=== PATIENT | female | born 1985 | race Caucasian/White ===

== ENCOUNTER 2024-07-06 13:45 | Emergency (ER) | payer OTHER ==
--- OUTSIDE RECORDS SUMMARY | 2024-07-06 13:48 | XMS REPORT | Continuity of Care Document ---
Author Name Unknown Address [address] [facility] [address] [place] [address] [facility] Address [address] [facility] [address] [place] [address] Care Team Providers Care Lead Web Application Developer Name Role Phone Emily Gordillo Primary Care Physician [phone] Medications Ordered Medication Name Filled Medication Name Start Date Stop Date Current Medication? Ordering Clinician Indication Dosage Frequency Signature (SIG) Comments Components Source ciprofloxac in 0.3 % eye drops 04-06 00:00: 00 Yes % Jamar Rivas ciprofloxac in 0.3 % eye drops 04-05 00:00: 00 Yes % Jamar Rivas Immunizations Ordered Immunization Name Filled Immunization Name Date Status Comments Source Tdap Tdap 2024-06-28 00:00:00 Completed Jamar Victorino Rob Vital Signs Vital Name Observation Time Observation Value Comments S ource Heart Rate 2024-06-28 09:41:00 92.00 /min Lily Rivas Respiratory Rate 2024-06-28 09:41:00 18.00 /min Jamar Rivas BP Systolic 2024-06-28 09:41:00 114 mm[Hg] Alonzo Rivas BP Diastolic 2024-06-28 09:41:00 79 mm[Hg] Yash Rivas Weight Measured 2024-06-28 09:41:00 123.00 pounds Jamar Rivas Height Measured 2024-06-28 09:41:00 69.00 inches Jamar Rivas Body Temperature 2024-06-28 09:41:00 98.00 degrees Jamar Rivas BP Systolic 2024-04-05 16:03:00 111 mm[Hg] Alonzo hen Victorino Rivas BP Diastolic 2024-04-05 16:03:00 73 mm[Hg] Yash Rivas Weight Measured 2024-04-05 16:03:00 135.00 pounds Jamar Rivas Height Measured 2024-04-05 16:03:00 69.00 inches Jamar Rivas Body Temperature 2024-04-05 16:03:00 98.30 degrees Jamar Rivas Heart Rate 2024-04-05 16:03:00 78.00 /min Lily Rivas Respiratory Rate 2024-04-05 16:03:00 Jamar Rivas Encounters Start Date/Time End Date/Time Encounter Type Admission Type Attending [facility] Care Department Encounter ID Source 2024-07-04 17:33:25 2024-07-04 17:33:25 Outpatient [facility] [id number] Jamar Rivas 2024-06-28 09:31:15 2024-06-28 09:31:15 Outpatient [facility] [id number] Jamar Rivas 2024-06-28 00:00:00 2024-06-28 00:00:00 Outpatient Visit [facility] [id number] Jamar Rivas 2024-04-05 15:49:22 2024-04-05 15:49:22 Outpatient [facility] [id number] Jamar Rivas Notes Date/Time Note Provider Source Jamar Gleason. [facility]
--- NOTE | 2024-07-06 14:52 | RAD REPORT ---
EXAMINATION: ONE VIEW CHEST XR CLINICAL INDICATION: SOB TECHNIQUE: Frontal chest projection is submitted. Examination is limited by patient positioning and t echnique. COMPARISON: No prior exam. FINDINGS: The lungs are well inflated and clear. The heart is normal in size. No displaced fractures identified . Spinal hardware noted spanning the thoracic spine with mild dextro scoliosis. IMPRESSION: No acute intrathoracic abnormalities.
[2024-07-06 15:15] LABS: Absolute Lymphocytes (CBC) 0.4 K/uL (0.7-4.9); Absolute Monocytes 0.5 K/uL (0.1-1.3); Absolute Neutrophil 2.9 K/uL (1.8-8.0); Basophils % 0.8 % (0-1.3); Eosinophils % 0.1 % (0-4.4); Hematocrit 27.8 % (36.0-45.0); Hemoglobin 9.8 g/dL (12.0-15.0); MCH 36.2 pg (27.0-35.0); MCHC 35.3 g/dL (32.0-36.0); MCV 102.5 fL (80-100); MPV 9.6 fL (7.6-11.3); Monocytes % 12.8 % (3.3-12.3); Neutrophils % 76.3 % (41.7-73.7); Nucleated Red Blood Cells % 0.1 % (0-0); Platelets 68 thou/uL (152-406); RBC Red Blood Cell Count 2.71 M/uL (3.86-4.86); Red Cell Distribution Width 16.8 % (12.1-15.2)
[2024-07-06 15:21] LABS: PTT, Activated Partial Thromb 34.2 SECONDS (24.3-36.9); Protime INR 1.72
[2024-07-06 15:31] LABS: Albumin 2.9 g/dL (3.4-5.0); Albumin/Globulin Ratio 0.6 (1.1-1.8); Bilirubin Direct 11.4 mg/dL (0-0.2); Globulin 4.6 g/dL (2.3-3.5); Protein, Total 7.5 g/dL (6.4-8.2); Troponin High Sensitivity 3.6 pg/mL (<58.9)
[2024-07-06 15:37] LABS: Anion Gap 19.1 mEq/L (5.0-15.0); Bilirubin Total 16.4 mg/dL (0.2-1.0); Magnesium 1.3 mg/dL (1.6-2.4); Potassium 3.1 mEq/L (3.5-5.1)
--- NOTE | 2024-07-06 16:57 | RAD REPORT ---
EXAMINATION: CTA CHEST PE CLINICAL INDICATION: shortness of breath TECHNIQUE: This examination was performed according to an angiographic protocol with 3D post-processi ng. This involves 3D reconstructions, MIPs, volume rendered images and/or shaded surface rendering. One or more of the following dose reduction techniques were used: Automated exposure control, adjustm ent of the mA and/or kV according to patient size, and/or iterative reconstruction. Unless otherwise specified, incidental findings do not require dedicated imaging follow-up. COMPARISON: No prior exam. FINDINGS: PULMONARY ARTERIES: Normal caliber. No evidence of pulmonary emboli to the subsegmental level. THORACIC AORTA: Normal caliber and configuration. LUNGS: No evidence of airspace or interstitial process. No nodules. Minimal scarring posterior right upper lobe. PLEURA: No pleural effusion. No pneumothorax. MEDIASTINUM AND LYMPH NODES: No mediastinal mass or fluid collection. Normal size mediastinal, hilar, and axillary lymph nodes. OSSEOUS STRUCTURES AND CHEST WALL: Intact. UPPER ABDOMEN: Hepatomegaly with severe fatty infiltration of the liver noted. Probable splenomegaly. Thoracic spine hardware. IMPRESSION: No evidence of pulmonary emboli to the subsegmental level. Hepatomegaly with severe fatty infiltration of the liver and probable splenomegaly.
--- NOTE | 2024-07-06 16:59 | RAD REPORT ---
EXAMINATION: CT ABDOMEN AND PELVIS WITH CONTRAST CLINICAL INDICATION: ABDOMINAL DISTENTION TECHNIQUE: CT abdomen and pelvis was performed, after the administration of IV contrast, as per [facility] protocol. Axial, sagittal and coronal reconstructions were obtained. One or more of the following dose reduction techniques were used: Automated exposure control, adjustment of the mA and k V according to patient size, and iterative reconstruction. Unless otherwise specified, incidental findings do not require dedicated imaging follow-up. COMPARISON: No prior exam. FINDINGS: LOWER CHEST: The visualized lung bases are clear. LIVER: The liver is enlarged with advanced steatosis present technically involving the right lobe of the liver. Nonvisualized gallbladder. SPLEEN: Mild to moderate splenomegaly. PANCREAS: No mass, ductal dilation, or esther-pancreatic fluid. ADRENALS: Normal; no mass. KIDNEYS: Normal size and contour. No hydronephrosis. GASTROINTESTINAL TRACT: No evidence of free air, significant intra-abdominal free fluid, bowel obstru ction or abscess. APPENDIX: Normal appendix. LYMPH NODES: No lymphadenopathy. MUSCULOSKELETAL: Hardware is in place thoracic spine. ADDITIONAL FINDINGS: None. IMPRESSION: Marked hepatomegaly with severe steatosis predominantly involving the right lobe of the liver. Noneme rgent follow-up utilizing MRI liver protocol may be helpful. [id number] splenomegaly.
--- NOTE | 2024-07-06 17:04 | ER ---
Nurse's Notes [facility] Name: Rylee Thomas Age: 38 yrs Sex: Female : 1985 Arrival Date: 07/06/2024 Time: 13:45 Bed 8 Private MD: Diagnosis: Hepatic failure, unspecified without coma;Hypokalemia;Hypomagnesemia Presentation: 07/06 14:32 Chief complaint: Patient states: Shortness of breath, abdominal swelling, yellowing of ph skin and eyes, bruising easily, N/V admits to drinking alcohol regularly, wine and liquor. Last drink a few days ago. Coronavirus screen: Vaccine status: Patient reports being unvaccinated. Ebola Screen: No symptoms or risks identified at this time. Initial Sepsis Screen: Does the patient meet any 2 criteria? No. Patient's initial sepsis screen is negative. Does the patient have a suspected source of infection? No. Patient's initial sepsis screen is negative. Risk Assessment: Do you want to hurt yourself or someone else? Patient reports no desire to harm self or others. Onset of symptoms was July 06, 2024. 14:32 Method Of Arrival: Ambulatory ph 14:32 Acuity: NIDHI 2 ph Triage Assessment: 14:36 General: Appears in no apparent distress. ill, slender, well groomed, Behavior is calm, ph cooperative. Pain: Complains of pain in abdomen. Respiratory: Reports shortness of breath at rest. GI: Abdomen is noted to have ascites. Derm: Skin is jaundiced. 19:30 Respiratory: Onset: The symptoms/episode began/occurred this morning, the patient has br2 moderate shortness of breath. Historical: - Allergies: 14:35 No Known Allergies; ph - PMHx: 14:35 None; ph - PSHx: 14:35 partial hysterectomy; ph - Immunization history:: Adult Immunizations unknown. - Infectious Disease History:: Denies. - Social history:: Smoking status: Patient denies any tobacco usage or history of. Screenin:39 [facility] ED Fall Risk Assessment (Adult) History of falling in the last 3 months, mb9 including since admission No falls in past 3 months (0 pts) Confusion or Disorientation No (0 pts) Intoxicated or Sedated No (0 pts) Impaired Gait No (0 pts) Mobility Assist Device Used No (0 pt) Altered Elimination No (0 pt) Score/Fall Risk Level 0 - 2 = Low Risk Oriented to surroundings, Maintained a safe environment, Educated pt \T\ family on fall prevention, incl call for assistance when getting out of bed. Abuse screen: Denies threats or abuse. Nutritional screening: No deficits noted. Tuberculosis screening: No symptoms or risk factors identified. Assessment: 14:38 General: Appears uncomfortable, Behavior is calm, cooperative. Pain: Complains of pain mb9 in abdomen. Neuro: Hagen Agitation-Sedation Scale (RASS): 0 - Alert and Calm Level of Consciousness is awake, alert, obeys commands, Oriented to person, place, time, situation, Appropriate for age. Cardiovascular: Patient's skin is warm and dry. Rhythm is regular. Respiratory: Airway is patent Respiratory effort is even, unlabored, Respiratory pattern is regular, symmetrical, Breath sounds are clear bilaterally. GI: Abdomen is round distended, Bowel sounds present X 4 quads. Abd is rigid X 4 quads. : No signs and/or symptoms were reported regarding the genitourinary system. EENT: No signs and/or symptoms were reported regarding the EENT system. Derm: Skin is jaundiced. Musculoskeletal: Range of motion: intact in all extremities. 15:57 Reassessment: No changes from previously documented assessment. Patient and/or family mb9 updated on plan of care and expected duration. Pain level reassessed. Patient is alert, oriented x 3, equal unlabored respirations, skin warm/dry/pink. 16:51 Reassessment: No changes from previously documented assessment. Patient and/or family mb9 updated on plan of care and expected duration. Pain level reassessed. Patient is alert, oriented x 3, equal unlabored respirations, skin warm/dry/pink. 18:30 Reassessment: No changes from previously documented assessment. Patient and/or family mb9 updated on plan of care and expected duration. Pain level reassessed. Patient is alert, oriented x 3, equal unlabored respirations, skin warm/dry/pink. 19:10 Reassessment: Patient and/or family updated on plan of care and expected duration. Pain br2 level reassessed. Patient is alert, oriented x 3, equal unlabored respirations, skin warm/dry/pink. Patient states feeling better. Patient states symptoms have improved. GI: Abdomen is round distended, Bowel sounds present X 4 quads. Abd is rigid X 4 quads. Vital Signs: 14:32 BP 116 / 95; Pulse 88; Resp 18; Temp 97.8; Pulse Ox 99% on R/A; Weight 55.34 kg; Height ph 5 ft. 9 in. ; 15:57 BP 105 / 68; Pulse 101; Resp 16; Pulse Ox 100% on R/A; mb9 16:51 BP 120 / 71; Pulse 99; Resp 15; Pulse Ox 100% on R/A; mb9 18:30 BP 104 / 63; Pulse 114; Resp 15; Pulse Ox 98% on R/A; mb9 19:10 BP 110 / 73; Pulse 115; Resp 20; Temp 97.3; Pulse Ox 100% on R/A; Pain 4/10; br2 14:32 Body Mass Index 18.02 (55.34 kg, 175.26 cm) ph 19:10 Pain Scale: Adult br2 ED Course: 13:47 Patient arrived in ED. mg5 13:55 Renato Mars PA is PHCP. cp 13:55 Bobby Bermudez MD is Attending Physician. cp 14:28 Elo Alaniz, SCARLETT is Primary Nurse. mb9 14:28 Arm band placed on. mb9 14:35 Triage completed. ph 14:40 Placed in gown. Bed in low position. Call light in reach. Side rails up X 1. Provided mb9 Education on: press call light if needing anything. Client placed on continuous cardiac and pulse oximetry monitoring. NIBP monitoring applied. school lunch monitor on. 14:47 XRAY Chest (1 view) In Process Unspecified. EDMS 14:48 EKG done, by ED staff, reviewed by Renato HERCULES. mb9 14:48 No provider procedures requiring assistance completed. mb9 15:02 Accessed peripheral vein via ultrasound, utilizing dynamic ultrasound technique using ss 20G Nexia IV catheter ,sterile technique, per hospital protocol. Clean \T\ dry. Dressing intact. Good blood return. Flushes easily. 15:03 Ptt, Activated Sent. ss 15:03 AMMONIA Sent. ss 15:03 Lipase Sent. ss 15:03 Urine W/Microscopic (UAM) Sent. ss 15:03 ETOH Level Sent. ss 16:52 CT Chest For PE Angio In Process Unspecified. EDMS 16:52 CT Abd/Pelvis - IV Contrast Only In Process Unspecified. EDMS 17:30 spoke with Yoana for initiation at the [facility]. bc6 18:13 doc to doc. bc6 19:12 Report given to Terri and Luz Marina. cm10 19:12 Report received from COLTEN. br2 21:15 Patient transferred, IV remains in place. br2 Administered Medications: 17:37 Drug: NS 0.9% IV 1000 ml IV at 1 bolus Per protocol; to be given as a bolus over 60 mb9 minutes Route: IV; Rate: 1 bolus; Site: right antecubital; 18:29 Follow up: Response: No adverse reaction; IV Status: Completed infusion mb9 19:45 Follow up: Response: No adverse reaction; IV Status: Completed infusion; IV Intake: br2 1000ml 17:37 Drug: NS 0.9% IV 1000 ml IV at 125 ml/hr continuous Route: IV; Rate: 125 ml/hr; Site: mb9 right antecubital; 18:30 Follow up: Response: No adverse reaction; IV Status: Infusion continued upon transfer mb9 18:29 Drug: Magnesium Sulfate IVPB 2 grams IVPB once over 2 hrs Route: IVPB; Infused Over: 2 mb9 hrs; Site: right antecubital; 18:30 Follow up: Response: No adverse reaction; IV Status: Infusion continued upon transfer mb9 20:30 Follow up: Response: No adverse reaction; IV Status: Completed infusion; IV Intake: br2 100ml 18:29 Drug: Potassium PO Effervescent Tablet 50 mEq PO once; dissolve in 4 ounces of water or mb9 juice Route: PO; 19:15 Follow up: Response: No adverse reaction br2 19:41 Drug: Ativan IVP 1 mg IVP once Route: IVP; Site: right antecubital; br2 20:30 Follow up: Response: No adverse reaction br2 Medication: 14:48 VIS not applicable for this client. mb9 Intake: 19:45 IV: 1000ml; Total: 1000ml. br2 20:30 IV: 100ml; Total: 1100ml. br2 Outcome: 17:04 ER care complete, transfer ordered by cp 21:15 Transferred by ground EMS to [facility], Transfer form completed. br2 X-rays sent w/ patient. 21:15 Condition: improved 21:15 Instructed on the need for transfer, Demonstrated understanding of instructions, 21:15 Patient left the ED. br2 Signatures: Dispatcher [employer] EDMS Shawanda Burgess, RN RN ss Pamela Hsu RN RN Renato Price PA PA cp Wilkerson, Elo Venegas, RN RN mb9 Erica Prado 6 Elidia Carrasco RN RN cm10 Leslee Gallagher 5 Luz Marina London RN RN br2 Corrections: (The following items were deleted from the chart) 21:42 21:41 Patient left the ED. br2 br2
--- NOTE | 2024-07-06 17:04 | EDPHYS ---
Physician Documentation [facility] Name: Rylee Thomas Age: 38 yrs Sex: Female : 1985 Arrival Date: 07/06/2024 Time: 13:45 Bed 8 Private MD: ED Physician Bobby Bermudez HPI: 07/06 14:25 This 38 yrs old Female presents to ER via Ambulatory with complaints of Shortness Of cp Breath, Abdominal Pain. 14:25 The patient has shortness of breath at rest. Onset: The symptoms/episode began/occurred cp yesterday. 14:25 Associated signs and symptoms: Pertinent positives: abdominal distension. cp 14:25 Duration: The symptoms are continuous, and are steadily getting worse. cp Historical: - Allergies: 14:35 No Known Allergies; ph - PMHx: 14:35 None; ph - PSHx: 14:35 partial hysterectomy; ph - Immunization history:: Adult Immunizations unknown. - Infectious Disease History:: Denies. - Social history:: Smoking status: Patient denies any tobacco usage or history of. ROS: 14:30 Constitutional: Negative for body aches, chills, fever, poor PO intake, cp 14:30 Respiratory: Positive for shortness of breath, at rest. cp 14:30 ENT: Negative for drainage from ear(s), ear pain, sore throat, difficulty swallowing, cp difficulty handling secretions, 14:30 Cardiovascular: Negative for chest pain, 14:30 Abdomen/GI: Positive for abdominal distension, 14:30 Neuro: Negative for altered mental status, 14:30 All other systems are negative, Exam: 14:33 Constitutional: The patient appears in no acute distress, alert, awake, cp non-diaphoretic, non-toxic, well developed, well nourished, 14:33 Head/Face: Normocephalic, atraumatic. cp 14:33 Eyes: Periorbital structures: appear normal, Pupils: equal, round, and reactive to light and accomodation, Conjunctiva: normal, no exudate, no injection, Sclera: icterus, is present, Lids and lashes: appear normal, bilaterally, 14:33 ENT: External ear(s): are unremarkable, Nose: is normal, Mouth: Lips: moist, Oral mucosa: moist, Posterior pharynx: Airway: no evidence of obstruction, patent, 14:33 Chest/axilla: Inspection: normal, 14:33 Cardiovascular: Rate: tachycardic, Rhythm: regular, 14:33 Respiratory: the patient does not display signs of respiratory distress, Respirations: normal, no use of accessory muscles, no retractions, labored breathing, is not present, Breath sounds: are clear throughout, no decreased breath sounds, no stridor, no wheezing, 14:33 Abdomen/GI: Inspection: distension, that is mild, Palpation: abdomen is soft and non-tender, in all quadrants, Liver: is firm, is enlarged, 14:33 Skin: cellulitis, is not appreciated, 14:33 Neuro: Orientation: to person, place \T\ time. 14:50 ECG was reviewed by the Attending Physician. Vital Signs: 14:32 BP 116 / 95; Pulse 88; Resp 18; Temp 97.8; Pulse Ox 99% on R/A; Weight 55.34 kg; Height ph 5 ft. 9 in. ; 15:57 BP 105 / 68; Pulse 101; Resp 16; Pulse Ox 100% on R/A; mb9 16:51 BP 120 / 71; Pulse 99; Resp 15; Pulse Ox 100% on R/A; mb9 18:30 BP 104 / 63; Pulse 114; Resp 15; Pulse Ox 98% on R/A; mb9 19:10 BP 110 / 73; Pulse 115; Resp 20; Temp 97.3; Pulse Ox 100% on R/A; Pain 4/10; br2 14:32 Body Mass Index 18.02 (55.34 kg, 175.26 cm) ph 19:10 Pain Scale: Adult br2 MDM: 14:23 Medical Screening Exam initiated cp 17:10 Data reviewed: vital signs, nurses notes, lab test result(s), EKG, radiologic studies. 07/06 14:22 Order name: Basic Metabolic Panel; Complete Time: 16:24 07/06 16:24 Interpretation: Normal except: NA 134; CL 95; CRE 0.47; K 3.1; ANION GAP 19.1. 07/06 14:22 Order name: CBC with Diff; Complete Time: 18:15 07/06 16:25 Interpretation: Normal except: WBC 3.80; RBC 2.71; HGB 9.8; HCT 27.8; MCV 102.5; MCH cp 36.2; PLT 68; RDW 16.8; SULAIMAN% 76.3; LYM% 10.0; MN% 12.8; LYMA 0.4. 07/06 14:22 Order name: LFT's; Complete Time: 16:24 cp 07/06 16:26 Interpretation: Normal except: ALK 200; BILID 11.4; ALB 2.9; GLOB 4.6; A/G 0.6; AST cp 252; BILIT 16.4; IBILI, CALC 5.0. 07/06 14:22 Order name: Magnesium; Complete Time: 16:24 cp 07/06 18:15 Interpretation: Reviewed. 07/06 14:22 Order name: NT PRO-BNP; Complete Time: 16:24 cp 07/06 14:22 Order name: PT-INR; Complete Time: 16:24 cp 07/06 14:22 Order name: Troponin HS; Complete Time: 16:24 07/06 14:22 Order name: ETOH Level; Complete Time: 16:24 cp 07/06 14:22 Order name: Lipase; Complete Time: 16:24 cp 07/06 14:22 Order name: AMMONIA; Complete Time: 16:24 cp 07/06 14:22 Order name: Ptt, Activated; Complete Time: 16:24 07/06 17:26 Order name: CBC Smear Scan; Complete Time: 18:15 EDMS 07/06 14:22 Order name: XRAY Chest (1 view); Complete Time: 14:56 cp 07/06 14:56 Interpretation: Report review. 07/06 16:28 Order name: CT Chest For PE Angio; Complete Time: 17:01 cp 07/06 16:28 Order name: CT Abd/Pelvis - IV Contrast Only; Complete Time: 17:01 cp 07/06 17:03 Interpretation: Report reviewed. 07/06 14:22 Order name: Cardiac monitoring; Complete Time: 14:28 cp 07/06 14:22 Order name: EKG - Nurse/Tech; Complete Time: 15:51 cp 07/06 14:22 Order name: IV Saline Lock; Complete Time: 15:03 cp 07/06 14:22 Order name: Labs collected and sent; Complete Time: 15:03 07/06 14:22 Order name: O2 Per Protocol; Complete Time: 14:28 cp 07/06 14:22 Order name: O2 Sat Monitoring; Complete Time: 14:28 cp EC:50 Rate is 90 beats/min. Rhythm is regular. MS interval is normal. QRS interval is normal. cp QT interval is normal. Interpreted by me. Reviewed by me. Administered Medications: 17:37 Drug: NS 0.9% IV 1000 ml IV at 1 bolus Per protocol; to be given as a bolus over 60 mb9 minutes Route: IV; Rate: 1 bolus; Site: right antecubital; 18:29 Follow up: Response: No adverse reaction; IV Status: Completed infusion mb9 19:45 Follow up: Response: No adverse reaction; IV Status: Completed infusion; IV Intake: br2 1000ml 17:37 Drug: NS 0.9% IV 1000 ml IV at 125 ml/hr continuous Route: IV; Rate: 125 ml/hr; [facility] right antecubital; 18:30 Follow up: Response: No adverse reaction; IV Status: Infusion continued upon transfer mb9 18:29 Drug: Magnesium Sulfate IVPB 2 grams IVPB once over 2 hrs Route: IVPB; Infused Over: 2 mb9 hrs; Site: right antecubital; 18:30 Follow up: Response: No adverse reaction; IV Status: Infusion continued upon transfer mb9 20:30 Follow up: Response: No adverse reaction; IV Status: Completed infusion; IV Intake: br2 100ml 18:29 Drug: Potassium PO Effervescent Tablet 50 mEq PO once; dissolve in 4 ounces of water or mb9 juice Route: PO; 19:15 Follow up: Response: No adverse reaction br2 19:41 Drug: Ativan IVP 1 mg IVP once Route: IVP; Site: right antecubital; br2 20:30 Follow up: Response: No adverse reaction br2 Disposition: 07/07 09:02 Co-signature as Attending Physician, Bobby Bermudez MD I reviewed the patient's care rt provided by the Advanced Practice Provider and agree with the diagnosis and treatment plan. Disposition Summary: 07/06/24 17:04 Transfer Ordered Notes: Transfer Location: [facility] cp Reason: Higher level of care cp Condition: Stable cp Problem: new cp Symptoms: have improved cp Accepting Physician: DR Solorzano(07/06/24 21:41) br2 Diagnosis - Hepatic failure, unspecified without coma cp - Hypokalemia cp - Hypomagnesemia cp Forms: - Medication Reconciliation Form cp - SBAR form cp Signatures: Dispatcher [employer] Pamela Guidry, RN RN ph Renato Mars PA PA cp Katty, Elo Venegas RN RN mb9 Bobby Bermudez MD MD rt Luz Marina London, RN RN br2 Corrections: (The following items were deleted from the chart) 07/06 14:24 14:23 BASIC METABOLIC PANEL+C.LAB.BRZ ordered. EDMS EDMS 14:24 14:23 CBC+H.LAB.BRZ ordered. EDMS EDMS 14:24 14:23 HEPATIC FUNCTION+C.LAB.BRZ ordered. EDMS EDMS 14:24 14:23 MAGNESIUM+C.LAB.BRZ ordered. EDMS EDMS 14:24 14:23 PROBNP+C.LAB.BRZ ordered. EDMS EDMS 14:24 14:23 PROTIME (+INR)+COAG.LAB.BRZ ordered. EDMS EDMS 14:24 14:23 Troponin High Sensitivity+C.LAB.BRZ ordered. EDMS EDMS 14:24 14:23 ETHANOL+C.LAB.BRZ ordered. EDMS EDMS 14:24 14:23 URINE DRUG SCREEN+UC.LAB.BRZ ordered. EDMS EDMS 14:24 14:23 Urinalysis W/Microscopic+U.LAB.BRZ ordered. EDMS EDMS 14:24 14:23 LIPASE+C.LAB.BRZ ordered. EDMS EDMS 14:24 14:24 AMMONIA+C.LAB.BRZ ordered. EDMS EDMS 14:24 14:24 PTT, ACTIVATED+COAG.LAB.BRZ ordered. EDMS EDMS 14:54 14:25 The patient has shortness of breath with light activity, cp cp 18:46 17:04 doctor cp cp 21:41 18:46 DR Solorzano cp br2
[2024-07-06 17:24] LABS: White Blood Cell Scan OK (OK)
[2024-07-06 17:25] LABS: Anisocytosis 1+; Blood Morphology Comment NOTED (NOT SEEN); Platelet Estimate DECR; Poikilocytosis 1+
[2024-07-06] MEDS ORDERED: NA CHLORIDE 0.9% 2,000 ML ONE (17:34)
[2024-07-06] MEDS ORDERED: Magnesium Sulfate 2gm IVPB 2 G/50 ML BAG IV ONE (18:23)
[2024-07-06] MEDS ORDERED: POTASSIUM 25 MEQ EFFERV TAB ONE (18:23)
[2024-07-06] MEDS ORDERED: LORazepam 2 MG/ML VIAL ONE (19:23)
[2024-07-07 00:38] VITALS: BP 110/73; TEMP 97.3; O2SAT 100
== END 2024-07-06 21:41 | disposition short-term general hospital (02) ==
LOC: ER 13:45
DX: K72.90 Hepatic failure, unspecified without coma (principal); E87.6 Hypokalemia; E83.42 Hypomagnesemia; R14.0 Abdominal distension (gaseous)
CPT/HCPCS: 96361; 93005; 85025; 80048; 36415; 82140; 83735; 85610; 80076; 85730; 84484; 83690; 83880; 71275; 74177; 71045; 96375; 96374; 99285; 82077; Q9967; J3475; J7030

== ENCOUNTER 2024-08-19 05:22 | Emergency (ER) | payer OTHER ==
[2024-08-19] MEDS ORDERED: KETOROLAC 30 MG/ML INJ ONE (06:30)
[2024-08-19] MEDS ORDERED: MORPHINE 4 MG/ML SYR ONE (06:30)
[2024-08-19] MEDS ORDERED: methocarbamoL 750 MG TAB ONE (06:30)
[2024-08-19] MEDS ORDERED: NA CHLORIDE 0.9% 500 ML ONE (06:31)
[2024-08-19 06:41] LABS: Absolute Basophils 0.1 K/uL (0-0.5); Absolute Eosinophils 0.1 K/uL (0-0.5); Absolute Lymphocytes (CBC) 2.6 K/uL (0.7-4.9); Absolute Neutrophil 6.1 K/uL (1.8-8.0); Basophils % 0.6 % (0-1.3); Hematocrit 35.2 % (36.0-45.0); Hemoglobin 12.1 g/dL (12.0-15.0); Lymphocytes % 26.7 % (15.3-44.8); MCH 35.2 pg (27.0-35.0); MCHC 34.3 g/dL (32.0-36.0); MCV 102.6 fL (80-100); MPV 9.1 fL (7.6-11.3); Monocytes % 10.4 % (3.3-12.3); Neutrophils % 61.3 % (41.7-73.7); Platelets 204 thou/uL (152-406); RBC Red Blood Cell Count 3.43 M/uL (3.86-4.86); Red Cell Distribution Width 14.3 % (12.1-15.2)
[2024-08-19 07:01] LABS: ALT/SGPT 151 U/L (13-56); AST/SGOT 203 U/L (15-37); Albumin 2.6 g/dL (3.4-5.0); Albumin/Globulin Ratio 0.7 (1.1-1.8); Alkaline Phosphatase 104 U/L (45-117); Anion Gap 9.4 mEq/L (5.0-15.0); BUN Blood Urea Nitrogen 15 mg/dL (7-18); Bicarbonate 26 mEq/L (21-32); Bilirubin Total 1.9 mg/dL (0.2-1.0); Glomerular Filtration Rate 140 ml/min (=/>90); Glucose Level 88 mg/dL (74-106); Lipase 74 U/L (13-75); Potassium 3.4 mEq/L (3.5-5.1); Protein, Total 6.6 g/dL (6.4-8.2); Sodium Level 140 mEq/L (136-145)
[2024-08-19 07:02] LABS: Creatine Phosphokinase < 15 U/L (26-192)
--- NOTE | 2024-08-19 07:11 | RAD REPORT ---
EXAM: AP view(s) of the abdomen Abdomen Single View HISTORY: spinal pain COMPARISON: 07/06/2024 FINDINGS: Nonobstructive bowel gas pattern.. Large colonic stool burden. No suspicious calcifications are seen. No acute osseous abnormality. Ibarra rods in the thoracic spine. Levoconvex curvature. Other: Hepatosplenomegaly. IMPRESSION: Nonobstructive bowel gas pattern. Likely constipation. Hepatosplenomegaly, also noted on the CT from 07/06/2024.
--- NOTE | 2024-08-19 07:12 | RAD REPORT ---
EXAM: Chest Single View HISTORY: spinal pain COMPARISON: 07/06/2024 FINDINGS: LUNGS/PLEURA: The lungs are clear. No pleural effusions or pneumothorax. No pulmonary edema. MEDIASTINUM: The mediastinal silhouette is within normal limits. CARDIAC: The cardiac silhouette is within normal limits. UPPER ABDOMEN: No significant abnormality. BONES: No acute fracture. Dextroscoliotic curvature with Ibarra rods in place. LINES/TUBES/OTHER: N/A IMPRESSION: No evidence of acute cardiopulmonary disease.
--- NOTE | 2024-08-19 07:21 | ER ---
Nurse's Notes [facility] Name: Rylee Thomas Age: 38 yrs Sex: Female : 1985 Arrival Date: 08/19/2024 Time: 05:22 Bed 5 Private MD: Diagnosis: Acute exertional pain left lower extremity, Acute musculoskeletal pain left thigh and buttock Presentation: 08/19 05:36 Chief complaint: Patient states: leg and hip pain since this morning. Coronavirus kj2 screen: Client denies travel out of the [place] in the last 14 days. Ebola Screen: No symptoms or risks identified at this time. Initial Sepsis Screen: Does the patient meet any 2 criteria? No. Patient's initial sepsis screen is negative. Does the patient have a suspected source of infection? No. Patient's initial sepsis screen is negative. Risk Assessment: Do you want to hurt yourself or someone else? Patient reports no desire to harm self or others. Onset of symptoms was August 19, 2024. 05:36 Method Of Arrival: Ambulatory kj2 05:36 Acuity: NIDHI 3 kj2 Triage Assessment: 05:40 General: Appears uncomfortable, Behavior is cooperative. Pain: Complains of pain in kj2 legs and hip pain Pain currently is 8 out of 10 on a pain scale. Neuro: Level of Consciousness is awake, alert, Oriented to person, place, time, situation. Cardiovascular: Patient's skin is warm and dry. Respiratory: Airway is patent Respiratory effort is even, unlabored. GI: Abdomen is distended. : No deficits noted. 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 - Infectious Disease History:: Denies. - Social history:: Smoking status: Patient denies any tobacco usage or history of. - Family history:: not pertinent. Screenin:47 [facility] ED Fall Risk Assessment (Adult) History of falling in the last 3 months, kj2 including since admission No falls in past 3 months (0 pts) Confusion or Disorientation No (0 pts) Intoxicated or Sedated No (0 pts) Impaired Gait No (0 pts) Mobility Assist Device Used No (0 pt) Altered Elimination No (0 pt) Score/Fall Risk Level 0 - 2 = Low Risk Maintained a safe environment, Hourly rounding (assess needs \T\ fall precautionary measures) done. Abuse screen: Denies threats or abuse. Denies injuries from another. Nutritional screening: No deficits noted. Tuberculosis screening: No symptoms or risk factors identified. Assessment: 05:43 General: See Triage Assessment. Pain: Complains of pain in bilat legs, hips Pain kj2 currently is 8 out of 10 on a pain scale. Neuro: Level of Consciousness is awake, alert, obeys commands, Oriented to person, place, time, situation. Cardiovascular: Patient's skin is warm and dry. Respiratory: Airway is patent Respiratory effort is even, unlabored. GI: Abdomen is distended. : No signs and/or symptoms were reported regarding the genitourinary system. 06:45 Reassessment: Patient appears in no apparent distress at this time. Patient and/or kj2 family updated on plan of care and expected duration. Pain level reassessed. Patient is alert, oriented x 3, equal unlabored respirations, skin warm/dry/pink. General:. 07:30 Reassessment: Patient appears in no apparent distress at this time. Patient and/or jl7 family updated on plan of care and expected duration. Pain level reassessed. Patient is alert, oriented x 3, equal unlabored respirations, skin warm/dry/pink. pain rated 3/10 at this time. Vital Signs: 05:36 BP 105 / 66; Pulse 97; Resp 18; Temp 99.3; Pulse Ox 100% ; Weight 57.15 kg; Height 5 kj2 ft. 9 in. ; Pain 9/10; 06:46 BP 119 / 88; Pulse 112; Resp 18; Temp 98; Pulse Ox 100% ; kj2 07:30 BP 110 / 85; Pulse 105; Resp 15; Pulse Ox 100% ; Pain 3/10; jl7 05:36 Body Mass Index 18.61 (57.15 kg, 175.26 cm) kj2 05:36 Pain Scale: Adult kj2 07:30 Pain Scale: Adult jl7 Cody Coma Score: 06:53 Eye Response: spontaneous(4). Motor Response: obeys commands(6). Verbal Response: sp4 oriented(5). Total: 15. ED Course: 05:23 Patient arrived in ED. jj6 05:25 Rebekah Kern, RN is Primary Nurse. kj2 05:29 Jean Carlos Warren MD is Attending Physician. sp4 05:39 Triage completed. kj2 05:48 Patient has correct armband on for positive identification. Bed in low position. Call kj2 light in reach. Provided Education on: call light. 05:49 Arm band placed on Patient placed in an exam room, on a stretcher. kj2 06:42 Lactate w/ 2H reflex if indic. Sent. kj2 06:48 Door closed. Noise minimized. Warm blanket given. vk 07:00 Inserted saline lock: 22 gauge in left antecubital area, using aseptic technique. jl7 ,using aseptic technique. IV placed by shift engineer staff Blood collected. Flushed with 10 mL NS. 07:03 Chest Single View XRAY In Process Unspecified. EDMS 07:03 Abdomen 1 View XRAY In Process Unspecified. EDMS 07:50 No provider procedures requiring assistance completed. IV discontinued, intact, jl7 bleeding controlled, No redness/swelling at site. Pressure dressing applied. Administered Medications: 07:53 Discontinued: ns 0.9% 500 ml IV at bolus once; to be given as a bolus over 30 minutes jl7 06:42 Drug: Ketorolac IVP 30 mg IVP once Route: IVP; Site: left antecubital; kj2 07:08 Follow up: Response: No adverse reaction kj2 06:42 Drug: Methocarbamol PO 1500 mg PO once Route: PO; kj2 07:07 Follow up: Response: No adverse reaction kj2 06:42 Drug: NS 0.9% IV 500 ml IV at bolus once; to be given as a bolus over 30 minutes Route: kj2 IV; Rate: bolus; Site: left antecubital; 07:00 Follow up: Response: Pt reports pain at the IV site while infusing, infusion stopped.; jl7 IV Status: IV converted to saline lock 07:00 Follow up: IV Status: Order to discontinue infusion jl7 07:00 Follow up: IV Status: Completed infusion jl7 06:43 Drug: morphine IVP or IV 4 mg IVP once over 4 mins Route: IVP; Infused Over: 4 mins; kj2 Site: left antecubital; 07:08 Follow up: Response: No adverse reaction kj2 Medication: 05:48 VIS not applicable for this client. kj2 Outcome: 07:20 Discharge ordered by . janie 07:57 Discharged to home ambulatory, jl7 07:57 Condition: stable 07:57 Discharge instructions given to patient, Instructed on discharge instructions, follow up and referral plans. medication usage, Demonstrated understanding of instructions, follow-up care, medications, Prescriptions given X 3, 07:57 Patient left the ED. jl7 Signatures: Dispatcher [employer] EDPablo Calderon RN RN jl7 Jelena Hastings Sergey, MD MD sp4 Elisa Campos Krystal, RN RN kj2
--- NOTE | 2024-08-19 07:21 | EDPHYS ---
Physician Documentation [facility] Name: Rylee Thomas Age: 38 yrs Sex: Female : 1985 Arrival Date: 08/19/2024 Time: 05:22 Bed 5 Private MD: ED Physician Jean Carlos Warren HPI: 08/19 05:29 This 38 yrs old Female presents to ER via Unassigned with complaints of sp4 SEVERE LEG PAIN, PT HAS H/O LIVER DISEASE. 06:53 38-year-old female with history of alcoholic steatohepatitis also history of scoliosis sp4 with Ibarra jalil repair, presents with moderate to severe pelvic and left thigh pain, after some physical exertion at home.. 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 - Infectious Disease History:: Denies. - Social history:: Smoking status: Patient denies any tobacco usage or history of. - Family history:: not pertinent. ROS: 06:53 Constitutional: Negative for fever, chills, and weight loss, positive for pelvic sp4 pain and left upper thigh pain 06:53 All other systems are negative, Exam: 06:53 Constitutional: This is a well developed, well nourished patient who is awake, alert, sp4 and in no acute distress. Head/Face: Normocephalic, atraumatic. Eyes: Pupils equal round and reactive to light, extra-ocular motions intact. Lids and lashes normal. Conjunctiva and sclera are not injected. Cornea within normal limits. Periorbital areas with no swelling, redness, or edema. ENT: Nares patent. No nasal discharge, no septal abnormalities noted. Tympanic membranes are normal and external auditory canals are clear. Oropharynx with no redness, swelling, or masses, exudates, or evidence of obstruction, uvula midline. Mucous membranes moist. Neck: Trachea midline, no thyromegaly or masses palpated, and no cervical lymphadenopathy. Supple, full range of motion without nuchal rigidity, or vertebral point tenderness. Chest/axilla: Normal chest wall appearance and motion. Nontender with no deformity. No lesions are appreciated. Cardiovascular: Regular rate and rhythm with a normal S1 and S2. No gallops, murmurs, or rubs. Normal PMI, no JVD. No pulse deficits. Respiratory: Lungs have equal breath sounds bilaterally, clear to auscultation and percussion. No rales, rhonchi or wheezes noted. No increased work of breathing, no retractions or nasal flaring. Abdomen/GI: Soft, with normal bowel sounds. No distension or tympany. No guarding or rebound. No evidence of tenderness throughout. Back: No spinal tenderness. No costovertebral tenderness. Skin: Warm, dry with normal turgor. Normal color with no rashes, no lesions, and no evidence of cellulitis. MS/ Extremity: Pulses equal, no cyanosis. Neurovascular intact. Full, normal range of motion. Neuro: Awake and alert, GCS 15, oriented to person, place, time, and situation. Cranial nerves II-XII grossly intact. Motor strength 5/5 in all extremities. Sensory grossly intact. Psych: Awake, alert, with orientation to person, place and time. Behavior, mood, and affect are within normal limits Vital Signs: 05:36 BP 105 / 66; Pulse 97; Resp 18; Temp 99.3; Pulse Ox 100% ; Weight 57.15 kg; Height 5 kj2 ft. 9 in. ; Pain 9/10; 06:46 BP 119 / 88; Pulse 112; Resp 18; Temp 98; Pulse Ox 100% ; kj2 07:30 BP 110 / 85; Pulse 105; Resp 15; Pulse Ox 100% ; Pain 3/10; jl7 05:36 Body Mass Index 18.61 (57.15 kg, 175.26 cm) kj2 05:36 Pain Scale: Adult kj2 07:30 Pain Scale: Adult jl7 Cody Coma Score: 06:53 Eye Response: spontaneous(4). Motor Response: obeys commands(6). Verbal Response: sp4 oriented(5). Total: 15. MDM: 05:34 Medical Screening Exam initiated sp4 08/19 05:47 Order name: Lactate w/ 2H reflex if indic.; Complete Time: 07:03 sp4 08/19 05:47 Order name: CK; Complete Time: 07:03 sp4 08/19 05:47 Order name: CBC with Diff; Complete Time: 06:53 sp4 08/19 05:47 Order name: CMP; Complete Time: 07:03 sp4 08/19 05:47 Order name: Lipase; Complete Time: 07:03 sp4 08/19 05:47 Order name: Test, Serum sp4 08/19 06:45 Order name: Chest Single View XRAY; Complete Time: 07:15 sp4 08/19 06:45 Order name: Abdomen 1 View XRAY; Complete Time: 07:15 sp4 08/19 05:47 Order name: IV Saline Lock; Complete Time: 06:41 sp4 08/19 05:47 Order name: Labs collected and sent; Complete Time: 06:41 sp4 Administered Medications: 07:53 Discontinued: ns 0.9% 500 ml IV at bolus once; to be given as a bolus over 30 minutes jl7 06:42 Drug: Ketorolac IVP 30 mg IVP once Route: IVP; Site: left antecubital; kj2 07:08 Follow up: Response: No adverse reaction kj2 06:42 Drug: Methocarbamol PO 1500 mg PO once Route: PO; kj2 07:07 Follow up: Response: No adverse reaction kj2 06:42 Drug: NS 0.9% IV 500 ml IV at bolus once; to be given as a bolus over 30 minutes Route: kj2 IV; Rate: bolus; Site: left antecubital; 07:00 Follow up: Response: Pt reports pain at the IV site while infusing, infusion stopped.; jl7 IV Status: IV converted to saline lock 07:00 Follow up: IV Status: Order to discontinue infusion jl7 07:00 Follow up: IV Status: Completed infusion jl7 06:43 Drug: morphine IVP or IV 4 mg IVP once over 4 mins Route: IVP; Infused Over: 4 mins; kj2 Site: left antecubital; 07:08 Follow up: Response: No adverse reaction kj2 Disposition Summary: 08/19/24 07:20 Discharge Ordered Notes: Low impact exercise is recommended Location: Home sp4 Problem: new sp4 Symptoms: have improved sp4 Condition: Stable sp4 Diagnosis - Acute exertional pain left lower extremity, Acute musculoskeletal pain left thigh sp4 and buttock Followup: sp4 - With: Private Physician - When: 7 - 10 days - Reason: Recheck today's complaints Discharge Instructions: - Discharge Summary Sheet sp4 - Musculoskeletal Pain sp4 Forms: - Work release form jl7 - Patient Portal Instructions sp4 Prescriptions: - Ibuprofen 600 mg Oral Tablet - take 1 tablet ORAL route every 6 hours As needed take with food; 30 tablet; sp4 Refills: 0, Product Selection Permitted - Tramadol 50 mg Oral tablet - take 1 tablet ORAL route every 8 hours as needed; 20 tablet; Refills: 0, sp4 Product Selection Permitted - methocarbamol 750 mg Oral tablet - take 2 tablets ORAL route every 8 hours for 3 days PRN muscle soreness; 60 sp4 tablet; Refills: 0, Product Selection Permitted Signatures: Dispatcher [employer] Pablo Canales, RN RN jl7 Jean Carlos Warren MD MD sp4 Rebekah Kern RN RN kj2 Corrections: (The following items were deleted from the chart) 05:47 05:47 LACTATE+C.LAB.BRZ ordered. EDMS EDMS 05:47 05:47 CREATINE PHOSPHOKINASE+C.LAB.BRZ ordered. EDMS EDMS 05:47 05:47 CBC+H.LAB.BRZ ordered. EDMS EDMS 05:47 05:47 COMPREHENSIVE METABOLIC PANEL+C.LAB.BRZ ordered. EDMS EDMS 05:47 05:47 LIPASE+C.LAB.BRZ ordered. EDMS EDMS 05:47 05:47 TEST, SERUM+SC.LAB.BRZ ordered. EDMS EDMS
[2024-08-19 10:25] VITALS: O2SAT 100
[2024-08-19 10:26] VITALS: TEMP 98
[2024-08-19 10:27] VITALS: BP 110/85
== END 2024-08-19 07:57 | disposition home or self-care (01) ==
LOC: ER 05:22
DX: M79.662 Pain in left lower leg (principal); M79.652 Pain in left thigh; K74.60 Unspecified cirrhosis of liver; M41.9 Scoliosis, unspecified
CPT/HCPCS: 85025; 36415; 82550; 84703; 83605; 83690; 80053; 74018; 71045; 96375; 96374; 99284; J7040

== ENCOUNTER 2024-09-02 02:33 | Emergency (ER) | payer OTHER ==
[2024-09-02] MEDS ORDERED: FLUORESCEIN SODIUM 1 MG/WRAP ONE (02:46)
[2024-09-02] MEDS ORDERED: TETRACAINE HCL 0.5% 4ML OPTH ONE (02:47)
[2024-09-02] MEDS ORDERED: TOBRAMYCIN SULF 0.3% OPTH OINT ONE (02:53)
--- NOTE | 2024-09-02 02:56 | EDPHYS ---
Physician Documentation [facility] Name: Rylee Thomas Age: 38 yrs Sex: Female : 1985 Arrival Date: 09/02/2024 Time: 02:33 Bed 5 Private MD: ED Physician Arias Adam HPI: 09/02 02:56 This 38 yrs old Female presents to ER via Ambulatory with complaints of Foreign Body In ms3 Eye - Left. 02:56 Danica Brandt, a 38-year-old female, presented to the Emergency Department with a ms3 complaint of a contact being stuck in her left eye, which began this morning around 1:00 to 1:30 AM. Patient denies pain. Patient denies any alleviating or inciting factors.. 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 - Infectious Disease History:: Denies. - Social history:: Smoking status: Patient denies any tobacco usage or history of. ROS: 02:56 Constitutional: Negative for fever, and chills. ms3 02:56 Cardiovascular: Negative for chest pain, and palpitations. Respiratory: Negative for shortness of breath, cough, wheezing, and pleuritic chest pain, Abdomen/GI: Negative for abdominal pain, nausea, vomiting, diarrhea, and constipation, MS/Extremity: Negative for injury and deformity, Skin: Negative for injury, rash, and discoloration, 02:56 Eyes: Positive for Foreign body sensation, Exam: 02:56 Constitutional: This is a well developed, well nourished patient who is awake, alert, ms3 and in no acute distress. Head/Face: Normocephalic, atraumatic. Cardiovascular: Regular rate and rhythm with a normal S1 and S2. No gallops, murmurs, or rubs. Normal PMI, no JVD. No pulse deficits. Respiratory: Lungs have equal breath sounds bilaterally, clear to auscultation and percussion. No rales, rhonchi or wheezes noted. No increased work of breathing, no retractions or nasal flaring. Abdomen/GI: Soft, non-tender, with normal bowel sounds. No distension or tympany. No guarding or rebound. No evidence of tenderness throughout. 02:56 Eyes: Periorbital structures: appear normal, Pupils: equal, round, and reactive to light and accomodation, Extraocular movements: no acute changes, Conjunctiva: normal, Corneas: are normal, no evidence of abrasion, no foreign body, Lids and lashes: appear normal, Vital Signs: 02:47 BP 118 / 83; Pulse 98; Resp 18; Temp 98.2; Pulse Ox 98% ; Weight 57.15 kg; Height 5 ft. cp4 9 in. ; Pain 0/10; 02:47 Body Mass Index 18.61 (57.15 kg, 175.26 cm) cp4 02:47 Pain Scale: Adult cp4 [place] Coma Score: 02:42 Eye Response: spontaneous(4). Motor Response: obeys commands(6). Verbal Response: dd2 oriented(5). Total: 15. Visual Acuity: 02:53 Left Eye Visual acuity 20/0, ; Right Eye Visual acuity 20/40, Normal; Both Eyes Visual cp4 acuity 20/40; With Lenses; MDM: 02:55 Medical Screening Exam initiated ms3 02:56 Differential diagnosis: Corneal abrasion of Foreign body in. Data reviewed: vital ms3 signs, nurses notes, and as a result, I will discharge patient. I considered the following discharge prescriptions or medication management in the emergency department Medications were administered in the Emergency Department. See MAR. Counseling: I had a detailed discussion with the patient and/or guardian regarding the historical points, exam findings, and any diagnostic results supporting the discharge/admit diagnosis, the need for outpatient follow up, to return to the emergency department if symptoms worsen or persist or if there are any questions or concerns that arise at home. Special discussion: I discussed with the patient/guardian in detail that at this point there is no indication for admission to the hospital. It is understood, however, that if the symptoms persist or worsen the patient needs to return immediately for re-evaluation. ED course: Left eyelid everted without visualization of foreign body, fluorescein stain and Faustin lamp used without visualization of corneal abrasion or foreign body. Patient to follow-up Dr. Aguilar in 2 to 3 days. Patient understands agrees with plan. All questions were answered. Return precautions discussed include worsening symptoms, or any other concerns.. 09/02 02:36 Order name: Eye Tray; Complete Time: 02:52 ms3 09/02 02:36 Order name: Fluoresene Opth strip; Complete Time: 02:52 ms3 09/02 02:36 Order name: Visual Acuity; Complete Time: 02:51 ms3 Administered Medications: 02:53 Drug: Tetracaine Ophthalmic Drops 0.5 % 1 drops Ophthalmic once Route: Ophthalmic; dd2 Site: left eye; 02:56 Not Given (Physician Discretion): tobramycindrops (0.3 %) 2 drops Ophthalmic once cp4 Disposition Summary: 09/02/24 02:55 Discharge Ordered Notes: Location: Home ms3 Condition: Stable ms3 Diagnosis - Person with feared health complaint in whom no diagnosis is made ms3 Followup: ms3 - With: David Aguilar MD - When: 2 - 3 days - Reason: Recheck today's complaints Discharge Instructions: - Discharge Summary Sheet ms3 - Eye Foreign Body, [id number] ms3 Forms: - Medication Reconciliation Form ms3 - Antibiotic Education ms3 - Prescription Opioid Use ms3 - Patient Portal Instructions ms3 - Leadership Thank You Letter ms3 Signatures: Arias Adam DO DO ms3 Terri Lora cp4 MALIK RAMIREZ RN RN dd2
--- NOTE | 2024-09-02 02:56 | ER ---
Nurse's Notes [facility] Name: Rylee Thomas Age: 38 yrs Sex: Female : 1985 Arrival Date: 09/02/2024 Time: 02:33 Bed 5 Private MD: Diagnosis: Person with feared health complaint in whom no diagnosis is made Presentation: 09/02 02:47 Chief complaint: Patient states: contact is stuck up in her left eye. Coronavirus cp4 screen: Client denies travel out of the [place] in the last 14 days. At this time, the client does not indicate any symptoms associated with coronavirus-19. Ebola Screen: Patient negative for fever greater than or equal to 101.5 degrees Fahrenheit, and additional compatible Ebola Virus Disease symptoms Patient denies exposure to infectious person. Patient denies travel to an Ebola-affected area in the 21 days before illness onset. No symptoms or risks identified at this time. Initial Sepsis Screen: Does the patient meet any 2 criteria? No. Patient's initial sepsis screen is negative. Does the patient have a suspected source of infection? No. Patient's initial sepsis screen is negative. Risk Assessment: Do you want to hurt yourself or someone else? Patient reports no desire to harm self or others. Onset of symptoms was September 02, 2024 at 01:00. 02:47 Method Of Arrival: Ambulatory cp4 02:47 Acuity: NIDHI 4 cp4 Triage Assessment: 02:49 General: Appears in no apparent distress. uncomfortable, Behavior is calm, cooperative, cp4 appropriate for age. Pain: Denies pain. 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 - Infectious Disease History:: Denies. - Social history:: Smoking status: Patient denies any tobacco usage or history of. Screenin:42 [facility] ED Fall Risk Assessment (Adult) History of falling in the last 3 months, dd2 including since admission No falls in past 3 months (0 pts) Confusion or Disorientation No (0 pts) Intoxicated or Sedated No (0 pts) Impaired Gait No (0 pts) Mobility Assist Device Used No (0 pt) Altered Elimination No (0 pt) Score/Fall Risk Level 0 - 2 = Low Risk Oriented to surroundings, Maintained a safe environment, Educated pt \T\ family on fall prevention, incl call for assistance when getting out of bed, Assessed \T\ reinforced patient's understanding of fall precautions, Hourly rounding (assess needs \T\ fall precautionary measures) done. Abuse screen: Denies threats or abuse. Nutritional screening: No deficits noted. Tuberculosis screening: No symptoms or risk factors identified. Assessment: 02:42 General: Appears in no apparent distress. Behavior is calm, cooperative, appropriate dd2 for age. Pain: Complains of pain in left eye Pain does not radiate. Pain currently is 3 out of 10 on a pain scale. Pain began suddenly. Neuro: No deficits noted. Level of Consciousness is awake, alert, obeys commands, Oriented to person, place, time, situation, Appropriate for age. Cardiovascular: No deficits noted. Respiratory: No deficits noted. Airway is patent Respiratory effort is even, unlabored, Respiratory pattern is regular, symmetrical. GI: No deficits noted. No signs and/or symptoms were reported involving the gastrointestinal system. : No deficits noted. No signs and/or symptoms were reported regarding the genitourinary system. EENT: Eyes are tearing on left eye Reports pain in left eye Pain is 3 out of 10 on a pain scale. EENT: Eyes. Derm: No deficits noted. No signs and/or symptoms reported regarding the dermatologic system. Musculoskeletal: No deficits noted. No signs and/or symptoms reported regarding the musculoskeletal system. Vital Signs: 02:47 BP 118 / 83; Pulse 98; Resp 18; Temp 98.2; Pulse Ox 98% ; Weight 57.15 kg; Height 5 ft. cp4 9 in. ; Pain 0/10; 02:47 Body Mass Index 18.61 (57.15 kg, 175.26 cm) cp4 02:47 Pain Scale: Adult cp4 Visual Acuity: 02:53 Left Eye Visual acuity 20/0, ; Right Eye Visual acuity 20/40, Normal; Both Eyes Visual cp4 acuity 20/40; With Lenses; [place] Coma Score: 02:42 Eye Response: spontaneous(4). Motor Response: obeys commands(6). Verbal Response: dd2 oriented(5). Total: 15. ED Course: 02:36 Patient arrived in ED. ra3 02:36 Arias Adam DO is Attending Physician. ms3 02:42 Patient has correct armband on for positive identification. Bed in low position. Call dd2 light in reach. Side rails up X 1. Provided Education on: EYE EXAM PROCEDURE. Client placed on continuous cardiac and pulse oximetry monitoring. NIBP monitoring applied. Door closed. Noise minimized. Warm blanket given. Pillow given. Verbal reassurance given. 02:42 Assist provider with eye exam of left eye. using fluorescein stain, Performed by Arias dd2 Kia COWART Patient tolerated well. Patient did not have IV access during this emergency room visit. Patient maintains SpO2 saturation greater than 95% on room air. 02:49 Triage completed. cp4 02:49 Arm band placed on right wrist. Patient placed in waiting room. cp4 02:55 David Aguilar MD is Referral Physician. ms3 02:58 MALIK RAMIREZ, RN is Primary Nurse. dd2 Administered Medications: 02:53 Drug: Tetracaine Ophthalmic Drops 0.5 % 1 drops Ophthalmic once Route: Ophthalmic; dd2 Site: left eye; 02:56 Not Given (Physician Discretion): tobramycindrops (0.3 %) 2 drops Ophthalmic once cp4 Medication: 02:42 VIS not applicable for this client. dd2 Outcome: 02:55 Discharge ordered by . ms3 03:07 Discharged to home ambulatory, dd2 03:07 Condition: good 03:07 Discharge instructions given to patient, Instructed on discharge instructions, follow up and referral plans. Demonstrated understanding of instructions, follow-up care, 03:07 Patient left the ED. dd2 Signatures: Arias Adam DO DO ms3 Terri Lora cp4 Jessica Hu ra3 MALIK RAMIREZ, RN RN dd2
[2024-09-02 03:12] VITALS: BP 118/83; TEMP 98.2; O2SAT 98
== END 2024-09-02 03:07 | disposition home or self-care (01) ==
LOC: ER 02:33
DX: Z71.1 Person with feared health complaint in whom no diagnosis is made (principal)
CPT/HCPCS: 99284

== ENCOUNTER 2024-10-05 13:34 | Emergency (ER) | payer OTHER ==
--- OUTSIDE RECORDS SUMMARY | 2024-10-05 13:45 | XMS REPORT | Continuity of Care Document ---
Author Name Unknown Address [address] [facility] [address] [place] [address] [facility] Address [address] [facility] [address] [place] [address] Care Team Providers Care Strategic Partnership Manager Name Role Phone Abelino Castaneda [facility] Primary Care Physician SHEILA TAN Attending Clinician Unavail able SHABNAM VELARDE Attending Clinician FERNANDO Luque Attending Clinician Unavailable CHANEL BUNCH Attending Clinician Unavailable Chanel Bunch MD Attending Clinician [phone] Radha Phipps MD Attending Clinician [phone] Petra Camp MD Attending Clinician Sheila Tan MD Attending Clinician [phone] Rhiannon Zeng MD Attending Clinician [phone] RHIANNON ZENG Attending Clinician Unavailable Ponce Jovel MD Attending Clinician [phone] Jessica Mondragon NP Attending Clinician JESSICA KAUFFMAN Attending Clinician Unavailable SHEILA MCINTYRE Attending Clinician Unavailable DONNELL, PRAVEEN Attending Clinician UnavailHIRA Mcallister Attending Clinician UnavailHira Chou MD Attending Clinician [phone] April Bean DO Attending Clinician [phone] Stepan FLORES, Sara Rivera Attending Clinician Joseph FLORES, Devon Attending Clinician APRIL BEAN Attending Clinician Unavailable PETRA CAMP Admitting Clin ician Unavailable DEVON NEWMAN Admitting Clinician Unavailable Payers Payer Name Policy Type Policy Number Effective Date Expirati on Date Source [facility] LIZ TREVIZO [id number] 2024 00:00:00 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 Recurre nce 2023-09 00:00: 00 [facility] Alcoholic liver damage Alcoholic liver damage Disease Recurre [facility] 2023-09 0-23 00:00: 00 [facility] Hyperbilir ubinemia Hyperbilir ubinemia Disease Active 2023-09 0-18 00:00: 00 [facility] Allergies, Adverse Reactions, Alerts Allergy Name Allergy Type Status Severity Reaction(s) Onset Date Inactive Date Treating Clinician Comments Source NO KNOWN ALLERGIE S Allergy Active [facility] Social History Social Habit Start Date Stop Date Quantity Comments Source ASSERTION Not [facility] Sexual orientation [facility] Tobacco use and exposure 2024-07-21 00:00:00 2024-07-21 00:00:00 Smokeless tobacco non-user [facility] Alcoholic beverage intake 2024-07-21 00:00:00 2024-07-21 00:00:00 Ex-drinker (finding) [facility] History of Social function 2024-07-06 00:00:00 2024-07-06 00:00:00 [facility] Sex assigned at 1985 00:00:00 1985 00:00:00 [facility] Smoking Status Start Date Stop Date Source Never smoked tobacco [facility] Medications Ordered Medication Name Filled Medication Name Start Date Stop Date Current Medication? Ordering Clinician Indication Dosage Frequency Signature (SIG) Comments Components Source predniSONE (DELTASONE) 10 MG tablet 2023-09 00:00: 00 08-30 23:59 :00 Yes Take 3 tablets (30 mg total) by mouth daily with breakfast for 7 days, THEN 2 tablets (20 mg total) daily with breakfast for 7 days, THEN 1 tablet (10 mg total) daily with breakfast for 7 days. START THIS ON 08/09/24 (after you finish the 40 mg prednisone course). [facility] spironolact one (ALDACTONE) 100 MG tablet 2023-09 00:00: 00 Yes 100mg QD Take 1 tablet (100 mg total) by mouth daily. [facility] furosemide (LASIX) 40 MG tablet 2023-09 00:00: 00 Yes 40mg QD Take 1 tablet (40 mg total) by mouth daily. [facility] sulfamethox azole-trime thoprim (BACTRIM,SE PTRA) 400-80 mg per tablet 2023-09 00:00: 00 Yes 80mg{tr imethop rim} QD Take 1 tablet (80 mg of trimethopr im total) by mouth daily. [facility] folic acid (FOLVITE) 1 MG tablet 2023-09 0 00:00: 00 07-14 23:59 :00 Yes 1mg QD Take 1 tablet (1 mg total) by mouth daily. [facility] thiamine 100 MG tablet 2023-09 0 00:00: 00 07-14 23:59 :00 Yes 100mg QD Take 1 tablet (100 mg total) by mouth daily. [facility] predniSONE (DELTASONE) 20 MG tablet 2023-09 025 00:00: 00 08-11 23:59 :00 Yes 40mg Take 2 tablets (40 mg total) by mouth daily with breakfast for 28 days Look-ali ke/Sound-a like medication . [facility] tobramycin 0.3 % eye drops 2023-09 0-15 00:00: 00 Yes 2% Jamar Rivas ciprofloxac in 0.3 % eye drops -18 00:00: 00 Yes % Jamar Rivas ciprofloxac in 0.3 % eye drops 04-05 00:00: 00 Yes % Jamar Rivas Immunizations Ordered Immunization Name Filled Immunization Name Date Status Comments Source Tdap Tdap 2024-06-28 00:00:00 Completed Jamar Rivas Vital Signs Vital Name Observation Time Observation Value Comments S ource HEIGHT 2024-07-21 11:08:00 175.3 cm WEIGHT 2024-07-21 11:08:00 65.772 kg HEIGHT 2024-07-21 11:08:00 175.3 cm WEIGHT 2024-07-21 11:08:00 65.772 kg WEIGHT 2024-07-06 22:45:00 56.7 kg WEIGHT 2024-07-06 22:45:00 56.7 kg BP Systolic 2024-08-01 09:06:00 109 mm[Hg] Alonzo Rivas BP Diastolic 2024-08-01 09:06:00 76 mm[Hg] Yash Rivas Weight Measured 2024-08-01 09:06:00 127.80 pounds Jamar Rivas Height Measured 2024-08-01 09:06:00 69.00 inches Jamar Rivsa Body Temperature 2024-08-01 09:06:00 98.00 degrees Jamar Rivas Heart Rate 2024-08-01 09:06:00 108.00 /min Alonzo Rivas Respiratory Rate 2024-08-01 09:06:00 18.00 /min Jamar Rivas Systolic blood pressure 2024-07-25 10:58:00 106 mm[Hg] [facility] Diastolic blood pressure 2024-07-25 10:58:00 63 mm[Hg] [facility] Heart rate 2024-07-25 10:58:00 105 /min [facility] Body temperature 2024-07-25 10:58:00 37.22 Cony [facility] Respiratory rate 2024-07-25 10:58:00 19 /min [facility] Oxygen saturation in Arterial blood by Pulse oximetry 2024-07-25 10:58:00 96 /min [facility] Body weight 2024-07-25 06:00:00 57.4 kg [facility] BMI 2024-07-25 06:00:00 18.69 kg/m2 [facility] Body height 2024-07-21 11:08:00 175.3 cm [facility] BP Systolic 2024-07-04 17:36:00 112 mm[Hg] Step hen F Rob BP Diastolic 2024-07-04 17:36:00 81 mm[Hg] Yash phen F Rob Weight Measured 2024-07-04 17:36:00 122.00 pounds Jamar F Rob Height Measured 2024-07-04 17:36:00 69.00 inches Jamar F Rob Body Temperature 2024-07-04 17:36:00 97.80 degrees Jamar F Rob Heart Rate 2024-07-04 17:36:00 117.00 /min Step hen F Rob Respiratory Rate 2024-07-04 17:36:00 16.00 /min Jamar F Rob Heart Rate 2024-06-28 09:41:00 92.00 /min Lily en F Rob Respiratory Rate 2024-06-28 09:41:00 18.00 /min Jamar F Rob BP Systolic 2024-06-28 09:41:00 114 mm[Hg] Step hen F Rob BP Diastolic 2024-06-28 09:41:00 79 mm[Hg] Yash phen F Rob Weight Measured 2024-06-28 09:41:00 123.00 pounds Jamar F Rob Height Measured 2024-06-28 09:41:00 69.00 inches Jamar F Rob Body Temperature 2024-06-28 09:41:00 98.00 degrees Jamar F Rob BP Systolic 2024-04-05 16:03:00 111 mm[Hg] Step hen F Rob BP Diastolic 2024-04-05 16:03:00 73 mm[Hg] Yash phen F Rob Weight Measured 2024-04-05 16:03:00 135.00 pounds Jamar F Rob Height Measured 2024-04-05 16:03:00 69.00 inches Jamar F Rob Body Temperature 2024-04-05 16:03:00 98.30 degrees Jamar F Rob Heart Rate 2024-04-05 16:03:00 78.00 /min Lily en F Rob Respiratory Rate 2024-04-05 16:03:00 Jamar Gleason Rob Procedures Procedure Date / Time Performed Performing Clinician Source PHOSPHORUS 2024-07-25 04:34:00 Fahadjames Mcintyre Sheila [facility] MAGNESIUM 2024-07-25 04:34:00 Fahad Camdenkarthikeyan Sheila [facility] COMPREHENSIVE METABOLIC PANEL 2024-07-25 04:34:00 Fahad Mcintyre [facility] CBC W/PLT COUNT & AUTO DIFFERENTIAL 2024-07-25 04:34:00 Fahad Hannahkarthikeyan, [facility] CBC W/PLT COUNT & AUTO DIFFERENTIAL 2024-07-25 04:34:00 Fahad Mcintyre [facility] POTASSIUM 2024-07-24 18:32:00 Rhiannon Zeng [facility] PHOSPHORUS 2024-07-24 05:16:00 Fahad Mcintyre She[facility] MAGNESIUM 2024-07-24 05:16:00 Fahad Mcintyre Sheila [facility] COMPREHENSIVE METABOLIC PANEL 2024-07-24 05:16:00 Fahad Mcintyre [facility] CBC W/PLT COUNT & AUTO DIFFERENTIAL 2024-07-24 05:16:00 Fahad Mcintyre [facility] CBC W/PLT COUNT & AUTO DIFFERENTIAL 2024-07-24 05:16:00 Fahad Mcintyre [facility] BASIC METABOLIC PANEL 2024-07-23 15:23:00 Fahad rivera [facility] IRON, TIBC, % SAT. (WITHOUT FERRITIN) 2024-07-23 05:06:00 [facility] FERRITIN 2024-07-23 05:06:00 [facility] PHOSPHORUS 2024-07-23 05:06:00 Fahad Mcintyre She[facility] MAGNESIUM 2024-07-23 05:06:00 Fahad Mcintyre She[facility] COMPREHENSIVE METABOLIC PANEL 2024-07-23 05:06:00 Fahad Mcintyre [facility] CBC W/PLT COUNT & AUTO DIFFERENTIAL 2024-07-23 05:06:00 Fahad Mcintyre [facility] CBC W/PLT COUNT & AUTO DIFFERENTIAL 2024-07-23 05:06:00 Sheila Tan [facility] US PARACENTESIS 2024-07-22 15:23:05 Fahad Mcintyre [facility] BODY FLUID CELL COUNT WITH DIFFERENTIAL 2024-07-22 15:11:00 Frances [facility] BODY FLUID CULTURE + GRAM STAIN 2024-07-22 15:11:00 Frances [facility] ALBUMIN, BODY FLUID 2024-07-22 15:11:00 Frances [facility] PROTEIN, BODY FLUID 2024-07-22 15:11:00 Frances [facility] BLOOD CULTURE 2024-07-22 13:17:00 Sheila Tan [facility] PHOSPHATIDYLETHANOL, BLOOD 2024-07-22 12:41:00 Faby Daniels [facility] URINALYSIS W/ REFLEX URINE CULTURE 2024-07-22 12:40:00 Fahad Mcintyre [facility] URINE CULTURE 2024-07-22 12:40:00 Sheila Tan [facility] PROTHROMBIN TIME/INR 2024-07-22 04:19:00 Fahad Mcintyre [facility] PHOSPHORUS 2024-07-22 04:19:00 Sheila Tan [facility] MAGNESIUM 2024-07-22 04:19:00 Sheila Tan [facility] COMPREHENSIVE METABOLIC PANEL 2024-07-22 04:19:00 Fahad Mcintyre [facility] CBC W/PLT COUNT & AUTO DIFFERENTIAL 2024-07-22 04:19:00 Fahad Micntyre [facility] CBC W/PLT COUNT & AUTO DIFFERENTIAL 2024-07-22 04:19:00 Fahad Mcintyre [facility] B-TYPE NATRIURETIC FACTOR (BNP) 2024-07-21 12:50:00 Chanel Bunch [facility] CBC W/PLT COUNT & AUTO DIFFERENTIAL 2024-07-21 12:50:00 Zita [facility] COMPREHENSIVE METABOLIC PANEL 2024-07-21 12:50:00 Zita [facility] HCG, QUANTITATIVE, 2024-07-21 12:50:00 Zita [facility] MAGNESIUM 2024-07-21 12:50:00 [facility] PT/APTT 2024-07-21 12:50:00 [facility] HIGH SENSITIVITY TROPONIN I 2024-07-21 12:50:00 [facility] CBC W/PLT COUNT & AUTO DIFFERENTIAL 2024-07-21 12:50:00 [facility] XR CHEST 2 VIEWS 2024-07-21 12:31:00 [facility] COMPREHENSIVE METABOLIC PANEL 2024-07-13 04:18:00 [facility] PROTHROMBIN TIME/INR 2024-07-13 04:18:00 [facility] FERRITIN 2024-07-13 04:18:00 Kiel [facility] IRON, TIBC, % SAT. (WITHOUT FERRITIN) 2024-07-13 04:18:00 Joseph [facility] HEREDITARY HEMOCHROMATOSIS 2024-07-13 04:18:00 Timo Ruizharrison [facility] COMPREHENSIVE METABOLIC PANEL 2024-07-12 05:41:00 [facility] PROTHROMBIN TIME/INR 2024-07-12 05:41:00 [facility] COMPREHENSIVE METABOLIC PANEL 2024-07-11 04:14:00 [facility] PROTHROMBIN TIME/INR 2024-07-11 04:14:00 [facility] CBC W/PLT COUNT & AUTO DIFFERENTIAL 2024-07-11 04:14:00 [facility] CBC W/PLT COUNT & AUTO DIFFERENTIAL 2024-07-11 04:14:00 [facility] THYROID PEROXIDASE (TPO) ANTIBODY 2024-07-10 15:49:[facility]OL[facility] 2024-07-10 05:21:00 [facility] PROTHROMBIN TIME/INR 2024-07-10 05:21:00 [facility] CBC W/PLT COUNT & AUTO DIFFERENTIAL 2024-07-10 05:21:00 [facility] CBC W/PLT COUNT & AUTO DIFFERENTIAL 2024-07-10 05:21:00 [facility] T3, TOTAL 2024-07-09 16:05:00 [facility] T3, REVERSE 2024-07-09 16:05:00 [facility] T4, FREE 2024-07-09 16:05:00 [facility] TSH 2024-07-09 16:05:00 [facility] T3, FREE 2024-07-09 16:05:00 [facility] CBC W/PLT COUNT & AUTO DIFFERENTIAL 2024-07-09 05:14:00 [facility] COMPREHENSIVE METABOLIC PANEL 2024-07-09 05:14:00 [facility] PROTHROMBIN TIME/INR 2024-07-09 05:14:00 [facility] CBC W/PLT COUNT & AUTO DIFFERENTIAL 2024-07-09 05:14:00 [facility] URINALYSIS W/ REFLEX URINE CULTURE 2024-07-09 05:03:00 [facility] BLOOD CULTURE 2024-07-08 16:56:00 [facility] BLOOD CULTURE 2024-07-08 16:46:00 [facility] TSH/FREE T4 IF INDICATED 2024-07-08 16:45:00 Beulah Bean [facility] T4, FREE 2024-07-08 16:45:[address] [facility] XR CHEST 1 VIEW PORTABLE / BEDSIDE 2024-07-08 15:56:11 Omkar Daniels [facility] ACTIN (SMOOTH MUSCLE) ANTIBODY, IGG 2024-07-08 05:51:00 Vishal Hugo [facility] [id number]\, SERUM 2024-07-08 05:51:00 Vishal Hugo [facility] HC LAB FLUORESC AB SCRN EA AB 2024-07-08 05:51:00 Vishal Hugo [facility] CERULOPLASMIN 2024-07-08 05:51:00 [facility]OS[facility] BLO[facility] 2024-07-08 05:51:00 P salo Hugo [facility] MITOCHONDRIAL AB SCREEN 2024-07-08 05:51:00 Tony Hugo [facility] MITOCHONDRIAL AB TITER 2024-07-08 05:51:00 Roger Huog [facility] CBC W/PLT COUNT & AUTO DIFFERENTIAL 2024-07-07 15:08:00 [facility] COMPREHENSIVE METABOLIC PANEL 2024-07-07 15:08:00 [facility] CBC W/PLT COUNT & AUTO DIFFERENTIAL 2024-07-07 15:08:00 [facility] 2024-07-07 14:32:00 Vishal kraus [facility] US ABDOMEN LIMITED 2024-07-07 14:32:00 Vishal Hugo [facility] CBC W/PLT COUNT & AUTO DIFFERENTIAL 2024-07-07 05:31:00 [facility] (CELLAVISION MANUAL DIFF) 2024-07-07 05:31:00 [facility] BASIC METABOLIC PANEL 2024-07-07 05:31:00 [facility] CBC W/PLT COUNT & AUTO DIFFERENTIAL 2024-07-07 05:31:00 Joseph [facility] MAGNESIUM 2024-07-07 05:31:00 Joseph [facility] HEPATIC FUNCTION PANEL 2024-07-07 05:31:00 Joseph Timo gutiérrez [facility] PHOSPHORUS 2024-07-07 05:31:00 Joseph [facility] PROTHROMBIN TIME/INR 2024-07-07 05:31:00 Joseph [facility] HEPATITIS B PANEL 2024-07-07 05:31:00 Devon Newman [facility] HEPATITIS C ANTIBODY 2024-07-07 05:31:00 [facility] HC LAB HIV-1 AG W/HIV-1&2 AB 2024-07-07 05:31:00 [facility] ALPHA FETOPROTEIN (AFP), TUMOR MARKER 2024-07-07 05:31:00 Vishal Hugo [facility] ANTI-NUCLEAR ANTIBODY (IRWIN) 2024-07-07 05:31:00 Vishal Hugo [facility] IMMUNOGLOBULIN G (IGG) 2024-07-07 05:31:00 Roger Hugo [facility] TSH 2024-07-07 05:31:00 Vishal kraus [facility] HEPATITIS A ANTIBODY, IGG 2024-07-07 05:31:00 Humberto Hugo [facility] HEPATITIS A ANTIBODY, IGM 2024-07-07 05:31:00 Humberto Hugo [facility] VITAMIN B12 2024-07-07 05:31:00 Vishal kraus [facility] ECG 12-LEAD 2024-07-07 03:25:33 Unknown, Hl7 Doctor C [facility] ECG 12-LEAD 2024-07-07 03:25:[address] [facility] Encounters Start Date/Time End Date/Time Encounter Type Admission Type Attending [facility] Care Department Encounter ID Source 2024-07-22 12:25:08 Inpatient SHEILA MYERS [facility] [id number] [facility] 2024-07-07 13:42:32 Inpatient [facility] [id number] [facility] 2024-08-23 11:21:32 2024-08-23 11:21:32 Outpatient [facility] [id number] [facility] 2024-08-23 10:19:01 2024-08-23 10:19:01 Outpatient SHABNAM MESA [facility] [id number] [facility] 2024-08-02 11:30:00 2024-08-02 11:30:00 Outpatient [facility]ERNANDO [facility]DA[facility] [id number] [facility] 08:59:14 2024-08-01 08:59:14 Outpatient [facility] [id number] Jamar Rivas 2024-07-26 00:00:00 2024-07-26 00:00:00 Outpatient [facility] [id number] [facility] 2024-07-21 11:14:00 2024-07-25 13:14:00 Hospital Encounter Zita Radha Quiñones Giancarlo Sheila Tan Rhiannon Zeng [facility] [id number] [facility] 2024-07-25 00:00:00 2024-07-25 00:00:00 Outpatient RHIANNON ZENG [id number] Liz [facility] 2024-07-24 00:00:00 2024-07-24 00:00:00 Abstract Ponce Jovel [facility] [id number] [facility] 2024-07-21 12:07:02 2024-07-21 12:07:02 Outpatient CHANEL ESTRELLA [facility] [id number] [facility] 2024-07-21 09:30:00 2024-07-21 10:30:00 Office Visit Jessica Mondragon [facility] [id number] [facility] 2024-07-21 09:42:38 2024-07-21 09:42:38 Outpatient JESSICA HANSON [facility] [id number] [facility] 2024-07-21 00:00:00 2024-07-21 00:00:00 Outpatient GABBY SHEILA LIZ FRYE [id number] Liz [facility] 2024-07-21 00:00:00 2024-07-21 00:00:00 Travel [facility] [id number] [facility] 2024-07-14 00:00:00 2024-07-14 00:00:00 Outpatient PROVIDERPRAVEEN [id number] Liz [facility] 2024-07-06 22:25:00 2024-07-13 10:57:00 Hospital Encounter Hira Solorzano, April Ying, Devon Smith [facility] [id number] [facility] 2024-07-12 00:00:00 2024-07-12 14:20:37 Abstract Ponce Jovel [facility] [id number] [facility] 2024-07-12 00:00:00 2024-07-12 00:00:00 Abstract Ponce Jovel [facility] [id number] [facility] 2024-07-08 15:06:28 2024-07-08 15:06:28 Outpatient APRIL LOPEZ [facility] [id number] [facility] 2024-07-07 00:00:00 2024-07-07 09:04:07 Orders Only [facility] [id number] [facility] 2024-07-04 17:33:25 2024-07-04 17:33:25 Outpatient [facility] [id number] Jamar Rivas 2024-07-04 00:00:00 2024-07-04 00:00:00 Outpatient Visit [facility] [id number] Jamar Rivas 2024-06-28 09:31:15 2024-06-28 09:31:15 Outpatient [facility] [id number] Jamar Rivas 2024-06-28 00:00:00 2024-06-28 00:00:00 Outpatient Visit [facility] [id number] Jamar Rivas 2024-04-05 15:49:22 2024-04-05 15:49:22 Outpatient [facility] [id number] Jamar Rivas 2024-04-05 00:00:00 2024-04-05 00:00:00 Outpatient Visit [facility] [id number] Jamar Rivas Results Test Description Test Time Test Comments Results Result Co mments Source (CELLAVISION MANUAL DIFF)2024-08-23 13:13:44* Test Item Value Reference Range Interpretation Comme nts NEUTROPHILS - REL (CELLAVISION)(BEAKER) (test code = 2816) 61 % LYMPHOCYTES - REL (CELLAVISION)(BEAKER) (test code = 2817) 33 % MONOCYTES - REL (CELLAVISION)(BEAKER) (test code = 2818) 4 % BASOPHILS - REL (CELLAVISION)(BEAKER) (test code = 2820) 2 % NEUTROPHILS - ABS (CELLAVISION)(BEAKER) (test code = 2830) 8.42 K/ul 1.56-6.13 H LYMPHOCYTES - ABS (CELLAVISION)(BEAKER) (test code = 2831) 4.55 K/ul 1.18-3.74 H MONOCYTES - ABS (CELLAVISION)(BEAKER) (test code = 2832) 0.55 K/uL 0.24-0.36 H BASOPHILS - ABS (CELLAVISION)(BEAKER) (test code = 2835) 0.28 K/uL 0.01-0.08 H TOTAL COUNTED (BEAKER) (test code = 1351) 100 WBC MORPHOLOGY (BEAKER) (emaon t code = 487) Normal PLT MORPHOLOGY (BEAKER) (eamon t code = 486) Normal ANISOCYTOSIS (BEAKER) (test code = 961) 1+ few MICROCYTES (BEAKER) (test co de = 965) 1+ few MACROCYTES (BEAKER) (test co de = 964) 1+ few POIKILOCYTES (BEAKER) (test code = 966) 1+ few SCHISTOCYTES (BEAKER) (test code = 765) 1+ few SPHEROCYTES (BEAKER) (test c ode = 768) 1+ few OVALOCYTES (BEAKER) (test co de = 477) 1+ few ARTIFACT (CELLAVISION)(BEAKE R) (test code = 3432) Present PLATELET CONCENTRATION (CELLAVISION)(BEAKER) (test code = 3438) Adequate Water Safety Teacher ID - Mango Jacobs comments: Slide comments:BASIC METABOLIC PANEL 2024-08-23 12:58:04* Test Item Value Reference Range Interpretation Comme nts SODIUM (BEAKER) (test code = 381) 141 meq/L 136-145 POTASSIUM (BEAKER) (test code = 379) 3.2 meq/L 3.4-5.1 L CHLORIDE (BEAKER) (test code = 382) 100 meq/L 98-107 CO2 (BEAKER) (test code = 355) 27 meq/L 22-29 BLOOD UREA NITROGEN (BEAKER) (test code = 354) 10 mg/dL 7-19 CREATININE (BEAKER) (test code = 358) 0.48 mg/dL 0.57-1.11 L GLUCOSE RANDOM (BEAKER) (test code = 652) 80 mg/dL 70-105 CALCIUM (BEAKER) (test code = 697) 8.7 mg/dL 8.4-10.2 EGFR (BEAKER) (test code = 1092) 125 mL/min/1.73 sq m Interpretation of eG FR values Stage Description Result G1 Normal or high >=90 G2 Mildly decreased 60-89 G3a Mildly to moderately 45-59 G3b Moderately to severely 30-44 G4 Severly decreased 15-29 G5 Kidney failure <15Reported eGFR is based on the CKD-EPI 2020 equation that does not use a race coefficientEstimated GFR is not as accurate as Creatinine Clearance in predicting glomerular filtration rate. Estimated GFR is not applicable for dialysis patients Specimen slightly ictericHEPATIC FUNCTION [id number] 12:58:04* Test Item Value Reference Range Interpretation Comme nts TOTAL PROTEIN (BEAKER) (test code = 770) 7.5 gm/dL 6.4-8.3 ALBUMIN (BEAKER) (test code = 1145) 3.4 g/dL 3.5-5.0 L BILIRUBIN TOTAL (BEAKER) (te st code = 377) 2.4 mg/dL 0.2-1.2 H BILIRUBIN DIRECT (BEAKER) (t est code = 706) 1.7 mg/dL 0.1-0.5 H ALKALINE PHOSPHATASE (BEAKER ) (test code = 346) 164 U/L 40-150 H AST (SGOT) (BEAKER) (test co de = 353) 246 U/L 5-34 H ALT (SGPT) (BEAKER) (test co de = 347) 169 U/L <55 H Specimen slightly ictericPROTHROMBIN TIME/[id number] 12:39:39* Test Item Value Reference Range Interpretation Comme nts PROTIME (BEAKER) (test code = 759) 15.0 seconds 11.9-14.2 H INR (BEAKER) (test code = 370) 1.15 <=5.90 RECOMMENDED COUMADIN/WARFARIN INR THERAPY RANGESSTANDARD DOSE: 2.0 - 3.0 Includes: PROPHYLAXIS for venous thrombosis, systemic embolization; TREATMENT for venous thrombosis and/or pulmonary embolus.HIGH RISK: Target INR is 2.5-3.5 for patients with mechanical heart valves.IRON BINDING CAPACITY AND IRON AND % [id number] 04:08:52* Test Item Value Reference Range Interpretation Comme nts IRON, SERUM (test code = 2222) 102 UG/DL 37-145 UNSATURATED IBC (test code = 86249) 99 UG/DL 112-347 L CALC TOTAL IBC (test code = 2077) 201 UG/DL 250-450 L CALC % IRON SAT (test code = 2079) 51 % 20-50 H UNLESS OTHERWISE INDICATED, ALL TESTING PERFORMED AT [facility] [address] [place] [id number] AVIATION TECHNICIAN: ANDREIA MENDEZ M.D. CLIA NUMBER [id number] CAP [place]. [id number] COMPREHENSIVE METABOLIC [id number] 04:08:52* Test Item Value Reference Range Interpretation Comme nts GLUCOSE (test code = 2217) 148 MG/DL 70-99 H BUN (test code = 2207) 14 MG/DL 6-20 CREATININE (test code = 2213) 0.35 MG/DL 0.60-1.30 L eGFR (2020 CKD-EPI) (test code = 03795) 135 ML/MIN/1.73 >60 CALC BUN/CREAT (test code = 2234) 40 RATIO 6-28 H SODIUM (test code = 2230) 138 MEQ/L 133-146 POTASSIUM (test code = 2227) 3.4 MEQ/L 3.5-5.4 L CHLORIDE (test code = 2214) 100 MEQ/L 95-107 CARBON DIOXIDE (test code = 2205) 23 MEQ/L 19-31 CALCIUM (test code = 2208) 8.5 MG/DL 8.5-10.5 PROTEIN, TOTAL (test code = 2228) 6.6 G/DL 6.1-8.3 ALBUMIN (test code = 2200) 3.5 G/DL 3.5-5.2 CALC GLOBULIN (test code = 2239) 3.1 G/DL 1.9-3.7 CALC A/G RATIO (test code = 2233) 1.1 RATIO 1.0-2.6 BILIRUBIN, TOTAL (test code = 2206) 7.4 MG/DL <=1.2 H ALKALINE PHOSPHATASE (test code = 2203) 127 U/L 40-112 H AST (test code = 2217) 190 U/L 9-40 H ALT (test code = 2218) 116 U/L 5-40 H [id number] 04:07:58* Test Item Value Reference Range Interpretation Comme nts PHOSPHORUS (test code = 2226) 2.7 MG/DL 2.5-4.5 [id number] 04:07:58* Test Item Value Reference Range Interpretation Comme nts MAGNESIUM (test code = 222) 2.0 MG/DL 1.6-2.6 PROTHROMBIN TIME (PT)2024-08-02 02:25:27* Test Item Value Reference Range Interpretation Comme nts PROTHROMBIN TIME (PT) (test code = 1402) 15.9 SECONDS 12.5-14.7 H INR (test code = 38145) 1.2 SEE BELOW CURRENT RECOMMENDATIONS ARE FOR AN INR OF 2.0-3.0 FOR ALL PATIENTS ON VITAMIN K ANTAGONISTS, EXCEPT THOSE WITH PROSTHETIC HEART VALVES, FOR WHOM INR OF 2.5-3.5 IS RECOMMENDED. [id number] 02:25:27* Test Item Value Reference Range Interpretation Comme nts PTT (test code = 1403) 28.5 SECONDS 25.2-40.0 CBC W/AUTO DIFF WITH [id number] 02:15:29* Test Item Value Reference Range Interpretation Comme nts WBC (test code = 1001) 18.0 K/UL 3.5-11.0 H RBC (test code = 1002) 3.17 M/UL 3.80-5.40 L HEMOGLOBIN (test code = 1003) 11.0 G/DL 11.5-15.5 L HEMATOCRIT (test code = 1004) 32.2 % 34.0-45.0 L MCV (test code = 1005) 101.6 fL 80.0-99.0 H MCH (test code = 1006) 34.7 PG 25.0-33.0 H MCHC (test code = 1007) 34.2 G/DL 31.0-36.0 RDW (test code = 1038) 14.4 % 11.5-15.0 NEUTROPHILS (test code = 1008) 88.5 % LYMPHOCYTES (test code = 1010) 5.1 % MONOCYTES (test code = 1011) 5.5 % EOSINOPHILS (test code = 1012) 0.4 % BASOPHILS (test code = 1013) 0.1 % IMMATURE GRANULOCYTES (test code = 1036) 0.4 % NUCLEATED RBCS (test code = 1065) 0.0 /100 WBC'S See_Comment [Automated messa ge] The system which generated this result transmitted reference range: 0.0. The reference range was not used to interpret this result as normal/abnormal. PLATELET COUNT (test code = 1015) 236 K/UL 130-400 ABSOLUTE NEUTROPHILS (test code = 1066) 15.91 K/UL 1.50-7.50 H ABSOLUTE LYMPHOCYTES (test code = 1067) 0.92 K/UL 1.00-4.00 L ABSOLUTE MONOCYTES (test code = 1068) 0.99 K/UL 0.20-1.00 ABSOLUTE EOSINOPHILS (test code = 1040) 0.07 K/UL 0.00-0.50 ABSOLUTE BASOPHILS (test code = 1069) 0.02 K/UL 0.00-0.20 ABS IMMATURE GRANULOCYTES (test code = 1020) 0.08 K/UL 0.00-0.10 ABS NUCLEATED RBCS (test code = 94013) 0.00 K/UL 0.00-0.11 COMPREHENSIVE METABOLIC [id number] 00:00:00* Test Item Value Reference Range Interpretation Comme nts GLUCOSE (test code = 2217) 148 MG/DL BUN (test code = 2208) 14 MG/DL CREATININE (test code = 2214) 0.35 MG/DL eGFR (2020 CKD-EPI) (test code = 12764) 135 ML/MIN/1.73 CALC BUN/CREAT (test code = 2235) 40 RATIO SODIUM (test code = 2231) 138 MEQ/L POTASSIUM (test code = 2228) 3.4 MEQ/L CHLORIDE (test code = 2215) 100 MEQ/L CARBON DIOXIDE (test code = 2206) 23 MEQ/L CALCIUM (test code = 2209) 8.5 MG/DL PROTEIN, TOTAL (test code = 2229) 6.6 G/DL ALBUMIN (test code = 2201) 3.5 G/DL CALC GLOBULIN (test code = 2240) 3.1 G/DL CALC A/G RATIO (test code = 2234) 1.1 RATIO BILIRUBIN, TOTAL (test code = 2207) 7.4 MG/DL ALKALINE PHOSPHATASE (test code = 2204) 127 U/L AST (test code = 2218) 190 U/L ALT (test code = 2219) 116 U/L Jamar [id number] 00:00:00* Test Item Value Reference Range Interpretation Comme nts PHOSPHORUS (test code = 2227) 2.7 MG/DL Jamar Gleason [id number] 00:00:00* Test Item Value Reference Range Interpretation Comme nts MAGNESIUM (test code = 2226) 2.0 MG/DL Jamar RivasCBC W/AUTO [id number] 00:00:00* Test Item Value Reference Range Interpretation Comme nts WBC (test code = 1001) 18.0 K/UL RBC (test code = 1002) 3.17 M/UL HEMOGLOBIN (test code = 1003) 11.0 G/DL HEMATOCRIT (test code = 1004) 32.2 % MCV (test code = 1005) 101.6 fL MCH (test code = 1006) 34.7 PG MCHC (test code = 1007) 34.2 G/DL RDW (test code = 1038) 14.4 % NEUTROPHILS (test code = 1008) 88.5 % LYMPHOCYTES (test code = 1010) 5.1 % MONOCYTES (test code = 1011) 5.5 % EOSINOPHILS (test code = 1012) 0.4 % BASOPHILS (test code = 1013) 0.1 % IMMATURE GRANULOCYTES (test code = 1036) 0.4 % NUCLEATED RBCS (test code = 1065) 0.0 /100WBC'S PLATELET COUNT (test code = 1015) 236 K/UL ABSOLUTE NEUTROPHILS (test c ode = 1066) 15.91 K/UL ABSOLUTE LYMPHOCYTES (test c ode = 1067) 0.92 K/UL ABSOLUTE MONOCYTES (test cod e = 1068) 0.99 K/UL ABSOLUTE EOSINOPHILS (test c ode = 1040) 0.07 K/UL ABSOLUTE BASOPHILS (test cod e = 1069) 0.02 K/UL ABS IMMATURE GRANULOCYTES (t est code = 1020) 0.08 K/UL ABS NUCLEATED RBCS (test cod e = 27740) 0.00 K/UL Jamar Victorino RobPROTHROMBIN TIME (PT)2024-08-02 00:00:00* Test Item Value Reference Range Interpretation Comme nts PROTHROMBIN TIME (PT) (test code = 1402) 15.9 SECONDS INR (test code = 71654) 1.2 Jamar Gleason [id number] 00:00:00* Test Item Value Reference Range Interpretation Comme nts PTT (test code = 1403) 28.5 SECONDS Jamar Victorino RobIRON BINDING CAPACITY AND IRON AND % [id number] 00:00:00* Test Item Value Reference Range Interpretation Comme nts IRON, SERUM (test code = 2222) 102 UG/DL UNSATURATED IBC (test code = 24911) 99 UG/DL CALC TOTAL IBC (test code = 2076) 201 UG/DL CALC % IRON SAT (test code = 2078) 51 % Jamar Victorino RobBLOOD [id number] 13:00:33* Test Item Value Reference Range Interpretation Comme nts CULTURE (BEAKER) (test code = 1095) No growth in 5 days BLOOD [id number] 13:00:33* Test Item Value Reference Range Interpretation Comme nts CULTURE (BEAKER) (test code = 1095) No growth in 5 days COMPREHENSIVE METABOLIC [id number] 05:03:13* Test Item Value Reference Range Interpretation Comme nts TOTAL PROTEIN (BEAKER) (test code = 770) 5.7 gm/dL 6.4-8.3 L Specimen slightl y hemolyzed ALBUMIN (BEAKER) (test code = 1145) 1.8 g/dL 3.5-5.0 L Specimen slig htly hemolyzed ALKALINE PHOSPHATASE (BEAKER) (test code = 346) 97 U/L 40-150 BILIRUBIN TOTAL (BEAKER) (test code = 377) 11.6 mg/dL 0.2-1.2 H Specimen slightl y hemolyzed SODIUM (BEAKER) (test code = 381) 133 meq/L 136-145 L POTASSIUM (BEAKER) (test code = 379) 3.9 meq/L 3.4-5.1 Specimen sligh tly hemolyzed CHLORIDE (BEAKER) (test code = 382) 101 meq/L 98-107 CO2 (BEAKER) (test code = 355) 24 meq/L 22-29 BLOOD UREA NITROGEN (BEAKER) (test code = 354) 11 mg/dL 7-19 CREATININE (BEAKER) (test code = 358) 0.41 mg/dL 0.57-1.11 L Specimen slightl y hemolyzed GLUCOSE RANDOM (BEAKER) (test code = 652) 105 mg/dL 70-105 CALCIUM (BEAKER) (test code = 697) 7.9 mg/dL 8.4-10.2 L AST (SGOT) (BEAKER) (test code = 353) 89 U/L 5-34 H Specimen slightl y hemolyzed ALT (SGPT) (BEAKER) (test code = 347) 48 U/L <55 Specimen slightl y hemolyzed EGFR (BEAKER) (test code = 1092) 130 mL/min/1.73 sq m Interpretation of eG FR values Stage Description Result G1 Normal or high >=90 G2 Mildly decreased 60-89 G3a Mildly to moderately 45-59 G3b Moderately to severely 30-44 G4 Severly decreased 15-29 G5 Kidney failure <15Reported eGFR is based on the CKD-EPI 2020 equation that does not use a race coefficientEstimated GFR is not as accurate as Creatinine Clearance in predicting glomerular filtration rate. Estimated GFR is not applicable for dialysis patients Specimen markedly [id number] 05:02:41* Test Item Value Reference Range Interpretation Comme nts MAGNESIUM (BEAKER) (test code = 627) 2.2 mg/dL 1.6-2.6 Specimen sligh tly hemolyzed [id number] 05:02:41* Test Item Value Reference Range Interpretation Comme nts PHOSPHORUS (BEAKER) (test code = 604) 3.0 mg/dL 2.3-4.7 Specimen sligh tly hemolyzed CBC W/PLT COUNT & AUTO [id number] 04:57:09* Test Item Value Reference Range Interpretation Comme nts WHITE BLOOD CELL COUNT (BEAK ER) (test code = 775) 21.8 K/ L 3.5-10.5 H RED BLOOD CELL COUNT (BEAKER ) (test code = 761) 2.92 M/ L 3.93-5.22 L HEMOGLOBIN (BEAKER) (test co de = 410) 10.0 GM/DL 11.2-15.7 L HEMATOCRIT (BEAKER) (test co de = 411) 31.0 % 34.1-44.9 L MEAN CORPUSCULAR VOLUME (TAMARA KER) (test code = 753) 106 fL 79-95 H MEAN CORPUSCULAR HEMOGLOBIN (BEAKER) (test code = 751) 34.2 pg 25.6-32.2 H MEAN CORPUSCULAR HEMOGLOBIN CONC (BEAKER) (test code = 752) 32.3 GM/DL 32.2-35.5 RED CELL DISTRIBUTION WIDTH (BEAKER) (test code = 412) 18.6 % 11.7-14.4 H PLATELET COUNT (BEAKER) (eamon t code = 756) 238 K/CU MM 150-450 MEAN PLATELET VOLUME (BEAKER ) (test code = 754) 11.8 fL 9.4-12.3 NUCLEATED RED BLOOD CELLS (BEAKER) (test code = 413) 0 /100 WBC 0-0 NEUTROPHILS RELATIVE PERCENT (BEAKER) (test code = 429) 83 % LYMPHOCYTES RELATIVE PERCENT (BEAKER) (test code = 430) 9 % MONOCYTES RELATIVE PERCENT (BEAKER) (test code = 431) 6 % EOSINOPHILS RELATIVE PERCENT (BEAKER) (test code = 432) 0 % BASOPHILS RELATIVE PERCENT (BEAKER) (test code = 437) 0 % NEUTROPHILS ABSOLUTE COUNT (BEAKER) (test code = 670) 18.12 K/ L 1.56-6.13 H LYMPHOCYTES ABSOLUTE COUNT (BEAKER) (test code = 414) 2.05 K/ L 1.18-3.74 MONOCYTES ABSOLUTE COUNT (BE ALDO) (test code = 415) 1.29 K/ L 0.24-0.36 H EOSINOPHILS ABSOLUTE COUNT (BEAKER) (test code = 416) 0.06 K/ L 0.04-0.36 BASOPHILS ABSOLUTE COUNT (BE ALDO) (test code = 417) 0.02 K/ L 0.01-0.08 IMMATURE GRANULOCYTES-RELATI VE PERCENT (BEAKER) (test code = 2801) 1.10 % 0.00-1.00 H [id number] 18:56:09* Test Item Value Reference Range Interpretation Comme nts POTASSIUM (BEAKER) (test cod e = 379) 3.9 meq/L 3.4-5.1 Body fluid culture + gram [id number] 16:17:03* Test Item Value Reference Range Interpretation Comme nts Result (test code = 6463-4) No growth Lab Interpretation (test cod e = 68554-3) [facility]AM [id number] 16:17:03* Test Item Value Reference Range Interpretation Comme nts CULTURE (BEAKER) (test code = 1095) No growth COMPREHENSIVE METABOLIC [id number] 06:24:29* Test Item Value Reference Range Interpretation Comme nts TOTAL PROTEIN (BEAKER) (test code = 770) 5.4 gm/dL 6.4-8.3 L ALBUMIN (BEAKER) (test code = 1145) 1.7 g/dL 3.5-5.0 L ALKALINE PHOSPHATASE (BEAKER) (test code = 346) 91 U/L 40-150 BILIRUBIN TOTAL (BEAKER) (test code = 377) 13.2 mg/dL 0.2-1.2 H SODIUM (BEAKER) (test code = 381) 131 meq/L 136-145 L POTASSIUM (BEAKER) (test code = 379) 3.2 meq/L 3.4-5.1 L CHLORIDE (BEAKER) (test code = 382) 99 meq/L 98-107 CO2 (BEAKER) (test code = 355) 25 meq/L 22-29 BLOOD UREA NITROGEN (BEAKER) (test code = 354) 10 mg/dL 7-19 CREATININE (BEAKER) (test code = 358) 0.42 mg/dL 0.57-1.11 L GLUCOSE RANDOM (BEAKER) (test code = 652) 112 mg/dL 70-105 H CALCIUM (BEAKER) (test code = 697) 7.7 mg/dL 8.4-10.2 L AST (SGOT) (BEAKER) (test code = 353) 85 U/L 5-34 H ALT (SGPT) (BEAKER) (test code = 347) 43 U/L <55 EGFR (BEAKER) (test code = 1092) 129 mL/min/1.73 sq m Interpretation of eG FR values Stage Description Result G1 Normal or high >=90 G2 Mildly decreased 60-89 G3a Mildly to moderately 45-59 G3b Moderately to severely 30-44 G4 Severly decreased 15-29 G5 Kidney failure <15Reported eGFR is based on the CKD-EPI 2020 equation that does not use a race coefficientEstimated GFR is not as accurate as Creatinine Clearance in predicting glomerular filtration rate. Estimated GFR is not applicable for dialysis patients Specimen markedly [id number] 06:23:52* Test Item Value Reference Range Interpretation Comme nts MAGNESIUM (BEAKER) (test cod e = 627) 2.2 mg/dL 1.6-2.6 [id number] 06:23:52* Test Item Value Reference Range Interpretation Comme nts PHOSPHORUS (BEAKER) (test co de = 604) 2.9 mg/dL 2.3-4.7 CBC W/PLT COUNT & AUTO [id number] 06:13:07* Test Item Value Reference Range Interpretation Comme nts WHITE BLOOD CELL COUNT (BEAK ER) (test code = 775) 21.1 K/ L 3.5-10.5 H RED BLOOD CELL COUNT (BEAKER ) (test code = 761) 2.72 M/ L 3.93-5.22 L HEMOGLOBIN (BEAKER) (test co de = 410) 9.6 GM/DL 11.2-15.7 L HEMATOCRIT (BEAKER) (test co de = 411) 28.9 % 34.1-44.9 L MEAN CORPUSCULAR VOLUME (TAMARA KER) (test code = 753) 106 fL 79-95 H MEAN CORPUSCULAR HEMOGLOBIN (BEAKER) (test code = 751) 35.3 pg 25.6-32.2 H MEAN CORPUSCULAR HEMOGLOBIN CONC (BEAKER) (test code = 752) 33.2 GM/DL 32.2-35.5 RED CELL DISTRIBUTION WIDTH (BEAKER) (test code = 412) 18.8 % 11.7-14.4 H PLATELET COUNT (BEAKER) (eamon t code = 756) 224 K/CU MM 150-450 MEAN PLATELET VOLUME (BEAKER ) (test code = 754) 11.6 fL 9.4-12.3 NUCLEATED RED BLOOD CELLS (BEAKER) (test code = 413) 0 /100 WBC 0-0 NEUTROPHILS RELATIVE PERCENT (BEAKER) (test code = 429) 85 % LYMPHOCYTES RELATIVE PERCENT (BEAKER) (test code = 430) 8 % MONOCYTES RELATIVE PERCENT (BEAKER) (test code = 431) 6 % EOSINOPHILS RELATIVE PERCENT (BEAKER) (test code = 432) 0 % BASOPHILS RELATIVE PERCENT (BEAKER) (test code = 437) 0 % NEUTROPHILS ABSOLUTE COUNT (BEAKER) (test code = 670) 17.80 K/ L 1.56-6.13 H LYMPHOCYTES ABSOLUTE COUNT (BEAKER) (test code = 414) 1.74 K/ L 1.18-3.74 MONOCYTES ABSOLUTE COUNT (BE ALDO) (test code = 415) 1.17 K/ L 0.24-0.36 H EOSINOPHILS ABSOLUTE COUNT (BEAKER) (test code = 416) 0.05 K/ L 0.04-0.36 BASOPHILS ABSOLUTE COUNT (BE ALDO) (test code = 417) 0.03 K/ L 0.01-0.08 IMMATURE GRANULOCYTES-RELATI VE PERCENT (BEAKER) (test code = 2801) 1.20 % 0.00-1.00 H US [id number] 16:26:00PROCEDURE: Ultrasound-guided paracentesis Procedural PersonnelProceduralist: Cole Nelson PA-C Pre-procedure diagnosis: AscitesPost-procedure diagnosis: UnchangedIndication: Ascites with pain or pressure symptomsAdditional clinical history: None Complications: No immediate complications.[facility] [id number] 16:26:00 [facility]Name: TONYA SALMERON : 1985 Sex: FPROCEDURE: Ultrasound-guided paracentesisProcedural PersonnelProceduralist: Silvio JuanEC-NMpq-djtsoxpvv diagnosis: AscitesPost-procedure diagnosis: UnchangedIndication: Ascites withpain or pressure symptomsAdditional clinical history: NoneComplications: No immediate complications.IMPRESSION:Ultrasound- guided paracentesis with drainage of 1100 mL of clear yellowfluid.Plan: Resume care by clinical team. PROCEDURE SUMMARY:- Limited abdominal ultrasound- Ultrasound-guided paracentesis- Additional procedure(s): NonePROCEDURE DETAILS:Pre-procedureConsent: Informed consent for the procedure including risks, benefitsand alternatives was obtained and time-out was performed prior to theprocedure.Preparation: The site was prepared and draped using maximal sterilebarrier technique including cutaneous antisepsis.Anesthesia/sedationLevel of anesthesia/sedation: NoneInitial abdominal ultrasoundInitial abdominal ultrasound was performed.Findings: Mild volume ascites. A safe window for paracentesis wasidentified in the R UQParacentesisLocal anesthesia was administered. The peritoneal cavity was accessedand fluid returnconfirmed position. Ascites was drained. The catheterwas then removed, and a sterile bandage was applied.Paracentesis access technique: Real-time ultrasound guidance.Catheter placed: 5Fr YuehPost-drainage ultrasound: Not performedAdditional DetailsAdditional description of procedure: NoneEquipment details: NoneSpecimens removed: Abdominal fluidEstimated blood loss (mL): Minimal (<10cc)Electronically Signed By: Spike Warner07/23/2024 16:28 CDTWorkstation Name: [id number] METABOLIC [id number] 16:00:15* Test Item Value Reference Range Interpretation Comme nts SODIUM (BEAKER) (test code = 381) 133 meq/L 136-145 L POTASSIUM (BEAKER) (test code = 379) 4.1 meq/L 3.4-5.1 CHLORIDE (BEAKER) (test code = 382) 101 meq/L 98-107 CO2 (BEAKER) (test code = 355) 23 meq/L 22-29 BLOOD UREA NITROGEN (BEAKER) (test code = 354) 7 mg/dL 7-19 CREATININE (BEAKER) (test code = 358) 0.47 mg/dL 0.57-1.11 L GLUCOSE RANDOM (BEAKER) (test code = 652) 149 mg/dL 70-105 H CALCIUM (BEAKER) (test code = 697) 7.7 mg/dL 8.4-10.2 L EGFR (BEAKER) (test code = 1092) 126 mL/min/1.73 sq m Interpretation of eG FR values Stage Description Result G1 Normal or high >=90 G2 Mildly decreased 60-89 G3a Mildly to moderately 45-59 G3b Moderately to severely 30-44 G4 Severly decreased 15-29 G5 Kidney failure <15Reported eGFR is based on the CKD-EPI 202 equation that does not use a race coefficientEstimated GFR is not as accurate as Creatinine Clearance in predicting glomerular filtration rate. Estimated GFR is not applicable for dialysis patients Specimen markedly ictericCOMPREHENSIVE METABOLIC [id number] 06:37:38* Test Item Value Reference Range Interpretation Comme nts TOTAL PROTEIN (BEAKER) (test code = 770) 5.0 gm/dL 6.4-8.3 L ALBUMIN (BEAKER) (test code = 1145) 1.6 g/dL 3.5-5.0 L ALKALINE PHOSPHATASE (BEAKER) (test code = 346) 87 U/L 40-150 BILIRUBIN TOTAL (BEAKER) (test code = 377) 13.8 mg/dL 0.2-1.2 H SODIUM (BEAKER) (test code = 381) 135 meq/L 136-145 L POTASSIUM (BEAKER) (test code = 379) 3.0 meq/L 3.4-5.1 L CHLORIDE (BEAKER) (test code = 382) 103 meq/L 98-107 CO2 (BEAKER) (test code = 355) 25 meq/L 22-29 BLOOD UREA NITROGEN (BEAKER) (test code = 354) 8 mg/dL 7-19 CREATININE (BEAKER) (test code = 358) 0.43 mg/dL 0.57-1.11 L GLUCOSE RANDOM (BEAKER) (test code = 652) 101 mg/dL 70-105 CALCIUM (BEAKER) (test code = 697) 7.6 mg/dL 8.4-10.2 L AST (SGOT) (BEAKER) (test code = 353) 82 U/L 5-34 H ALT (SGPT) (BEAKER) (test code = 347) 41 U/L <55 EGFR (BEAKER) (test code = 1092) 128 mL/min/1.73 sq m Interpretation of eG FR values Stage Description Result G1 Normal or high >=90 G2 Mildly decreased 60-89 G3a Mildly to moderately 45-59 G3b Moderately to severely 30-44 G4 Severly decreased 15-29 G5 Kidney failure <15Reported eGFR is based on the CKD-EPI 2020 equation that does not use a race coefficientEstimated GFR is not as accurate as Creatinine Clearance in predicting glomerular filtration rate. Estimated GFR is not applicable for dialysis patients Specimen markedly [id number] 06:32:42* Test Item Value Reference Range Interpretation Comme nts MAGNESIUM (BEAKER) (test cod e = 627) 2.1 mg/dL 1.6-2.6 [id number] 06:32:42* Test Item Value Reference Range Interpretation Comme nts PHOSPHORUS (BEAKER) (test co de = 604) 2.7 mg/dL 2.3-4.7 [id number] 06:30:18* Test Item Value Reference Range Interpretation Comme nts FERRITIN (BEAKER) (test code = 361) 201.36 ng/mL 4.63-204.00 IRON, TIBC, % SAT. (WITHOUT FERRITIN)2024-07-23 06:30:18* Test Item Value Reference Range Interpretation Comme nts IRON (BEAKER) (test code = 547) 61.0 ug/dL 50.0-170.0 TOTAL IRON BINDING CAPACITY (BEAKER) (test code = 769) 124 ug/dL 250-450 L IRON % SATURATION (2) (BEAKE R) (test code = 2590) 49 % 20-55 CBC W/PLT COUNT & AUTO [id number] 06:17:25* Test Item Value Reference Range Interpretation Comme nts WHITE BLOOD CELL COUNT (BEAK ER) (test code = 775) 16.1 K/ L 3.5-10.5 H RED BLOOD CELL COUNT (BEAKER ) (test code = 761) 2.61 M/ L 3.93-5.22 L HEMOGLOBIN (BEAKER) (test co de = 410) 9.2 GM/DL 11.2-15.7 L HEMATOCRIT (BEAKER) (test co de = 411) 27.9 % 34.1-44.9 L MEAN CORPUSCULAR VOLUME (TAMARA KER) (test code = 753) 107 fL 79-95 H MEAN CORPUSCULAR HEMOGLOBIN (BEAKER) (test code = 751) 35.2 pg 25.6-32.2 H MEAN CORPUSCULAR HEMOGLOBIN CONC (BEAKER) (test code = 752) 33.0 GM/DL 32.2-35.5 RED CELL DISTRIBUTION WIDTH (BEAKER) (test code = 412) 19.2 % 11.7-14.4 H PLATELET COUNT (BEAKER) (eamon t code = 756) 218 K/CU MM 150-450 MEAN PLATELET VOLUME (BEAKER ) (test code = 754) 11.6 fL 9.4-12.3 NUCLEATED RED BLOOD CELLS (BEAKER) (test code = 413) 0 /100 WBC 0-0 NEUTROPHILS RELATIVE PERCENT (BEAKER) (test code = 429) 80 % LYMPHOCYTES RELATIVE PERCENT (BEAKER) (test code = 430) 11 % MONOCYTES RELATIVE PERCENT (BEAKER) (test code = 431) 7 % EOSINOPHILS RELATIVE PERCENT (BEAKER) (test code = 432) 0 % BASOPHILS RELATIVE PERCENT (BEAKER) (test code = 437) 0 % NEUTROPHILS ABSOLUTE COUNT (BEAKER) (test code = 670) 12.87 K/ L 1.56-6.13 H LYMPHOCYTES ABSOLUTE COUNT (BEAKER) (test code = 414) 1.70 K/ L 1.18-3.74 MONOCYTES ABSOLUTE COUNT (BE ALDO) (test code = 415) 1.18 K/ L 0.24-0.36 H EOSINOPHILS ABSOLUTE COUNT (BEAKER) (test code = 416) 0.07 K/ L 0.04-0.36 BASOPHILS ABSOLUTE COUNT (BE ALDO) (test code = 417) 0.01 K/ L 0.01-0.08 IMMATURE GRANULOCYTES-RELATI VE PERCENT (BEAKER) (test code = 2801) 1.40 % 0.00-1.00 H Body fluid cell count with [id number] 18:38:03* Test Item Value Reference Range Interpretation Comme nts Appearance (test code = 9335-1) Hazy Clear A Color (test code = 6824-7) Yellow Colorless, Straw A RBCs (test code = 77364-9) 7 See_Comment H [Automated messa ge] The system which generated this result transmitted reference range: <=1 /cu mm. The reference range was not used to interpret this result as normal/abnormal. TNC Count (test code = 1442) 270 See_Comment H [Automated messa ge] The system which generated this result transmitted reference range: <=5 /cu mm. The reference range was not used to interpret this result as normal/abnormal. Adjusted WBC Count (test code = 05304-3) 270 See_Comment H [Automated message] The system which generated this result transmitted reference range: <=5 /cu mm. The reference range was not used to interpret this result as normal/abnormal. Adjusted lining cells/Others (test code = 80689-7) 0 See_Comment [Automated messa ge] The system which generated this result transmitted reference range: <=1 /cu mm. The reference range was not used to interpret this result as normal/abnormal. % Segs (test code = 51665-7) 8 % % Lymphs (test code = 56283-8) 13 % % Monos (test code = 03053-1) 79 % % Eos (test code = 68002-4) 0 % % Baso (test code = 16714-7) 0 % Container Body Fluid (test code = 2873) EDTA Tube Lab Interpretation (test code = 26017-4) [facility] [id number] 18:38:03* Test Item Value Reference Range Interpretation Comme nts APPEARANCE FLUID (BEAKER) (t est code = 510) Hazy Clear A COLOR FLUID (BEAKER) (test c ode = 511) Yellow Colorless, Straw A RBC FLUID (BEAKER) (test cod e = 513) 7 /cu mm <=1 H TOTAL NUCLEATED CELL COUNT (BEAKER) (test code = 1442) 270 /cu mm <=5 H ADJUSTED WBC FLUID (BEAKER) (test code = 1691) 270 /cu mm <=5 H LINING CELLS/OTHERS, CALCULA HAIDER (BEAKER) (test code = 1590) 0 /cu mm <=1 NEUTROPHILS FLUID (BEAKER) ( test code = 1656) 8 % LYMPHS FLUID (BEAKER) (test code = 488) 13 % MONO/MACROPHAGE FLUID (BEAKE R) (test code = 489) 79 % EOSINOPHILS FLUID (BEAKER) ( test code = 491) 0 % BASO FLUID (BEAKER) (test co de = 492) 0 % CONTAINER BODY FLUID (BEAKER ) (test code = 2873) EDTA Tube Albumin, body [id number] 15:54:49* Test Item Value Reference Range Interpretation Comme nts Albumin, Fluid (test code = 1747-5) 0.4 gm/dL EBEN (test code = EBEN) This test has been modified from the destination imagination coordinator's instructions and its performance characteristics were determined by [facility]. The laboratory is regulated under CLIA as qualified to perform high-complexity testing. This test has not been cleared or approved by the U.S. Food and Drug Administration. The reference intervals and other method performance specifications are unavailable for this test. It is recommended to interpret body fluid concentrations in comparison with the corresponding serum or plasma concentrations. [facility] [id number] 15:54:49* Test Item Value Reference Range Interpretation Comme nts ALBUMIN FLUID (BEAKER) (test code = 501) 0.4 gm/dL This test has been modified from the destination imagination coordinator's instructions and its performance characteristics were determined by [facility]. The laboratory is regulated under CLIA as qualified to perform high-complexity testing. This test has not been cleared or approved by the U.S. Food and Drug Administration. The reference intervals and other method performance specifications are unavailable for this test. It is recommended to interpret body fluid concentrations in comparison with the corresponding serum or plasma concentrations.Protein, body [id number] 15:54:48* Test Item Value Reference Range Interpretation Comme nts Protein, Fluid (test code = 2881-1) 0.8 g/dL EBEN (test code = EBEN) This test has been modified from the destination imagination coordinator's instructions and its performance characteristics were determined by [facility]. The laboratory is regulated under CLIA as qualified to perform high-complexity testing. This test has not been cleared or approved by the U.S. Food and Drug Administration. The reference intervals and other method performance specifications are unavailable for this test. It is recommended to interpret body fluid concentrations in comparison with the corresponding serum or plasma concentrations. [facility] [id number] 15:54:48* Test Item Value Reference Range Interpretation Comme nts PROTEIN FLUID (BEAKER) (test code = 579) 0.8 g/dL This test has been modified from the destination imagination coordinator's instructions and its performance characteristics were determined by [facility]. The laboratory is regulated under CLIA as qualified to perform high-complexity testing. This test has not been cleared or approved by the U.S. Food and Drug Administration. The reference intervals and other method performance specifications are unavailable for this test. It is recommended to interpret body fluid concentrations in comparison with the corresponding serum or plasma concentrations.Urinalysis w/Microscopic + Reflex to [id number] 13:37:53* Test Item Value Reference Range Interpretation Comme nts Color, UA (test code = 5778-6) Dark Yellow Clarity, UA (test code = 5767-9) Hazy Specific [place], UA (test code = 5811-5) 1.016 1.001-1.035 pH, UA (test code = 5803-2) 7.5 5.0-8.0 Protein, UA (test code = 81679-9) Negative Negative Glucose, UA (test code = 365) Negative Negative Ketones, UA (test code = 2514-8) Negative Negative Bilirubin, UA (test code = 48126-7) Positive Negative A Blood, UA (test code = 21409-8) Negative Negative Nitrite, UA (test code = 5802-4) Positive Negative A Leukocytes, UA (test code = 5799-2) Negative Negative Urobilinogen, UA (test code = 04193-6) 0.2 0.2-1.0 RBC, UA (test code = 75506-0) 12 See_Comment [Automated message] The system which generated this result transmitted reference range: /HPF. The reference range was not used to interpret this result as normal/abnormal. WBC, UA (test code = 5821-4) 10 See_Comment [Automated message] The system which generated this result transmitted reference range: /HPF. The reference range was not used to interpret this result as normal/abnormal. Bacteria, UA (test code = 59450-6) Many Mucus (test code = 8247-9) Rare Squam Epithel, UA (test code = 71141-2) 4 See_Comment [Automated message] The system which generated this result transmitted reference range: /HPF. The reference range was not used to interpret this result as normal/abnormal. Casts (test code = 9842-6) 1 See_Comment [Automated message] The system which generated this result transmitted reference range: /LPF. The reference range was not used to interpret this result as normal/abnormal. Crystals, Urine (test code = 93708-8) Occasional None Seen A Yeast (test code = 10862-2) Occasional Specimen Source (test code = 2795) EBEN (test code = EBEN) Water Safety Teacher ID - [auto]Water Safety Teacher ID - tech Lab Interpretation (test code = 17517-0) [facility]normal [facility] URINE [id number] 13:37:53 * Test Item Value Reference Range Interpretation Comme nts COLOR (BEAKER) (test code = 470) Dark Yellow CLARITY (BEAKER) (test code = 469) Hazy SPECIFIC GRAVITY UA (BEAKER) (test code = 468) 1.016 1.001-1.035 PH UA (BEAKER) (test code = 467) 7.5 5.0-8.0 PROTEIN UA (BEAKER) (test co de = 464) Negative Negative GLUCOSE UA (BEAKER) (test co de = 365) Negative Negative KETONES UA (BEAKER) (test co de = 371) Negative Negative BILIRUBIN UA (BEAKER) (test code = 462) Positive Negative A BLOOD UA (BEAKER) (test code = 461) Negative Negative NITRITE UA (BEAKER) (test co de = 465) Positive Negative A LEUKOCYTE ESTERASE UA (BEAKE R) (test code = 466) Negative Negative UROBILINOGEN UA (BEAKER) (te st code = 463) 0.2 0.2-1.0 RBC UA (BEAKER) (test code = 519) 12 /HPF WBC UA (BEAKER) (test code = 520) 10 /HPF BACTERIA (BEAKER) (test code = 517) Many MUCUS (BEAKER) (test code = 1574) Rare SQUAMOUS EPITHELIAL (BEAKER) (test code = 516) 4 /HPF CASTS (BEAKER) (test code = 1579) 1 /LPF CRYSTALS, URINE (BEAKER) (te st code = 1521) Occasional None Seen A YEAST (BEAKER) (test code = 1585) Occasional SOURCE(BEAKER) (test code = 2795) Water Safety Teacher ID - [auto]Water Safety Teacher ID - techCOMPREHENSIVE METABOLIC [id number] 05:12:09* Test Item Value Reference Range Interpretation Comme nts TOTAL PROTEIN (BEAKER) (test code = 770) 5.2 gm/dL 6.4-8.3 L ALBUMIN (BEAKER) (test code = 1145) 1.7 g/dL 3.5-5.0 L ALKALINE PHOSPHATASE (BEAKER) (test code = 346) 94 U/L 40-150 BILIRUBIN TOTAL (BEAKER) (test code = 377) 14.2 mg/dL 0.2-1.2 H SODIUM (BEAKER) (test code = 381) 135 meq/L 136-145 L POTASSIUM (BEAKER) (test code = 379) 3.5 meq/L 3.4-5.1 CHLORIDE (BEAKER) (test code = 382) 105 meq/L 98-107 CO2 (BEAKER) (test code = 355) 22 meq/L 22-29 BLOOD UREA NITROGEN (BEAKER) (test code = 354) 10 mg/dL 7-19 CREATININE (BEAKER) (test code = 358) 0.39 mg/dL 0.57-1.11 L GLUCOSE RANDOM (BEAKER) (test code = 652) 78 mg/dL 70-105 CALCIUM (BEAKER) (test code = 697) 7.5 mg/dL 8.4-10.2 L AST (SGOT) (BEAKER) (test code = 353) 84 U/L 5-34 H ALT (SGPT) (BEAKER) (test code = 347) 41 U/L <55 EGFR (BEAKER) (test code = 1092) 131 mL/min/1.73 sq m Interpretation of eG FR values Stage Description Result G1 Normal or high >=90 G2 Mildly decreased 60-89 G3a Mildly to moderately 45-59 G3b Moderately to severely 30-44 G4 Severly decreased 15-29 G5 Kidney failure <15Reported eGFR is based on the CKD-EPI 2020 equation that does not use a race coefficientEstimated GFR is not as accurate as Creatinine Clearance in predicting glomerular filtration rate. Estimated GFR is not applicable for dialysis patients Specimen markedly [id number] 05:09:46* Test Item Value Reference Range Interpretation Comme nts MAGNESIUM (BEAKER) (test cod e = 627) 2.0 mg/dL 1.6-2.6 [id number] 05:09:46* Test Item Value Reference Range Interpretation Comme nts PHOSPHORUS (BEAKER) (test co de = 604) 2.3 mg/dL 2.3-4.7 PROTHROMBIN TIME/[id number] 05:01:40* Test Item Value Reference Range Interpretation Comme nts PROTIME (BEAKER) (test code = 759) 18.5 seconds 11.9-14.2 H INR (BEAKER) (test code = 370) 1.48 <=5.90 RECOMMENDED COUMADIN/WARFARIN INR THERAPY RANGESSTANDARD DOSE: 2.0 - 3.0 Includes: PROPHYLAXIS for venous thrombosis, systemic embolization; TREATMENT for venous thrombosis and/or pulmonary embolus.HIGH RISK: Target INR is 2.5-3.5 for patients with mechanical heart valves.CBC W/PLT COUNT & AUTO DIFFERENTIAL 2024-07-22 04:47:40* Test Item Value Reference Range Interpretation Comme nts WHITE BLOOD CELL COUNT (BEAK ER) (test code = 775) 16.6 K/ L 3.5-10.5 H RED BLOOD CELL COUNT (BEAKER ) (test code = 761) 2.65 M/ L 3.93-5.22 L HEMOGLOBIN (BEAKER) (test co de = 410) 9.4 GM/DL 11.2-15.7 L HEMATOCRIT (BEAKER) (test co de = 411) 28.5 % 34.1-44.9 L MEAN CORPUSCULAR VOLUME (TAMARA KER) (test code = 753) 108 fL 79-95 H MEAN CORPUSCULAR HEMOGLOBIN (BEAKER) (test code = 751) 35.5 pg 25.6-32.2 H MEAN CORPUSCULAR HEMOGLOBIN CONC (BEAKER) (test code = 752) 33.0 GM/DL 32.2-35.5 RED CELL DISTRIBUTION WIDTH (BEAKER) (test code = 412) 19.6 % 11.7-14.4 H PLATELET COUNT (BEAKER) (eamon t code = 756) 251 K/CU MM 150-450 MEAN PLATELET VOLUME (BEAKER ) (test code = 754) 11.1 fL 9.4-12.3 NUCLEATED RED BLOOD CELLS (BEAKER) (test code = 413) 0 /100 WBC 0-0 NEUTROPHILS RELATIVE PERCENT (BEAKER) (test code = 429) 81 % LYMPHOCYTES RELATIVE PERCENT (BEAKER) (test code = 430) 9 % MONOCYTES RELATIVE PERCENT (BEAKER) (test code = 431) 8 % EOSINOPHILS RELATIVE PERCENT (BEAKER) (test code = 432) 0 % BASOPHILS RELATIVE PERCENT (BEAKER) (test code = 437) 0 % NEUTROPHILS ABSOLUTE COUNT (BEAKER) (test code = 670) 13.50 K/ L 1.56-6.13 H LYMPHOCYTES ABSOLUTE COUNT (BEAKER) (test code = 414) 1.55 K/ L 1.18-3.74 MONOCYTES ABSOLUTE COUNT (BE ALDO) (test code = 415) 1.30 K/ L 0.24-0.36 H EOSINOPHILS ABSOLUTE COUNT (BEAKER) (test code = 416) 0.05 K/ L 0.04-0.36 BASOPHILS ABSOLUTE COUNT (BE ALDO) (test code = 417) 0.02 K/ L 0.01-0.08 IMMATURE GRANULOCYTES-RELATI VE PERCENT (BEAKER) (test code = 2801) 1.30 % 0.00-1.00 H HCG, QUANTITATIVE, [id number] 13:44:47* Test Item Value Reference Range Interpretation Comme nts GONADOTROPIN, CHORIONIC (HCG ) QUANT (BEAKER) (test code = 649) < mIU/mL <5 Elevated beta hCG results up to 8 mIU/mL can be seen in post-menopausal women. HIGH SENSITIVITY TROPONIN [id number] 13:44:42* Test Item Value Reference Range Interpretation Comme nts HIGH SENSITIVITY TROPONIN I (test code = 7543772) < pg/ml <14 The Alinity ci High Sensitivity Troponin-I results should be used in conjunction with other diagnostic information such as ECG, clinical observations and information, and patient symptoms to aid in the diagnosis of [place].PT/APTT 2024-07-21 13:35:29* Test Item Value Reference Range Interpretation Comme nts PROTIME (BEAKER) (test code = 759) 17.8 seconds 11.9-14.2 H INR (BEAKER) (test code = 370) 1.42 <=5.90 PARTIAL THROMBOPLASTIN TIME (BEAKER) (test code = 760) 33.2 seconds 22.5-36.0 RECOMMENDED COUMADIN/WARFARIN INR THERAPY RANGESSTANDARD DOSE: 2.0 - 3.0 Includes: PROPHYLAXIS for venous thrombosis, systemic embolization; TREATMENT for venous thrombosis and/or pulmonary embolus.HIGH RISK: Target INR is 2.5-3.5 for patients with mechanical heart valves.B-TYPE NATRIURETIC FACTOR (BNP) 2024-07-21 13:34:08* Test Item Value Reference Range Interpretation Comme nts B-TYPE NATRIURETIC PEPTIDE ( BEAKER) (test code = 700) 117 pg/mL 0-100 H Water Safety Teacher ID - [id number] 13:31:30* Test Item Value Reference Range Interpretation Comme nts MAGNESIUM (BEAKER) (test cod e = 627) 2.2 mg/dL 1.6-2.6 COMPREHENSIVE METABOLIC [id number] 13:31:30* Test Item Value Reference Range Interpretation Comme nts TOTAL PROTEIN (BEAKER) (test code = 770) 6.3 gm/dL 6.4-8.3 L ALBUMIN (BEAKER) (test code = 1145) 2.1 g/dL 3.5-5.0 L ALKALINE PHOSPHATASE (BEAKER) (test code = 346) 110 U/L 40-150 BILIRUBIN TOTAL (BEAKER) (test code = 377) 18.6 mg/dL 0.2-1.2 H SODIUM (BEAKER) (test code = 381) 136 meq/L 136-145 POTASSIUM (BEAKER) (test code = 379) 3.2 meq/L 3.4-5.1 L CHLORIDE (BEAKER) (test code = 382) 102 meq/L 98-107 CO2 (BEAKER) (test code = 355) 25 meq/L 22-29 BLOOD UREA NITROGEN (BEAKER) (test code = 354) 8 mg/dL 7-19 CREATININE (BEAKER) (test code = 358) 0.46 mg/dL 0.57-1.11 L GLUCOSE RANDOM (BEAKER) (test code = 652) 116 mg/dL 70-105 H CALCIUM (BEAKER) (test code = 697) 8.1 mg/dL 8.4-10.2 L AST (SGOT) (BEAKER) (test code = 353) 101 U/L 5-34 H ALT (SGPT) (BEAKER) (test code = 347) 48 U/L <55 EGFR (BEAKER) (test code = 1092) 126 mL/min/1.73 sq m Interpretation of eG FR values Stage Description Result G1 Normal or high >=90 G2 Mildly decreased 60-89 G3a Mildly to moderately 45-59 G3b Moderately to severely 30-44 G4 Severly decreased 15-29 G5 Kidney failure <15Reported eGFR is based on the CKD-EPI 202 equation that does not use a race coefficientEstimated GFR is not as accurate as Creatinine Clearance in predicting glomerular filtration rate. Estimated GFR is not applicable for dialysis patients Specimen markedly ictericCBC W/PLT COUNT & AUTO [id number] 13:26:09 * Test Item Value Reference Range Interpretation Comme nts WHITE BLOOD CELL COUNT (BEAK ER) (test code = 775) 20.9 K/ L 3.5-10.5 H RED BLOOD CELL COUNT (BEAKER ) (test code = 761) 3.07 M/ L 3.93-5.22 L HEMOGLOBIN (BEAKER) (test co de = 410) 10.8 GM/DL 11.2-15.7 L HEMATOCRIT (BEAKER) (test co de = 411) 32.7 % 34.1-44.9 L MEAN CORPUSCULAR VOLUME (TAMARA KER) (test code = 753) 107 fL 79-95 H MEAN CORPUSCULAR HEMOGLOBIN (BEAKER) (test code = 751) 35.2 pg 25.6-32.2 H MEAN CORPUSCULAR HEMOGLOBIN CONC (BEAKER) (test code = 752) 33.0 GM/DL 32.2-35.5 RED CELL DISTRIBUTION WIDTH (BEAKER) (test code = 412) 19.6 % 11.7-14.4 H PLATELET COUNT (BEAKER) (eamon t code = 756) 338 K/CU MM 150-450 MEAN PLATELET VOLUME (BEAKER ) (test code = 754) 11.0 fL 9.4-12.3 NUCLEATED RED BLOOD CELLS (BEAKER) (test code = 413) 0 /100 WBC 0-0 NEUTROPHILS RELATIVE PERCENT (BEAKER) (test code = 429) 90 % LYMPHOCYTES RELATIVE PERCENT (BEAKER) (test code = 430) 4 % MONOCYTES RELATIVE PERCENT (BEAKER) (test code = 431) 5 % EOSINOPHILS RELATIVE PERCENT (BEAKER) (test code = 432) 0 % BASOPHILS RELATIVE PERCENT (BEAKER) (test code = 437) 0 % NEUTROPHILS ABSOLUTE COUNT (BEAKER) (test code = 670) 18.63 K/ L 1.56-6.13 H LYMPHOCYTES ABSOLUTE COUNT (BEAKER) (test code = 414) 0.84 K/ L 1.18-3.74 L MONOCYTES ABSOLUTE COUNT (BE ALDO) (test code = 415) 1.09 K/ L 0.24-0.36 H EOSINOPHILS ABSOLUTE COUNT (BEAKER) (test code = 416) 0.01 K/ L 0.04-0.36 L BASOPHILS ABSOLUTE COUNT (BE ALDO) (test code = 417) 0.03 K/ L 0.01-0.08 IMMATURE GRANULOCYTES-RELATI VE PERCENT (BEAKER) (test code = 2801) 1.20 % 0.00-1.00 H XR chest 2 [id number] 12:38:27Chest PA and lateral COMPARISON STUDY: 07/08/2024 History provided: Lower extremity swelling Heart size normal. Trace pleural effusions bilaterally. Lungs otherwiseclear and vascularity normal. Ibarra rods from the upper thoracic tothe lower thoracic levels. Electronically Signed By: Goran Duque09/20/2023 12:40 CDTWorkstation Name: [id number] [facility] FranciscoXR CHEST 2 [id number] 12:38:27 [facility]ECENTERName: TONYA SALMERON : 1985 Sex: FChest PA and lateralCOMPARISON STUDY: 07/08/2024History provided: Lower extremity s wellingHeart size normal. Trace pleural effusions bilaterally. Lungs otherwiseclear and vascularitynormal. Ibarra rods from the upper thoracic tothe lower thoracic levels.Electronically Signed By: Goran Duque09/20/2023 12:40 CDTWorkstation Name: [id number] 20:01:12* Test Item Value Reference Range Interpretation Comme nts CULTURE (BEAKER) (test code = 1095) No growth in 5 days BLOOD [id number] 20:01:10* Test Item Value Reference Range Interpretation Comme nts CULTURE (BEAKER) (test code = 1095) No growth in 5 days COMPREHENSIVE METABOLIC [id number] 05:45:43* Test Item Value Reference Range Interpretation Comme nts TOTAL PROTEIN (BEAKER) (test code = 770) 5.4 gm/dL 6.4-8.3 L ALBUMIN (BEAKER) (test code = 1145) 2.0 g/dL 3.5-5.0 L ALKALINE PHOSPHATASE (BEAKER) (test code = 346) 100 U/L 40-150 BILIRUBIN TOTAL (BEAKER) (test code = 377) 17.6 mg/dL 0.2-1.2 H SODIUM (BEAKER) (test code = 381) 132 meq/L 136-145 L POTASSIUM (BEAKER) (test code = 379) 3.4 meq/L 3.4-5.1 CHLORIDE (BEAKER) (test code = 382) 103 meq/L 98-107 CO2 (BEAKER) (test code = 355) 22 meq/L 22-29 BLOOD UREA NITROGEN (BEAKER) (test code = 354) 7 mg/dL 7-19 CREATININE (BEAKER) (test code = 358) 0.33 mg/dL 0.57-1.11 L GLUCOSE RANDOM (BEAKER) (test code = 652) 103 mg/dL 70-105 CALCIUM (BEAKER) (test code = 697) 8.1 mg/dL 8.4-10.2 L AST (SGOT) (BEAKER) (test code = 353) 72 U/L 5-34 H ALT (SGPT) (BEAKER) (test code = 347) 15 U/L <55 EGFR (BEAKER) (test code = 1092) 137 mL/min/1.73 sq m Interpretation of eG FR values Stage Description Result G1 Normal or high >=90 G2 Mildly decreased 60-89 G3a Mildly to moderately 45-59 G3b Moderately to severely 30-44 G4 Severly decreased 15-29 G5 Kidney failure <15Reported eGFR is based on the CKD-EPI 2020 equation that does not use a race coefficientEstimated GFR is not as accurate as Creatinine Clearance in predicting glomerular filtration rate. Estimated GFR is not applicable for dialysis patients Specimen markedly [id number] 05:45:28* Test Item Value Reference Range Interpretation Comme nts FERRITIN (BEAKER) (test code = 361) 380.44 ng/mL 4.63-204.00 H IRON, TIBC, % SAT. (WITHOUT FERRITIN)2024-07-13 05:45:28* Test Item Value Reference Range Interpretation Comme nts IRON (BEAKER) (test code = 547) 54.0 ug/dL 50.0-170.0 TOTAL IRON BINDING CAPACITY (BEAKER) (test code = 769) 101 ug/dL 250-450 L IRON % SATURATION (2) (BEAKE R) (test code = 2590) 53 % 20-55 PROTHROMBIN TIME/[id number] 05:32:16* Test Item Value Reference Range Interpretation Comme nts PROTIME (BEAKER) (test code = 759) 21.4 seconds 11.9-14.2 H INR (BEAKER) (test code = 370) 1.79 <=5.90 RECOMMENDED COUMADIN/WARFARIN INR THERAPY RANGESSTANDARD DOSE: 2.0 - 3.0 Includes: PROPHYLAXIS for venous thrombosis, systemic embolization; TREATMENT for venous thrombosis and/or pulmonary embolus.HIGH RISK: Target INR is 2.5-3.5 for patients with mechanical heart valves.COMPREHENSIVE METABOLIC PANEL 2024-07-12 06:36:43* Test Item Value Reference Range Interpretation Comme nts TOTAL PROTEIN (BEAKER) (test code = 770) 5.1 gm/dL 6.4-8.3 L ALBUMIN (BEAKER) (test code = 1145) 1.8 g/dL 3.5-5.0 L ALKALINE PHOSPHATASE (BEAKER) (test code = 346) 97 U/L 40-150 BILIRUBIN TOTAL (BEAKER) (test code = 377) 17.4 mg/dL 0.2-1.2 H SODIUM (BEAKER) (test code = 381) 129 meq/L 136-145 L POTASSIUM (BEAKER) (test code = 379) 3.1 meq/L 3.4-5.1 L CHLORIDE (BEAKER) (test code = 382) 101 meq/L 98-107 CO2 (BEAKER) (test code = 355) 22 meq/L 22-29 BLOOD UREA NITROGEN (BEAKER) (test code = 354) 5 mg/dL 7-19 L CREATININE (BEAKER) (test code = 358) 0.39 mg/dL 0.57-1.11 L GLUCOSE RANDOM (BEAKER) (test code = 652) 93 mg/dL 70-105 CALCIUM (BEAKER) (test code = 697) 7.9 mg/dL 8.4-10.2 L AST (SGOT) (BEAKER) (test code = 353) 75 U/L 5-34 H ALT (SGPT) (BEAKER) (test code = 347) 13 U/L <55 EGFR (BEAKER) (test code = 1092) 131 mL/min/1.73 sq m Interpretation of eG FR values Stage Description Result G1 Normal or high >=90 G2 Mildly decreased 60-89 G3a Mildly to moderately 45-59 G3b Moderately to severely 30-44 G4 Severly decreased 15-29 G5 Kidney failure <15Reported eGFR is based on the CKD-EPI 2020 equation that does not use a race coefficientEstimated GFR is not as accurate as Creatinine Clearance in predicting glomerular filtration rate. Estimated GFR is not applicable for dialysis patients Specimen markedly ictericPROTHROMBIN TIME/[id number] 06:26:31* Test Item Value Reference Range Interpretation Comme nts PROTIME (BEAKER) (test code = 759) 21.2 seconds 11.9-14.2 H INR (BEAKER) (test code = 370) 1.77 <=5.90 RECOMMENDED COUMADIN/WARFARIN INR THERAPY RANGESSTANDARD DOSE: 2.0 - 3.0 Includes: PROPHYLAXIS for venous thrombosis, systemic embolization; TREATMENT for venous thrombosis and/or pulmonary embolus.HIGH RISK: Target INR is 2.5-3.5 for patients with mechanical heart valves.COMPREHENSIVE METABOLIC PANEL 2024-07-11 05:19:03* Test Item Value Reference Range Interpretation Comme nts TOTAL PROTEIN (BEAKER) (test code = 770) 5.4 gm/dL 6.4-8.3 L ALBUMIN (BEAKER) (test code = 1145) 2.0 g/dL 3.5-5.0 L ALKALINE PHOSPHATASE (BEAKER) (test code = 346) 105 U/L 40-150 BILIRUBIN TOTAL (BEAKER) (test code = 377) 17.6 mg/dL 0.2-1.2 H SODIUM (BEAKER) (test code = 381) 132 meq/L 136-145 L POTASSIUM (BEAKER) (test code = 379) 3.0 meq/L 3.4-5.1 L CHLORIDE (BEAKER) (test code = 382) 100 meq/L 98-107 CO2 (BEAKER) (test code = 355) 25 meq/L 22-29 BLOOD UREA NITROGEN (BEAKER) (test code = 354) 6 mg/dL 7-19 L CREATININE (BEAKER) (test code = 358) 0.47 mg/dL 0.57-1.11 L GLUCOSE RANDOM (BEAKER) (test code = 652) 101 mg/dL 70-105 CALCIUM (BEAKER) (test code = 697) 8.0 mg/dL 8.4-10.2 L AST (SGOT) (BEAKER) (test code = 353) 66 U/L 5-34 H ALT (SGPT) (BEAKER) (test code = 347) 13 U/L <55 EGFR (BEAKER) (test code = 1092) 126 mL/min/1.73 sq m Interpretation of eG FR values Stage Description Result G1 Normal or high >=90 G2 Mildly decreased 60-89 G3a Mildly to moderately 45-59 G3b Moderately to severely 30-44 G4 Severly decreased 15-29 G5 Kidney failure <15Reported eGFR is based on the CKD-EPI 2020 equation that does not use a race coefficientEstimated GFR is not as accurate as Creatinine Clearance in predicting glomerular filtration rate. Estimated GFR is not applicable for dialysis patients Specimen markedly ictericPROTHROMBIN TIME/[id number] 04:58:58* Test Item Value Reference Range Interpretation Comme nts PROTIME (BEAKER) (test code = 759) 21.6 seconds 11.9-14.2 H INR (BEAKER) (test code = 370) 1.81 <=5.90 RECOMMENDED COUMADIN/WARFARIN INR THERAPY RANGESSTANDARD DOSE: 2.0 - 3.0 Includes: PROPHYLAXIS for venous thrombosis, systemic embolization; TREATMENT for venous thrombosis and/or pulmonary embolus.HIGH RISK: Target INR is 2.5-3.5 for patients with mechanical heart valves.CBC W/PLT COUNT & AUTO DIFFERENTIAL 2024-07-11 04:53:41* Test Item Value Reference Range Interpretation Comme nts WHITE BLOOD CELL COUNT (BEAK ER) (test code = 775) 4.4 K/ L 3.5-10.5 RED BLOOD CELL COUNT (BEAKER ) (test code = 761) 2.10 M/ L 3.93-5.22 L HEMOGLOBIN (BEAKER) (test co de = 410) 7.2 GM/DL 11.2-15.7 L HEMATOCRIT (BEAKER) (test co de = 411) 21.7 % 34.1-44.9 L MEAN CORPUSCULAR VOLUME (TAMARA KER) (test code = 753) 103 fL 79-95 H MEAN CORPUSCULAR HEMOGLOBIN (BEAKER) (test code = 751) 34.3 pg 25.6-32.2 H MEAN CORPUSCULAR HEMOGLOBIN CONC (BEAKER) (test code = 752) 33.2 GM/DL 32.2-35.5 RED CELL DISTRIBUTION WIDTH (BEAKER) (test code = 412) 20.1 % 11.7-14.4 H PLATELET COUNT (BEAKER) (eamon t code = 756) 131 K/CU MM 150-450 L MEAN PLATELET VOLUME (BEAKER ) (test code = 754) 11.4 fL 9.4-12.3 NUCLEATED RED BLOOD CELLS (BEAKER) (test code = 413) 0 /100 WBC 0-0 NEUTROPHILS RELATIVE PERCENT (BEAKER) (test code = 429) 57 % LYMPHOCYTES RELATIVE PERCENT (BEAKER) (test code = 430) 16 % MONOCYTES RELATIVE PERCENT (BEAKER) (test code = 431) 25 % EOSINOPHILS RELATIVE PERCENT (BEAKER) (test code = 432) 1 % BASOPHILS RELATIVE PERCENT (BEAKER) (test code = 437) 1 % NEUTROPHILS ABSOLUTE COUNT (BEAKER) (test code = 670) 2.48 K/ L 1.56-6.13 LYMPHOCYTES ABSOLUTE COUNT (BEAKER) (test code = 414) 0.70 K/ L 1.18-3.74 L MONOCYTES ABSOLUTE COUNT (BE ALDO) (test code = 415) 1.08 K/ L 0.24-0.36 H EOSINOPHILS ABSOLUTE COUNT (BEAKER) (test code = 416) 0.03 K/ L 0.04-0.36 L BASOPHILS ABSOLUTE COUNT (BE ALDO) (test code = 417) 0.03 K/ L 0.01-0.08 IMMATURE GRANULOCYTES-RELATI VE PERCENT (BEAKER) (test code = 2801) 1.10 % 0.00-1.00 H [id number] 12:57:27* Test Item Value Reference Range Interpretation Comme nts THYROID STIMULATING HORMONE (BEAKER) (test code = 772) 4.461 uIU/mL 0.350-4.940 ANTI-NUCLEAR ANTIBODY (IRWIN)2024-07-10 11:07:37* Test Item Value Reference Range Interpretation Comme nts ANTI-NUCLEAR ANTIBODY (IRWIN) (BEAKER) (test code = 418) Negative Negative Test performed by IFA method.Test performed by IFA method.COMPREHENSIVE METABOLIC [id number] 06:10:10* Test Item Value Reference Range Interpretation Comme nts TOTAL PROTEIN (BEAKER) (test code = 770) 5.3 gm/dL 6.4-8.3 L ALBUMIN (BEAKER) (test code = 1145) 2.1 g/dL 3.5-5.0 L ALKALINE PHOSPHATASE (BEAKER) (test code = 346) 105 U/L 40-150 BILIRUBIN TOTAL (BEAKER) (test code = 377) 17.3 mg/dL 0.2-1.2 H SODIUM (BEAKER) (test code = 381) 131 meq/L 136-145 L POTASSIUM (BEAKER) (test code = 379) 3.6 meq/L 3.4-5.1 CHLORIDE (BEAKER) (test code = 382) 101 meq/L 98-107 CO2 (BEAKER) (test code = 355) 24 meq/L 22-29 BLOOD UREA NITROGEN (BEAKER) (test code = 354) 5 mg/dL 7-19 L CREATININE (BEAKER) (test code = 358) 0.42 mg/dL 0.57-1.11 L GLUCOSE RANDOM (BEAKER) (test code = 652) 82 mg/dL 70-105 CALCIUM (BEAKER) (test code = 697) 7.7 mg/dL 8.4-10.2 L AST (SGOT) (BEAKER) (test code = 353) 68 U/L 5-34 H ALT (SGPT) (BEAKER) (test code = 347) 15 U/L <55 EGFR (BEAKER) (test code = 1092) 129 mL/min/1.73 sq m Interpretation of eG FR values Stage Description Result G1 Normal or high >=90 G2 Mildly decreased 60-89 G3a Mildly to moderately 45-59 G3b Moderately to severely 30-44 G4 Severly decreased 15-29 G5 Kidney failure <15Reported eGFR is based on the CKD-EPI 2020 equation that does not use a race coefficientEstimated GFR is not as accurate as Creatinine Clearance in predicting glomerular filtration rate. Estimated GFR is not applicable for dialysis patients Specimen markedly ictericPROTHROMBIN TIME/[id number] 05:54:08* Test Item Value Reference Range Interpretation Comme nts PROTIME (BEAKER) (test code = 759) 22.7 seconds 11.9-14.2 H INR (BEAKER) (test code = 370) 1.93 <=5.90 RECOMMENDED COUMADIN/WARFARIN INR THERAPY RANGESSTANDARD DOSE: 2.0 - 3.0 Includes: PROPHYLAXIS for venous thrombosis, systemic embolization; TREATMENT for venous thrombosis and/or pulmonary embolus.HIGH RISK: Target INR is 2.5-3.5 for patients with mechanical heart valves.CBC W/PLT COUNT & AUTO DIFFERENTIAL 2024-07-10 05:49:35* Test Item Value Reference Range Interpretation Comme nts WHITE BLOOD CELL COUNT (BEAK ER) (test code = 775) 3.9 K/ L 3.5-10.5 RED BLOOD CELL COUNT (BEAKER ) (test code = 761) 2.06 M/ L 3.93-5.22 L HEMOGLOBIN (BEAKER) (test co de = 410) 7.2 GM/DL 11.2-15.7 L HEMATOCRIT (BEAKER) (test co de = 411) 21.4 % 34.1-44.9 L MEAN CORPUSCULAR VOLUME (TAMARA KER) (test code = 753) 104 fL 79-95 H MEAN CORPUSCULAR HEMOGLOBIN (BEAKER) (test code = 751) 35.0 pg 25.6-32.2 H MEAN CORPUSCULAR HEMOGLOBIN CONC (BEAKER) (test code = 752) 33.6 GM/DL 32.2-35.5 RED CELL DISTRIBUTION WIDTH (BEAKER) (test code = 412) 18.8 % 11.7-14.4 H PLATELET COUNT (BEAKER) (eamon t code = 756) 102 K/CU MM 150-450 L MEAN PLATELET VOLUME (BEAKER ) (test code = 754) 11.2 fL 9.4-12.3 NUCLEATED RED BLOOD CELLS (BEAKER) (test code = 413) 0 /100 WBC 0-0 NEUTROPHILS RELATIVE PERCENT (BEAKER) (test code = 429) 58 % LYMPHOCYTES RELATIVE PERCENT (BEAKER) (test code = 430) 16 % MONOCYTES RELATIVE PERCENT (BEAKER) (test code = 431) 24 % EOSINOPHILS RELATIVE PERCENT (BEAKER) (test code = 432) 1 % BASOPHILS RELATIVE PERCENT (BEAKER) (test code = 437) 1 % NEUTROPHILS ABSOLUTE COUNT (BEAKER) (test code = 670) 2.26 K/ L 1.56-6.13 LYMPHOCYTES ABSOLUTE COUNT (BEAKER) (test code = 414) 0.62 K/ L 1.18-3.74 L MONOCYTES ABSOLUTE COUNT (BE ALDO) (test code = 415) 0.94 K/ L 0.24-0.36 H EOSINOPHILS ABSOLUTE COUNT (BEAKER) (test code = 416) 0.04 K/ L 0.04-0.36 BASOPHILS ABSOLUTE COUNT (BE ALDO) (test code = 417) 0.03 K/ L 0.01-0.08 IMMATURE GRANULOCYTES-RELATI VE PERCENT (BEAKER) (test code = 2801) 0.50 % 0.00-1.00 T4, [id number] 16:57:34* Test Item Value Reference Range Interpretation Comme nts FREE T4 (BEAKER) (test code = 655) 1.10 ng/dL 0.70-1.48 XR chest 1 view portable / [id number] 11:36:42INDICATION: infectious workup COMPARISON: None TECHNIQUE: Single frontal view of the chest. FINDINGS: Lungs and pleura: Clear lungs. No effusion.Heart and mediastinum: Normal heart size. Unremarkablemediastinalcontours.Osseous structures: No acute abnormality.Other: [facility] / [id number] 11:36:42 [facility] : 1985 Sex: FINDICATION: infectious workupCOMPARISON: NoneTECHNIQUE: Single frontal view of the [address].FINDINGS: Lungs and pleura: Clear lungs. No effusion.Heart and mediastinum: Normal heart size. Unremarkable mediastinalcontours.Osseous structures: No acute abnormality.Other: Prior spinal fusion.IMPRESSION:No acute intrathoracic abnormality.Electronically Signed By: Bea Thomas07/09/2024 11:42 CDTWorkstation Name: [id number] W/PLT COUNT & AUTO [id number] 06:28:57* Test Item Value Reference Range Interpretation Comme nts WHITE BLOOD CELL COUNT (BEAKER) (test code = 775) 4.5 K/ L 3.5-10.5 RED BLOOD CELL COUNT (BEAKER) (test code = 761) 2.31 M/ L 3.93-5.22 L HEMOGLOBIN (BEAKER) (test code = 410) 8.0 GM/DL 11.2-15.7 L HEMATOCRIT (BEAKER) (test code = 411) 23.9 % 34.1-44.9 L MEAN CORPUSCULAR VOLUME (BEAKER) (test code = 753) 104 fL 79-95 H MEAN CORPUSCULAR HEMOGLOBIN (BEAKER) (test code = 751) 34.6 pg 25.6-32.2 H MEAN CORPUSCULAR HEMOGLOBIN CONC (BEAKER) (test code = 752) 33.5 GM/DL 32.2-35.5 RED CELL DISTRIBUTION WIDTH (BEAKER) (test code = 412) 17.9 % 11.7-14.4 H PLATELET COUNT (BEAKER) (test code = 756) 90 K/CU MM 150-450 L Discordant PLT results compared to previous, clinical correlation required. MEAN PLATELET VOLUME (BEAKER) (test code = 754) 12.7 fL 9.4-12.3 H NUCLEATED RED BLOOD CELLS (BEAKER) (test code = 413) 0 /100 WBC 0-0 NEUTROPHILS RELATIVE PERCENT (BEAKER) (test code = 429) 62 % LYMPHOCYTES RELATIVE PERCENT (BEAKER) (test code = 430) 18 % MONOCYTES RELATIVE PERCENT (BEAKER) (test code = 431) 18 % EOSINOPHILS RELATIVE PERCENT (BEAKER) (test code = 432) 1 % BASOPHILS RELATIVE PERCENT (BEAKER) (test code = 437) 1 % NEUTROPHILS ABSOLUTE COUNT (BEAKER) (test code = 670) 2.79 K/ L 1.56-6.13 LYMPHOCYTES ABSOLUTE COUNT (BEAKER) (test code = 414) 0.79 K/ L 1.18-3.74 L MONOCYTES ABSOLUTE COUNT (BEAKER) (test code = 415) 0.79 K/ L 0.24-0.36 H EOSINOPHILS ABSOLUTE COUNT (BEAKER) (test code = 416) 0.03 K/ L 0.04-0.36 L BASOPHILS ABSOLUTE COUNT (BEAKER) (test code = 417) 0.03 K/ L 0.01-0.08 IMMATURE GRANULOCYTES-RELATIVE PERCENT (BEAKER) (test code = 2801) 0.90 % 0.00-1.00 PROTHROMBIN [id number] 06:25:13* Test Item Value Reference Range Interpretation Comme nts PROTIME (BEAKER) (test code = 759) 22.7 seconds 11.9-14.2 H INR (BEAKER) (test code = 370) 1.90 <=5.90 RECOMMENDED COUMADIN/WARFARIN INR THERAPY RANGESSTANDARD DOSE: 2.0 - 3.0 Includes: PROPHYLAXIS for venous thrombosis, systemic embolization; TREATMENT for venous thrombosis and/or pulmonary embolus.HIGH RISK: Target INR is 2.5-3.5 for patients with mechanical heart valves.COMPREHENSIVE METABOLIC PANEL 2024-07-09 05:50:53* Test Item Value Reference Range Interpretation Comme nts TOTAL PROTEIN (BEAKER) (test code = 770) 5.9 gm/dL 6.4-8.3 L ALBUMIN (BEAKER) (test code = 1145) 2.3 g/dL 3.5-5.0 L ALKALINE PHOSPHATASE (BEAKER) (test code = 346) 129 U/L 40-150 BILIRUBIN TOTAL (BEAKER) (test code = 377) 19.1 mg/dL 0.2-1.2 H SODIUM (BEAKER) (test code = 381) 132 meq/L 136-145 L POTASSIUM (BEAKER) (test code = 379) 3.2 meq/L 3.4-5.1 L CHLORIDE (BEAKER) (test code = 382) 100 meq/L 98-107 CO2 (BEAKER) (test code = 355) 23 meq/L 22-29 BLOOD UREA NITROGEN (BEAKER) (test code = 354) 3 mg/dL 7-19 L CREATININE (BEAKER) (test code = 358) 0.38 mg/dL 0.57-1.11 L GLUCOSE RANDOM (BEAKER) (test code = 652) 83 mg/dL 70-105 CALCIUM (BEAKER) (test code = 697) 8.2 mg/dL 8.4-10.2 L AST (SGOT) (BEAKER) (test code = 353) 85 U/L 5-34 H ALT (SGPT) (BEAKER) (test code = 347) 19 U/L <55 EGFR (BEAKER) (test code = 1092) 132 mL/min/1.73 sq m Interpretation of eG FR values Stage Description Result G1 Normal or high >=90 G2 Mildly decreased 60-89 G3a Mildly to moderately 45-59 G3b Moderately to severely 30-44 G4 Severly decreased 15-29 G5 Kidney failure <15Reported eGFR is based on the CKD-EPI 2020 equation that does not use a race coefficientEstimated GFR is not as accurate as Creatinine Clearance in predicting glomerular filtration rate. Estimated GFR is not applicable for dialysis patients Specimen markedly ictericURINALYSIS W/ REFLEX URINE [id number] 05:42:36* Test Item Value Reference Range Interpretation Comme nts COLOR (BEAKER) (test code = 470) Dark Yellow CLARITY (BEAKER) (test code = 469) Hazy SPECIFIC GRAVITY UA (BEAKER) (test code = 468) 1.008 1.001-1.035 PH UA (BEAKER) (test code = 467) 7.0 5.0-8.0 PROTEIN UA (BEAKER) (test co de = 464) Negative Negative GLUCOSE UA (BEAKER) (test co de = 365) Negative Negative KETONES UA (BEAKER) (test co de = 371) Negative Negative BILIRUBIN UA (BEAKER) (test code = 462) Positive Negative A BLOOD UA (BEAKER) (test code = 461) Negative Negative NITRITE UA (BEAKER) (test co de = 465) Negative Negative LEUKOCYTE ESTERASE UA (BEAKE R) (test code = 466) Negative Negative UROBILINOGEN UA (BEAKER) (te st code = 463) 0.2 0.2-1.0 RBC UA (BEAKER) (test code = 519) 2 /HPF WBC UA (BEAKER) (test code = 520) 1 /HPF BACTERIA (BEAKER) (test code = 517) Occasional SQUAMOUS EPITHELIAL (BEAKER) (test code = 516) 1 /HPF AMORPHOUS CRYSTALS (BEAKER) (test code = 1584) Rare SOURCE(GISELA) (test code = 2795) Water Safety Teacher ID - [auto]Water Safety Teacher ID - [email or web address], [id number] 18:27:48* Test Item Value Reference Range Interpretation Comme nts FREE T4 (GISELA) (test code = 655) 1.50 ng/dL 0.70-1.48 H TSH/FREE T4 IF [id number] 17:36:08* Test Item Value Reference Range Interpretation Comme nts THYROID STIMULATING HORMONE (GISELA) (test code = 772) 5.633 uIU/mL 0.350-4.940 H [id number] 07:05:54* Test Item Value Reference Range Interpretation Comme nts ALPHA-1 ANTITRYPSIN (GISELA) (test code = 502) 163.40 mg/dL 90.00-200.00 US [id number] 16:09:23EXAM: US ABDOMEN LIMITED, US DOPPLER INDICATION: Cirrhosis, rule out biliary osbtruction and vascularobstruction COMPARISON: None TECHNIQUE: Transverse and longitudinal irene scale and color dopplersonographic images of the abdomen with spectral doppler analysis of theportal and hepatic vasculature.VASCULAR FINDINGS: HEPATIC VASCULATURE: The portal veins are patent with normal waveforms, velocities andhepatopetal directionality.. The main portal vein measures 1.3 cm indiameter. Main portal veinpeak systolic velocity is 22.4 cm/s. Patentsplenic vein with normal hepatopetal directionality. The proper, right and left hepatic arteries are patent with normal flowvelocities, resistive indices, and waveforms. . Proper, right and lefthepatic artery resistive indices are 0.60, 0.60 and 0.69, respectively. The hepatic veins and confluence are patent.. MIDLINE VASCULATURE:Aorta: Normal.Inferior Vena Cava: Normal. NON-VASCULAR FINDINGS: LIVERSize: 21.7 cm in the right midclavicular line.Appearance: Increased echogenicity, smooth contourMass: No focal liver mass. NIGTXW12.4 cm in maximum diameter. Normal echogenicity. No focal mass. GALLBLADDERCholelithiasis and gallbladder sludge. Negative sonographic Pimentel'ssign. Gallbladder wall measures 2 mm. BILE DUCTSIntrahepatic Ducts: No ductal dilatation.Extrahepatic Ducts: The common bile duct measures 3 mm. PANCREAS: Visualized portions of thepancreatic head, neck and proximalbody are normal. RIGHT KIDNEY: 10.6 cmEchogenicity: NormalCollecting System: No hydronephrosisStones: NoneCyst/Mass: None FREE FLUID: NoneCH[facility]mshouse San FranciscoUS abdomen [id number] 16:09:23EXAM: US ABDOMEN LIMITED, US DOPPLER INDICATION: Cirrhosis, rule out biliary osbtruction and vascularobstruction COMPARISON: None TECHNIQUE: Transverse and longitudinal irene scale and color dopplersonographic images of the abdomen with spectral doppler analysis of theportal and hepatic vasculature.VASCULAR FINDINGS: HEPATIC VASCULATURE: The portal veins are patent with normal waveforms, velocities andhepatopetal directionality.. The main portal vein measures 1.3 cm indiameter. Main portal veinpeak systolic velocity is 22.4 cm/s. Patentsplenic vein with normal hepatopetal directionality. Theproper, right and left hepatic arteries are patent with normal flowvelocities, resistive indices, and waveforms. . Proper, right and lefthepatic artery resistive indices are 0.60, 0.60 and 0.69, respe ctively. The hepatic veins and confluence are patent.. MIDLINE VASCULATURE:Aorta: Normal.Inferior Vena Cava: Normal. NON-VASCULAR FINDINGS: LIVERSize: 21.7 cm in the right midclavicular line.Appearance: Increased echogenicity, smooth contourMass: No focal liver mass. ENJMCO47.4 cm in maximum diameter. Normal echogenicity. No focal mass. GALLBLADDERCholelithiasis and gallbladder sludge. Negative sonographic Pimentel'ssign. Gallbladder wall measures 2 mm. BILE DUCTSIntrahepatic Ducts: No ductal dilatation.Extrahepatic Ducts: The common bile duct measures 3 mm. PANCREAS: Visualized portions of the pancreatic head, neck and proximalbody are normal. RIGHT KIDNEY: 10.6 cmEchogenicity: NormalCollecting System: No hydronephrosisStones: NoneCyst/Mass: None FREE FLUID: NoneCH[facility] [place] FranciscoUS [id number] 16:09:23 [facility] : 1985 Sex: FEXAM: US ABDOMEN LIMITED, US DOPPLERINDICATION: Cirrhosis, rule out biliary osbtruction and vascularobstructionCOMPARISON: None TECHNIQUE: Transverse and longitudinal irene scale and color dopplersonographic images of the abdomen with spectral doppler analysis of theportal and hepatic vasculature.VASCULAR FINDINGS:HEPATIC VASCULATURE: The portal veins are patent with normal waveforms,velocities andhepatopetal directionality.. The main portal vein measures 1.3 cm indiameter. Main portal vein peak systolic velocity is 22.4 cm/s. Patentsplenic vein with normal hepatopetal directionality.The proper, right and left hepatic arteries are patent with normal flowvelocities, resistive indices, and waveforms. . Proper, right and lefthepatic artery resistive indices are 0.60, 0.60 and 0.69, respectively.The hepatic veins and confluence are patent.. MIDLINE VASCULATURE:Aorta: Normal.Inferior Vena Cava: Normal.NON-VASCULAR FINDINGS:LIVERSize: 21.7 cm in the right midclavicular line.Appearance: Increased echogenicity, smooth contourMass: No focal liver mass.YXOAOZ21.4 cm in maximum diameter. Normal echogenicity. No focal mass.GALLBLADDERCholelithiasis and gallbladder sludge. Negative sonographic Pimentel'ssign. Gallbladder wall measures 2 mm. BILE DUCTSIntrahepatic Ducts: No ductal dilatation.Extrahepatic Ducts: The common bile duct measures 3 mm.PANCREAS: Visualized portions of the pancreatic head, neck and proximalbody are normal.RIGHT KIDNEY: 10.6 cmEchogenicity: NormalCollecting System: No hydronephrosisStones: NoneCyst/Mass: NoneFREE FLUID: NoneIMPRESSION:1. Patent hepatic and portal vascularity.2. Hepatic steatosis and hepatomegaly.3. Cholelithiasis without sonographicevidence of acute cholecystitis.4. No bile duct dilation.Electronically Signed By: Spike Warner07/07/2024 16:11 CDTWorkstation Name: [id number] ABDOMEN [id number] 16:09:23 [facility] : 1985 Sex: FEXAM: US ABDOMEN LIMITED, US DOPPLERINDICATION: Cirrhosis, rule out biliary osbtruction and vascularobstructionCOMPARISON: None TECHNIQUE: Transverse and longitudinal irene scale and color dopplersonographic images of the abdomen with spectral doppler analysis of theportal and hepatic vasculature.VASCULAR FINDINGS:HEPATIC VASCULATURE: The portal veins are patent with normal waveforms,velocities andhepatopetal directionality.. The main portal vein measures 1.3 cm indiameter. Main portal vein peak systolic velocity is 22.4 cm/s. Patentsplenic vein with normal hepatopetal directionality.The proper, right and left hepatic arteries are patent with normal flowvelocities, resistive indices, and waveforms. . Proper, right and lefthepatic artery resistive indices are 0.60, 0.60 and 0.69, respectively.The hepatic veins and confluence are patent.. MIDLINE VASCULATURE:Aorta: Normal.Inferior Vena Cava: Normal.NON-VASCULAR FINDINGS:LIVERSize: 21.7 cm in the right midclavicular line.Appearance: Increased echogenicity, smooth contourMass: No focal liver mass.XIALKG45.4 cm in maximum diameter. Normal echogenicity. No focal mass.GALLBLADDERCholelithiasis and gallbladder sludge. Negative sonographic Pimentel'ssign. Gallbladder wall measures 2 mm. BILE DUCTSIntrahepatic Ducts: No ductal dilatation.Extrahepatic Ducts: The common bile duct measures 3 mm.PANCREAS: Visualized portions of the pancreatic head, neck and proximalbody are normal.RIGHT KIDNEY: 10.6 cmEchogenicity: NormalCollecting System: No hydronephrosisStones: NoneCyst/Mass: NoneFREE FLUID: NoneIMPRESSION:1. Patent hepatic and portal vascularity.2. Hepatic steatosis and hepatomegaly.3. Cholelithiasis without sonographicevidence of acute cholecystitis.4. No bile duct dilation.Electronically Signed By: Spike Warner07/07/2024 16:11 CDTWorkstation Name: [id number] METABOLIC [id number] 15:34:59* Test Item Value Reference Range Interpretation Comme nts TOTAL PROTEIN (BEAKER) (test code = 770) 6.4 gm/dL 6.4-8.3 ALBUMIN (BEAKER) (test code = 1145) 2.7 g/dL 3.5-5.0 L ALKALINE PHOSPHATASE (BEAKER) (test code = 346) 166 U/L 40-150 H BILIRUBIN TOTAL (BEAKER) (test code = 377) 18.9 mg/dL 0.2-1.2 H SODIUM (BEAKER) (test code = 381) 131 meq/L 136-145 L POTASSIUM (BEAKER) (test code = 379) 3.5 meq/L 3.4-5.1 CHLORIDE (BEAKER) (test code = 382) 94 meq/L 98-107 L CO2 (BEAKER) (test code = 355) 29 meq/L 22-29 BLOOD UREA NITROGEN (BEAKER) (test code = 354) 5 mg/dL 7-19 L CREATININE (BEAKER) (test code = 358) 0.50 mg/dL 0.57-1.11 L GLUCOSE RANDOM (BEAKER) (test code = 652) 136 mg/dL 70-105 H CALCIUM (BEAKER) (test code = 697) 8.9 mg/dL 8.4-10.2 AST (SGOT) (BEAKER) (test code = 353) 134 U/L 5-34 H ALT (SGPT) (BEAKER) (test code = 347) 29 U/L <55 EGFR (BEAKER) (test code = 1092) 124 mL/min/1.73 sq m Interpretation of eG FR values Stage Description Result G1 Normal or high >=90 G2 Mildly decreased 60-89 G3a Mildly to moderately 45-59 G3b Moderately to severely 30-44 G4 Severly decreased 15-29 G5 Kidney failure <15Reported eGFR is based on the CKD-EPI 2020 equation that does not use a race coefficientEstimated GFR is not as accurate as Creatinine Clearance in predicting glomerular filtration rate. Estimated GFR is not applicable for dialysis patients Specimen markedly ictericCBC W/PLT COUNT & AUTO [id number] 15:25:52 * Test Item Value Reference Range Interpretation Comme nts WHITE BLOOD CELL COUNT (BEAK ER) (test code = 775) 3.5 K/ L 3.5-10.5 RED BLOOD CELL COUNT (BEAKER ) (test code = 761) 2.41 M/ L 3.93-5.22 L HEMOGLOBIN (BEAKER) (test co de = 410) 8.3 GM/DL 11.2-15.7 L HEMATOCRIT (BEAKER) (test co de = 411) 24.6 % 34.1-44.9 L MEAN CORPUSCULAR VOLUME (TAMARA KER) (test code = 753) 102 fL 79-95 H MEAN CORPUSCULAR HEMOGLOBIN (BEAKER) (test code = 751) 34.4 pg 25.6-32.2 H MEAN CORPUSCULAR HEMOGLOBIN CONC (BEAKER) (test code = 752) 33.7 GM/DL 32.2-35.5 RED CELL DISTRIBUTION WIDTH (BEAKER) (test code = 412) 17.1 % 11.7-14.4 H PLATELET COUNT (BEAKER) (eamon t code = 756) 56 K/CU MM 150-450 L MEAN PLATELET VOLUME (BEAKER ) (test code = 754) 12.4 fL 9.4-12.3 H NUCLEATED RED BLOOD CELLS (B EAKER) (test code = 413) 0 /100 WBC 0-0 NEUTROPHILS RELATIVE PERCENT (BEAKER) (test code = 429) 65 % LYMPHOCYTES RELATIVE PERCENT (BEAKER) (test code = 430) 21 % MONOCYTES RELATIVE PERCENT (BEAKER) (test code = 431) 12 % EOSINOPHILS RELATIVE PERCENT (BEAKER) (test code = 432) 1 % BASOPHILS RELATIVE PERCENT (BEAKER) (test code = 437) 1 % NEUTROPHILS ABSOLUTE COUNT (BEAKER) (test code = 670) 2.28 K/ L 1.56-6.13 LYMPHOCYTES ABSOLUTE COUNT (BEAKER) (test code = 414) 0.74 K/ L 1.18-3.74 L MONOCYTES ABSOLUTE COUNT (BE ALDO) (test code = 415) 0.42 K/ L 0.24-0.36 H EOSINOPHILS ABSOLUTE COUNT (BEAKER) (test code = 416) 0.02 K/ L 0.04-0.36 L BASOPHILS ABSOLUTE COUNT (BE ALDO) (test code = 417) 0.02 K/ L 0.01-0.08 IMMATURE GRANULOCYTES-RELATI VE PERCENT (BEAKER) (test code = 2801) 0.60 % 0.00-1.00 [id number] 14:53:23* Test Item Value Reference Range Interpretation Comme nts THYROID STIMULATING HORMONE (BEAKER) (test code = 772) 6.454 uIU/mL 0.350-4.940 H HEPATITIS A ANTIBODY, [id number] 14:53:07* Test Item Value Reference Range Interpretation Comme nts HEPATITIS A IGG ANTIBODY (BE ALDO) (test code = 2797) Reactive Nonreactive A VITAMIN [id number] 14:51:30* Test Item Value Reference Range Interpretation Comme nts VITAMIN B12 (BEAKER) (test c ode = 774) 691 pg/mL 213-816 IMMUNOGLOBULIN G (IGG)2024-07-07 14:51:30* Test Item Value Reference Range Interpretation Comme nts IMMUNOGLOBULIN G (IGG) (BEAK ER) (test code = 427) 1488 mg/dL 552-1631 ALPHA FETOPROTEIN (AFP), TUMOR [id number] 14:51:30* Test Item Value Reference Range Interpretation Comme nts ALPHA-FETOPROTEIN (BEAKER) ( test code = 1094) 5.7 ng/mL 0.9-8.8 HEPATITIS A ANTIBODY, [id number] 14:51:30* Test Item Value Reference Range Interpretation Comme nts HEPATITIS A IGM ANTIBODY (BE ALDO) (test code = 498) Nonreactive Nonreactive (CELLAVISION MANUAL DIFF)2024-07-07 09:42:33* Test Item Value Reference Range Interpretation Comme nts NEUTROPHILS - REL (CELLAVISION)(BEAKER) (test code = 2816) 75 % LYMPHOCYTES - REL (CELLAVISION)(BEAKER) (test code = 2817) 16 % MONOCYTES - REL (CELLAVISION)(BEAKER) (test code = 2818) 6 % BASOPHILS - REL (CELLAVISION)(BEAKER) (test code = 2820) 1 % BANDS - REL (CELLAVISION)(BE ALDO) (test code = 2826) 1 % 0-10 NEUTROPHILS - ABS (CELLAVISION)(BEAKER) (test code = 2830) 1.88 K/ul 1.56-6.13 LYMPHOCYTES - ABS (CELLAVISION)(BEAKER) (test code = 2831) 0.40 K/ul 1.18-3.74 L MONOCYTES - ABS (CELLAVISION)(BEAKER) (test code = 2832) 0.15 K/uL 0.24-0.36 L BASOPHILS - ABS (CELLAVISION)(BEAKER) (test code = 2835) 0.03 K/uL 0.01-0.08 BANDS - ABS (CELLAVISION)(BE ALDO) (test code = 2840) 0.03 K/uL 0.00-0.80 TOTAL COUNTED (BEAKER) (test code = 1351) 100 GIANT PLATELETS (BEAKER) (te st code = 313) Present HYPERSEGMENTATION (CELLAVISION)(BEAKER) (test code = 3445) Present POLYCHROMATOPHILLIC RBCS(TAMARA KER) (test code = 478) 3+ many ANISOCYTOSIS (BEAKER) (test code = 961) 2+ moderate MACROCYTES (BEAKER) (test co de = 964) 2+ moderate ARTIFACT (CELLAVISION)(BEAKE R) (test code = 3432) Present PLATELET CONCENTRATION (CELLAVISION)(BEAKER) (test code = 3438) Decreased Water Safety Teacher ID - desmond balsaraUser comments: Slide comments:CBC W/PLT COUNT & AUTO [id number] 09:42:32* Test Item Value Reference Range Interpretation Comme nts WHITE BLOOD CELL COUNT (BEAK ER) (test code = 775) 2.5 K/ L 3.5-10.5 L RED BLOOD CELL COUNT (BEAKER ) (test code = 761) 2.34 M/ L 3.93-5.22 L HEMOGLOBIN (BEAKER) (test co de = 410) 8.1 GM/DL 11.2-15.7 L HEMATOCRIT (BEAKER) (test co de = 411) 23.5 % 34.1-44.9 L MEAN CORPUSCULAR VOLUME (TAMARA KER) (test code = 753) 100 fL 79-95 H MEAN CORPUSCULAR HEMOGLOBIN (BEAKER) (test code = 751) 34.6 pg 25.6-32.2 H MEAN CORPUSCULAR HEMOGLOBIN CONC (BEAKER) (test code = 752) 34.5 GM/DL 32.2-35.5 RED CELL DISTRIBUTION WIDTH (BEAKER) (test code = 412) 17.1 % 11.7-14.4 H PLATELET COUNT (BEAKER) (eamon t code = 756) 58 K/CU MM 150-450 L MEAN PLATELET VOLUME (BEAKER ) (test code = 754) 12.8 fL 9.4-12.3 H NUCLEATED RED BLOOD CELLS (B EAKER) (test code = 413) 0 /100 WBC 0-0 HEPATITIS C [id number] 07:31:38* Test Item Value Reference Range Interpretation Comme nts HEPATITIS C ANTIBODY (BEAKER ) (test code = 367) Nonreactive Nonreactive HEPATITIS B [id number] 07:31:38* Test Item Value Reference Range Interpretation Comme nts HEPATITIS B CORE TOTAL ANTIB [place] (BEAKER) (test code = 497) Nonreactive Nonreactive HEPATITIS B SURFACE ANTIBODY (BEAKER) (test code = 647) 33.8 mIU/mL <8.0 H HEPATITIS B SURFACE ANTIGEN (2) (BEAKER) (test code = 2585) Nonreactive Nonreactive HIV-1 ANTIGEN WITH HIV-1/2 [id number] 07:31:38* Test Item Value Reference Range Interpretation Comme nts HIV-1 ANTIGEN WITH HIV 1\T\2 ANTIBODY (2) (BEAKER) (test code = 2586) Nonreactive Nonreactive BASIC METABOLIC [id number] 07:31:17* Test Item Value Reference Range Interpretation Comme nts SODIUM (BEAKER) (test code = 381) 132 meq/L 136-145 L POTASSIUM (BEAKER) (test code = 379) 3.3 meq/L 3.4-5.1 L CHLORIDE (BEAKER) (test code = 382) 95 meq/L 98-107 L CO2 (BEAKER) (test code = 355) 27 meq/L 22-29 BLOOD UREA NITROGEN (BEAKER) (test code = 354) 6 mg/dL 7-19 L CREATININE (BEAKER) (test code = 358) 0.47 mg/dL 0.57-1.11 L GLUCOSE RANDOM (BEAKER) (test code = 652) 91 mg/dL 70-105 CALCIUM (BEAKER) (test code = 697) 8.6 mg/dL 8.4-10.2 EGFR (BEAKER) (test code = 1092) 126 mL/min/1.73 sq m Interpretation of eG FR values Stage Description Result G1 Normal or high >=90 G2 Mildly decreased 60-89 G3a Mildly to moderately 45-59 G3b Moderately to severely 30-44 G4 Severly decreased 15-29 G5 Kidney failure <15Reported eGFR is based on the CKD-EPI 2020 equation that does not use a race coefficientEstimated GFR is not as accurate as Creatinine Clearance in predicting glomerular filtration rate. Estimated GFR is not applicable for dialysis patients Specimen markedly [id number] 07:19:03* Test Item Value Reference Range Interpretation Comme nts PHOSPHORUS (BEAKER) (test co de = 604) 1.2 mg/dL 2.3-4.7 LL PROTHROMBIN TIME/[id number] 07:14:17* Test Item Value Reference Range Interpretation Comme nts PROTIME (BEAKER) (test code = 759) 19.5 seconds 11.9-14.2 H INR (BEAKER) (test code = 370) 1.59 <=5.90 RECOMMENDED COUMADIN/WARFARIN INR THERAPY RANGESSTANDARD DOSE: 2.0 - 3.0 Includes: PROPHYLAXIS for venous thrombosis, systemic embolization; TREATMENT for venous thrombosis and/or pulmonary embolus.HIGH RISK: Target INR is 2.5-3.5 for patients with mechanical heart valves.[id number] 07:12:35* Test Item Value Reference Range Interpretation Comme nts MAGNESIUM (BEAKER) (test cod e = 627) 1.8 mg/dL 1.6-2.6 HEPATIC FUNCTION [id number] 07:12:35* Test Item Value Reference Range Interpretation Comme nts TOTAL PROTEIN (BEAKER) (test code = 770) 6.3 gm/dL 6.4-8.3 L ALBUMIN (BEAKER) (test code = 1145) 2.7 g/dL 3.5-5.0 L BILIRUBIN TOTAL (BEAKER) (te st code = 377) 17.7 mg/dL 0.2-1.2 H BILIRUBIN DIRECT (BEAKER) (t est code = 706) 12.9 mg/dL 0.1-0.5 H ALKALINE PHOSPHATASE (BEAKER ) (test code = 346) 170 U/L 40-150 H AST (SGOT) (BEAKER) (test co de = 353) 151 U/L 5-34 H ALT (SGPT) (BEAKER) (test co de = 347) 31 U/L <55 Specimen markedly ictericECG 12 [id number] 06:35:51Ventricular Rate 116 BPMAtrial Rate 116 BPMP-R Interval 178 msQRS Duration 78 msQ-T Interval 336 msQ TC Calculation(Bazett) 467 msP Galloway 67 degreesR Galloway 10 degreesT Galloway 40 degrees Sinus tachycardiaNonspecific T wave abnormalityAbnormal ECGNo previous ECGs availableConfirmed by Julien De La Garza ([id number]) on 07/07/2024 6:35:46 [facility], NAAT, [id number] 00:00:00* Test Item Value Reference Range Interpretation Comme nts CHLAMYDIA, NAAT, URINE (test code = 64672) NEGATIVE GONORRHEA, NAAT, URINE (test code = 07367) NEGATIVE Jamar F AustinHIV 1/2 4TH GEN, RFLX [id number] 00:00:00* Test Item Value Reference Range Interpretation Comme nts HIV 1/2 4TH GEN, RFLX CONF ( test code = 3514) NON-REACTIVE Jamar F AustinRPR REFLEX TO T. PALLIDUM - [id number] 00:00:00* Test Item Value Reference Range Interpretation Comme nts RPR (test code = 20217) NON-REACTIVE RPR TITER (test code = 3500) NOT INDIC. TITER Jamar F AustinHEPATITIS PROFILE (A,B,C)2024-06-29 00:00:00* Test Item Value Reference Range Interpretation Comme nts HEPATITIS A TOTAL AB (test c ode = 5314) REACTIVE HEPATITIS B SURF AG (test co de = 2739) NON-REACTIVE HEP B CORE TOTAL AB (test co de = 5365) NON-REACTIVE HEPATITIS B SURFACE AB (test code = 2737) REACTIVE HEPATITIS C ANTIBODY (test c ode = 4609) NON-REACTIVE INTERPRETATION HEPATITIS A: (test code = 2552) (NOTE) INTERPRETATION HEPATITIS B: (test code = 51474) (NOTE) INTERPRETATION HEPATITIS C: (test code = 63946) (NOTE) Jamar RivasCBC W/AUTO [id number] 00:00:00* Test Item Value Reference Range Interpretation Comme nts WBC (test code = 1001) 4.9 K/UL RBC (test code = 1002) 3.50 M/UL HEMOGLOBIN (test code = 1003) 11.9 G/DL HEMATOCRIT (test code = 1004) 34.5 % MCV (test code = 1005) 98.6 fL MCH (test code = 1006) 34.0 PG MCHC (test code = 1007) 34.5 G/DL RDW (test code = 1038) 15.0 % NEUTROPHILS (test code = 1008) 59.0 % LYMPHOCYTES (test code = 1010) 31.8 % MONOCYTES (test code = 1011) 7.0 % EOSINOPHILS (test code = 1012) 0.6 % BASOPHILS (test code = 1013) 1.2 % IMMATURE GRANULOCYTES (test code = 1036) 0.4 % NUCLEATED RBCS (test code = 1065) 0.0 /100WBC'S PLATELET COUNT (test code = 1015) 106 K/UL ABSOLUTE NEUTROPHILS (test c ode = 1066) 2.87 K/UL ABSOLUTE LYMPHOCYTES (test c ode = 1067) 1.55 K/UL ABSOLUTE MONOCYTES (test cod e = 1068) 0.34 K/UL ABSOLUTE EOSINOPHILS (test c ode = 1040) 0.03 K/UL ABSOLUTE BASOPHILS (test cod e = 1069) 0.06 K/UL ABS IMMATURE GRANULOCYTES (t est code = 1020) 0.02 K/UL ABS NUCLEATED RBCS (test cod e = 58973) 0.00 K/UL Jamar RivasCOMPREHENSIVE METABOLIC [id number] 00:00:00* Test Item Value Reference Range Interpretation Comme nts GLUCOSE (test code = 2217) 99 MG/DL BUN (test code = 2208) 3 MG/DL CREATININE (test code = 2214) 0.35 MG/DL eGFR (2020 CKD-EPI) (test code = 04630) 135 ML/MIN/1.73 CALC BUN/CREAT (test code = 2235) 9 RATIO SODIUM (test code = 2231) 140 MEQ/L POTASSIUM (test code = 2228) 3.3 MEQ/L CHLORIDE (test code = 2215) 98 MEQ/L CARBON DIOXIDE (test code = 2206) 23 MEQ/L CALCIUM (test code = 2209) 8.5 MG/DL PROTEIN, TOTAL (test code = 2229) 7.8 G/DL ALBUMIN (test code = 2201) 4.0 G/DL CALC GLOBULIN (test code = 2240) 3.8 G/DL CALC A/G RATIO (test code = 2234) 1.1 RATIO BILIRUBIN, TOTAL (test code = 2207) 4.3 MG/DL ALKALINE PHOSPHATASE (test code = 2204) 303 U/L AST (test code = 2218) 341 U/L ALT (test code = 2219) 63 U/L Jamar RivasLIPID [id number] 00:00:00* Test Item Value Reference Range Interpretation Comme nts CHOLESTEROL (test code = 2210) 169 MG/DL TRIGLYCERIDES (test code = 2232) 165 MG/DL HDL CHOLESTEROL (test code = 2220) 47 MG/DL CALC LDL CHOL (test code = 2237) 96 MG/DL RISK RATIO LDL/HDL (test cod e = 2238) 2.04 RATIO Jamar Gleason AustinHEPATITIS A IgM [REFLEX]2024-06-29 00:00:00* Test Item Value Reference Range Interpretation Comme nts HEPATITIS A IgM (test code = 2728) NON-REACTIVE Jamar F AustinCT/NG, NAAT, [id number] 00:00:00* Test Item Value Reference Range Interpretation Comme nts CHLAMYDIA, NAAT, URINE (test code = 01414) NEGATIVE GONORRHEA, NAAT, URINE (test code = 21719) NEGATIVE Jamar Victorino oRbHIV 1/2 4TH GEN, RFLX [id number] 00:00:00* Test Item Value Reference Range Interpretation Comme nts HIV 1/2 4TH GEN, RFLX CONF ( test code = 3514) NON-REACTIVE Jamar F AustinRPR REFLEX TO T. PALLIDUM - [id number] 00:00:00* Test Item Value Reference Range Interpretation Comme nts RPR (test code = 85233) NON-REACTIVE RPR TITER (test code = 3500) NOT INDIC. TITER Jamar RivasHEPATITIS PROFILE (A,B,C)2024-06-29 00:00:00* Test Item Value Reference Range Interpretation Comme nts HEPATITIS A TOTAL AB (test c ode = 2725) REACTIVE HEPATITIS B SURF AG (test co de = 2739) NON-REACTIVE HEP B CORE TOTAL AB (test co de = 2729) NON-REACTIVE HEPATITIS B SURFACE AB (test code = 2737) REACTIVE HEPATITIS C ANTIBODY (test c ode = 4675) NON-REACTIVE INTERPRETATION HEPATITIS A: (test code = 2552) (NOTE) INTERPRETATION HEPATITIS B: (test code = 89948) (NOTE) INTERPRETATION HEPATITIS C: (test code = 35404) (NOTE) Jamar RivasCBC W/AUTO [id number] 00:00:00* Test Item Value Reference Range Interpretation Comme nts WBC (test code = 1001) 4.9 K/UL RBC (test code = 1002) 3.50 M/UL HEMOGLOBIN (test code = 1003) 11.9 G/DL HEMATOCRIT (test code = 1004) 34.5 % MCV (test code = 1005) 98.6 fL MCH (test code = 1006) 34.0 PG MCHC (test code = 1007) 34.5 G/DL RDW (test code = 1038) 15.0 % NEUTROPHILS (test code = 1008) 59.0 % LYMPHOCYTES (test code = 1010) 31.8 % MONOCYTES (test code = 1011) 7.0 % EOSINOPHILS (test code = 1012) 0.6 % BASOPHILS (test code = 1013) 1.2 % IMMATURE GRANULOCYTES (test code = 1036) 0.4 % NUCLEATED RBCS (test code = 1065) 0.0 /100WBC'S PLATELET COUNT (test code = 1015) 106 K/UL ABSOLUTE NEUTROPHILS (test c ode = 1066) 2.87 K/UL ABSOLUTE LYMPHOCYTES (test c ode = 1067) 1.55 K/UL ABSOLUTE MONOCYTES (test cod e = 1068) 0.34 K/UL ABSOLUTE EOSINOPHILS (test c ode = 1040) 0.03 K/UL ABSOLUTE BASOPHILS (test cod e = 1069) 0.06 K/UL ABS IMMATURE GRANULOCYTES (t est code = 1020) 0.02 K/UL ABS NUCLEATED RBCS (test cod e = 96388) 0.00 K/UL Jamar RivasCOMPREHENSIVE METABOLIC [id number] 00:00:00* Test Item Value Reference Range Interpretation Comme nts GLUCOSE (test code = 2217) 99 MG/DL BUN (test code = 2208) 3 MG/DL CREATININE (test code = 2214) 0.35 MG/DL eGFR (2020 CKD-EPI) (test code = 36115) 135 ML/MIN/1.73 CALC BUN/CREAT (test code = 2235) 9 RATIO SODIUM (test code = 2231) 140 MEQ/L POTASSIUM (test code = 2228) 3.3 MEQ/L CHLORIDE (test code = 2215) 98 MEQ/L CARBON DIOXIDE (test code = 2206) 23 MEQ/L CALCIUM (test code = 2209) 8.5 MG/DL PROTEIN, TOTAL (test code = 2229) 7.8 G/DL ALBUMIN (test code = 2201) 4.0 G/DL CALC GLOBULIN (test code = 2240) 3.8 G/DL CALC A/G RATIO (test code = 2234) 1.1 RATIO BILIRUBIN, TOTAL (test code = 2207) 4.3 MG/DL ALKALINE PHOSPHATASE (test code = 2204) 303 U/L AST (test code = 2218) 341 U/L ALT (test code = 2219) 63 U/L Jmaar Gleason AustinLIPID [id number] 00:00:00* Test Item Value Reference Range Interpretation Comme nts CHOLESTEROL (test code = 2210) 169 MG/DL TRIGLYCERIDES (test code = 2232) 165 MG/DL HDL CHOLESTEROL (test code = 2220) 47 MG/DL CALC LDL CHOL (test code = 2237) 96 MG/DL RISK RATIO LDL/HDL (test cod e = 2238) 2.04 RATIO Jamar Gleason RobHEPATITIS A IgM [REFLEX]2024-06-29 00:00:00* Test Item Value Reference Range Interpretation Comme nts HEPATITIS A IgM (test code = 2728) NON-REACTIVE Jamar Victorino Rob
--- NOTE | 2024-10-05 14:49 | RAD REPORT ---
EXAM: Chest Single View HISTORY: ABDOMINAL DISTENTION COMPARISON: 08/19/24 FINDINGS: LUNGS/PLEURA: The lungs are clear. No pleural effusions or pneumothorax. No pulmonary edema. MEDIASTINUM: The mediastinal silhouette is within normal limits. CARDIAC: The cardiac silhouette is within normal limits. UPPER ABDOMEN: No significant abnormality. BONES: No acute abnormality. Fusion hardware in the spine. LINES/TUBES/OTHER: N/A IMPRESSION: No evidence of acute cardiopulmonary disease.
[2024-10-05 14:50] LABS: Absolute Basophils 0.1 K/uL (0-0.5); Absolute Lymphocytes (CBC) 1.4 K/uL (0.7-4.9); Absolute Monocytes 0.3 K/uL (0.1-1.3); Absolute Neutrophil 3.4 K/uL (1.8-8.0); Basophils % 1.1 % (0-1.3); Eosinophils % 0.5 % (0-4.4); Hematocrit 34.1 % (36.0-45.0); Hemoglobin 11.5 g/dL (12.0-15.0); Lymphocytes % 26.9 % (15.3-44.8); MCHC 33.8 g/dL (32.0-36.0); MCV 94.8 fL (80-100); MPV 9.6 fL (7.6-11.3); Monocytes % 5.9 % (3.3-12.3); Neutrophils % 65.6 % (41.7-73.7); Platelets 92 thou/uL (152-406); Red Cell Distribution Width 14.6 % (12.1-15.2)
[2024-10-05 14:55] LABS: PT Prothrombin Time 16.7 SECONDS (9.4-12.5); PTT, Activated Partial Thromb 39.1 SECONDS (24.3-36.9); Protime INR 1.6
[2024-10-05 15:05] LABS: Albumin 2.8 g/dL (3.4-5.0); Albumin/Globulin Ratio 0.7 (1.1-1.8); Anion Gap 14.3 mEq/L (5.0-15.0); Bilirubin Indirect, Calculated 0.8 mg/dL (0.2-0.8); Bilirubin Total 2.8 mg/dL (0.2-1.0); Globulin 4.3 g/dL (2.3-3.5); Magnesium 1.7 mg/dL (1.6-2.4); Potassium 3.3 mEq/L (3.5-5.1); Protein, Total 7.1 g/dL (6.4-8.2)
[2024-10-05 15:47] LABS: Specific Gravity < 1.005 (1.005-1.030); Sqamous Epithelial None Seen /HPF (None Seen); Urine Bacteria <20 /HPF (<20); Urine Bilirubin NEGATIVE (Negative); Urine Blood Negative (Negative); Urine Clarity Clear (Clear); Urine Color Light-Yellow (Yellow); Urine Culture Reflex Order NOT NEEDED; Urine Glucose NEGATIVE (Negative); Urine Ketones NEGATIVE (Negative); Urine Micro Reflex YN NO BILL MICROSCOPIC; Urine Nitrite NEGATIVE (Negative); Urine Protein NEGATIVE (Negative); Urine RBC <5 /HPF (None Seen); Urine Urobilinogen 1+ (Normal); Urine WBC None Seen /HPF (<5); Urine pH 6.5 (5.0-7.0)
[2024-10-05] MEDS ORDERED: POTASSIUM 25 MEQ EFFERV TAB ONE (16:12)
--- NOTE | 2024-10-05 17:25 | EDPHYS ---
Physician Documentation [facility] Name: Rylee Thomas Age: 38 yrs Sex: Female : 1985 Arrival Date: 10/05/2024 Time: 13:34 Bed 6 Private MD: ANIBAL Physician Renato Ace HPI: 10/05 13:55 This 38 yrs old Female presents to ER via Ambulatory with complaints of Abdominal cp Swelling, Chest Tightness. 13:55 The patient presents with abdominal distention that is diffuse. Onset: The cp symptoms/episode began/occurred gradually. Associated signs and symptoms: Pertinent positives: chest tightness, Pertinent negatives: constipation, diarrhea, fever, vomiting. 13:55 The symptoms are described as tightness. Severity of pain: in the emergency department cp the pain is unchanged despite home interventions. 13:55 Patient reports PMHX significant for alcoholic cirrhosis and ascites. Reports last time cp abdomen was drained was in July 2024 in [place]. C/o increasing abdominal distention and chest tightness. Patient reports last drink of alcohol was this morning. Historical: - Allergies: 13:48 No Known Allergies; ll1 - PMHx: 13:43 cirrhosis of liver; Endometriosis of vagina; scoliosis; ll1 - PSHx: 13:43 partial hysterectomy; ll1 - Immunization history:: Adult Immunizations up to date. - Infectious Disease History:: Denies. - Social history:: Smoking status: unknown. ROS: 14:00 Constitutional: Negative for body aches, chills, fever, poor PO intake, cp 14:00 Eyes: Negative for injury, pain, redness, and discharge, cp 14:00 ENT: Negative for drainage from ear(s), ear pain, sore throat, difficulty swallowing, difficulty handling secretions, 14:00 Cardiovascular: Positive for chest tightness, Negative for palpitations, 14:00 Respiratory: Negative for cough, shortness of breath, wheezing, 14:00 Abdomen/GI: Positive for abdominal distension, Negative for vomiting, diarrhea, constipation, 14:00 Neuro: Negative for altered mental status, dizziness, headache, numbness, weakness, 14:00 All other systems are negative, Exam: 14:05 Constitutional: The patient appears in no acute distress, alert, awake, cp non-diaphoretic, non-toxic, well developed, well nourished, 14:05 Head/Face: Normocephalic, atraumatic. cp 14:05 Eyes: Periorbital structures: appear normal, Conjunctiva: normal, no exudate, no injection, Sclera: no appreciated abnormality, Lids and lashes: appear normal, bilaterally, 14:05 ENT: External ear(s): are unremarkable, Nose: is normal, Posterior pharynx: Airway: no evidence of obstruction, patent, 14:05 Neck: ROM/movement: is normal, is supple, without pain, no range of motions limitations, 14:05 Chest/axilla: Inspection: normal, 14:05 Cardiovascular: Rate: normal, Rhythm: regular, Edema: is not appreciated, JVD: is not appreciated, 14:05 Respiratory: the patient does not display signs of respiratory distress, Respirations: normal, no use of accessory muscles, no retractions, labored breathing, is not present, Breath sounds: are clear throughout, no decreased breath sounds, no stridor, no wheezing, 14:05 Abdomen/GI: Inspection: distension, that is moderate, Bowel sounds: active, all quadrants, Palpation: abdomen is soft and non-tender, in all quadrants, 14:05 Back: pain, is absent, ROM is normal, 14:05 Neuro: Orientation: to person, place \T\ time. Mentation: able to follow commands, Motor: moves all fours, strength is normal, Vital Signs: 13:47 BP 109 / 74; Pulse 96; Resp 18; Pulse Ox 97% on R/A; Weight 57.15 kg; Height 5 ft. 9 ll1 in. ; 15:47 BP 112 / 77; Pulse 80; Resp 17; Pulse Ox 99% ; rs5 17:30 BP 125 / 75; Pulse 70; Resp 17; Pulse Ox 99% ; rs5 13:47 Body Mass Index 18.61 (57.15 kg, 175.26 cm) ll1 MDM: 13:44 Medical Screening Exam initiated cp 17:25 Data reviewed: vital signs, nurses notes, lab test result(s), EKG, radiologic studies, cp plain films, and as a result, I will discharge patient. 17:25 Differential diagnosis: bowel obstruction, cholecystitis, Cholelithiasis, non-specific cp abd pain, pancreatitis, urinary tract infection. Care significantly affected by the following chronic conditions: Liver Disease. 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 Special discussion: Based on the patient's history, exam, and Dx evaluation, there is no indication for emergent intervention or inpatient Tx. It is understood by the patient/guardian that if the Sx's persist or worsen they need to return immediately for re-evaluation. Based on the patient's Hx, exam, and Dx evaluation, there is no indication for emergent surgery or inpatient Tx. It is understood by the patient/guardian that if the Sx's persist or worsen they need to return immediately for re-evaluation. 10/05 13:53 Order name: Basic Metabolic Panel; Complete Time: 15:15 cp 10/05 15:15 Interpretation: Normal except: K 3.3; GLUC 111; BUN 3; CRE 0.32; CA 7.9. cp 10/05 13:53 Order name: CBC with Diff; Complete Time: 15:15 cp 10/05 15:15 Interpretation: Normal except: RBC 3.60; HGB 11.5; HCT 34.1; PLT 92. cp 10/05 13:53 Order name: LFT's; Complete Time: 15:15 cp 10/05 15:16 Interpretation: Normal except: AST 281; ALK 205; BILIT 2.8; BILID 2.0; ALB 2.8; GLOB cp 4.3; A/G 0.7. 10/05 13:53 Order name: Magnesium; Complete Time: 15:15 cp 10/05 13:53 Order name: NT PRO-BNP; Complete Time: 15:15 cp 10/05 13:53 Order name: PT-INR; Complete Time: 15:15 cp 10/05 15:16 Interpretation: Reviewed. cp 10/05 13:53 Order name: Troponin HS; Complete Time: 15:15 cp 10/05 15:16 Interpretation: Reviewed. cp 10/05 13:53 Order name: AMMONIA; Complete Time: 15:15 cp 10/05 13:53 Order name: ETOH Level; Complete Time: 15:42 cp 10/05 15:42 Interpretation: Reviewed. cp 10/05 13:53 Order name: Urine W/Microscopic (UAM); Complete Time: 15:58 10/05 15:58 Interpretation: Reviewed. 10/05 13:53 Order name: Test, Serum; Complete Time: 15:15 10/05 13:53 Order name: Ptt, Activated; Complete Time: 15:15 10/05 15:16 Interpretation: Reviewed. 10/05 13:53 Order name: XRAY Chest (1 view); Complete Time: 14:50 10/05 14:51 Interpretation: Report review. 10/05 13:53 Order name: EKG; Complete Time: 13:54 10/05 13:53 Order name: Cardiac monitoring; Complete Time: 14:43 10/05 13:53 Order name: EKG - Nurse/Tech; Complete Time: 14:43 10/05 13:53 Order name: IV Saline Lock; Complete Time: 16:30 10/05 13:53 Order name: Labs collected and sent; Complete Time: 16:30 10/05 13:53 Order name: O2 Per Protocol; Complete Time: 16:30 10/05 13:53 Order name: O2 Sat Monitoring; Complete Time: 16:30 cp Administered Medications: 16:30 Drug: Potassium PO Effervescent Tablet 50 mEq PO once; dissolve in 4 ounces of water or rs5 juice Route: PO; 17:10 Follow up: Response: No adverse reaction rs5 Disposition Summary: 10/05/24 17:25 Discharge Ordered Notes: Location: Home cp Problem: chronic cp Symptoms: are unchanged cp Condition: Stable cp Diagnosis - Alcohol abuse with intoxication cp - Alcoholic cirrhosis of liver with ascites cp Followup: cp - With: Morena Jackson MD - When: 2 - 3 days - Reason: ascitis Discharge Instructions: - Discharge Summary Sheet cp - Alcohol Intoxication cp - Ascites cp - Cirrhosis cp - Alcohol Abuse and Nutrition cp - Alcoholic Liver Disease cp - Alcohol Abuse and Dependence Information, Adult cp Forms: - Medication Reconciliation Form cp - Antibiotic Education cp - Prescription Opioid Use cp - Patient Portal Instructions cp - Leadership Thank You Letter cp Addendum: 10/11/2024 07:21 Co-signature as Attending Physician, Renato Ace MD I agree with the assessment and c leong plan of care. Signatures: Dispatcher [employer] EDMS Renato Ace MD MD cha Page, Corey, PA PA cp Radha Nunez, RN RN ll1 Osvaldo Noland, RN RN rs5 Corrections: (The following items were deleted from the chart) 10/05 13:54 13:54 BASIC METABOLIC PANEL+C.LAB.BRZ ordered. EDMS EDMS 13:54 13:54 CBC+H.LAB.BRZ ordered. EDMS EDMS 13:54 13:54 HEPATIC FUNCTION+C.LAB.BRZ ordered. EDMS EDMS 13:54 13:54 MAGNESIUM+C.LAB.BRZ ordered. EDMS EDMS 13:54 13:54 PROBNP+C.LAB.BRZ ordered. EDMS EDMS 13:54 13:54 PROTIME (+INR)+COAG.LAB.BRZ ordered. EDMS EDMS 13:54 13:54 Troponin High Sensitivity+C.LAB.BRZ ordered. EDMS EDMS 13:54 13:54 AMMONIA+C.LAB.BRZ ordered. EDMS EDMS 13:54 13:54 ETHANOL+C.LAB.BRZ ordered. EDMS EDMS 13:54 13:54 Urinalysis W/Microscopic+U.LAB.BRZ ordered. EDMS EDMS 13:54 13:54 TEST, SERUM+SC.LAB.BRZ ordered. EDMS EDMS 13:54 13:54 PTT, ACTIVATED+COAG.LAB.BRZ ordered. EDMS EDMS 10/06 08:01 10/05 13:55 Patient reports PMHX significant for alcoholic cirrhosis and ascites. cp Reports last time abdomen was drained was in July 2024 in [place]. C/o increasing abdominal distention and chest tightness. cp
--- NOTE | 2024-10-05 17:25 | ER ---
Nurse's Notes [facility] Name: Rylee Thomas Age: 38 yrs Sex: Female : 1985 Arrival Date: 10/05/2024 Time: 13:34 Bed 6 Private MD: Diagnosis: Alcohol abuse with intoxication;Alcoholic cirrhosis of liver with ascites Presentation: 10/05 13:47 Chief complaint: Patient states: Abdominal pain and swelling for a few days. ll1 Coronavirus screen: Client denies travel out of the [place] in the last 14 days. At this time, the client does not indicate any symptoms associated with coronavirus-19. Ebola Screen: Patient denies travel to an Ebola-affected area in the 21 days before illness onset. Initial Sepsis Screen: Does the patient meet any 2 criteria? No. Patient's initial sepsis screen is negative. Does the patient have a suspected source of infection? No. Patient's initial sepsis screen is negative. Risk Assessment: Do you want to hurt yourself or someone else? Patient reports no desire to harm self or others. Onset of symptoms was October 03, 2024. 13:47 Method Of Arrival: Ambulatory ll1 13:47 Acuity: NIDHI 3 ll1 Triage Assessment: 13:47 General: Appears uncomfortable, Behavior is calm, cooperative, appropriate for age. jb4 Pain: Complains of pain in abdomen Quality of pain is described as aching, pressure. GI: Reports lower abdominal pain, upper abdominal pain, bloating, indigestion, swelling. Historical: - Allergies: 13:48 No Known Allergies; ll1 - PMHx: 13:43 cirrhosis of liver; Endometriosis of vagina; scoliosis; ll1 - PSHx: 13:43 partial hysterectomy; ll1 - Immunization history:: Adult Immunizations up to date. - Infectious Disease History:: Denies. - Social history:: Smoking status: unknown. Screenin:47 [facility] ED Fall Risk Assessment (Adult) History of falling in the last 3 months, rs5 including since admission No falls in past 3 months (0 pts) Confusion or Disorientation No (0 pts) Intoxicated or Sedated No (0 pts) Impaired Gait No (0 pts) Mobility Assist Device Used No (0 pt) Altered Elimination No (0 pt) Score/Fall Risk Level 0 - 2 = Low Risk Oriented to surroundings, Maintained a safe environment. Abuse screen: Denies threats or abuse. Nutritional screening: No deficits noted. Tuberculosis screening: No symptoms or risk factors identified. Assessment: 13:45 General: Appears in no apparent distress. uncomfortable, Behavior is calm, cooperative. rs5 Pain: Complains of pain in abdomen Pain currently is 3 out of 10 on a pain scale. Quality of pain is described as aching, pressure. Neuro: Level of Consciousness is awake, alert, obeys commands, Oriented to person, place, time, situation. Cardiovascular: Patient's skin is warm and dry. Respiratory: Airway is patent Respiratory effort is even, unlabored, Respiratory pattern is regular, symmetrical. GI: Bowel sounds present X 4 quads. Abd is soft and non tender X 4 quads. Reports abdominal swelling. 13:45 : No signs and/or symptoms were reported regarding the genitourinary system. EENT: No rs5 signs and/or symptoms were reported regarding the EENT system. Derm: Skin is intact, Skin is pink, warm \T\ dry. Musculoskeletal: Range of motion: intact in all extremities. 14:58 Reassessment: Patient and/or family updated on plan of care and expected duration. Pain rs5 level reassessed. Patient is alert, oriented x 3, equal unlabored respirations, skin warm/dry/pink. 15:46 Reassessment: Patient and/or family updated on plan of care and expected duration. Pain rs5 level reassessed. Patient is alert, oriented x 3, equal unlabored respirations, skin warm/dry/pink. 17:01 Reassessment: Patient and/or family updated on plan of care and expected duration. Pain rs5 level reassessed. Patient is alert, oriented x 3, equal unlabored respirations, skin warm/dry/pink. 17:35 Reassessment: Patient and/or family updated on plan of care and expected duration. Pain rs5 level reassessed. Patient is alert, oriented x 3, equal unlabored respirations, skin warm/dry/pink. Vital Signs: 13:47 BP 109 / 74; Pulse 96; Resp 18; Pulse Ox 97% on R/A; Weight 57.15 kg; Height 5 ft. 9 ll1 in. ; 15:47 BP 112 / 77; Pulse 80; Resp 17; Pulse Ox 99% ; rs5 17:30 BP 125 / 75; Pulse 70; Resp 17; Pulse Ox 99% ; rs5 13:47 Body Mass Index 18.61 (57.15 kg, 175.26 cm) ll1 ED Course: 13:39 Patient arrived in ED. mr 13:40 Renato Mars PA is PHCP. cp 13:40 Renato Ace MD is Attending Physician. cp 13:43 Arm band placed on Patient placed in an exam room, on a stretcher. ll1 13:44 Osvaldo Noland, SCARLETT is Primary Nurse. rs5 13:47 Patient has correct armband on for positive identification. Placed in gown. Bed in low rs5 position. Call light in reach. Side rails up X2. 13:47 No provider procedures requiring assistance completed. rs5 13:48 Triage completed. ll1 14:27 XRAY Chest (1 view) In Process Unspecified. EDMS 14:43 EKG done, by ED staff, reviewed by Renato HERCULES. em1 15:40 Urine W/Microscopic (UAM) Sent. ss 17:25 Morena Jackson MD is Referral Physician. cp 17:40 IV discontinued, intact, bleeding controlled, No redness/swelling at site. Pressure rs5 dressing applied. Administered Medications: 16:30 Drug: Potassium PO Effervescent Tablet 50 mEq PO once; dissolve in 4 ounces of water or rs5 juice Route: PO; 17:10 Follow up: Response: No adverse reaction rs5 Medication: 15:47 VIS not applicable for this client. rs5 Outcome: 17:25 Discharge ordered by MD. cp 17:40 Discharged to home ambulatory, rs5 17:40 Condition: stable rs5 17:40 Discharge instructions given to patient, family, Instructed on discharge instructions, follow up and referral plans. Demonstrated understanding of instructions, follow-up care, 17:43 Patient left the ED. rs5 Signatures: Dispatcher [employer] EDMS Jimmie Elo, Reg Reg Du Caba em1 Shawanda Burgess, SCARLETT RN ss Renato Mars PA PA cp Celestino Bustamante, SCARLETT RN jb4 Radha Nunez RN RN ll1 Osvaldo Noland, SCARLETT RN rs5 Corrections: (The following items were deleted from the chart) 17:51 17:50 BP 125 / 75; Pulse 70bpm; Resp 17bpm; Pulse Ox 99%; rs5 rs5
[2024-10-06 03:07] VITALS: BP 112/77; O2SAT 99
== END 2024-10-05 17:43 | disposition home or self-care (01) ==
LOC: ER 13:34
DX: K70.31 Alcoholic cirrhosis of liver with ascites (principal); F10.129 Alcohol abuse with intoxication, unspecified
CPT/HCPCS: 36415; 71045; 80048; 80076; 81001; 82077; 82140; 83735; 83880; 84484; 84703; 85025; 85610; 85730; 99284

== ENCOUNTER 2024-10-13 18:32 | Emergency (ER) | payer OTHER ==
[2024-10-13] MEDS ORDERED: CEFTRIAXONE 1000 MG/VIAL ONE (20:19)
[2024-10-13] MEDS ORDERED: FAMOTIDINE 20 MG/2 ML VIAL IV ONE (20:19)
[2024-10-13] MEDS ORDERED: NA CHLORIDE 0.9% 500 ML ONE (20:20)
[2024-10-13] MEDS ORDERED: NA CHLORIDE 0.9% 250 ML ONE (20:20)
--- NOTE | 2024-10-13 20:35 | ER ---
Nurse's Notes [facility] Name: Rylee Thomas Age: 38 yrs Sex: Female : 1985 Arrival Date: 10/13/2024 Time: 18:32 Bed 13 Private MD: Diagnosis: Abdominal pain, Generalized;Alcoholic cirrhosis of liver with ascites;Alcohol abuse;Dyspnea;Alcohol abuse with intoxication;Coagulation defect, unspecified;Abnormal coagulation profile Presentation: 10/13 18:51 Chief complaint: Abdominal distention x 3 weeks. Coronavirus screen: At this time, the client does not indicate any symptoms associated with coronavirus-19. Ebola Screen: No symptoms or risks identified at this time. Initial Sepsis Screen: Does the patient meet any 2 criteria? No. Patient's initial sepsis screen is negative. Does the patient have a suspected source of infection? No. Patient's initial sepsis screen is negative. Risk Assessment: Do you want to hurt yourself or someone else? Patient reports no desire to harm self or others. Onset of symptoms was September 22, 2024. 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 - Infectious Disease History:: Denies. - Social history:: Smoking status: Patient denies any tobacco usage or history of. - Family history:: not pertinent. Screenin:15 [facility] ED Fall Risk Assessment (Adult) History of falling in the last 3 months, kj2 including since admission No falls in past 3 months (0 pts) Confusion or Disorientation No (0 pts) Intoxicated or Sedated No (0 pts) Impaired Gait No (0 pts) Mobility Assist Device Used No (0 pt) Altered Elimination No (0 pt) Score/Fall Risk Level 0 - 2 = Low Risk Maintained a safe environment, Hourly rounding (assess needs \\T\\ fall precautionary measures) done. Abuse screen: Denies threats or abuse. Denies injuries from another. Nutritional screening: No deficits noted. Tuberculosis screening: No symptoms or risk factors identified. Assessment: 20:15 General: Appears in no apparent distress. uncomfortable, Behavior is calm, cooperative. kj2 Pain: Denies pain. Neuro: Level of Consciousness is awake, alert, obeys commands, Oriented to person, place, time, situation. Cardiovascular: Patient's skin is warm and dry. Respiratory: Airway is patent Respiratory effort is even, unlabored. : No signs and/or symptoms were reported regarding the genitourinary system. 22:00 Reassessment: Patient appears in no apparent distress at this time. No changes from cp4 previously documented assessment. Patient and/or family updated on plan of care and expected duration. Pain level reassessed. 23:00 Reassessment: Patient appears in no apparent distress at this time. Patient and/or cp4 family updated on plan of care and expected duration. Pain level reassessed. Patient is alert, oriented x 3, equal unlabored respirations, skin warm/dry/pink. 10/14 00:00 Reassessment: Patient appears in no apparent distress at this time. Patient and/or cp4 family updated on plan of care and expected duration. Pain level reassessed. Patient is alert, oriented x 3, equal unlabored respirations, skin warm/dry/pink. 01:31 Reassessment: Patient appears in no apparent distress at this time. Patient and/or cp4 family updated on plan of care and expected duration. Pain level reassessed. Patient is alert, oriented x 3, equal unlabored respirations, skin warm/dry/pink. 02:37 GI: Abdomen is distended, Bowel sounds present X 4 quads. Abd is soft and non tender X cp4 4 quads. Vital Signs: 10/13 18:53 BP 116 / 88; Pulse 111; Resp 18; Temp 97.7; Weight 57.15 kg; Height 5 ft. 9 in. ; Pain hb 2/10; 22:36 BP 103 / 65; Pulse 93; Resp 16; Pulse Ox 97% on R/A; dd2 23:52 BP 111 / 76; Pulse 92; Resp 18; Pulse Ox 96% ; cp4 10/14 01:29 BP 107 / 77; Pulse 95; Resp 16; Pulse Ox 99% ; cp4 02:35 BP 103 / 65; Pulse 93; Resp 18; Pulse Ox 97% ; cp4 10/13 18:53 Body Mass Index 18.61 (57.15 kg, 175.26 cm) hb 10/13 18:53 Pain Scale: Adult hb ED Course: 10/13 18:34 Patient arrived in ED. mr 18:53 Triage completed. hb 18:54 Arm band placed on. hb 20:03 Renato Ace MD is Attending Physician. juan carlos 20:15 Rebekah Kern RN is Primary Nurse. kj2 20:15 Patient has correct armband on for positive identification. Bed in low position. Call kj2 light in reach. Provided Education on: call light. 20:37 Inserted saline lock: 24 gauge in right wrist, using aseptic technique. Blood ha1 collected. Flushed with 10 mL NS. 20:50 CT Chest Abdomen Pelvis W/O Contrast In Process Unspecified. EDMS 21:08 XRAY Chest (1 view) In Process Unspecified. EDMS 21:29 AMMONIA Sent. kj2 22:06 Initiated transfer with [facility], no answer. Will call back. Attempted to sp initiate transfer, no answer. Will call back. 22:15 Attempted transfer, no answer. Will call back. sp 22:32 Report received from SCARLETT Welch. Assuming care of pt at this time. dd2 23:03 Initiated transfer with [facility]. Will call back with doc to [facility]. jodi 10/14 00:[address] [facility]. sp 01:20 Admin approval by Evita Bob RNTC. Report #[id number]. 21 [address] Bed 2106. sp Transported by [facility]. 02:37 No provider procedures requiring assistance completed. Patient transferred, IV remains cp4 in place. Administered Medications: 10/13 20:32 CANCELLED (Duplicate Order): ns 0.9% 500 ml 500 ml IV at 100 ml/hr once; to be given as juan carlos a bolus over 30 minutes 21:28 Drug: NS 0.9% IV 250 ml IV at bolus once; to be given as a bolus over 30 minutes Route: kj2 IV; Rate: bolus; Site: right wrist; 23:54 Follow up: IV Status: Completed infusion cp4 21:28 Drug: Famotidine IVP 20 mg IVP once; dilute with 10 mL 0.9% NaCl; give over 2 minutes kj2 Route: IVP; Site: right wrist; 23:18 Follow up: Response: No adverse reaction 4 21:28 Drug: Rocephin IV 1 grams IV at per protocol once; Given slow IV push per pharmacy kj2 instructions Route: IV; Rate: per protocol; Site: right wrist; 23:18 Follow up: Response: No adverse reaction; IV Status: Completed infusion 4 23:01 Drug: Thiamine IV 100 mg IV at bolus once Route: IV; Rate: bolus; Site: right wrist; 4 23:18 Follow up: Response: No adverse reaction; IV Status: Completed infusion 4 23:01 Drug: Banana Bag - (Multivitamin IV 1 amp, NS 0.9% IV 1000 ml, Thiamine IV 100 mg, cp4 foLIC Acid IVPB 1 mg) IV at 125 ml/hr once Route: IV; Rate: 125 ml/hr; Site: right wrist; 10/14 02:35 Follow up: Response: No adverse reaction; IV Status: Infusion continued upon transfer 4 10/13 23:17 Drug: Phytonadione Sub-Q 10 mg Sub-Q once Route: Sub-Q; Site: right upper arm; 4 23:53 Follow up: Response: No adverse reaction [facility] 10/14 01:36 Not Given (Patient Refused; "It molina too much"): magnesium sulfate2 grams IVPB once cp4 over 2 hrs 02:34 Not Given (Patient Refused): ondansetron 4 mg IVP once; over 2 minutes 4 Medication: 10/13 20:33 VIS not applicable for this client. kj2 Outcome: 20:34 ER care complete, transfer ordered by . juan carlos 10/14 02:37 Transferred by ground EMS to [facility], Transfer form completed. cp4 X-rays sent w/ patient. Condition: stable Instructed on the need for transfer, 02:38 Patient left the ED. cp4 Signatures: Dispatcher [employer] EDMS Renato Ace MD MD cha Pinkerton, Shawna sp Rivera, Mary, [facility] Kike mr Allyn Manning, RN RN Carmencita Napoles RN RN ha1 Terri Lora cp4 Rebekah Kern RN RN kj2 MALIK RAMIREZ RN RN dd2
--- NOTE | 2024-10-13 20:35 | EDPHYS ---
Physician Documentation [facility] Name: Rylee Thomas Age: 38 yrs Sex: Female : 1985 Arrival Date: 10/13/2024 Time: 18:32 Bed 13 Private MD: ANIBAL Physician Renato Ace HPI: 10/13 20:27 This 38 yrs old Female presents to ER via Ambulatory with complaints of juan carlos Abdominal Swelling. 20:27 The patient has shortness of breath at rest, with light activity. Onset: The juan carlos symptoms/episode began/occurred 2 day(s) ago. Duration: The symptoms are continuous, and are steadily getting worse. The patient's shortness of breath is aggravated by exertion, light activity, supine position. The patient presents with abdominal distention in the upper abdomen, in the lower abdomen. Onset: The symptoms/episode began/occurred 3 day(s) ago. The symptoms do not radiate. Associated signs and symptoms: Pertinent positives: non-productive cough, nausea. Severity of symptoms: At their worst the symptoms were moderate in the emergency department the symptoms are unchanged. The symptoms are described as constant, crampy, dull. 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 - Infectious Disease History:: Denies. - Social history:: Smoking status: Patient denies any tobacco usage or history of. - Family history:: not pertinent. ROS: 20:27 Constitutional: Negative for fever, chills, and weight loss, Eyes: Negative for injury, juan carlos pain, redness, and discharge, ENT: Negative for injury, pain, and discharge, Neck: Negative for injury, pain, and swelling, Respiratory: Negative for shortness of breath, cough, wheezing, and pleuritic chest pain, Back: Negative for injury and pain, : Negative for injury, bleeding, discharge, and swelling, MS/Extremity: Negative for injury and deformity, Skin: Negative for injury, rash, and discoloration, Neuro: Negative for headache, weakness, numbness, tingling, and seizure, Psych: Negative for depression, anxiety, suicide ideation, homicidal ideation, and hallucinations, Allergy/Immunology: Negative for hives, rash, and allergies, Endocrine: Negative for neck swelling, polydipsia, polyuria, polyphagia, and marked weight changes, Hematologic/Lymphatic: Negative for swollen nodes, abnormal bleeding, and unusual bruising, 20:27 Cardiovascular: Positive for palpitations, 20:27 Respiratory: Positive for cough, shortness of breath, on exertion. 20:27 MS/extremity: Positive for ecchymosis, of the right leg and left leg, Exam: 20:27 Constitutional: This is a well developed, well nourished patient who is awake, alert, juan carlos and in no acute distress. Head/Face: Normocephalic, atraumatic. Eyes: Pupils equal round and reactive to light, extra-ocular motions intact. Lids and lashes normal. Conjunctiva and sclera are non-icteric and not injected. Cornea within normal limits. Periorbital areas with no swelling, redness, or edema. ENT: Nares patent. No nasal discharge, no septal abnormalities noted. Tympanic membranes are normal and external auditory canals are clear. Oropharynx with no redness, swelling, or masses, exudates, or evidence of obstruction, uvula midline. Mucous membranes moist. Neck: Trachea midline, no thyromegaly or masses palpated, and no cervical lymphadenopathy. Supple, full range of motion without nuchal rigidity, or vertebral point tenderness. No Meningismus. Chest/axilla: Normal chest wall appearance and motion. Nontender with no deformity. No lesions are appreciated. Respiratory: Lungs have equal breath sounds bilaterally, clear to auscultation and percussion. No rales, rhonchi or wheezes noted. No increased work of breathing, no retractions or nasal flaring. Back: No spinal tenderness. No costovertebral tenderness. Full range of motion. MS/ Extremity: Pulses equal, no cyanosis. Neurovascular intact. Full, normal range of motion., bilateral aka Neuro: Awake and alert, GCS 15, oriented to person, place, time, and situation. Cranial nerves II-XII grossly intact. Motor strength 5/5 in all extremities. Sensory grossly intact. Cerebellar exam normal. Normal gait. 20:27 Cardiovascular: Rate: tachycardic, actual rate is 111 bpm, Rhythm: regular, Pulses: Pulses are 4+ in bilateral radial, brachial, femoral, popliteal, posterior tibial and and dorsalis pedis arteries.. Heart sounds: normal, Edema: is not appreciated, JVD: is not appreciated, 20:27 ECG was reviewed by the Attending Physician. Vital Signs: 18:53 BP 116 / 88; Pulse 111; Resp 18; Temp 97.7; Weight 57.15 kg; Height 5 ft. 9 in. ; Pain hb 2/10; 22:36 BP 103 / 65; Pulse 93; Resp 16; Pulse Ox 97% on R/A; dd2 23:52 BP 111 / 76; Pulse 92; Resp 18; Pulse Ox 96% ; cp4 10/14 01:29 BP 107 / 77; Pulse 95; Resp 16; Pulse Ox 99% ; cp4 02:35 BP 103 / 65; Pulse 93; Resp 18; Pulse Ox 97% ; cp4 10/13 18:53 Body Mass Index 18.61 (57.15 kg, 175.26 cm) hb 10/13 18:53 Pain Scale: Adult hb MDM: 10/13 20:03 Medical Screening Exam initiated juan carlos 20:30 Differential diagnosis: Anxiety Reaction asthma, Bronchitis CHF exacerbation, juan carlos pneumonia, Psychogenic pulmonary edema, reactive airway disease, Sepsis Unstable Angina appendicitis, bowel obstruction, cholecystitis, Cholelithiasis, Dysmenorrhea, gastritis, GI Bleed, Hepatitis, Mesenteric ischemia or infarction, myocardia ischemia or infarction, non-specific abd pain, pancreatitis, Peptic Ulcer Disease, Perf. Duodenal Ulcer, Pyelonephritis, Ureterolithiasis. Antibiotic administration: rocephin. Immunization status:. Data reviewed: vital signs, nurses notes, lab test result(s), EKG, radiologic studies, CT scan, plain films. Consideration of Admission/Observation Escalation of care including admission/observation considered. I considered the following discharge prescriptions or medication management in the emergency department Medications were administered in the Emergency Department. See MAR. Independent interpretation of the following test(s) in the Emergency Department EKG: See my EKG interpretation above. Test considered but Not performed: Ultrasound no abd usg. Care significantly affected by the following chronic conditions: scliosis. cirrhosis, endometrosis. 10/13 20:05 Order name: Basic Metabolic Panel; Complete Time: 23:10 [facility] 10/13 20:05 Order name: CBC with Diff; Complete Time: 23:10 10/13 20:05 Order name: LFT's; Complete Time: 23:10 10/13 20:05 Order name: Magnesium; Complete Time: 23:10 10/13 20:05 Order name: NT PRO-BNP; Complete Time: 23:10 10/13 20:05 Order name: PT-INR; Complete Time: 23:10 10/13 20:05 Order name: Troponin HS; Complete Time: 23:10 10/13 20:05 Order name: Lipase; Complete Time: 23:10 10/13 20:05 Order name: AMMONIA; Complete Time: 23:10 10/13 20:27 Order name: Alcohol Level; Complete Time: 23:10 10/13 20:27 Order name: Tylenol Level; Complete Time: 23:10 10/13 20:05 Order name: XRAY Chest (1 view); Complete Time: 23:10 10/13 20:05 Order name: CT Chest Abdomen Pelvis W/O Contrast; Complete Time: 23:10 10/13 20:05 Order name: Cardiac monitoring; Complete Time: 22:30 10/13 20:05 Order name: EKG - Nurse/Tech; Complete Time: 22:30 10/13 20:05 Order name: IV Saline Lock; Complete Time: 20:37 10/13 20:05 Order name: Labs collected and sent; Complete Time: 20:37 10/13 20:05 Order name: O2 Per Protocol; Complete Time: 20:37 10/13 20:05 Order name: O2 Sat Monitoring; Complete Time: 20:38 10/13 20:05 Order name: IV Saline Lock - Large Bore; Complete Time: 21:28 10/13 21:33 Order name: Misc. Order: Recollect green top, needs to be on ice.; Complete Time: 22:30 sp Administered Medications: 20:32 CANCELLED (Duplicate Order): ns 0.9% 500 ml 500 ml IV at 100 ml/hr once; to be given as juan carlos a bolus over 30 minutes 21:28 Drug: NS 0.9% IV 250 ml IV at bolus once; to be given as a bolus over 30 minutes Route: kj2 IV; Rate: bolus; Site: right wrist; 23:54 Follow up: IV Status: Completed infusion cp4 21:28 Drug: Famotidine IVP 20 mg IVP once; dilute with 10 mL 0.9% NaCl; give over 2 minutes kj2 Route: IVP; Site: right wrist; 23:18 Follow up: Response: No adverse reaction [facility] 21:28 Drug: Rocephin IV 1 grams IV at per protocol once; Given slow IV push per pharmacy kj2 instructions Route: IV; Rate: per protocol; Site: right wrist; 23:18 Follow up: Response: No adverse reaction; IV Status: Completed infusion [facility] 23:01 Drug: Thiamine IV 100 mg IV at bolus once Route: IV; Rate: bolus; Site: right wrist; cp4 23:18 Follow up: Response: No adverse reaction; IV Status: Completed infusion [facility] 23:01 Drug: Banana Bag - (Multivitamin IV 1 amp, NS 0.9% IV 1000 ml, Thiamine IV 100 mg, cp4 foLIC Acid IVPB 1 mg) IV at 125 ml/hr once Route: IV; Rate: 125 ml/hr; Site: right wrist; 10/14 02:35 Follow up: Response: No adverse reaction; IV Status: Infusion continued upon transfer [facility] 10/13 23:17 Drug: Phytonadione Sub-Q 10 mg Sub-Q once Route: Sub-Q; Site: right upper arm; cp4 23:53 Follow up: Response: No adverse reaction [facility] 10/14 01:36 Not Given (Patient Refused; "It molina too much"): magnesium sulfate2 grams IVPB once cp4 over 2 hrs 02:34 Not Given (Patient Refused): ondansetron 4 mg IVP once; over 2 minutes cp4 Disposition Summary: 10/13/24 20:34 Transfer Ordered Notes: Transfer Location: [facility] juan carlos Reason: Higher level of care juan carlos Condition: Stable juan carlos Problem: new juan carlos Symptoms: have improved juan carlos Accepting Physician: to [facility](10/14/24 02:38) cp4 Diagnosis - Abdominal pain, Generalized juan carlos - Alcoholic cirrhosis of liver with ascites juan carlos - Alcohol abuse juan carlos - Dyspnea juan carlos - Alcohol abuse with intoxication juan carlos - Coagulation defect, unspecified juan carlos - Abnormal coagulation profile juan carlos Forms: - Medication Reconciliation Form juan carlos - SBAR form juan carlos Signatures: Dispatcher [employer] EDRenato Barragan MD MD cha Pinkerton, Shawna sp Baxter, Heather, RN RN Terri Lora cp4 Rebekah Kern, RN RN kj2 Corrections: (The following items were deleted from the chart) 10/13 20:06 20:06 BASIC METABOLIC PANEL+C.LAB.BRZ ordered. EDMS EDMS 20:06 20:06 CBC+H.LAB.BRZ ordered. EDMS EDMS 20:06 20:06 HEPATIC FUNCTION+C.LAB.BRZ ordered. EDMS EDMS 20:06 20:06 MAGNESIUM+C.LAB.BRZ ordered. EDMS EDMS 20:06 20:06 PROBNP+C.LAB.BRZ ordered. EDMS EDMS 20:06 20:06 PROTIME (+INR)+COAG.LAB.BRZ ordered. EDMS EDMS 20:06 20:06 Troponin High Sensitivity+C.LAB.BRZ ordered. EDMS EDMS 20:06 20:06 LIPASE+C.LAB.BRZ ordered. EDMS EDMS 20:06 20:06 AMMONIA+C.LAB.BRZ ordered. EDMS EDMS 20:06 20:06 Chest Single View+RAD.RAD.BRZ ordered. EDMS EDMS 20:06 20:06 Chest Abdomen Pelvis Wo Con+CT.RAD.BRZ ordered. EDMS EDMS 20:28 20:28 ETHANOL+C.LAB.BRZ ordered. EDMS EDMS 20:28 20:28 ACETAMINOPHEN+C.LAB.BRZ ordered. EDMS EDMS 20:32 20:05 NS 0.9% IV 500 ml 500 ml IV at 100 ml/hr once; to be given as a bolus over 30 juan carlos minutes ordered. juan carlos 23:12 [facility] juan carlos 10/14 02:38 10/13 23:12 to [facility] juan carlos cp4
[2024-10-13 20:47] LABS: Absolute Basophils 0.1 K/uL (0-0.5); Absolute Eosinophils 0.1 K/uL (0-0.5); Absolute Lymphocytes (CBC) 3.2 K/uL (0.7-4.9); Absolute Monocytes 0.7 K/uL (0.1-1.3); Basophils % 1.3 % (0-1.3); Hematocrit 33.7 % (36.0-45.0); Hemoglobin 11.7 g/dL (12.0-15.0); Lymphocytes % 35.3 % (15.3-44.8); MCHC 34.6 g/dL (32.0-36.0); MCV 95.4 fL (80-100); MPV 9.4 fL (7.6-11.3); Monocytes % 7.7 % (3.3-12.3); Neutrophils % 54.7 % (41.7-73.7); Nucleated Red Blood Cells % 0.1 % (0-0); Platelets 153 thou/uL (152-406); RBC Red Blood Cell Count 3.53 M/uL (3.86-4.86); Red Cell Distribution Width 16.4 % (12.1-15.2)
[2024-10-13 20:53] LABS: PT Prothrombin Time 18.9 SECONDS (9.4-12.5); Protime INR 1.81
[2024-10-13 21:08] LABS: Albumin 2.3 g/dL (3.4-5.0); Albumin/Globulin Ratio 0.4 (1.1-1.8); Anion Gap 11.4 mEq/L (5.0-15.0); Bilirubin Direct 2.4 mg/dL (0-0.2); Bilirubin Indirect, Calculated 1.2 mg/dL (0.2-0.8); Bilirubin Total 3.6 mg/dL (0.2-1.0); Globulin 5.2 g/dL (2.3-3.5); Protein, Total 7.5 g/dL (6.4-8.2)
[2024-10-13 21:10] LABS: Magnesium 1.9 mg/dL (1.6-2.4); Potassium 3.4 mEq/L (3.5-5.1)
--- NOTE | 2024-10-13 21:28 | RAD REPORT ---
EXAM: CT CHEST, ABDOMEN AND PELVIS WITHOUT CONTRAST CLINICAL INDICATION: Shortness of breath and abdominal pain TECHNIQUE: CT chest, abdomen and pelvis was performed, without IV contrast, as per department protoco l. Axial, sagittal and coronal reconstructions were obtained. One or more of the following dose reduction techniques were used: Automated exposure control, adjustment of the mA and/or kV according to the patient size, and/or iterative reconstruction. Unless otherwise specified, incidental findings do not require dedicated imaging follow-up. The lack of IV and oral contrast limits evaluation of the mediastinum, holden, vessels, organs and yi l. COMPARISON: 2023 FINDINGS: Calcified granuloma right lung. No pulmonary infiltrate. No mediastinal or hilar lymphadenopathy seen. No pleural effusion. No pericardial effusion. Liver is markedly enlarged. The liver is markedly inhomogeneous containing low-density areas. Spleen measures 15 cm. The pancreas, adrenals and kidneys unremarkable Small amount of ascites. Post surgical involve the spine There is no evidence of diverticulitis IMPRESSION: Marked hepatomegaly. Liver is markedly inhomogeneous containing low-density areas. This all may represent marked fatty inf iltration. An underlying mass would be difficult to detect. It is recommended that the patient have an MRI of the liver with contrast further evaluation. Mild to moderate splenomegaly
--- NOTE | 2024-10-13 21:29 | RAD REPORT ---
Procedure: Chest Single View HISTORY: Abdominal pain COMPARISON: 2023 FINDINGS: The lungs appear clear of acute infiltrate. No significant pleural effusion noted. The heart is normal size. Scoliosis. Ibarra rods in place IMPRESSION: No acute abnormality is displayed.
[2024-10-13] MEDS ORDERED: THIAMINE 200 MG/2 ML INJ ONE (22:44)
[2024-10-13] MEDS ORDERED: FOLIC ACID 5 MG/ML VIAL ONE (22:44)
[2024-10-13] MEDS ORDERED: MULTIVITAMINS 10 ML VIAL (INJ) IV ONE (22:44)
[2024-10-13] MEDS ORDERED: Magnesium Sulfate 2gm IVPB 2 G/50 ML BAG IV ONE (22:45)
[2024-10-13] MEDS ORDERED: NA CHLORIDE 0.9% 1,000 ML ONE (22:46)
[2024-10-13] MEDS ORDERED: VITAMIN K (ADULT) 10 MG/ML ONE (23:13)
[2024-10-14 05:54] VITALS: TEMP 97.7
[2024-10-14 06:15] VITALS: BP 103/65; O2SAT 97
== END 2024-10-14 02:38 | disposition short-term general hospital (02) ==
LOC: ER 18:32
DX: K70.31 Alcoholic cirrhosis of liver with ascites (principal); F10.129 Alcohol abuse with intoxication, unspecified; R06.00 Dyspnea, unspecified; D68.9 Coagulation defect, unspecified
CPT/HCPCS: 96365; 96367; 96368; 85025; 80048; 36415; 82140; 83735; 85610; 80076; 84484; 83690; 83880; 71250; 74176; 71045; 96375; 96372; 99285; 96366; 80143; 82077; J3411; J3475; J3430; J7050; J7040; J7030; J0696

== ENCOUNTER 2024-10-30 13:46 | Emergency (ER) | payer OTHER ==
[2024-10-30 14:59] LABS: Absolute Basophils 0.1 K/uL (0-0.5); Absolute Eosinophils 0.1 K/uL (0-0.5); Absolute Monocytes 0.8 K/uL (0.1-1.3); Absolute Neutrophil 7.7 K/uL (1.8-8.0); Basophils % 1.2 % (0-1.3); Eosinophils % 0.9 % (0-4.4); Hemoglobin 10.7 g/dL (12.0-15.0); Lymphocytes % 18.6 % (15.3-44.8); MCH 34.6 pg (27.0-35.0); MCHC 34.4 g/dL (32.0-36.0); MCV 100.7 fL (80-100); MPV 9.2 fL (7.6-11.3); Monocytes % 7.8 % (3.3-12.3); Neutrophils % 71.5 % (41.7-73.7); Platelets 294 thou/uL (152-406); RBC Red Blood Cell Count 3.07 M/uL (3.86-4.86); Red Cell Distribution Width 20.6 % (12.1-15.2)
[2024-10-30 15:02] LABS: Anisocytosis 1+; Blood Morphology Comment NOTED (NOT SEEN); Platelet Estimate ADEQ; White Blood Cell Scan OK (OK)
[2024-10-30 15:06] LABS: PT Prothrombin Time 19.8 SECONDS (9.4-12.5); Protime INR 1.9
[2024-10-30 15:20] LABS: Albumin/Globulin Ratio 0.4 (1.1-1.8); Anion Gap 10.3 mEq/L (5.0-15.0); Bilirubin Direct 6.7 mg/dL (0-0.2); Bilirubin Indirect, Calculated 1.2 mg/dL (0.2-0.8); Bilirubin Total 7.9 mg/dL (0.2-1.0); Globulin 5.3 g/dL (2.3-3.5); Potassium 3.3 mEq/L (3.5-5.1); Protein, Total 7.3 g/dL (6.4-8.2)
--- NOTE | 2024-10-30 16:02 | ER ---
Nurse's Notes [facility] Name: Rylee Thomas Age: 38 yrs Sex: Female : 1985 Arrival Date: 10/30/2024 Time: 13:46 Bed 17 Private MD: Diagnosis: Liver failure with ascites Presentation: 10/30 14:27 Chief complaint: Patient states: ABDOMINAL SWELLING AND LEG SWELLING, HX OF LIVER aa5 CIRRHOSIS. Coronavirus screen: At this time, the client does not indicate any symptoms associated with coronavirus-19. Ebola Screen: Patient denies travel to an Ebola-affected area in the 21 days before illness onset. Initial Sepsis Screen: Does the patient meet any 2 criteria? HR > 90 bpm. Does the patient have a suspected source of infection? No. Patient's initial sepsis screen is negative. Risk Assessment: Do you want to hurt yourself or someone else? Patient reports no desire to harm self or others. Onset of symptoms was October 2024. 14:27 Acuity: NIDHI 2 aa5 14:27 Method Of Arrival: Ambulatory aa5 Triage Assessment: 14:30 General: Appears uncomfortable, unkempt, Behavior is cooperative, appropriate for age, bp anxious. Pain: Complains of pain in abdomen. EENT: No deficits noted. Neuro: No deficits noted. Cardiovascular: Capillary refill < 3 seconds Patient's skin is warm and dry. Respiratory: No deficits noted. GI: Abdomen is noted to have ascites, Bowel sounds present X 4 quads. : No signs and/or symptoms were reported regarding the genitourinary system. Derm: No deficits noted. Musculoskeletal: No deficits noted. Historical: - PMHx: 14:27 cirrhosis of liver; Endometriosis of vagina; scoliosis; aa5 - PSHx: 14:27 partial hysterectomy; aa5 - Immunization history:: Adult Immunizations unknown. - Infectious Disease History:: Denies. - Social history:: Smoking status: Patient denies any tobacco usage or history of. - Family history:: not pertinent. Screenin:30 [facility] ED Fall Risk Assessment (Adult) History of falling in the last 3 months, bp including since admission No falls in past 3 months (0 pts) Confusion or Disorientation No (0 pts) Intoxicated or Sedated No (0 pts) Impaired Gait No (0 pts) Mobility Assist Device Used No (0 pt) Altered Elimination No (0 pt) Score/Fall Risk Level 0 - 2 = Low Risk Oriented to surroundings. Abuse screen: Denies threats or abuse. Denies injuries from another. Nutritional screening: No deficits noted. Tuberculosis screening: No symptoms or risk factors identified. Assessment: 14:30 General: Appears in no apparent distress. uncomfortable, Behavior is cooperative, bp appropriate for age, anxious. 16:51 GI: Abdomen is noted to have ascites, Abd is rigid X 4 quads. Hepatomegaly noted. bp Vital Signs: 14:27 BP 120 / 71; Pulse 105; Resp 20 S; Temp 98.3(O); Pulse Ox 99% on R/A; Weight 72.57 kg aa5 (R); Height 5 ft. 9 in. (R); 16:50 BP 120 / 71; Pulse 91; Resp 16; Pulse Ox 95% ; bp 14:27 Body Mass Index 23.63 (72.57 kg, 175.26 cm) aa5 ED Course: 13:51 Patient arrived in ED. al6 14:05 Bobby Bermudez MD is Attending Physician. rt 14:18 Johnnie Craft, RN is Primary Nurse. bp 14:26 Arm band placed on Patient placed in an exam room, on a stretcher. aa5 14:28 Triage completed. aa5 14:30 Patient has correct armband on for positive identification. bp 14:50 Initial lab(s) drawn, by me, sent to lab. Inserted saline lock: 22 gauge in left bp forearm, using aseptic technique. Blood collected. Flushed with 10 mL NS. 16:52 Provided Education on: na. bp 16:52 No provider procedures requiring assistance completed. IV discontinued, intact, bp bleeding controlled, No redness/swelling at site. Pressure dressing applied. Administered Medications: No medications were administered Medication: 14:30 VIS not applicable for this client. bp Outcome: 16:02 Discharge ordered by . rt 16:52 Discharged to home ambulatory, bp 16:52 Condition: stable 16:52 Discharge instructions given to patient, Instructed on discharge instructions, follow up and referral plans. Demonstrated understanding of instructions, follow-up care, 16:53 Patient left the ED. bp Signatures: May Grigsby RN RN aa5 Johnnie Craft RN RN bp Bobby Bermudez MD MD rt Alea Amor al6
--- NOTE | 2024-10-30 16:02 | EDPHYS ---
Physician Documentation [facility] Name: Rylee Thomas Age: 38 yrs Sex: Female : 1985 Arrival Date: 10/30/2024 Time: 13:46 Bed 17 Private MD: ED Physician Bobby Bermudez HPI: 10/30 17:38 This 38 yrs old Female presents to ER via Ambulatory with complaints of Abdominal rt Swelling. 17:38 Patient with history of alcoholic cirrhosis with known liver failure and followed by rt the [facility] liver team who presents to the ED with reported worsening ascites. Has had a paracentesis 1 time previously. States that the fluid has since built up. Reports an itching to her skin. Denies other acute complaints at this time, symptoms are moderate in severity, no other aggravating or alleviating factors.. Historical: - PMHx: 14:27 cirrhosis of liver; Endometriosis of vagina; scoliosis; aa5 - PSHx: 14:27 partial hysterectomy; aa5 - Immunization history:: Adult Immunizations unknown. - Infectious Disease History:: Denies. - Social history:: Smoking status: Patient denies any tobacco usage or history of. - Family history:: not pertinent. ROS: 17:38 Constitutional: Negative for fever, chills, and weight loss, Cardiovascular: Negative rt for chest pain, palpitations, and edema, Respiratory: Negative for shortness of breath, cough, wheezing, and pleuritic chest pain, MS/Extremity: Negative for injury and deformity, Skin: Negative for injury, rash, and discoloration, 17:38 Abdomen/GI: Positive for abdominal pain, abdominal distension, Exam: 17:38 Eyes: Scleral icterus noted. rt 17:38 Abdomen/GI: ascitic abdomen with mild tenderness diffusely, 17:38 Skin: Jaundice. 17:47 Constitutional: This is a well developed, well nourished patient who is awake, alert, rt and in no acute distress. Head/Face: Normocephalic, atraumatic. Chest/axilla: Normal chest wall appearance and motion. Nontender with no deformity. No lesions are appreciated. Cardiovascular: Regular rate and rhythm with a normal S1 and S2. No gallops, murmurs, or rubs. Normal PMI, no JVD. No pulse deficits. Respiratory: Lungs have equal breath sounds bilaterally, clear to auscultation and percussion. No rales, rhonchi or wheezes noted. No increased work of breathing, no retractions or nasal flaring. MS/ Extremity: Pulses equal, no cyanosis. Neurovascular intact. Full, normal range of motion. Vital Signs: 14:27 BP 120 / 71; Pulse 105; Resp 20 S; Temp 98.3(O); Pulse Ox 99% on R/A; Weight 72.57 kg aa5 (R); Height 5 ft. 9 in. (R); 16:50 BP 120 / 71; Pulse 91; Resp 16; Pulse Ox 95% ; bp 14:27 Body Mass Index 23.63 (72.57 kg, 175.26 cm) aa5 MDM: 14:20 Medical Screening Exam initiated rt 17:47 Differential Diagnosis Cirrhosis. Data reviewed: vital signs, nurses notes, lab test rt result(s). Consideration of Admission/Observation Escalation of care including admission/observation considered. I reviewed the patient's labs from [facility], her bilirubin is decreasing, her sodium is normal. He seems to be the main reasons for transfer previously. 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 There are no indications for emergent paracentesis at this time, she is stable for outpatient care.. Test considered but Not performed: CT: Patient has known cirrhosis with ascites, repeat CT scan is not. Care significantly affected by the following chronic conditions: CLD. Counseling: I had a detailed discussion with the patient and/or guardian regarding the historical points, exam findings, and any diagnostic results supporting the discharge/admit diagnosis, lab results, the need for outpatient follow up. 10/30 14:31 Order name: CBC with Diff; Complete Time: 15:24 rt 10/30 14:31 Order name: BMP; Complete Time: 15:24 rt 10/30 14:31 Order name: LFT's; Complete Time: 15:24 rt 10/30 14:31 Order name: PT-INR; Complete Time: 15:24 rt 10/30 14:31 Order name: ETOH Level; Complete Time: 15:24 rt 10/30 15:02 Order name: CBC Smear Scan; Complete Time: 15:24 EDMS Administered Medications: No medications were administered Disposition Summary: 10/30/24 16:02 Discharge Ordered Notes: Location: Home rt Problem: an ongoing problem rt Symptoms: are unchanged rt Condition: Stable rt Diagnosis - Liver failure with ascites rt Followup: rt - With: Private Physician - When: Tomorrow - Reason: Discharge Instructions: - Discharge Summary Sheet rt - Ascites rt - Liver Failure rt Forms: - Medication Reconciliation Form rt - Antibiotic Education rt - Prescription Opioid Use rt - Patient Portal Instructions rt - Leadership Thank You Letter rt Signatures: Dispatcher [employer] May Cotton RN RN aa5 Bobby Bermudez MD MD rt
[2024-10-30] MEDS ORDERED: POTASSIUM 25 MEQ EFFERV TAB ONE (16:46)
[2024-10-30 19:00] VITALS: BP 120/71; O2SAT 95
[2024-10-30 19:01] VITALS: TEMP 98.3
== END 2024-10-30 16:53 | disposition home or self-care (01) ==
LOC: ER 13:46
DX: K72.90 Hepatic failure, unspecified without coma (principal); R18.8 Other ascites
CPT/HCPCS: 36415; 80048; 80076; 82077; 85025; 85610; 99283

== ENCOUNTER 2024-11-02 17:56 | Emergency (ER) | payer OTHER ==
[2024-11-02 21:47] LABS: Absolute Basophils 0.1 K/uL (0-0.5); Absolute Eosinophils 0.1 K/uL (0-0.5); Absolute Monocytes 0.7 K/uL (0.1-1.3); Absolute Neutrophil 9.2 K/uL (1.8-8.0); Eosinophils % 0.6 % (0-4.4); Hematocrit 30.7 % (36.0-45.0); Hemoglobin 10.3 g/dL (12.0-15.0); Lymphocytes % 16.2 % (15.3-44.8); MCH 33.9 pg (27.0-35.0); MCHC 33.6 g/dL (32.0-36.0); MCV 100.7 fL (80-100); MPV 9.3 fL (7.6-11.3); Monocytes % 6.2 % (3.3-12.3); Nucleated Red Blood Cells % 0.1 % (0-0); Platelets 264 thou/uL (152-406); RBC Red Blood Cell Count 3.05 M/uL (3.86-4.86)
[2024-11-02 21:58] LABS: PT Prothrombin Time 21.1 SECONDS (9.4-12.5); PTT, Activated Partial Thromb 36.3 SECONDS (24.3-36.9); Protime INR 2.02
[2024-11-02 22:00] LABS: Albumin 1.7 g/dL (3.4-5.0); Albumin/Globulin Ratio 0.3 (1.1-1.8); Bilirubin Total 7.8 mg/dL (0.2-1.0); Globulin 5.2 g/dL (2.3-3.5); Protein, Total 6.9 g/dL (6.4-8.2)
--- NOTE | 2024-11-03 00:58 | RAD REPORT ---
CLINICAL HISTORY: Gallstones, abdominal pain. COMPARISON: CT Abdomen Pelvis 11/02/2024 and US Abdomen 07/07/2024. TECHNIQUE: US ABDOMEN LIMITED 11/02/2024 11:42 PM NON DESTRUCTIVE TESTING INSPECTOR FINDINGS: There is perihepatic ascites. There is pericholecystic fluid. There is a 6 mm gallstone in the neck o f the gallbladder. There is diffuse gallbladder wall thickening measuring up to 5 mm. IMPRESSION: Cholelithiasis with possible cholecystitis. Electronically signed by: Ezra Gill MD 11/03/2024 12:55 AM NON DESTRUCTIVE TESTING INSPECTOR RP Due to temporary technical issues with the PACS/[employer] scribe reporting system, reports are being signed by the in-house radiologist without review as a courtesy to ensure prompt reporting the interpreting radiologist is fully responsible for the content of the report. Transcribed Date/Time: 11/03/2024 12:58 AM
--- NOTE | 2024-11-03 01:06 | RAD REPORT ---
EXAM DESCRIPTION: Abdomen Pelvis Wo Contrast CLINICAL HISTORY: 38 years Female, Abd pain;Abdominal distention;Flank pain TECHNIQUE: Helical CT axial images are obtained from the lung bases to the pubic symphysis without IV contrast. No oral contrast was administered. Multiplanar reconstruction. This exam was performed according to our departmental dose-optimization program, which includes automated exposure control, a djustment of the mA and/or kV according to patient size and/or use of iterative reconstruction technique. COMPARISON: 10/13/2024 FINDINGS: LUNG BASES: Small right pleural effusion. Bibasilar subsegmental atelectasis. LIVER: Moderate hepatomegaly. Homogenous attenuation. No suspicious masses on this nonenhanced exam . Probable gastric and gastroesophageal varices, incompletely assessed on this nonenhanced exam. HEPATOBILIARY: Cholelithiasis. No intra- or extrahepatic ductal dilatation. SPLEEN: Moderate splenomegaly. PANCREAS: Normal size and contour. No focal mass. ADRENAL GLANDS: Normal size. No adrenal masses. KIDNEYS: Bilateral kidneys are normal in size without obstructing calculi or hydronephrosis. No nep hrolithiasis. No significant cysts are present. BOWEL AND MESENTERY: Large volume ascites. No small or large bowel dilatation. No colonic diverticulo sis. Normal appendix. No abnormal mesenteric lymphadenopathy. No pneumoperitoneum. RETROPERITONEUM: Normal caliber abdominal aorta without aneurysm. No abnormal retroperitoneal lymphad enopathy. PELVIS: Urinary bladder is suboptimally distended. Status post hysterectomy. ABDOMINAL WALL: Mild subcutaneous edema. BONES: Partially seen posterior thoracic fusion rods. No suspicious osseous lytic or blastic lesion s seen. IMPRESSION: 1. No nephroureterolithiasis or obstructive uropathy. 2. Large volume ascites. Mild anasarca. 3. Moderate hepatosplenomegaly. 4. Cholelithiasis. 5. Status post hysterectomy. Electronically signed by: Omkar Trujillo MD 11/02/2024 11:30 PM [employer] Due to temporary technical issues with the PACS[employer] reporting system, reports are being kayla d by the in-house radiologist without review as a courtesy to ensure prompt reporting the interpreting radiologist is fully responsible for the content of the report. Transcribed Date/Time: 11/03/2024 1:06 AM
--- NOTE | 2024-11-03 01:07 | ER ---
Nurse's Notes [facility] Name: Rylee Thomas Age: 38 yrs Sex: Female : 1985 Arrival Date: 11/02/2024 Time: 17:56 Bed 16 Private MD: Diagnosis: Acute cholecystitis;Alcoholic cirrhosis of liver with ascites;Liver cirrhosis with ascites, acute alcohol intoxication, cholelithiasis with acute cholecystitis Presentation: 11/02 18:01 Chief complaint: EMS states: pt has hx of liver failure, is having difficulty breathing iw , abd distention and pain, last paracentesis was Wednesday , she goes to [facility] for treatment. Coronavirus screen: At this time, the client does not indicate any symptoms associated with coronavirus-19. Ebola Screen: No symptoms or risks identified at this time. 18:01 Method Of Arrival: EMS: [facility] iw 18:01 Acuity: NIDHI 3 iw 18:11 Initial Sepsis Screen: Does the patient meet any 2 criteria? No. Patient's initial iw sepsis screen is negative. Does the patient have a suspected source of infection? No. Patient's initial sepsis screen is negative. Risk Assessment: Do you want to hurt yourself or someone else? Patient reports no desire to harm self or others. 18:11 Onset of symptoms was November 02, 2024. iw Historical: - Allergies: 18:12 No Known Allergies; iw - PMHx: 18:12 cirrhosis of liver; Endometriosis of vagina; scoliosis; iw - PSHx: 18:12 partial hysterectomy; iw - Immunization history:: Adult Immunizations up to date. - Infectious Disease History:: Denies. - Social history:: Smoking status: Patient denies any tobacco usage or history of. Screenin:04 [facility] ED Fall Risk Assessment (Adult) History of falling in the last 3 months, kj2 including since admission No falls in past 3 months (0 pts) Confusion or Disorientation No (0 pts) Intoxicated or Sedated No (0 pts) Impaired Gait No (0 pts) Mobility Assist Device Used No (0 pt) Altered Elimination No (0 pt) Score/Fall Risk Level 0 - 2 = Low Risk Maintained a safe environment, Hourly rounding (assess needs \T\ fall precautionary measures) done. Abuse screen: Denies threats or abuse. Denies injuries from another. Nutritional screening: No deficits noted. Tuberculosis screening: No symptoms or risk factors identified. Assessment: 20:45 General: Appears in no apparent distress. Behavior is calm, cooperative. Pain: kj2 Complains of pain in abdomen Pain currently is 4 out of 10 on a pain scale. Neuro: Level of Consciousness is awake, alert, obeys commands, Oriented to person, place. Cardiovascular: Patient's skin is warm and dry. Respiratory: Airway is patent Respiratory effort is unlabored. GI: No signs and/or symptoms were reported involving the gastrointestinal system. : No signs and/or symptoms were reported regarding the genitourinary system. 20:50 Reassessment: MISSED ATTEMPT IV AT RIGHT WRIST AND REFUSING TO GET ANOTHER IV. SOME OF ha1 THE BLOOD COLLECTED AND SENT. UNABLE TO COLLECT BLOOD CULTURES. 21:45 Reassessment: Patient appears in no apparent distress at this time. Patient and/or kj2 family updated on plan of care and expected duration. Pain level reassessed. Patient is alert, oriented x 3, equal unlabored respirations, skin warm/dry/pink. pt requests to wait on IV placement. 22:45 Reassessment: Patient appears in no apparent distress at this time. Patient and/or kj2 family updated on plan of care and expected duration. Pain level reassessed. Patient is alert, oriented x 3, equal unlabored respirations, skin warm/dry/pink. 11/03 00:04 Reassessment: Patient appears in no apparent distress at this time. Patient and/or kj2 family updated on plan of care and expected duration. Pain level reassessed. Patient is alert, oriented x 3, equal unlabored respirations, skin warm/dry/pink. 02:15 Reassessment: ASSUMED CARE OF PT. PT LYING IN BED. VS STABLE. CALL MARQUES IN REACH. jj7 General: Appears in no apparent distress. uncomfortable, Behavior is calm, cooperative. Pain: Complains of pain in abdomen. GI: Abdomen is noted to have ascites, Abdomen is tender to palpation Reports lower abdominal pain, upper abdominal pain. 03:00 Reassessment: report given to SCARLETT Ledesma. ha1 03:00 General: Appears in no apparent distress. Behavior is calm, cooperative. jj7 Vital Signs: 11/02 18:11 BP 118 / 80; Pulse 115; Resp 24; Temp 97.3; Pulse Ox 100% on R/A; Pain 8/10; iw 21:45 BP 119 / 79; Pulse 104; Resp 18; Pulse Ox 100% on R/A; kj2 22:45 BP 121 / 82; Pulse 106; Resp 20; Temp 97.3; Pulse Ox 100% ; kj2 11/03 00:00 BP 103 / 68; Pulse 102; Resp 18 S; Pulse Ox 99% on R/A; ha1 01:00 BP 105 / 71; Pulse 101; Resp 17; Pulse Ox 99% ; jj7 02:00 BP 107 / 69; Pulse 106; Resp 19; Pulse Ox 97% ; jj7 03:00 BP 101 / 73; Pulse 106; Resp 18; Pulse Ox 97% ; jj7 04:00 BP 103 / 67; Pulse 104; Resp 17; Temp 98.3; Pulse Ox 100% ; jj7 11/02 18:11 Pain Scale: Adult iw ED Course: 11/02 18:00 Patient arrived in ED. iw 18:01 Triage completed. iw 18:05 Natalia Finch PA-C is PHCP. sb4 18:05 Bobby Bermudez MD is Attending Physician. sb4 18:12 Arm band placed on. iw 20:37 Rebekah Kern, SCARLETT is Primary Nurse. kj2 20:45 Patient has correct armband on for positive identification. Bed in low position. Call kj2 light in reach. Provided Education on: call light. 20:45 Missed attempt(s): 24 gauge in right wrist. Bleeding controlled, band aid applied, ha1 catheter tip intact. 22:21 Radiology exam delayed due to IV insertion attempt and/or patient not having jc4 appropriate IV at this time. 22:57 Abdomen In Process Unspecified. EDMS 11/03 00:06 Report given to SCARLETT Tse. kj2 00:17 Abdomen Limited US In Process Unspecified. EDMS 01:30 First set of blood cultures drawn Second set of blood cultures drawn by ED staff. ha1 01:35 Inserted saline lock: 22 gauge in left forearm, using aseptic technique. Blood jj7 collected. Flushed with 10 mL NS. 02:04 Attending Physician role handed off by Bobby Bermudez MD sp4 02:04 Jean Carlos Warren MD is Attending Physician. sp4 04:05 No provider procedures requiring assistance completed. Patient transferred, IV remains jj7 in place. Administered Medications: 01:55 Drug: Piperacillin-Tazobactam IVPB 3.375 grams IVPB once over 60 mins; (mix in NS 100 ha1 mL) Route: IVPB; Infused Over: 60 mins; Site: left antecubital; 02:41 Follow up: IV Status: Completed infusion j7 02:49 Drug: Albumin IVPB 25 grams 100 ml IVPB once; (Note: Albumin 25% concentration) Volume: jj7 100 ml; Route: IVPB; Site: left forearm; 03:47 Follow up: IV Status: Completed infusion j7 02:49 Drug: Thiamine IV 100 mg IV at bolus once Route: IV; Rate: bolus; Site: left forearm; jj7 03:46 Follow up: IV Status: Completed infusion j7 03:47 Drug: morphine IVP or IV 2 mg IVP once over 4 mins Route: IVP; Infused Over: 4 mins; jj7 Site: left forearm; 03:59 Follow up: Response: Marked relief of symptoms; Pain is decreased jj7 03:47 Not Given (Patient Refused): ondansetron 4 mg IVP once; over 2 minutes j7 03:49 Drug: Albumin IVPB 25 grams 100 ml IVPB once; (Note: Albumin 25% concentration) Volume: jj7 100 ml; Route: IVPB; Site: left forearm; 03:59 Follow up: IV Status: Infusion continued upon transfer jj7 Medication: 11/02 21:05 VIS not applicable for this client. kj2 Outcome: 11/03 01:06 ER care complete, transfer ordered by . sb4 04:05 Transferred by [facility] to [facility], Transfer jj7 form completed. X-rays sent w/ patient. 04:05 Condition: improved 04:05 Patient left the ED. jj7 Signatures: Dispatcher [employer] EDMS Selin Lucero RN RN Carmencita Napoles RN RN ha1 Castro Ken RN RN jj7 Natalia Finch, PA-C PA-C sb4 Jean Carlos Warren MD MD sp4 Huang Ibrahim 4 Rebekah Kern RN RN kj2 Corrections: (The following items were deleted from the chart) 11/02 18:12 18:01 Chief complaint: EMS states: pt has hx of liver failure, is having difficulty iw breathing , abd distention and pain, last paracentesis was iw 18 18:01 Coronavirus screen: At this time, the client does not indicate any symptoms iw associated with coronavirus-19. iw 18:11 BP 118 / 80; Pulse 115bpm; Resp 24bpm; Pulse Ox 100% RA; Temp 97.3F; iw iw 23:34 21:40 Reassessment: PATIENT REFUSING IV. BLOOD COLLECTED AND SENT ha1 ha1 11/03 00:33 11/02 20:50 Reassessment: PATIENT REFUSING IV. BLOOD COLLECTED AND SENT ha1 ha1 11/03 00:35 11/02 20:50 Reassessment: PATIENT REFUSING IV AND REFUSING TO GET ANOTHER IV. SOME OF ha1 THE BLOOD COLLECTED AND SENT. UNABLE TO COLLECT BLOOD CULTURES. ha1 11/03 01:24 11/02 20:40 Missed attempt(s): 24 gauge in right wrist. Bleeding controlled, band aid ha1 applied, catheter tip intact. ha1 11/03 04:11 04:10 Patient left the ED. jj7 jj7
--- NOTE | 2024-11-03 01:07 | EDPHYS ---
Physician Documentation [facility] Name: Rylee Thomas Age: 38 yrs Sex: Female : 1985 Arrival Date: 11/02/2024 Time: 17:56 Bed 16 Private MD: ED Physician Jean Carlos Warren HPI: 11/02 18:23 This 38 yrs old Female presents to ER via EMS with complaints of Abdominal Distention. sb4 18:27 Patient with history of liver failure, cirrhosis, and ascites presents today with sb4 complaints of abdominal distention, abdominal pain, low back pain. States that she last had a paracentesis 2 days ago but the fluid buildup on her abdomen returned quickly. She states that she is having "pain in her kidneys ". Denies any vomiting or diarrhea. Sees hepatology at [facility], is currently being worked up by an extensive research team, is on several medications that she is unsure what the names are. Historical: - Allergies: 18:12 No Known Allergies; iw - PMHx: 18:12 cirrhosis of liver; Endometriosis of vagina; scoliosis; iw - PSHx: 18:12 partial hysterectomy; iw - Immunization history:: Adult Immunizations up to date. - Infectious Disease History:: Denies. - Social history:: Smoking status: Patient denies any tobacco usage or history of. ROS: 18:27 Constitutional: Negative for fever, chills, and weight loss, sb4 18:27 Abdomen/GI: Positive for abdominal pain, nausea, abdominal distension, 18:27 All other systems are negative, Exam: 18:27 Head/Face: Normocephalic, atraumatic. MS/ Extremity: Pulses equal, no cyanosis. sb4 Neurovascular intact. Full, normal range of motion. 18:27 Constitutional: The patient appears in no acute distress, alert, awake, smells of alcohol, ETOH, 18:27 Eyes: Sclera: icterus, is present, 18:27 Cardiovascular: Rate: tachycardic, Rhythm: regular, 18:27 Respiratory: mild respiratory distress is noted, Respirations: normal, Breath sounds: are clear throughout, Respiratory rate: 24 18:27 Abdomen/GI: Inspection: distension, that is moderate, diffusely, 18:27 Skin: Appearance: Color: jaundiced, 11/03 01:07 Abdomen/GI: Indicators: Pimentel's sign is positive, sb4 Vital Signs: 11/02 18:11 BP 118 / 80; Pulse 115; Resp 24; Temp 97.3; Pulse Ox 100% on R/A; Pain 8/10; iw 21:45 BP 119 / 79; Pulse 104; Resp 18; Pulse Ox 100% on R/A; kj2 22:45 BP 121 / 82; Pulse 106; Resp 20; Temp 97.3; Pulse Ox 100% ; kj2 11/03 00:00 BP 103 / 68; Pulse 102; Resp 18 S; Pulse Ox 99% on R/A; ha1 01:00 BP 105 / 71; Pulse 101; Resp 17; Pulse Ox 99% ; jj7 02:00 BP 107 / 69; Pulse 106; Resp 19; Pulse Ox 97% ; jj7 03:00 BP 101 / 73; Pulse 106; Resp 18; Pulse Ox 97% ; jj7 04:00 BP 103 / 67; Pulse 104; Resp 17; Temp 98.3; Pulse Ox 100% ; jj7 11/02 18:11 Pain Scale: Adult iw MDM: 11/02 18:08 Medical Screening Exam initiated sb4 11/03 01:07 Data reviewed: vital signs, nurses notes, lab test result(s), radiologic studies, I sb4 have discussed the patient's presentation/case with the attending Emergency Department Physician; and as a result, I will. Counseling: I had a detailed discussion with the patient and/or guardian regarding the historical points, exam findings, and any diagnostic results supporting the discharge/admit diagnosis, lab results, radiology results, the need to transfer to another facility, for higher level of care, [facility] does not immediately have the required specialist. ED course: patient likely has acute cholecystitis in addition to her liver cirrhosis, failure, and ascites. will transfer to [facility] where she sees hepatology. 02:52 Differential diagnosis: bowel obstruction, coronary artery disease, cholecystitis, sp4 Cholelithiasis, diverticulitis, Endometriosis, gastritis. Consideration of Admission/Observation Escalation of care including admission/observation considered. Management of patient was discussed with the following: Hospitalist: [facility] hospitalist. 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 ED course: Patient is hemodynamically stable for transfer with ground EMS.. 11/02 18:14 Order name: Blood Culture Adult (2) sb4 11/02 18:14 Order name: CBC with Diff; Complete Time: 21:53 sb4 11/02 18:14 Order name: CMP; Complete Time: 22:01 sb4 11/02 18:14 Order name: Lactate w/ 2H reflex if indic.; Complete Time: 13:14 sb4 11/02 18:14 Order name: Protime (+inr); Complete Time: 21:58 sb4 11/02 18:14 Order name: Ptt, Activated; Complete Time: 21:58 sb4 11/02 18:14 Order name: ETOH Level; Complete Time: 21:59 sb4 11/02 18:21 Order name: AMMONIA; Complete Time: 13:14 iw 11/02 18:21 Order name: Test, Serum; Complete Time: 21:58 iw 11/02 22:46 Order name: Abdomen ; Complete Time: 01:08 EDMS 11/02 23:42 Order name: Abdomen Limited US; Complete Time: 01:08 sb4 11/02 18:14 Order name: Accucheck; Complete Time: 23:33 sb4 11/02 18:14 Order name: Cardiac monitoring; Complete Time: 23:33 sb4 11/02 18:14 Order name: IV Saline Lock - Large Bore; Complete Time: 02:00 sb4 11/02 18:14 Order name: Labs collected and sent; Complete Time: 23:32 sb4 11/02 18:14 Order name: O2 Per Protocol; Complete Time: 23:32 sb4 11/02 18:14 Order name: O2 Sat Monitoring; Complete Time: 23:32 sb4 11/02 18:14 Order name: Vital Signs; Complete Time: 23:32 sb4 Administered Medications: 01:55 Drug: Piperacillin-Tazobactam IVPB 3.375 grams IVPB once over 60 mins; (mix in NS 100 ha1 mL) Route: IVPB; Infused Over: 60 mins; Site: left antecubital; 02:41 Follow up: IV Status: Completed infusion jj7 02:49 Drug: Albumin IVPB 25 grams 100 ml IVPB once; (Note: Albumin 25% concentration) Volume: jj7 100 ml; Route: IVPB; Site: left forearm; 03:47 Follow up: IV Status: Completed infusion j 02:49 Drug: Thiamine IV 100 mg IV at bolus once Route: IV; Rate: bolus; Site: left forearm; jj 03:46 Follow up: IV Status: Completed infusion j 03:47 Drug: morphine IVP or IV 2 mg IVP once over 4 mins Route: IVP; Infused Over: 4 mins; j7 Site: left forearm; 03:59 Follow up: Response: Marked relief of symptoms; Pain is decreased j7 03:47 Not Given (Patient Refused): ondansetron 4 mg IVP once; over 2 minutes j 03:49 Drug: Albumin IVPB 25 grams 100 ml IVPB once; (Note: Albumin 25% concentration) Volume: jj7 100 ml; Route: IVPB; Site: left forearm; 03:59 Follow up: IV Status: Infusion continued upon transfer j7 Disposition: 03:10 Co-signature as Attending Physician, Jean Carlos Warren MD I agree with the assessment sp4 and plan of care. I reviewed the patient's care provided by Advanced Practice Provider \\T\\ agree w/ the diagnosis \\T\\ care plan. I personally saw the pt \\T\\ performed a substantive portion of the visit, incldng all aspects of the (History/Exam/Medical Decision Making). Disposition Summary: 11/03/24 01:06 Transfer Ordered Notes: Transfer Location: [facility] sb4 Reason: Higher level of care sb4 Condition: Fair sb4 Problem: new sb4 Symptoms: are unchanged sb4 Accepting Physician: surg(11/03/24 04:10) jj7 Diagnosis - Acute cholecystitis sb4 - Alcoholic cirrhosis of liver with ascites sb4 - Liver cirrhosis with ascites, acute alcohol intoxication, cholelithiasis with acute sp4 cholecystitis Forms: - Medication Reconciliation Form sb4 - SBAR form sb4 Signatures: Dispatcher [employer] Selin Smart RN RN iw Ayala, Heidy, RN RN ha1 Johnson, Juwairiyah, RN RN jjNatalia Valencia, PA-C PARochelleC sb4 Jean Carlos Warren MD MD sp4 Corrections: (The following items were deleted from the chart) 11/02 22:46 22:02 Abdomen Pelvis W Con+CT.RAD.BRZ ordered. EDMS EDMS 23:05 18:27 Constitutional: The patient appears in no acute distress, alert, awake, sb4 sb4 23:42 23:42 Abdomen Limited+US.RAD.BRZ ordered. EDMS EDMS 11/03 03:12 01:06 surg sb4 sp4 04:10 03:12 surg sp4 jj7
[2024-11-03] MEDS ORDERED: NA CHLORIDE 0.9% 100 ML ONE (01:40)
[2024-11-03] MEDS ORDERED: PIPERACIL/TAZO 3.375 GM VIAL IV ONE (01:40)
[2024-11-03] MEDS ORDERED: THIAMINE 200 MG/2 ML INJ ONE (02:33)
[2024-11-03] MEDS ORDERED: ALBUMIN HUMAN 25% 200 ML IV ONE (02:34)
[2024-11-03] MEDS ORDERED: MORPHINE 2 MG/ML SYR ONE (03:42)
[2024-11-03 04:46] VITALS: BP 103/67; TEMP 98.3; O2SAT 100
== END 2024-11-03 04:10 | disposition short-term general hospital (02) ==
LOC: ER 17:56
DX: K70.31 Alcoholic cirrhosis of liver with ascites (principal); K80.00 Calculus of gallbladder with acute cholecystitis without obstruction; F10.129 Alcohol abuse with intoxication, unspecified
CPT/HCPCS: 87040 ×2; 85025; 36415; 82140; 84703; 85610; 83605; 85730; 80053; 74176; 76705; 99285; 82077; J3411; J2543; J2270; P9047

== ENCOUNTER 2024-11-21 20:56 | Emergency (ER) | payer OTHER ==
[2024-11-21] MEDS ORDERED: MORPHINE 4 MG/ML SYR ONE (21:19)
--- NOTE | 2024-11-21 22:31 | RAD REPORT ---
EXAM: CT CHEST, ABDOMEN AND PELVIS WITHOUT CONTRAST CLINICAL INDICATION: Chest and abdominal pain status post fall TECHNIQUE: CT chest, abdomen and pelvis was performed, without IV contrast, as per department protoco l. Axial, sagittal and coronal reconstructions were obtained. One or more of the following dose reduction techniques were used: Automated exposure control, adjustment of the mA and/or kV according to the patient size, and/or iterative reconstruction. Unless otherwise specified, incidental findings do not require dedicated imaging follow-up. The lack of IV and oral contrast limits evaluation of the mediastinum, holden, vessels, organs and yi l. COMPARISON: September and October 2024 FINDINGS: Moderate to large right pleural effusion with right lower lobe atelectasis. A pulmonary contusion not seen. No mediastinal,. No pericardial effusion Liver, spleen, pancreas, adrenals kidneys and bladder do not demonstrate a traumatic injury. Cirrhotic liver which is enlarged. Cholelithiasis. Moderate splenomegaly. Large amount of ascites. Post surgical changes involve the spine There is no evidence of diverticulitis IMPRESSION: No acute traumatic injury involving the chest/abdomen/pelvis. Moderate to large right effusion Large amount of ascites
[2024-11-21] MEDS ORDERED: MORPHINE 2 MG/ML SYR ONE (22:36)
[2024-11-22 00:04] LABS: Absolute Basophils 0.1 K/uL (0-0.5); Absolute Eosinophils 0.1 K/uL (0-0.5); Absolute Monocytes 0.7 K/uL (0.1-1.3); Absolute Neutrophil 8.4 K/uL (1.8-8.0); Basophils % 1.1 % (0-1.3); Hematocrit 33.1 % (36.0-45.0); Hemoglobin 11.1 g/dL (12.0-15.0); Lymphocytes % 24.3 % (15.3-44.8); MCH 34.1 pg (27.0-35.0); MCHC 33.5 g/dL (32.0-36.0); MCV 101.8 fL (80-100); MPV 9.2 fL (7.6-11.3); Monocytes % 5.6 % (3.3-12.3); Nucleated Red Blood Cells % 0.1 % (0-0); PT Prothrombin Time 18.8 SECONDS (10.0-13.0); Platelets 275 thou/uL (152-406); Protime INR 1.69; RBC Red Blood Cell Count 3.25 M/uL (3.86-4.86); Red Cell Distribution Width 16.5 % (12.1-15.2)
[2024-11-22 00:19] LABS: Albumin 1.8 g/dL (3.4-5.0); Albumin/Globulin Ratio 0.4 (1.1-1.8); Anion Gap 9.4 mEq/L (5.0-15.0); Bilirubin Total 4.9 mg/dL (0.2-1.0); C-Reactive Protein 26.6 mg/L (<3.00); Globulin 4.9 g/dL (2.3-3.5); Potassium 3.4 mEq/L (3.5-5.1); Protein, Total 6.7 g/dL (6.4-8.2)
--- NOTE | 2024-11-22 01:08 | ER ---
Nurse's Notes [facility] Name: Rylee Thomas Age: 38 yrs Sex: Female : 1985 Arrival Date: 11/21/2024 Time: 20:56 Bed 6 Private MD: Diagnosis: Pleural effusion in other conditions classified elsewhere;Acute on chronic Hepatic failure, large right pleural effusion, tense ascites, dyspnea with exertion;Acute right lateral chest wall contusion, acute fall at home Presentation: 11/21 21:08 Chief complaint: EMS states: Pt called EMS reporting a fall and right sided rib pain. jb4 the fall happened around 4-5 pm. Coronavirus screen: At this time, the client does not indicate any symptoms associated with coronavirus-19. Ebola Screen: No symptoms or risks identified at this time. Initial Sepsis Screen: Does the patient meet any 2 criteria? No. Patient's initial sepsis screen is negative. Does the patient have a suspected source of infection? No. Patient's initial sepsis screen is negative. Risk Assessment: Do you want to hurt yourself or someone else? Patient reports no desire to harm self or others. Onset of symptoms was November 21, 2024. Transition of care: patient was not received from another setting of care. 21:08 Method Of Arrival: EMS: [facility] jb4 21:08 Acuity: NIDHI 4 jb4 Triage Assessment: 21:09 General: Appears in no apparent distress. comfortable, Behavior is calm, cooperative, jb4 appropriate for age. Pain: Complains of pain in right lateral posterior chest Pain does not radiate. Pain currently is 8 out of 10 on a pain scale. Quality of pain is described as aching. Neuro: Level of Consciousness is awake, alert, obeys commands, Oriented to person, place, time, situation. Cardiovascular: Patient's skin is warm and dry. Respiratory: Airway is patent Respiratory effort is even, unlabored, Respiratory pattern is regular, symmetrical. Derm: Skin is intact, Skin is pink, warm \T\ dry. Musculoskeletal: Circulation, motion, and sensation intact. Range of motion: intact in all extremities. 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 - Infectious Disease History:: Denies. - Social history:: Smoking status: Patient denies any tobacco usage or history of. - Family history:: not pertinent. Screenin:11 [facility] ED Fall Risk Assessment (Adult) History of falling in the last 3 months, jb4 including since admission Yes- single mechanical fall (1 pt) Confusion or Disorientation No (0 pts) Intoxicated or Sedated No (0 pts) Impaired Gait No (0 pts) Mobility Assist Device Used No (0 pt) Altered Elimination No (0 pt) Score/Fall Risk Level 0 - 2 = Low Risk Oriented to surroundings, Maintained a safe environment. Abuse screen: Denies threats or abuse. Nutritional screening: No deficits noted. Tuberculosis screening: No symptoms or risk factors identified. Assessment: 22:22 Reassessment: Patient appears in no apparent distress at this time. Patient and/or jb4 family updated on plan of care and expected duration. Pain level reassessed. Patient is alert, oriented x 3, equal unlabored respirations, skin warm/dry/pink. 23:00 Reassessment: Patient appears in no apparent distress at this time. Patient and/or jb4 family updated on plan of care and expected duration. Pain level reassessed. Patient is alert, oriented x 3, equal unlabored respirations, skin warm/dry/pink. 11/22 00:00 Reassessment: Patient appears in no apparent distress at this time. Patient and/or jb4 family updated on plan of care and expected duration. Pain level reassessed. Patient is alert, oriented x 3, equal unlabored respirations, skin warm/dry/pink. 01:00 Reassessment: Patient appears in no apparent distress at this time. Patient and/or jb4 family updated on plan of care and expected duration. Pain level reassessed. Patient is alert, oriented x 3, equal unlabored respirations, skin warm/dry/pink. Vital Signs: 11/21 21:08 BP 113 / 79; Pulse 97; Resp 16; Temp 96.9; Pulse Ox 94% on R/A; Weight 63.05 kg (M); jb4 Height 5 ft. 9 in. ; 23:26 BP 95 / 56; Pulse 89; Resp 18; Pulse Ox 98% on 2 lpm NC; dd2 23:44 BP 103 / 65; Pulse 87; Resp 16; Pulse Ox 95% on R/A; jb4 11/22 01:00 BP 93 / 53; Pulse 109; Resp 16; Pulse Ox 92% ; jb4 02:00 BP 101 / 53; Pulse 104; Resp 16; Temp 98.4; Pulse Ox 94% on 2 lpm NC; dd2 11/21 21:08 Body Mass Index 20.53 (63.05 kg, 175.26 cm) jb4 [place] Coma Score: 01:02 Eye Response: spontaneous(4). Motor Response: obeys commands(6). Verbal Response: sp4 oriented(5). Total: 15. ED Course: 11/21 20:57 Patient arrived in ED. jj6 20:58 Jean Carlos Warren MD is Attending Physician. sp4 21:08 Celestino Bustamante RN is Primary Nurse. jb4 21:09 Triage completed. jb4 21:09 Arm band placed on right wrist. jb4 21:11 Patient has correct armband on for positive identification. Bed in low position. Call jb4 light in reach. Side rails up X 1. Provided Education on: plan of care. 21:11 No provider procedures requiring assistance completed. jb4 21:54 CT Chest Abdomen Pelvis W/O Contrast In Process Unspecified. EDMS 11/22 01:28 initiated transfer with [facility] pt was accepted to [facility] \\ 0157 by Lacy Cameron Accepting admin Kristina Brunner \ f [id number]. Pt will go to bed [address] [place] [address]. Number for nurse to nurse report [phone]. [facility] will transfer patient once nurse to nurse is complete. Faxed pt facesheet. 04:08 Patient transferred, IV remains in place. vc1 Administered Medications: 11/21 21:21 Drug: morphine IM 2 mg IM once Route: IM; Site: left deltoid; jb4 21:36 Follow up: Response: No adverse reaction dd2 22:59 Drug: morphine IM 2 mg IM once Route: IM; Site: right gluteus; dd2 23:14 Follow up: Response: No adverse reaction dd2 23:00 Not Given (Patient Refused): [id number] mg IM once dd2 23:08 Not Given (Patient Refused): [id number] mg PO once dd2 11/22 03:19 Drug: Albumin IVPB 25 grams 100 ml IVPB once; (Note: Albumin 25% concentration) Volume: dd2 100 ml; Route: IVPB; Site: right antecubital; 03:34 Follow up: IV Status: Infusion continued upon transfer dd2 Medication: 11/21 21:11 VIS not applicable for this client. jb4 Outcome: 11/22 01:08 ER care complete, transfer ordered by . spErnesto 04:08 Transferred by ground EMS to [facility], Transfer form completed. vc1 X-rays sent w/ patient. 04:08 Condition: stable 04:08 Instructed on the need for transfer, 04:08 Patient left the ED. vc1 Signatures: Dispatcher [employer] EDMS Celestino Bustamante RN RN jb4 Jelena Hastings6 Vandana Aden RN RN vc1 Jean Carlos Warren MD MD sp4 Liz Brito DIANA, RN RN dd2
--- NOTE | 2024-11-22 01:09 | EDPHYS ---
Physician Documentation [facility] Name: Rylee Thomas Age: 38 yrs Sex: Female : 1985 Arrival Date: 11/21/2024 Time: 20:56 Bed 6 Private MD: ED Physician Jean Carlos Warren HPI: 11/21 20:59 This 38 yrs old Female presents to ER via Unassigned with complaints of RIB sp4 PAIN. 11/22 01:02 38-year-old female with history of alcoholic liver cirrhosis presents with worsening sp4 shortness of breath, worsening abdominal distention, and acute fall at home with right sided chest wall contusion. 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 - Infectious Disease History:: Denies. - Social history:: Smoking status: Patient denies any tobacco usage or history of. - Family history:: not pertinent. ROS: 11/22 01:02 Constitutional: Negative for fever, chills, and weight loss, sp4 Constitutional: Negative for fever, chills, and weight loss, positive abdominal distention, positive shortness of breath, positive acute chest wall contusion All other systems are negative, Exam: 01:02 Constitutional: Patient is feeling physically deconditioned female with a distended sp4 abdomen ill-appearing but nontoxic Head/Face: Normocephalic, atraumatic. Eyes: Pupils equal round and reactive to light, extra-ocular motions intact. Lids and lashes normal. Conjunctiva and sclera are not injected. Cornea within normal limits. Periorbital areas with no swelling, redness, or edema. ENT: Nares patent. No nasal discharge, no septal abnormalities noted. Tympanic membranes are normal and external auditory canals are clear. Oropharynx with no redness, swelling, or masses, exudates, or evidence of obstruction, uvula midline. Mucous membranes moist. Neck: Trachea midline, no thyromegaly or masses palpated, and no cervical lymphadenopathy. Supple, full range of motion without nuchal rigidity, or vertebral point tenderness. Chest/axilla: Normal chest wall appearance and motion. Nontender with no deformity. No lesions are appreciated. Cardiovascular: Regular rate and rhythm with a normal S1 and S2. No gallops, murmurs, or rubs. Normal PMI, no JVD. No pulse deficits. Respiratory: Lungs have equal breath sounds bilaterally, clear to auscultation and percussion. No rales, rhonchi or wheezes noted. No increased work of breathing, no retractions or nasal flaring. Abdomen/GI: There is moderate amount of ascites, moderate abdominal distention, diffusely tender abdomen Back: No spinal tenderness. No costovertebral tenderness. Skin: Warm, dry with normal turgor. Normal color with no rashes, no lesions, and no evidence of cellulitis. MS/ Extremity: Pulses equal, no cyanosis. Neurovascular intact. Full, normal range of motion. Neuro: Awake and alert, GCS 15, oriented to person, place, time, and situation. Cranial nerves II-XII grossly intact. Motor strength 5/5 in all extremities. Sensory grossly intact. Psych: Awake, alert, with orientation to person, place and time. Behavior, mood, and affect are within normal limits Vital Signs: 11/21 21:08 BP 113 / 79; Pulse 97; Resp 16; Temp 96.9; Pulse Ox 94% on R/A; Weight 63.05 kg (M); jb4 Height 5 ft. 9 in. ; 23:26 BP 95 / 56; Pulse 89; Resp 18; Pulse Ox 98% on 2 lpm NC; dd2 23:44 BP 103 / 65; Pulse 87; Resp 16; Pulse Ox 95% on R/A; jb4 11/22 01:00 BP 93 / 53; Pulse 109; Resp 16; Pulse Ox 92% ; jb4 02:00 BP 101 / 53; Pulse 104; Resp 16; Temp 98.4; Pulse Ox 94% on 2 lpm NC; dd2 11/21 21:08 Body Mass Index 20.53 (63.05 kg, 175.26 cm) jb4 [place] Coma Score: 01:02 Eye Response: spontaneous(4). Motor Response: obeys commands(6). Verbal Response: sp4 oriented(5). Total: 15. MDM: 11/21 21:08 Medical Screening Exam initiated 4 11/22 01:04 ED course: COMPARISON: September and October 2024 FINDINGS: Moderate to large right sp4 pleural effusion with right lower lobe atelectasis. A pulmonary contusion not seen. No mediastinal,. No pericardial effusion Liver, spleen, pancreas, adrenals kidneys and bladder do not demonstrate a traumatic injury. Cirrhotic liver which is enlarged. Cholelithiasis. Moderate splenomegaly. Large amount of ascites. Post surgical changes involve the spine There is no evidence of diverticulitis IMPRESSION: No acute traumatic injury involving the chest/abdomen/pelvis. RADIOLOGY SERVICES REPORT Moderate to large right effusion Large amount of ascites . 01:05 Differential diagnosis: Chest Wall Contusion Chest Wall Injury Pleural Effusion sp4 Pneumomediastinum Pneumopericardium Pulmonary Contusion Rib Fracture Ruptured Hemidiaphragm. Data reviewed: vital signs, nurses notes, old medical records, lab test result(s), EKG, radiologic studies, CT scan. Consideration of Admission/Observation Escalation of care including admission/observation considered. ED course: Patient has new finding of large size right pleural effusion, also worsening liver failure, abdominal distention and ascites patient require paracentesis. Patient warrants transfer for assessment by GI hepatology. 11/21 23:02 Order name: CBC with Diff; Complete Time: 00:56 4 11/21 23:02 Order name: CMP; [facility] 11/21 23:02 Order name: Lipase; Complete [facility]: 00:56 [facility] 11/21 23:02 Order name: Urinalysis w/ reflexes; Complete Time: 01:40 sp4 11/21 23:03 Order name: PT-INR; Complete Time: 00:56 4 11/21 23:03 Order name: Lactate w/ 2H reflex if indic.; Complete Time: 00:56 [facility] 11/21 23:03 Order name: AMMONIA; Complete Time: 00:56 [facility] 11/21 23:03 Order name: CRP; Complete Time: 00:56 [facility] 11/21 21:08 Order name: CT Chest Abdomen Pelvis W/O Contrast; Complete Time: 22:54 [facility] 11/21 23:02 Order name: IV Saline Lock; Complete Time: 23:23 sp4 11/21 23:02 Order name: Labs collected and sent; Complete Time: 23:23 sp4 Administered Medications: 11/21 21:21 Drug: morphine IM 2 mg IM once Route: IM; Site: left deltoid; jb4 21:36 Follow up: Response: No adverse reaction dd2 22:59 Drug: morphine IM 2 mg IM once Route: IM; Site: right gluteus; dd2 23:14 Follow up: Response: No adverse reaction dd2 23:00 Not Given (Patient Refused): [id number] mg IM once dd2 23:08 Not Given (Patient Refused): [id number] mg PO once dd2 11/22 03:19 Drug: Albumin IVPB 25 grams 100 ml IVPB once; (Note: Albumin 25% concentration) Volume: dd2 100 ml; Route: IVPB; Site: right antecubital; 03:34 Follow up: IV Status: Infusion continued upon transfer dd2 Disposition Summary: 11/22/24 01:08 Transfer Ordered Notes: Transfer Location: [facility] sp4 Reason: Higher level of care sp4 Condition: Stable sp4 Problem: new sp4 Symptoms: have improved sp4 Accepting Physician: [facility] josiah attending (11/22/24 04:08) vc1 Diagnosis - Pleural effusion in other conditions classified elsewhere sp4 - Acute on chronic Hepatic failure, large right pleural effusion, tense ascites, sp4 dyspnea with exertion - Acute right lateral chest wall contusion, acute fall at home sp4 Forms: - Medication Reconciliation Form sp4 - SBAR form sp4 Signatures: Dispatcher [employer] EDCelestino Segura RN RN jb4 Vandana Aden RN RN vc1 Jean Carlos Warren MD MD sp4 MALIK RAMIREZ RN RN dd2 Corrections: (The following items were deleted from the chart) 11/21 23:03 23:03 C-REACTIVE PROTEIN+C.LAB.BRZ ordered. EDOH EDMS 11/22 01:08 01:[address] [facility] attending MD [email or web address] sp4 04:08 [facility] [place] vc1
[2024-11-22 01:37] LABS: Calcium Oxalate Crystals- Ur Few /HPF (None Seen); Specific Gravity 1.007 (1.005-1.030); Sqamous Epithelial <5 /HPF (None Seen); Urine Bacteria <20 /HPF (<20); Urine Bilirubin NEGATIVE (Negative); Urine Blood Negative (Negative); Urine Clarity Extremely Turbid (Clear); Urine Color Yellow (Yellow); Urine Culture Reflex Order NOT NEEDED; Urine Glucose NEGATIVE (Negative); Urine Ketones NEGATIVE (Negative); Urine Microscopic Reflex YN ORDER UMIC; Urine Mucus Slight /HPF (None Seen); Urine Nitrite NEGATIVE (Negative); Urine Protein NEGATIVE (Negative); Urine RBC None Seen /HPF (None Seen); Urine Urobilinogen 1+ (Normal); Urine WBC <5 /HPF (<5)
[2024-11-22] MEDS ORDERED: ALBUMIN HUMAN 25% 100 ML IV ONE (03:01)
[2024-11-22 04:30] VITALS: BP 101/53; TEMP 98.4; O2SAT 94
== END 2024-11-22 04:08 | disposition short-term general hospital (02) ==
LOC: ER 20:56
DX: R06.00 Dyspnea, unspecified (principal); J91.8 Pleural effusion in other conditions classified elsewhere; K72.00 Acute and subacute hepatic failure without coma; K72.10 Chronic hepatic failure without coma; R18.8 Other ascites; S20.211A Contusion of right front wall of thorax, initial encounter; W18.30XA Fall on same level, unspecified, initial encounter; Y92.009 Unspecified place in unspecified non-institutional (private) residence as the place of occurrence of the external cause; K70.30 Alcoholic cirrhosis of liver without ascites
CPT/HCPCS: 85025; 81001; 36415; 82140; 85610; 83605; 83690; 80053; 86140; 71250; 74176; J2270; P9047

== ENCOUNTER 2024-12-08 23:35 | Emergency (ER) | payer OTHER ==
[2024-12-09] MEDS ORDERED: ONDANSETRON 4 MG/2 ML VIAL ONE (01:02)
[2024-12-09] MEDS ORDERED: CEFTRIAXONE 1000 MG/VIAL ONE (01:02)
[2024-12-09] MEDS ORDERED: FENTANYL CITR 100 MCG/2 ML ONE ×2 (01:03→01:46)
[2024-12-09] MEDS ORDERED: FAMOTIDINE 20 MG/2 ML VIAL IV ONE (01:04)
[2024-12-09] MEDS ORDERED: NA CHLORIDE 0.9% 500 ML ONE (01:04)
[2024-12-09 01:05] LABS: Absolute Basophils 0.1 K/uL (0-0.5); Absolute Eosinophils 0.1 K/uL (0-0.5); Absolute Monocytes 0.4 K/uL (0.1-1.3); Basophils % 0.9 % (0-1.3); Hematocrit 36.9 % (36.0-45.0); Hemoglobin 12.8 g/dL (12.0-15.0); Lymphocytes % 40.1 % (15.3-44.8); MCH 33.6 pg (27.0-35.0); MCHC 34.7 g/dL (32.0-36.0); MCV 97.1 fL (80-100); MPV 9.6 fL (7.6-11.3); Nucleated Red Blood Cells % 0.1 % (0-0); Platelets 145 thou/uL (152-406); RBC Red Blood Cell Count 3.81 M/uL (3.86-4.86); Red Cell Distribution Width 15.2 % (12.1-15.2)
[2024-12-09 01:15] LABS: PT Prothrombin Time 17.6 SECONDS (10-13.0); Protime INR 1.58
[2024-12-09 01:27] LABS: Albumin/Globulin Ratio 0.3 (1.1-1.8); Anion Gap 11.5 mEq/L (5.0-15.0); Bilirubin Direct 2.4 mg/dL (0-0.2); Bilirubin Indirect, Calculated 1.2 mg/dL (0.2-0.8); Bilirubin Total 3.6 mg/dL (0.2-1.0); Globulin 5.9 g/dL (2.3-3.5); Magnesium 1.8 mg/dL (1.6-2.4); Potassium 3.5 mEq/L (3.5-5.1); Protein, Total 7.9 g/dL (6.4-8.2); Troponin High Sensitivity 4.4 pg/mL (<58.9)
[2024-12-09] MEDS ORDERED: LACTULOSE 20 GM/30 ML UCUP ONE (01:48)
--- NOTE | 2024-12-09 01:49 | EDPHYS ---
Physician Documentation [facility] Name: Rylee Thomas Age: 38 yrs Sex: Female : 1985 Arrival Date: 12/08/2024 Time: 23:35 Bed 20 Private MD: ANIBAL Physician Renato Ace HPI: 12/08 23:59 This 38 yrs old Female presents to ER via Unassigned with complaints of juan carlos Abdominal Pain, Back Pain. 12/09 00:00 The patient presents with pain and contusion, and an injury. The symptoms are located juan carlos in the right mid back and right low back. Onset: The symptoms/episode began/occurred 5 day(s) ago. The pain does not radiate. Associated signs and symptoms: Pertinent positives: abdominal pain, RIGHT MID TO UPPER BACK PAIN. The problem was sustained from a direct blow, during a fall, while standing. Severity of symptoms: At their worst the symptoms were moderate, in the emergency department the symptoms are unchanged. The patient has not experienced similar symptoms in the past. ORE PUNCHER: 12/08 23:36 unknown ay Historical: - Home Meds: 12/09 02:28 Folic Acid Oral [Active]; ay - PMHx: 02:28 cirrhosis of liver; Endometriosis of vagina; scoliosis; ay - PSHx: 02:28 back; left leg; partial hysterectomy; ay - Immunization history:: Client reports receiving the 2nd dose of the Covid vaccine, Flu vaccine is up to date. - Infectious Disease History:: Denies. - Family history:: not pertinent. - Social history:: Smoking status: Patient denies any tobacco usage or history of. ROS: 00:00 Constitutional: Negative for fever, chills, and weight loss, Eyes: Negative for injury, juan carlos pain, redness, and discharge, ENT: Negative for injury, pain, and discharge, Neck: Negative for injury, pain, and swelling, Cardiovascular: Negative for chest pain, palpitations, and edema, Respiratory: Negative for shortness of breath, cough, wheezing, and pleuritic chest pain, : Negative for injury, bleeding, discharge, and swelling, MS/Extremity: Negative for injury and deformity, Neuro: Negative for headache, weakness, numbness, tingling, and seizure, Psych: Negative for depression, anxiety, suicide ideation, homicidal ideation, and hallucinations, Allergy/Immunology: Negative for hives, rash, and allergies, Endocrine: Negative for neck swelling, polydipsia, polyuria, polyphagia, and marked weight changes, Hematologic/Lymphatic: Negative for swollen nodes, abnormal bleeding, and unusual bruising, 00:00 Abdomen/GI: Positive for abdominal pain, abdominal cramps, abdominal distension, 00:00 Abdomen/GI: Positive for of the right upper quadrant and right lower quadrant, 00:00 Back: Positive for decreased range of motion, pain at rest, pain with movement, of the right subscapular area and right mid back, 00:00 MS/extremity: Negative for acute changes, injury or acute deformity, decreased range of motion, pain, swelling, tenderness, Exam: 00:00 Constitutional: This is a well developed, well nourished patient who is awake, alert, juan carlos and in no acute distress. Head/Face: Normocephalic, atraumatic. Eyes: Pupils equal round and reactive to light, extra-ocular motions intact. Lids and lashes normal. Conjunctiva and sclera are non-icteric and not injected. Cornea within normal limits. Periorbital areas with no swelling, redness, or edema. ENT: Nares patent. No nasal discharge, no septal abnormalities noted. Tympanic membranes are normal and external auditory canals are clear. Oropharynx with no redness, swelling, or masses, exudates, or evidence of obstruction, uvula midline. Mucous membranes moist. Neck: Trachea midline, no thyromegaly or masses palpated, and no cervical lymphadenopathy. Supple, full range of motion without nuchal rigidity, or vertebral point tenderness. No Meningismus. Cardiovascular: Regular rate and rhythm with a normal S1 and S2. No gallops, murmurs, or rubs. Normal PMI, no JVD. No pulse deficits. Respiratory: Lungs have equal breath sounds bilaterally, clear to auscultation and percussion. No rales, rhonchi or wheezes noted. No increased work of breathing, no retractions or nasal flaring. Back: No spinal tenderness. No costovertebral tenderness. Full range of motion. MS/ Extremity: Pulses equal, no cyanosis. Neurovascular intact. Full, normal range of motion., bilateral aka Neuro: Awake and alert, GCS 15, oriented to person, place, time, and situation. Cranial nerves II-XII grossly intact. Motor strength 5/5 in all extremities. Sensory grossly intact. Cerebellar exam normal. Normal gait. Psych: Awake, alert, with orientation to person, place and time. Behavior, mood, and affect are within normal limits. 00:00 Chest/axilla: Inspection: ecchymosis, that is mild, of the right lateral posterior chest 00:00 Abdomen/GI: Bowel sounds: normal, Palpation: mild abdominal tenderness, in the right juan carlos upper quadrant, Liver: no appreciated palpable abnormalities, Hernia: not appreciated, 00:00 Musculoskeletal/extremity: ROM: no acute changes, intact in all extremities, Circulation is intact in all extremities. Sensation intact. Compartment Syndrome exam of affected extremity: is normal. DVT Exam: No signs of deep vein thrombosis. no pain, no swelling, no tenderness, negative Homans' sign noted on exam, no appreciated bluish discoloration, no erythema, no increased warmth, 02:24 ECG was reviewed by the Attending Physician. [facility] Vital Signs: 12/08 23:36 BP 95 / 58; Pulse 87; Resp 17; Temp 98.6; Pulse Ox 100% on R/A; ay 12/09 01:22 BP 93 / 63; Pulse 100; Resp 17; Pulse Ox 100% ; ay 02:00 BP 107 / 63; Pulse 99; Resp 17; Pulse Ox 98% on R/A; ay 03:00 BP 102 / 51; Pulse 93; Resp 16; Pulse Ox 98% on R/A; ay MDM: 12/08 23:44 Medical Screening Exam initiated [facility] 12/09 00:03 Differential diagnosis: chronic back pain, Fatigue Fracture Pyelonephritis Renal juan carlos Infarction ruptured disc, Scoliosis spinal injury, sprain, vertebral fracture. Data reviewed: vital signs, nurses notes, EMS record, lab test result(s), EKG, radiologic studies, CT scan, plain films. Consideration of Admission/Observation Escalation of care including admission/observation considered. I considered the following discharge prescriptions or medication management in the emergency department Medications were administered in the Emergency Department. See MAR. Independent interpretation of the following test(s) in the Emergency Department EKG: See my EKG interpretation above. Historians other than the Patient: EMS: EMS WELL INFORMED. Care significantly affected by the following chronic conditions: Liver Disease, ALCOHOLIC CIRRHOSIS. Counseling: I had a detailed discussion with the patient and/or guardian regarding the historical points, exam findings, and any diagnostic results supporting the discharge/admit diagnosis, radiology results, the need to transfer to another facility, for higher level of care, [facility] the required [facility]. 12/08 23:46 Order name: Basic Metabolic Panel; Complete Time: 01:43 [facility] 12/08 23:46 Order name: CBC with Diff; Complete Time: 01:16 [facility] 12/08 23:46 Order name: LFT's; Complete Time: :43 [facility] 12/08 23:46 Order name: Magnesium; Complete Time: 01:43 [facility] 12/08 23:46 Order name: NT PRO-BNP; Complete Time: 01:43 [facility] 12/08 23:46 Order name: PT-INR; Complete Time: 01:16 [facility] 12/08 23:46 Order name: Troponin HS; Complete Time: 01:43 [facility] 12/08 23:46 Order name: AMMONIA; Complete Time: 01:25 [facility] 12/08 23:46 Order name: Blood Culture Adult (2) [facility] 12/08 23:46 Order name: XRAY Chest (1 view); Complete Time: 02:30 [facility] 12/08 23:59 Order name: CT Chest Abdomen Pelvis W/O Contrast [facility] 12/08 23:46 Order name: Cardiac monitoring; Complete Time: 02:17 [facility] 12/08 23:46 Order name: EKG - Nurse/Tech; Complete Time: 02:17 [facility] 12/08 23:46 Order name: IV Saline Lock; Complete Time: 02:17 [facility] 12/08 23:46 Order name: Labs collected and sent; Complete Time: 02:17 [facility] 12/08 23:46 Order name: O2 Per Protocol; Complete Time: 02:17 [facility] 12/08 23:46 Order name: O2 Sat Monitoring; Complete Time: 02:17 [facility] EC:24 Rate is 85 beats/min. Rhythm is regular. QRS [place] is Normal. AK interval is normal. QRS juan carlos interval is normal. QT interval is normal. No Q waves. T waves are Normal. No ST changes noted. Clinical impression: NSR w/ Non-specific ST/T Changes and No evidence of ischemia. Interpreted by me. Reviewed by me. Administered Medications: 01:00 Drug: NS 0.9% IV 500 ml IV at bolus once; to be given as a bolus over 30 minutes Route: ay IV; Rate: bolus; Site: right wrist; 01:00 Drug: Rocephin IV 1 grams IV at per protocol once; Given slow IV push per pharmacy ay instructions Route: IV; Rate: per protocol; Site: right wrist; 01:00 Drug: Famotidine IVP 20 mg IVP once; dilute with 10 mL 0.9% NaCl; give over 2 minutes ay Route: IVP; Site: right wrist; 01:00 Drug: fentaNYL (PF) IVP 25 mcg IVP once Route: IVP; Site: right wrist; ay 01:30 Drug: Ondansetron IVP 4 mg IVP once; over 2 minutes Route: IVP; Site: right wrist; ay 01:30 Drug: fentaNYL (PF) IVP 25 mcg IVP once Route: IVP; Site: right wrist; ay 02:17 Drug: Lactulose PO 30 grams 45 ml PO once Volume: 45 ml; Route: PO; ay 03:11 Drug: Magnesium Sulfate IVPB 1 grams IVPB once over 1 hrs Route: IVPB; Infused Over: 1 ay hrs; Site: right wrist; Disposition Summary: 12/09/24 01:49 Transfer Ordered Notes: Transfer Location: [facility] juan carlos Reason: Higher level of care juan carlos Condition: Fair juan carlos Problem: new juan carlos Symptoms: have improved juan carlos Accepting Physician: TO [facility](12/09/24 04:28) cp4 Diagnosis - Abdominal tenderness juan carlos - Alcoholic cirrhosis of liver with ascites juan carlos - Encephalopathy, unspecified - HEPATIC juan carlos Forms: - Medication Reconciliation Form juan carlos - SBAR form juan carlos Signatures: Dispatcher [employer] EDRenato Barragan MD MD cha Potter, Christina cp4 Clay Franklin, RN RN ay Corrections: (The following items were deleted from the chart) 12/08 23:46 23:46 BASIC METABOLIC PANEL+C.LAB.BRZ ordered. EDMS EDMS 23:46 23:46 CBC+H.LAB.BRZ ordered. EDMS EDMS 23:46 23:46 HEPATIC FUNCTION+C.LAB.BRZ ordered. EDMS EDMS 23:46 23:46 MAGNESIUM+C.LAB.BRZ ordered. EDMS EDMS 23:46 23:46 PROBNP+C.LAB.BRZ ordered. EDMS EDMS 23:46 23:46 PROTIME (+INR)+COAG.LAB.BRZ ordered. EDMS EDMS 23:46 23:46 Troponin High Sensitivity+C.LAB.BRZ ordered. EDMS EDMS 23:46 23:46 AMMONIA+C.LAB.BRZ ordered. EDMS EDMS 23:46 23:46 Urinalysis+U.LAB.BRZ ordered. EDMS EDMS 23:46 23:46 BLOOD CULTURE*+BA.LAB.BRZ ordered. EDMS EDMS 23:46 23:46 Chest Single View+RAD.RAD.BRZ ordered. EDMS EDMS 23:46 23:46 Abdomen Pelvis Wo Con+CT.RAD.BRZ ordered. EDMS EDMS 23:59 23:59 Chest Abdomen Pelvis Wo Con+CT.RAD.BRZ ordered. EDMS EDMS 12/09 04:28 01:49 TO [facility] juan carlos cp4
--- NOTE | 2024-12-09 02:23 | RAD REPORT ---
EXAM DESCRIPTION: Chest Single View CLINICAL HISTORY: PAIN COMPARISON: None TECHNIQUE: Single AP view of the chest. FINDINGS: Lung volumes adequate. Cardiac silhouette is normal in size. No pneumothorax. Small right pleural effusion. Minimal right basilar reticular opacities. No acute bony finding. Thoracic spinal hardware noted. IMPRESSION: 1. Small right pleural effusion. 2. Minimal right basilar reticular opacities, could represent atelectasis versus developing atypica l infectious process. Electronically signed by: Antonella Porter MD 12/09/2024 02:14 AM CDT TYG Transcribed Date/Time: 12/09/2024 2:23 AM
[2024-12-09] MEDS ORDERED: MAGNESIUM SULFATE 1 gm IVPB 1 GM/100 ML BAG IV ONE (03:04)
[2024-12-09] MEDS ORDERED: NA CHLORIDE 0.9% 250 ML ONE (03:42)
--- NOTE | 2024-12-09 04:28 | ER ---
Nurse's Notes [facility] Name: Rylee Thomas Age: 38 yrs Sex: Female : 1985 Arrival Date: 12/08/2024 Time: 23:35 Bed 20 Private MD: Diagnosis: Abdominal tenderness;Alcoholic cirrhosis of liver with ascites;Encephalopathy, unspecified-HEPATIC Presentation: 12/08 23:36 Chief complaint: EMS states: Abdominal pain. ay 23:36 Coronavirus screen: Client denies travel out of the [place] in the last 14 days. Ebola ay Screen: No symptoms or risks identified at this time. Initial Sepsis Screen: Does the patient meet any 2 criteria? No. Patient's initial sepsis screen is negative. Does the patient have a suspected source of infection? No. Patient's initial sepsis screen is negative. Risk Assessment: Do you want to hurt yourself or someone else? Patient reports no desire to harm self or others. Note BIBA for a c/o abdominal pain, lower back pain, and SOB and palpitations. Pt alert and oriented, no distress noted. Recently had paracentesis on 12/06/2024, recent fall with bruises to right back. 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 Onset of symptoms is unknown. 23:36 Method Of Arrival: EMS: [facility] ay 23:36 Acuity: NIDHI 3 ay Triage Assessment: 23:36 General: Appears in no apparent distress. uncomfortable, Behavior is calm, cooperative. ay Pain: Complains of pain in right lateral posterior chest and right lower quadrant and right upper quadrant and right subscapular area and right low back and right mid back Pain currently is 9 out of 10 on a pain scale. EENT: No signs and/or symptoms were reported regarding the EENT system. Neuro: Level of Consciousness is awake, alert, obeys commands, Oriented to person, place, time, situation, Speech is normal. Cardiovascular: Denies chest pain, Capillary refill < 3 seconds. Respiratory: Reports shortness of breath Airway is patent Respiratory effort is even, unlabored, Respiratory pattern is regular, symmetrical. GI: Abdomen is distended, Reports nausea. : No signs and/or symptoms were reported regarding the genitourinary system. Derm: No signs and/or symptoms reported regarding the dermatologic system. ASSISTANT GM OF CONTENT & DELIVERY: 23:36 unknown ay Historical: - Home Meds: 12/09 02:28 Folic Acid Oral [Active]; ay - PMHx: 02:28 cirrhosis of liver; Endometriosis of vagina; scoliosis; ay - PSHx: 02:28 back; left leg; partial hysterectomy; ay - Immunization history:: Client reports receiving the 2nd dose of the Covid vaccine, Flu vaccine is up to date. - Infectious Disease History:: Denies. - Family history:: not pertinent. - Social history:: Smoking status: Patient denies any tobacco usage or history of. Screenin/21 23:36 [facility] ED Fall Risk Assessment (Adult) History of falling in the last 3 months, ay including since admission Yes- single mechanical fall (1 pt) Confusion or Disorientation No (0 pts) Intoxicated or Sedated No (0 pts) Impaired Gait No (0 pts) Mobility Assist Device Used No (0 pt) Altered Elimination No (0 pt) Score/Fall Risk Level 0 - 2 = Low Risk Oriented to surroundings, Maintained a safe environment, Educated pt \T\ family on fall prevention, incl call for assistance when getting out of bed. 23:36 Abuse screen: Denies threats or abuse. Nutritional screening: No deficits noted. ay Tuberculosis screening: No symptoms or risk factors identified. Assessment: 12/09 02:37 General: See Triage Assessment. ay 03:49 Reassessment: RN to RN report given to Fannie at [facility]. ay Vital Signs: 12/08 23:36 BP 95 / 58; Pulse 87; Resp 17; Temp 98.6; Pulse Ox 100% on R/A; ay 12/09 01:22 BP 93 / 63; Pulse 100; Resp 17; Pulse Ox 100% ; ay 02:00 BP 107 / 63; Pulse 99; Resp 17; Pulse Ox 98% on R/A; ay 03:00 BP 102 / 51; Pulse 93; Resp 16; Pulse Ox 98% on R/A; ay ED Course: 12/08 23:35 Patient arrived in ED. [email or web address] 23:36 First set of blood cultures drawn by me, Second set of blood cultures drawn by me, EKG ay done, by ED staff, reviewed by Renato Ace MD. Inserted saline lock: 22 gauge in right wrist, using aseptic technique. 23:36 awake overnight monitor on. Pulse ox on. NIBP on. ay 23:44 Renato Ace MD is Attending Physician. [facility] 12/09 00:05 XRAY Chest (1 view) In Process Unspecified. EDMS 00:46 CT Chest Abdomen Pelvis W/O Contrast In Process Unspecified. EDMS 01:37 Clay Franklin, SCARLETT is Primary Nurse. ay 01:50 initiated transfer with Travis \T\ [facility] kmf 02:28 Triage completed. ay 02:36 pt was accepted to [place] [id number] Interiano R \T\ 0236 Accepting Admin Travis R \T\[id number]. f Number for nurse to nurse [phone]. [facility] will transfer once nurse to nurse is done. 04:27 No provider procedures requiring assistance completed. Patient transferred, IV remains cp4 in place. 04:27 Bed in low position. Call light in reach. Side rails up X2. Provided Education on: cp4 transfer. 04:28 Arm band placed on right wrist. Patient placed in waiting room. cp4 Administered Medications: 01:00 Drug: NS 0.9% IV 500 ml IV at bolus once; to be given as a bolus over 30 minutes Route: ay IV; Rate: bolus; Site: right wrist; 01:00 Drug: Rocephin IV 1 grams IV at per protocol once; Given slow IV push per pharmacy ay instructions Route: IV; Rate: per protocol; Site: right wrist; 01:00 Drug: Famotidine IVP 20 mg IVP once; dilute with 10 mL 0.9% NaCl; give over 2 minutes ay Route: IVP; Site: right wrist; 01:00 Drug: fentaNYL (PF) IVP 25 mcg IVP once Route: IVP; Site: right wrist; ay 01:30 Drug: Ondansetron IVP 4 mg IVP once; over 2 minutes Route: IVP; Site: right wrist; ay 01:30 Drug: fentaNYL (PF) IVP 25 mcg IVP once Route: IVP; Site: right wrist; ay 02:17 Drug: Lactulose PO 30 grams 45 ml PO once Volume: 45 ml; Route: PO; ay 03:11 Drug: Magnesium Sulfate IVPB 1 grams IVPB once over 1 hrs Route: IVPB; Infused Over: 1 ay hrs; Site: right wrist; Medication: 04:27 VIS not applicable for this client. cp4 Outcome: 01:49 ER care complete, transfer ordered by . juan carlos 04:27 Transferred by ground EMS to [facility], Transfer form completed. cp4 X-rays sent w/ patient. :27 Condition: stable 04:27 Instructed on the need for transfer, 04:28 Patient left the ED. cp4 Signatures: Dispatcher [employer] EDMS Renato Ace MD MD cha Jeffries, Jennifer [email or web address] Potter, Christina cp4 [facility] Clay Franklin, RN RN haylee
[2024-12-09 04:59] VITALS: TEMP 98.6
[2024-12-09 05:02] VITALS: O2SAT 98
[2024-12-09 05:03] VITALS: BP 102/51
--- NOTE | 2024-12-09 06:33 | RAD REPORT ---
CT CHEST ABDOMEN PELVIS WITHOUT IV CONTRAST CLINICAL INDICATIONS: Abdominal distention. Chest trauma. Chest pain. COMPARISON: CT chest abdomen pelvis 11/21/2024. MR abdomen images are not available for comparison at t marquita of interpretation. TECHNIQUE: CT images of the chest, abdomen and pelvis were obtained without contrast. Multiplanar ref ormats were provided. Dose lowering techniques such as automated exposure control, iterative reconstruction, and mA and/or kV adjustment for patient size was utilized for this examination. CHEST FINDINGS: LOWER NECK: Unremarkable. AIRWAYS: Trachea and mainstem bronchi are patent. LUNGS/PLEURA: Moderate-sized right pleural effusion with right lower lobe compressive atelectasis. Sm all subcentimeter calcified granuloma in right upper lobe. Left lung is clear. No pneumothorax. VASCULATURE: No evidence of thoracic aortic aneurysm. MEDIASTINUM/NODES: No pathologic adenopathy. Small calcified mediastinal lymph nodes. HEART: Normal heart size. No pericardial effusion. CHEST WALL: Unremarkable. BONES: Status post previous thoracic spinal fusion. No hardware loosening or disruption. No acute b maite abnormality. ABDOMEN/PELVIS FINDINGS: LIVER: Cirrhotic liver. Multiple nodular hypoattenuation areas in the right hepatic lobe, not seen pr eviously. Small faint hyperdense focus at anterior right hepatic lobe on 201 image 45; contusion cannot be excluded in the setting of trauma. BILIARY: Gallbladder is distended with trace calcified stones. No biliary ductal dilatation. PANCREAS: Unremarkable. SPLEEN: Stable splenomegaly, measuring approximately 16.5 cm craniocaudally. Several calcified granul omas in spleen. ADRENALS: Unremarkable. KIDNEYS/URETERS: Unremarkable. STOMACH: Unremarkable. BOWEL: Unremarkable. APPENDIX: Unremarkable. MESENTERY/PERITONEUM: Moderate ascites. No focal collection.. RETROPERITONEUM: No adenopathy. URINARY BLADDER: Unremarkable. REPRODUCTIVE: Status post hysterectomy. VASCULAR: Periesophageal and upper abdominal varices. No aortic aneurysm. ABDOMINAL/PELVIC WALL: Small fluid and fat-containing periumbilical hernia. BONES: Unremarkable. IMPRESSION: 1. Multiple nodular hypoattenuation areas in the right hepatic lobe, not seen previously. Follow-up with MR abdomen with and without contrast is recommended. 2. Small faint hyperdense focus at anterior right hepatic lobe; contusion cannot be excluded in the setting of trauma. 3. Moderate-sized right pleural effusion with right lower lobe compressive atelectasis. 4. Cirrhotic liver with stigmata of portal hypertension, noting splenomegaly, moderate ascites and varices. 5. Cholelithiasis. Electronically signed by: Erika Rivera MD 12/09/2024 04:03 AM CDT Due to temporary technical issues with the PACS/Gauzy reporting system, reports are being kayla d by the in-house radiologist without review as a courtesy to ensure prompt reporting the interpreting radiologist is fully responsible for the content of the report. Transcribed Date/Time: 12/09/2024 6:32 AM
--- NOTE | 2024-12-11 12:07 | EKG ---
Test Date: 2024-12-09 Test Time: 02:09:30 Business Machine Operator: ADRIA MEASUREMENT RESULTS: Intervals: Rate: 85 AL: 174 QRSD: 80 QT: 396 QTc: 471 [place]: P: 69 AL: 174 QRS: 14 T: 48 INTERPRETIVE STATEMENTS: Normal sinus rhythm Cannot rule out Anterior infarct, age undetermined Abnormal ECG Compared to ECG 10/05/2024 14:39:17 No significant changes Electronically Signed On 12-11-24 12:01:52 CDT by Marcial Cullen
== END 2024-12-09 04:28 | disposition short-term general hospital (02) ==
LOC: ER 23:35
DX: K70.31 Alcoholic cirrhosis of liver with ascites (principal); K76.82 Hepatic encephalopathy; W18.30XA Fall on same level, unspecified, initial encounter
CPT/HCPCS: 93005; 87040 ×2; 85025; 80048; 36415; 82140; 83735; 85610; 80076; 84484; 83880; 71250; 74176; 71045; 96375; 96374; 99285; J3475; J3010 ×2; J2405; J7050; J7040; J0696

== ENCOUNTER 2024-12-27 15:47 | Emergency (ER) | payer OTHER, SELFPAY ==
[2024-12-27 17:12] LABS: Absolute Basophils 0.1 K/uL (0-0.5); Absolute Eosinophils 0.1 K/uL (0-0.5); Absolute Lymphocytes (CBC) 1.9 K/uL (0.7-4.9); Absolute Monocytes 0.2 K/uL (0.1-1.3); Absolute Neutrophil 1.9 K/uL (1.8-8.0); Basophils % 1.5 % (0-1.3); Eosinophils % 1.4 % (0-4.4); Hematocrit 33.7 % (36.0-45.0); Hemoglobin 11.5 g/dL (12.0-15.0); Lymphocytes % 45.2 % (15.3-44.8); MCH 32.6 pg (27.0-35.0); MCHC 34.2 g/dL (32.0-36.0); MCV 95.3 fL (80-100); MPV 8.7 fL (7.6-11.3); Monocytes % 5.7 % (3.3-12.3); Neutrophils % 46.2 % (41.7-73.7); Nucleated Red Blood Cells % 0.1 % (0-0); Platelets 129 thou/uL (152-406); RBC Red Blood Cell Count 3.54 M/uL (3.86-4.86); Red Cell Distribution Width 15.7 % (12.1-15.2)
[2024-12-27 17:14] LABS: Albumin 2.6 g/dL (3.4-5.0); Albumin/Globulin Ratio 0.5 (1.1-1.8); Bilirubin Total 2.9 mg/dL (0.2-1.0); Globulin 4.9 g/dL (2.3-3.5); Protein, Total 7.5 g/dL (6.4-8.2)
--- NOTE | 2024-12-27 17:44 | EDPHYS ---
Physician Documentation [facility] Name: Rylee Thomas Age: 39 yrs Sex: Female : 1985 Arrival Date: 12/27/2024 Time: 15:47 Bed 7 Private MD: ED Physician Haley Stanley HPI: 12/27 17:43 This 39 yrs old Female presents to ER via EMS with complaints of Shortness Of gb1 Breath. 17:43 Ms. Shore is a 39-year-old female with a history of alcoholic cirrhosis she had a gb1 paracentesis yesterday at [facility] and now she is worsened with shortness of breath. She has had a fever 102 at home. She is tender in the right lower side as well is out of 10. She does still drink alcohol. She denies any nausea vomiting or diarrhea. She is taking her medications as prescribed.. 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 - Infectious Disease History:: Denies. - Social history:: Smoking status: Patient denies any tobacco usage or history of. Exam: 17:43 Constitutional: This is a well developed, well nourished patient who is awake, alert, gb1 and in no acute distress. Head/Face: Normocephalic, atraumatic. Eyes: Pupils equal round and reactive to light, extra-ocular motions intact. Lids and lashes normal. Conjunctiva and sclera are non-icteric and not injected. Cornea within normal limits. Periorbital areas with no swelling, redness, or edema. ENT: Nares patent. No nasal discharge, no septal abnormalities noted. Tympanic membranes are normal and external auditory canals are clear. Oropharynx with no redness, swelling, or masses, exudates, or evidence of obstruction, uvula midline. Mucous membranes moist. Neck: Trachea midline, no thyromegaly or masses palpated, and no cervical lymphadenopathy. Supple, full range of motion without nuchal rigidity, or vertebral point tenderness. No Meningismus. Chest/axilla: Normal chest wall appearance and motion. Nontender with no deformity. No lesions are appreciated. Cardiovascular: Regular rate and rhythm with a normal S1 and S2. No gallops, murmurs, or rubs. Normal PMI, no JVD. No pulse deficits. Respiratory: Lungs have equal breath sounds bilaterally, clear to auscultation and percussion. No rales, rhonchi or wheezes not. Patient is tachypneic and tachycardic Abdomen/GI: Patient is severely distended with marked abdominal ascites with hepatomegaly that is palpable at the edge of the liver. And tympanic tympany. Tender in the right lower quadrant Skin: Warm, dry with normal turgor. Normal color with no rashes, no lesions, and no evidence of cellulitis. MS/ Extremity: Pulses equal, no cyanosis. Neurovascular intact. Full, normal range of motion. Vital Signs: 15:55 BP 108 / 77; Pulse 100; Resp 20; Temp 97.8; Pulse Ox 97% on R/A; Weight 57.61 kg; cm10 Height 5 ft. 9 in. ; Pain 8/10; 19:22 BP 104 / 71; Pulse 94; Resp 18; Pulse Ox 91% on R/A; cm10 19:43 BP 102 / 70; Pulse 94; Pulse Ox 93% ; cm10 15:55 Body Mass Index 18.75 (57.61 kg, 175.26 cm) cm10 15:55 Pain Scale: Adult cm10 MDM: 15:52 Medical Screening Exam initiated gb1 17:43 ED course: 39-year-old female with history of alcoholic cirrhosis concern for gb1 decompensated cirrhosis with ascites. Patient recently had a paracentesis at [facility] yesterday and is more short of breath today. 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 Patient is afebrile and has abnormal liver function test today she does not have a white blood cell count I will [facility] and [facility] 17:47 Data reviewed: lab test result(s), amylase and lipase, CBC, electrolytes, hepatic panel.gb1 18:00 ED course: I discussed the case with Dr. Esha Campbell hospitalist and he will gb1 consult with hepatology and we will transfer the patient to [facility]. . 12/27 16:11 Order name: CBC with Diff; Complete Time: 17:30 gb1 12/27 16:11 Order name: CMP; Complete Time: 17:18 gb1 12/27 16:11 Order name: Lipase; Complete Time: 17:18 gb1 12/27 17:19 Order name: Blood Culture Adult (2) gb1 12/27 17:19 Order name: PT-INR; Complete Time: 17:52 gb1 12/27 16:11 Order name: Chest Single View XRAY gb1 12/27 16:11 Order name: IV Saline Lock; Complete Time: 16:39 gb1 12/27 16:11 Order name: Labs collected and sent; Complete Time: 16:39 gb1 Administered Medications: 18:48 Drug: Rocephin IV 1 grams IV at bolus once; Given slow IV push per pharmarcy cm10 instructions Route: IV; Rate: bolus; Site: right antecubital; 19:44 Follow up: Response: No adverse reaction; IV Status: Completed infusion; IV Intake: [id number] Disposition Summary: 12/27/24 17:43 Transfer Ordered Notes: Transfer Location: [facility] gb1 Reason: Higher level of care gb1 Condition: Fair gb1 Problem: an acute exacerbation gb1 Symptoms: have worsened gb1 Accepting Physician: (12/27/24 20:08) cm10 Diagnosis - Alcoholic cirrhosis of liver with ascites gb1 Forms: - Medication Reconciliation Form gb1 - SBAR form gb1 Signatures: Dispatcher [employer] Elidia Blakely RN RN cm10 Haley Stanley MD MD gb1 Corrections: (The following items were deleted from the chart) 17:43 17:43 Liz Campbell gb1 gb1 18:00 17:43 Liz gomez1 gb1 20:08 18:00 Dr.Nguyen gomez1 cm10
--- NOTE | 2024-12-27 17:44 | ER ---
Nurse's Notes [facility] Name: Rylee Thomas Age: 39 yrs Sex: Female : 1985 Arrival Date: 12/27/2024 Time: 15:47 Bed 7 Private MD: Diagnosis: Alcoholic cirrhosis of liver with ascites Presentation: 12/27 15:55 Chief complaint: EMS states: CALLED TO PATIENTS HOME DUE TO PATIENT HAVING SHORTNESS OF cm10 BREATH. PT STATES THAT SHE HAD A PARACENTESIS YESTERDAY WHERE THEY REMOVED 3L. PT REPORTS SUBJECTIVE FEVER, HEADACHE, CHEST PAIN, AND ABDOMINAL PAIN. Coronavirus screen: Client denies travel out of the [place] in the last 14 days. Ebola Screen: Patient denies travel to an Ebola-affected area in the 21 days before illness onset. Initial Sepsis Screen: Does the patient meet any 2 criteria? HR > 90 bpm. Does the patient have a suspected source of infection? No. Patient's initial sepsis screen is negative. Risk Assessment: Do you want to hurt yourself or someone else? Patient reports no desire to harm self or others. Onset of symptoms was December 27, 2024. 15:55 Method Of Arrival: EMS: [facility] 10 15:55 Acuity: NIDHI 2 cm10 Triage Assessment: 15:53 General: Appears in no apparent distress. uncomfortable, Behavior is calm, cooperative. cm10 Pain: Complains of pain in head, right flank, chest and abdomen Pain currently is 8 out of 10 on a pain scale. Neuro: No deficits noted. Level of Consciousness is awake, alert, obeys commands, Oriented to person, place, time, situation, Appropriate for age. Respiratory: Reports shortness of breath Airway is patent Respiratory effort is even, unlabored, Respiratory pattern is regular, symmetrical, Onset: The symptoms/episode began/occurred this morning, the patient has mild shortness of breath. GI: Abdomen is round noted to have ascites. 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 - Infectious Disease History:: Denies. - Social history:: Smoking status: Patient denies any tobacco usage or history of. Screenin:34 [facility] ED Fall Risk Assessment (Adult) History of falling in the last 3 months, cm10 including since admission No falls in past 3 months (0 pts) Confusion or Disorientation No (0 pts) Intoxicated or Sedated No (0 pts) Impaired Gait No (0 pts) Mobility Assist Device Used No (0 pt) Altered Elimination No (0 pt) Score/Fall Risk Level 0 - 2 = Low Risk Oriented to surroundings, Maintained a safe environment, Hourly rounding (assess needs \T\ fall precautionary measures) done. Abuse screen: Denies threats or abuse. Denies injuries from another. Nutritional screening: No deficits noted. Tuberculosis screening: No symptoms or risk factors identified. Assessment: 18:00 Reassessment: pt removed monitoring equipment. cm10 18:48 Reassessment: Patient appears in no apparent distress at this time. Patient and/or cm10 family updated on plan of care and expected duration. Pain level reassessed. Patient is alert, oriented x 3, equal unlabored respirations, skin warm/dry/pink. 19:44 Reassessment: Patient appears in no apparent distress at this time. Patient and/or cm10 family updated on plan of care and expected duration. Pain level reassessed. Patient is alert, oriented x 3, equal unlabored respirations, skin warm/dry/pink. Vital Signs: 15:55 BP 108 / 77; Pulse 100; Resp 20; Temp 97.8; Pulse Ox 97% on R/A; Weight 57.61 kg; cm10 Height 5 ft. 9 in. ; Pain 8/10; 19:22 BP 104 / 71; Pulse 94; Resp 18; Pulse Ox 91% on R/A; cm10 19:43 BP 102 / 70; Pulse 94; Pulse Ox 93% ; cm10 15:55 Body Mass Index 18.75 (57.61 kg, 175.26 cm) cm10 15:55 Pain Scale: Adult cm10 ED Course: 15:52 Patient arrived in ED. cm10 15:52 Haley Stanley MD is Attending Physician. gb1 15:55 Arm band placed on right wrist. Patient placed in an exam room, on a stretcher, on cm10 pulse oximetry. 15:57 Triage completed. cm10 16:32 Elidia Carrasco, RN is Primary Nurse. cm10 16:34 Patient has correct armband on for positive identification. Placed in gown. Bed in low cm10 position. Call light in reach. Side rails up X2. Pulse ox on. NIBP on. 16:40 CBC with Diff Sent. bc6 16:40 CMP Sent. bc6 16:40 Lipase Sent. bc6 16:40 Initial lab(s) drawn, by me, sent to lab. Inserted saline lock: 24 gauge in right [facility] antecubital area, using aseptic technique. Blood collected. Flushed with 10 mL NS. 17:23 Chest Single View XRAY In Process Unspecified. EDMS 17:41 initiated transfer to [facility]. bd 17:43 PT-INR Sent. [facility] 17:43 Blood Culture Adult (2) Sent. [facility] 18:37 pt accepted in transfer to [facility] rm [phone] Balbuena admin approval given by karsten Melton. 19:29 Report given to SCARLETT Bermudez at [facility]. cm10 20:03 report given to [facility]. pt stable for transport at this time. cm10 20:07 Provided Education on: Need for transfer. cm10 20:07 No provider procedures requiring assistance completed. Patient transferred, IV remains cm10 in place. Administered Medications: 18:48 Drug: Rocephin IV 1 grams IV at bolus once; Given slow IV push per pharmarcy cm10 instructions Route: IV; Rate: bolus; Site: right antecubital; 19:44 Follow up: Response: No adverse reaction; IV Status: Completed infusion; IV Intake: [id number] Medication: 16:34 VIS not applicable for this client. cm10 Intake: 19:44 IV: 50ml; Total: 50ml. cm10 Outcome: 17:43 ER care complete, transfer ordered by . gb1 20:06 Transferred by ground EMS [place]. to [facility], cm10 20:06 Condition: good 20:06 Instructed on the need for transfer, 20:08 Patient left the ED. cm10 Signatures: Dispatcher [employer] EDMS Huma Dolan bd Erica Prado [facility] Elidia Carrasco RN RN cm10 Haley Stanley MD MD gb1
[2024-12-27 17:50] LABS: PT Prothrombin Time 17.5 SECONDS (10-13.0); Protime INR 1.57
[2024-12-27] MEDS ORDERED: NA CHLORIDE 0.9% 50 ML ONE (18:40)
[2024-12-27] MEDS ORDERED: CEFTRIAXONE 1000 MG/VIAL ONE (18:40)
--- NOTE | 2024-12-27 19:11 | RAD REPORT ---
EXAMINATION: ONE VIEW CHEST XR CLINICAL INDICATION: Female, 39 years old.,SOB TECHNIQUE: Frontal chest projection is submitted. Examination is limited by patient positioning and t echnique. COMPARISON: 12/09/2024 x-ray and CT chest FINDINGS: Progressive right mid to basal pleural-parenchymal opacity, likely with moderate pleural effusion as seen on CT. No pneumothorax. The heart is normal in size. Mediastinal contours are unremarkable. IMPRESSION: Progressive right mid to basal pleural-parenchymal opacity. Underlying pneumonia should be considered .
[2024-12-27 20:32] VITALS: TEMP 97.8
[2024-12-27 20:34] VITALS: BP 102/70; O2SAT 93
== END 2024-12-27 20:08 | disposition short-term general hospital (02) ==
LOC: ER 15:47
DX: K70.31 Alcoholic cirrhosis of liver with ascites (principal)
CPT/HCPCS: 36415; 71045; 80053; 83690; 85025; 85610; 87040; J0696

== ENCOUNTER 2025-01-14 15:35 | Emergency (ER) | payer SELFPAY ==
--- NOTE | 2025-01-14 17:12 | RAD REPORT ---
EXAMINATION: ONE VIEW CHEST XR CLINICAL INDICATION: DYSPNEA TECHNIQUE: Frontal chest projection is submitted. Examination is limited by patient positioning and t echnique. COMPARISON: 12/27/2024 FINDINGS: Moderate right pleural effusion. Left lung grossly clear. The heart is upper limit of normal in size. Thoracic spine hardware.
--- NOTE | 2025-01-14 17:19 | RAD REPORT ---
EXAM: CT CHEST, ABDOMEN AND PELVIS WITHOUT CONTRAST CLINICAL INDICATION: Chest pain;Dyspnea;Swelling TECHNIQUE: CT chest, abdomen and pelvis was performed without contrast, as per department protocol. A xial, sagittal and coronal reconstructions were obtained. One or more of the following dose reduction techniques were used: Automated exposure control, adjustment of the mA and/or kV according to patient size, and/or iterative reconstruction. Unless otherwise specified, incidental findings do not require dedicated imaging follow-up. Examination is limited by the lack of intravenous contrast material. COMPARISON: 12/09/2024 FINDINGS: LUNGS: Moderate atelectasis is seen in the right lung base. Left lung is grossly clear. PLEURA: Moderate right pleural effusion. MEDIASTINUM AND LYMPH NODES: No mediastinal mass or fluid collection. Normal size mediastinal, hilar, and axillary lymph nodes. OSSEOUS STRUCTURES AND CHEST WALL: Intact. LIVER: The liver appears prominent in size with numerous hypoattenuating lesions throughout. Cholelit hiasis. PANCREAS: No mass, ductal dilation, or esther-pancreatic fluid. SPLEEN: Mild splenomegaly. ADRENALS: Normal; no mass. KIDNEYS: Normal size and contour. No hydronephrosis. URINARY BLADDER: Normal contour. GASTROINTESTINAL TRACT: Moderate ascites. No bowel obstruction or free air. APPENDIX: Normal appendix. LYMPH NODES: No lymphadenopathy. MUSCULOSKELETAL: Thoracic spine hardware is present. OTHER: Small fat-containing umbilical hernia. IMPRESSION: Moderate ascites. Hepatomegaly numerous hypoattenuating liver lesions again seen. Liver cirrhosis likely present. Cholelithiasis. Moderate right pleural effusion.
--- NOTE | 2025-01-14 18:15 | EDPHYS ---
Physician Documentation [facility] Name: Rylee Thomas Age: 39 yrs Sex: Female : 1985 Arrival Date: 01/14/2025 Time: 15:35 Bed IW1 Private MD: ED Physician Renato Ace HPI: 01/14 18:06 This 39 yrs old Female presents to ER via Wheelchair with complaints of juan carlos Shortness Of Breath. 18:06 This 39 yrs old Female presents to ER via Wheelchair with complaints of Shortness Of juan carlos Breath. 18:06 The patient has shortness of breath at rest, with light activity. Onset: The juan carlos symptoms/episode began/occurred 5 day(s) ago. Duration: The symptoms are continuous, and are steadily getting worse. The patient's shortness of breath is aggravated by exertion, light activity, supine position. Associated signs and symptoms: Pertinent positives: non-productive cough. Severity of symptoms: At their worst the symptoms were moderate in the emergency department the symptoms are unchanged. The patient has experienced similar episodes in the past, multiple times. 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 - Infectious Disease History:: Denies. - Social history:: Smoking status: Patient denies any tobacco usage or history of. - Family history:: pertinent for. ROS: 18:08 Constitutional: Negative for fever, chills, and weight loss, Eyes: Negative for injury, juan carlos pain, redness, and discharge, ENT: Negative for injury, pain, and discharge, Neck: Negative for injury, pain, and swelling, Cardiovascular: Negative for chest pain, palpitations, and edema, Back: Negative for injury and pain, : Negative for injury, bleeding, discharge, and swelling, MS/Extremity: Negative for injury and deformity, Skin: Negative for injury, rash, and discoloration, Neuro: Negative for headache, weakness, numbness, tingling, and seizure, Psych: Negative for depression, anxiety, suicide ideation, homicidal ideation, and hallucinations, Allergy/Immunology: Negative for hives, rash, and allergies, Endocrine: Negative for neck swelling, polydipsia, polyuria, polyphagia, and marked weight changes, Hematologic/Lymphatic: Negative for swollen nodes, abnormal bleeding, and unusual bruising, 18:08 Respiratory: Positive for dyspnea on exertion, orthopnea, shortness of breath, 18:08 Abdomen/GI: Positive for abdominal pain, abdominal distension, 18:08 MS/extremity: Positive for swelling, Exam: 18:08 Constitutional: This is a well developed, well nourished patient who is awake, alert, juan carlos and in no acute distress. Head/Face: Normocephalic, atraumatic. Eyes: Pupils equal round and reactive to light, extra-ocular motions intact. Lids and lashes normal. Conjunctiva and sclera are non-icteric and not injected. Cornea within normal limits. Periorbital areas with no swelling, redness, or edema. ENT: Nares patent. No nasal discharge, no septal abnormalities noted. Tympanic membranes are normal and external auditory canals are clear. Oropharynx with no redness, swelling, or masses, exudates, or evidence of obstruction, uvula midline. Mucous membranes moist. Neck: Trachea midline, no thyromegaly or masses palpated, and no cervical lymphadenopathy. Supple, full range of motion without nuchal rigidity, or vertebral point tenderness. No Meningismus. Chest/axilla: Normal chest wall appearance and motion. Nontender with no deformity. No lesions are appreciated. Back: No spinal tenderness. No costovertebral tenderness. Full range of motion. Skin: Warm, dry with normal turgor. Normal color with no rashes, no lesions, and no evidence of cellulitis. Neuro: Awake and alert, GCS 15, oriented to person, place, time, and situation. Cranial nerves II-XII grossly intact. Motor strength 5/5 in all extremities. Sensory grossly intact. Cerebellar exam normal. Normal gait. 18:08 Cardiovascular: Rate: tachycardic, actual rate is 108 bpm, Rhythm: regular, Pulses: Pulses are 4+ in . Heart sounds: normal, Edema: pedal edema, that is marked, JVD: is not appreciated, 18:08 Respiratory: the patient does not display signs of respiratory distress, Respirations: normal, no acute changes, Breath sounds: decreased breath sounds, that are moderate, are heard in the right middle lobe, right lower lobe, right posterior middle lobe and right posterior lower lobe, 18:08 Musculoskeletal/extremity: Extremities: all appear grossly normal, with no appreciated pain with palpation, ROM: no acute changes, intact in all extremities, full active range of motion, full passive range of motion, Circulation is intact in all extremities. Sensation intact. Compartment Syndrome exam of affected extremity: is normal. no pain, no numbness, no tingling, no sensation deficit, no palor, no weak pulses, Weight bearing: able to fully bear weight, without difficulty, DVT Exam: swelling, that is moderate, of the right leg and left leg, Vital Signs: 15:49 BP 111 / 70; Pulse 108; Resp 20; Temp 98.7; Pulse Ox 96% ; Weight 58.97 kg; Height 5 me1 ft. 9 in. ; Pain 4/10; 15:49 Body Mass Index 19.20 (58.97 kg, 175.26 cm) me1 15:49 Pain Scale: Adult me1 MDM: 15:48 Medical Screening Exam initiated juan carlos 18:11 Differential diagnosis: Anxiety Reaction asthma, Bronchitis CHF exacerbation, Chronic juan carlos Obstructive Pulmonary Disease pneumonia, pulmonary edema, Pulmonary Embolism reactive airway disease, Sepsis Unstable Angina. Immunization status:. Data reviewed: vital signs, nurses notes, radiologic studies. Consideration of Admission/Observation Escalation of care including admission/observation considered. I considered the following discharge prescriptions or medication management in the emergency department Medications were administered in the Emergency Department. See MAR. Independent interpretation of the following test(s) in the Emergency Department CT Scan: My interpretation is ct chest/abd/ pel. Test considered but Not performed: Labs: pt left prior to labs being drawn. 01/14 15:50 Order name: XRAY Chest (1 view); Complete Time: 17:42 [facility] 01/14 15:50 Order name: CT Chest Abdomen Pelvis W/O Contrast; Complete Time: 17:42 [facility] 01/14 15:50 Order name: Cardiac monitoring [facility] 01/14 15:50 Order name: EKG - Nurse/Tech [facility] 01/14 15:50 Order name: IV Saline Lock [facility] 01/14 15:50 Order name: Labs collected and sent [facility] 01/14 15:50 Order name: O2 Per Protocol [facility] 01/14 15:50 Order name: O2 Sat Monitoring [facility] Administered Medications: No medications were administered Disposition Summary: 01/14/25 18:15 Eloped Notes: Disposition: before being seen by provider juan carlos Problem: an ongoing problem juan carlos Symptoms: have worsened juan carlos Reason: unknown juan carlos Condition: Undetermined juan carlos Diagnosis - Other cirrhosis of liver juan carlos - Pleural effusion, not elsewhere classified juan carlos - Other ascites - moderate-large juan carlos Followup: juan carlos - With: Private Physician - When: Upon discharge from the Emergency Department - Reason: Signatures: Dispatcher [employer] Renato Monzon MD MD cha Eddleman, Michelle, RN RN me1 Corrections: (The following items were deleted from the chart) 15:51 15:51 BASIC METABOLIC PANEL+C.LAB.BRZ ordered. EDMS EDMS 15:51 15:51 CBC+H.LAB.BRZ ordered. EDMS EDMS 15:51 15:51 HEPATIC FUNCTION+C.LAB.BRZ ordered. EDMS EDMS 15:51 15:51 MAGNESIUM+C.LAB.BRZ ordered. EDMS EDMS 15:51 15:51 PROBNP+C.LAB.BRZ ordered. EDMS EDMS 15:51 15:51 PROTIME (+INR)+COAG.LAB.BRZ ordered. EDMS EDMS 15:51 15:51 Troponin High Sensitivity+C.LAB.BRZ ordered. EDMS EDMS 15:51 15:51 BLOOD CULTURE*+BA.LAB.BRZ ordered. EDMS EDMS 15:51 15:51 LACTATE+C.LAB.BRZ ordered. EDMS EDMS 15:51 15:51 LIPASE+C.LAB.BRZ ordered. EDMS EDMS 15:51 15:51 Urinalysis+U.LAB.BRZ ordered. EDMS EDMS 15:51 15:51 AMMONIA+C.LAB.BRZ ordered. EDMS EDMS 15:51 15:51 Chest Abdomen Pelvis Wo Con+CT.RAD.BRZ ordered. EDMS EDMS
--- NOTE | 2025-01-14 18:15 | ER ---
Nurse's Notes [facility] Name: Rylee Thomas Age: 39 yrs Sex: Female : 1985 Arrival Date: 01/14/2025 Time: 15:35 Bed IW1 Private MD: Diagnosis: Other cirrhosis of liver;Pleural effusion, not elsewhere classified;Other [id number] Presentation: 01/14 15:49 Chief complaint: Patient states: she is SOB, needs a paracentesis as its been over a me1 week since having one. Normally sees liver Dr in [place] at [facility]. Coronavirus screen: Vaccine status: Patient reports receiving the 2nd dose of the covid vaccine. Ebola Screen: No symptoms or risks identified at this time. Initial Sepsis Screen: Does the patient meet any 2 criteria? HR > 90 bpm. No. Patient's initial sepsis screen is negative. Does the patient have a suspected source of infection? No. Patient's initial sepsis screen is negative. Risk Assessment: Do you want to hurt yourself or someone else? Patient reports no desire to harm self or others. Onset of symptoms is unknown. 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 - Infectious Disease History:: Denies. - Social history:: Smoking status: Patient denies any tobacco usage or history of. - Family history:: pertinent for. Assessment: 17:32 Reassessment: Melinda Burns called to ER lobby. Pt yelling, "I have been waiting for ss HOURS." Educated updated on wait time. Pt is still upset, but no longer yelling in ER lobby. Neuro: Level of Consciousness is awake, alert. Respiratory: Respiratory effort is even, unlabored. 18:24 Reassessment: attempted to call patient from lobby to exam room. No answer. Unable to ss locate patient. Attempted to call number on file, no answer. 18:48 Reassessment: attempted to locate patient in ER [facility]. Vital Signs: 15:49 BP 111 / 70; Pulse 108; Resp 20; Temp 98.7; Pulse Ox 96% ; Weight 58.97 kg; Height 5 me1 ft. 9 in. ; Pain 4/10; 15:49 Body Mass Index 19.20 (58.97 kg, 175.26 cm) me1 15:49 Pain Scale: Adult mn1 ED Course: 15:40 Patient arrived in ED. sj2 15:48 Renato Ace MD is Attending Physician. [facility] 15:52 Triage completed. mn1 15:52 Arm band placed on Patient placed in waiting room. me1 16:15 CT Chest Abdomen Pelvis W/O Contrast In Process Unspecified. EDMS 16:16 XRAY Chest (1 view) In Process Unspecified. EDMS 18:53 No provider procedures requiring assistance completed. Patient did not have IV access ss during this emergency room visit. Administered Medications: No medications were administered Outcome: 18:53 Eloped from waiting room, 18:53 Condition: unchanged 18:54 Patient left the ED. ss Signatures: Dispatcher [employer] EDME Renato Ace MD MD cha Blanchard, Shelby, RN RN Jennifer Anders, SCARLETT RN mn1 Terry Weaver sj2
[2025-01-16 07:11] VITALS: BP 111/70; TEMP 98.7; O2SAT 96
== END 2025-01-14 18:54 | disposition left against medical advice (07) ==
LOC: ER 15:35
DX: Z53.21 Procedure and treatment not carried out due to patient leaving prior to being seen by health care provider (principal); R18.8 Other ascites; J90 Pleural effusion, not elsewhere classified; K74.69 Other cirrhosis of liver
CPT/HCPCS: 71045; 71250; 74176; 99281

== ENCOUNTER 2025-01-17 14:07 | Emergency (ER) | payer OTHER, SELFPAY ==
--- NOTE | 2025-01-17 14:56 | RAD REPORT ---
EXAM: Chest Single View HISTORY: 39 years Female SOB COMPARISON: 01/14/2025 FINDINGS: LUNGS/PLEURA: Moderate to large right pleural effusion and small left pleural effusion. There is pres umably underlying atelectasis. CARDIAC/MEDIASTINUM: Stable size and configuration. UPPER ABDOMEN: No significant abnormality. BONES: No acute abnormality. Ibarra rods. LINES/TUBES/OTHER: N/A IMPRESSION: Moderate right pleural effusion with probable underlying atelectasis. This is slightly increased in s ize compared with 01/14/2025. Small left pleural effusion.
[2025-01-17 18:58] LABS: Absolute Lymphocytes (CBC) 1.1 K/uL (0.7-4.9); Absolute Monocytes 0.3 K/uL (0.1-1.3); Absolute Neutrophil 2.6 K/uL (1.8-8.0); Basophils % 1.1 % (0-1.3); Eosinophils % 1.2 % (0-4.4); Hematocrit 29.9 % (36.0-45.0); Hemoglobin 10.2 g/dL (12.0-15.0); MCH 32.7 pg (27.0-35.0); MCV 96.2 fL (80-100); MPV 8.6 fL (7.6-11.3); Monocytes % 7.2 % (3.3-12.3); Neutrophils % 62.5 % (41.7-73.7); Nucleated Red Blood Cells % 0.1 % (0-0); Platelets 88 thou/uL (152-406)
[2025-01-17 19:01] LABS: Specific Gravity 1.023 (1.005-1.030); Sqamous Epithelial <5 /HPF (None Seen); Urine Bacteria <20 /HPF (<20); Urine Bilirubin 1+ (Negative); Urine Blood Negative (Negative); Urine Clarity Extremely Turbid (Clear); Urine Color Dark-Yellow (Yellow); Urine Crystals Unidentified Few /HPF (None Seen); Urine Culture Reflex Order NOT NEEDED; Urine Glucose TRACE (Negative); Urine Ketones NEGATIVE (Negative); Urine Microscopic Reflex YN ORDER UMIC; Urine Mucus 4+ /HPF (None Seen); Urine Nitrite NEGATIVE (Negative); Urine Protein 1+ (Negative); Urine RBC <5 /HPF (None Seen); Urine Urobilinogen 1+ (Normal); Urine WBC <5 /HPF (<5)
[2025-01-17 19:16] LABS: ALT/SGPT 16 U/L (13-56); AST/SGOT 120 U/L (15-37); Albumin 2.2 g/dL (3.4-5.0); Albumin/Globulin Ratio 0.5 (1.1-1.8); Alkaline Phosphatase 139 U/L (45-117); Anion Gap 11.5 mEq/L (5.0-15.0); BUN Blood Urea Nitrogen 5 mg/dL (7-18); Bicarbonate 22 mEq/L (21-32); Bilirubin Direct 2.3 mg/dL (0-0.2); Bilirubin Indirect, Calculated 2.1 mg/dL (0.2-0.8); Bilirubin Total 4.4 mg/dL (0.2-1.0); Globulin 4.8 g/dL (2.3-3.5); Glomerular Filtration Rate 145 ml/min (=/>90); Glucose Level 91 mg/dL (74-106); Magnesium 1.6 mg/dL (1.6-2.4); NT PRO-BNP 87 pg/mL (<125); Potassium 3.5 mEq/L (3.5-5.1); Sodium Level 136 mEq/L (136-145); Troponin High Sensitivity 7.1 pg/mL (<58.9)
[2025-01-17 19:47] LABS: PT Prothrombin Time 17.7 SECONDS (10-13.0); PTT, Activated Partial Thromb 34.8 SECONDS (27.2-37.4); Protime INR 1.59
--- NOTE | 2025-01-17 20:44 | ER ---
Nurse's Notes [facility] Name: Rylee Thomas Age: 39 yrs Sex: Female : 1985 Arrival Date: 01/17/2025 Time: 14:07 Bed 5 Private MD: Diagnosis: Dyspnea;Alcoholic cirrhosis of liver with ascites;Hepatic failure, unspecified without coma Presentation: 01/17 14:25 Chief complaint: Patient states: last paracentesis was 2 weeks ago, now her abdomen is iw swollen again. Coronavirus screen: At this time, the client does not indicate any symptoms associated with coronavirus-19. Ebola Screen: No symptoms or risks identified at this time. Initial Sepsis Screen: Does the patient meet any 2 criteria? No. Patient's initial sepsis screen is negative. Does the patient have a suspected source of infection? No. Patient's initial sepsis screen is negative. Risk Assessment: Do you want to hurt yourself or someone else? Patient reports no desire to harm self or others. Onset of symptoms was January 17, 2025. 14:25 Method Of Arrival: Ambulatory iw 14:25 Acuity: NIDHI 3 iw Historical: - Allergies: 14:26 No Known Allergies; iw - PMHx: 14:26 cirrhosis of liver; Endometriosis of vagina; scoliosis; iw - PSHx: 14:26 back; left leg; partial hysterectomy; iw - Immunization history:: Adult Immunizations unknown. - Infectious Disease History:: Denies. - Social history:: Smoking status: Patient denies any tobacco usage or history of. Patient uses alcohol. Screenin:48 [facility] ED Fall Risk Assessment (Adult) History of falling in the last 3 months, db including since admission No falls in past 3 months (0 pts) Confusion or Disorientation No (0 pts) Intoxicated or Sedated No (0 pts) Impaired Gait No (0 pts) Mobility Assist Device Used No (0 pt) Altered Elimination No (0 pt) Score/Fall Risk Level 0 - 2 = Low Risk Oriented to surroundings, Maintained a safe environment. Abuse screen: Denies threats or abuse. Denies injuries from another. Nutritional screening: No deficits noted. Tuberculosis screening: No symptoms or risk factors identified. Assessment: 18:20 Reassessment: Patient appears in no apparent distress at this time. Patient and/or db family updated on plan of care and expected duration. Pain level reassessed. Patient is alert, oriented x 3, equal unlabored respirations, skin warm/dry/pink. General: Appears in no apparent distress. comfortable, Behavior is calm, cooperative. Pain: Complains of pain in abdomen. Neuro: Level of Consciousness is awake, alert, obeys commands, Oriented to person, place, time, situation. Cardiovascular: Rhythm is regular. Respiratory: Airway is patent Respiratory effort is even, unlabored, Respiratory pattern is regular, symmetrical, Breath sounds are clear bilaterally. GI: Abdomen is round distended, noted to have ascites, Reports upper abdominal pain. 19:10 General: Appears in no apparent distress. comfortable, Behavior is calm, cooperative, rg5 appropriate for age. 19:10 Pain: Complains of pain in abdomen. Neuro: Level of Consciousness is awake, alert, rg5 obeys commands, Oriented to person, place, time, situation. Cardiovascular: Rhythm is sinus rhythm. Respiratory: Airway is patent Trachea midline Respiratory effort is even, unlabored, Respiratory pattern is regular, symmetrical, Breath sounds are clear. GI: Abdomen is round distended, noted to have ascites, Reports upper abdominal pain. : No signs and/or symptoms were reported regarding the genitourinary system. EENT: No deficits noted. Derm: Skin is fragile, Skin is dry, Skin is normal, Skin temperature is warm. Musculoskeletal: Circulation, motion, and sensation intact. Range of motion:. 20:00 Reassessment: No changes from previously documented assessment. Patient and/or family rg5 updated on plan of care and expected duration. Pain level reassessed. Patient is alert, oriented x 3, equal unlabored respirations, skin warm/dry/pink. 21:00 Reassessment: No changes from previously documented assessment. Patient and/or family rg5 updated on plan of care and expected duration. Pain level reassessed. Patient is alert, oriented x 3, equal unlabored respirations, skin warm/dry/pink. 22:56 Reassessment: No changes from previously documented assessment. Patient and/or family rg5 updated on plan of care and expected duration. Pain level reassessed. Patient is alert, oriented x 3, equal unlabored respirations, skin warm/dry/pink. 23:40 Reassessment: gave report to yu fairchild from [facility]. al5 Vital Signs: 14:25 BP 125 / 76; Pulse 123; Resp 18; Temp 98.6; Pulse Ox 97% on R/A; Weight 58.97 kg; iw Height 5 ft. 9 in. ; Pain 7/10; 18:50 BP 103 / 67; Pulse 98; Resp 16; Pulse Ox 95% ; db 19:00 BP 99 / 62; Pulse 102; Resp 18; Pulse Ox 94% on 2 lpm NC; al5 19:30 BP 102 / 58; Pulse 108; Resp 18; Pulse Ox 96% on 2 lpm NC; al5 20:00 BP 106 / 62; Pulse 111; Resp 18; Pulse Ox 97% ; al5 20:30 BP 116 / 84; Pulse 119; Resp 17; Pulse Ox 97% ; al5 21:00 BP 114 / 65; Pulse 115; Resp 98; Pulse Ox 96% ; al5 21:30 BP 121 / 79; Pulse 108; Resp 19; Pulse Ox 96% ; al5 22:00 BP 111 / 70; Pulse 105; Resp 18; Pulse Ox 96% ; al5 22:30 BP 107 / 59; Pulse 105; Resp 18; Pulse Ox 95% ; al5 23:00 BP 115 / 72; Pulse 112; Resp 17; Pulse Ox 96% ; al5 14:25 Body Mass Index 19.20 (58.97 kg, 175.26 cm) iw 14:25 Pain Scale: Adult iw ED Course: 14:10 Patient arrived in ED. im 14:13 Renato Mars PA is PHCP. cp 14:13 Renato Ace MD is Attending Physician. cp 14:26 Triage completed. iw 14:51 XRAY Chest (1 view) In Process Unspecified. EDMS 16:36 Arm band placed on Patient placed in an exam room, on a stretcher. ll1 17:48 EKG done, by ED staff, reviewed by Renato HERCULES. Patient maintains SpO2 saturation dd2 greater than 95% on room air. 18:43 Initial lab(s) drawn, by me, sent to lab. Inserted saline lock: 22 gauge in right hand, db using aseptic technique. Blood collected. Flushed with 10 mL NS. 18:47 Janine Henderson, RN is Primary Nurse. db 18:47 Patient has correct armband on for positive identification. Bed in low position. Call db light in reach. Side rails up X 1. Pulse ox on. NIBP on. Warm blanket given. Pillow given. 19:10 No provider procedures requiring assistance completed. rg5 21:51 initiated transfer with [facility] spoke with Linda Shirley. raghu 23:56 per Linda Watson at [facility] transfer center patient was accepted to Dr. Balbuena \T\[id number] to RM 2435, vk accepting admin in Linda Watson \T\[id number], transport initiated with [facility] spoke with Naty patient was accepted \T\2355 ETA 25 min, [facility] trucks out on calls. Administered Medications: 21:52 Drug: Albumin IVPB 25 grams 100 ml IVPB once; (Note: Albumin 25% concentration) Volume: rg5 100 ml; Route: IVPB; Site: right hand; 22:29 Follow up: IV Status: Completed infusion; IV Intake: 100ml rg5 Medication: 18:48 VIS not applicable for this client. db Intake: 22:29 IV: 100ml; Total: 100ml. rg5 Outcome: 20:43 ER care complete, transfer ordered by MD. ferrer 01/18 00:38 Patient left the ED. vc1 Signatures: Dispatcher [employer] EDMS Selin Lucero RN RN iw Renato Mars, DELISA PA cp Radha Nunez RN RN ll1 Vandana Aden RN RN vc1 Janine Henderson RN RN db Manuela Middleton Vivian vk Gallardo, Rommel, RN RN rg5 Ashwini Conde RN RN al5 MALIK RAMIREZ RN RN dd2 Corrections: (The following items were deleted from the chart) 01/17 14:27 14:25 BP 125 / 76; Pulse 123bpm; Resp 18bpm; Pulse Ox 97% RA; Temp 98.6F; iw iw
--- NOTE | 2025-01-17 20:44 | EDPHYS ---
Physician Documentation [facility] Name: Rylee Thomas Age: 39 yrs Sex: Female : 1985 Arrival Date: 01/17/2025 Time: 14:07 Bed 5 Private MD: ED Renato Gibbons HPI: 01/17 14:35 This 39 yrs old Female presents to ER via Ambulatory with complaints of Shortness Of cp Breath, Abdominal Swelling. 14:35 The patient has shortness of breath at rest. cp 14:35 The patient presents with abdominal distention that is diffuse. Onset: The cp symptoms/episode began/occurred gradually. Associated signs and symptoms: Pertinent negatives: diaphoresis, fever. 14:35 Patient with PMHX of alcoholic cirrhosis and hepatic failure. cp Historical: - Allergies: 14:26 No Known Allergies; iw - PMHx: 14:26 cirrhosis of liver; Endometriosis of vagina; scoliosis; iw - PSHx: 14:26 back; left leg; partial hysterectomy; iw - Immunization history:: Adult Immunizations unknown. - Infectious Disease History:: Denies. - Social history:: Smoking status: Patient denies any tobacco usage or history of. Patient uses alcohol. ROS: 14:40 Constitutional: Negative for body aches, chills, fever, poor PO intake, cp 14:40 Cardiovascular: Negative for chest pain, edema, cp 14:40 Abdomen/GI: Positive for abdominal distension, 14:40 Eyes: Negative for injury, pain, redness, and discharge, cp 14:40 ENT: Negative for drainage from ear(s), ear pain, sore throat, difficulty swallowing, cp difficulty handling secretions, 14:40 Respiratory: Positive for shortness of breath, at rest. Negative for cough, wheezing, 14:40 Neuro: Negative for altered mental status, dizziness, headache, syncope, near syncope, weakness, 14:40 All other systems are negative, Exam: 14:45 ECG was reviewed by the Attending Physician. cp 14:47 Constitutional: The patient appears in no acute distress, alert, awake, cp non-diaphoretic, non-toxic, well developed, well nourished, uncomfortable, 14:47 Head/Face: Normocephalic, atraumatic. cp 14:47 Eyes: Periorbital structures: appear normal, Conjunctiva: normal, no exudate, no injection, Sclera: no appreciated abnormality, Lids and lashes: appear normal, bilaterally, 14:47 ENT: External ear(s): are unremarkable, Nose: is normal, Mouth: Lips: moist, Oral mucosa: moist, Posterior pharynx: Airway: no evidence of obstruction, patent, 14:47 Neck: ROM/movement: is normal, is supple, without pain, no range of motions limitations, 14:47 Chest/axilla: Inspection: normal, 14:47 Cardiovascular: Rate: tachycardic, Rhythm: regular, Edema: is not appreciated, JVD: is not appreciated, 14:47 Respiratory: the patient does not display signs of respiratory distress, Respirations: labored breathing, that is mild, shallow respirations, that is mild, Breath sounds: decreased breath sounds, that are moderate, are heard in the right posterior middle lobe and right posterior lower lobe, stridor, is not appreciated, wheezing: is not appreciated, 14:47 Abdomen/GI: Inspection: distension, that is severe, Bowel sounds: active, all quadrants, Palpation: soft, in all quadrants, mild abdominal tenderness, in all quadrants, rebound tenderness, is not appreciated, involuntary guarding, is not appreciated, 14:47 Neuro: Orientation: to person, place \T\ time. Mentation: is normal, Motor: moves all fours, strength is normal, Sensation: no obvious gross deficits, 17:45 ECG was reviewed by the Attending Physician. cp Vital Signs: 14:25 BP 125 / 76; Pulse 123; Resp 18; Temp 98.6; Pulse Ox 97% on R/A; Weight 58.97 kg; iw Height 5 ft. 9 in. ; Pain 7/10; 18:50 BP 103 / 67; Pulse 98; Resp 16; Pulse Ox 95% ; db 19:00 BP 99 / 62; Pulse 102; Resp 18; Pulse Ox 94% on 2 lpm NC; al5 19:30 BP 102 / 58; Pulse 108; Resp 18; Pulse Ox 96% on 2 lpm NC; al5 20:00 BP 106 / 62; Pulse 111; Resp 18; Pulse Ox 97% ; al5 20:30 BP 116 / 84; Pulse 119; Resp 17; Pulse Ox 97% ; al5 21:00 BP 114 / 65; Pulse 115; Resp 98; Pulse Ox 96% ; al5 21:30 BP 121 / 79; Pulse 108; Resp 19; Pulse Ox 96% ; al5 22:00 BP 111 / 70; Pulse 105; Resp 18; Pulse Ox 96% ; al5 22:30 BP 107 / 59; Pulse 105; Resp 18; Pulse Ox 95% ; al5 23:00 BP 115 / 72; Pulse 112; Resp 17; Pulse Ox 96% ; al5 14:25 Body Mass Index 19.20 (58.97 kg, 175.26 cm) iw 14:25 Pain Scale: Adult iw MDM: 14:27 Medical Screening Exam initiated juan carlos 20:45 Data reviewed: vital signs, nurses notes, lab test result(s), EKG, radiologic studies, cp plain films, and as a result, I will transfer patient for GI services. 20:45 Antibiotic administration: Not indicated. I considered the following discharge cp prescriptions or medication management in the emergency department Medications were administered in the Emergency Department. See MAR. Independent interpretation of the following test(s) in the Emergency Department EKG: See my EKG interpretation above. Care significantly affected by the following chronic conditions: Liver Disease. Counseling: I had a detailed discussion with the patient and/or guardian regarding the historical points, exam findings, and any diagnostic results supporting the discharge/admit diagnosis, lab results, radiology results, the need to transfer to another facility, [facility] does not immediately have the required specialist. 22:16 Management of patient was discussed with the following: Hospitalist: DR Frances \T\[facility] will be accepting physician after discussion of today's testing. 01/17 14:33 Order name: Basic Metabolic Panel; Complete Time: 20:33 cp 01/17 14:33 Order name: CBC with Diff; Complete Time: 19:10 cp 01/17 19:10 Interpretation: Normal except: WBC 4.10; RBC 3.10; HGB 10.2; HCT 29.9; PLT 88; RDW 18.0.cp 01/17 14:33 Order name: LFT's; Complete Time: 20:33 cp 01/17 14:33 Order name: Magnesium; Complete Time: 20:33 cp 01/17 14:33 Order name: NT PRO-BNP; Complete Time: 20:33 cp 01/17 14:33 Order name: PT-INR; Complete Time: 20: cp 01/17 14:33 Order name: Troponin HS; Complete Time: 20:33 cp 01/17 14:33 Order name: Ptt, Activated; Complete Time: 20:33 cp 01/17 14:33 Order name: Urinalysis w/ reflexes; Complete Time: 19:10 cp 01/17 19:10 Interpretation: Normal except: UCLA Extremely Turbid; UGLUC TRACE; UBILI 1+; UPROT 1+; cp UUROB 1+; MUCUS 4+. 01/17 14:33 Order name: XRAY Chest (1 view); Complete Time: 15:23 cp 01/17 15:23 Interpretation: Report reviewed. 01/17 14:33 Order name: Cardiac monitoring; Complete Time: 17:48 cp 01/17 14:33 Order name: EKG - Nurse/Tech; Complete Time: 14:50 cp 01/17 14:33 Order name: IV Saline Lock; Complete Time: 18:52 cp 01/17 14:33 Order name: Labs collected and sent; Complete Time: 18:52 cp 01/17 14:33 Order name: O2 Per Protocol; Complete Time: 17:48 cp 01/17 14:33 Order name: O2 Sat Monitoring; Complete Time: 17:48 cp EC:45 Rate is 109 beats/min. Rhythm is regular. TN interval is normal. QRS interval is cp normal. QT interval is normal. T waves are Inverted in lead aVR. Interpreted by me. Reviewed by me. 17:45 Rate is 90 beats/min. Rhythm is regular. TN interval is normal. QRS interval is normal. cp QT interval is normal. T waves are Inverted in lead III. Interpreted by me. Reviewed by me. Administered Medications: 21:52 Drug: Albumin IVPB 25 grams 100 ml IVPB once; (Note: Albumin 25% concentration) Volume: rg5 100 ml; Route: IVPB; Site: right hand; 22:29 Follow up: IV Status: Completed infusion; IV Intake: 100ml rg5 Disposition Summary: 01/17/25 20:43 Transfer Ordered Notes: Transfer Location: [facility] cp Reason: Higher level of care cp Condition: Stable cp Problem: an ongoing problem cp Symptoms: are unchanged cp Accepting Physician: DR Frances(01/18/25 00:38) vc1 Diagnosis - Dyspnea cp - Alcoholic cirrhosis of liver with ascites cp - Hepatic failure, unspecified without coma cp Forms: - Medication Reconciliation Form cp - SBAR form cp Addendum: 01/21/2025 22:45 Co-signature as Attending Physician, Renato Ace MD I agree with the assessment and c leong plan of care. Signatures: Dispatcher [employer] EDMS Renato Ace MD MD cha Williams, Irene, RN RN iw Renato Mars, PA PA Vandana Bajwa RN RN vc1 Janine Henderson RN RN db Corby Hutchinson RN RN rg5 Corrections: (The following items were deleted from the chart) 01/17 14:33 14:33 BASIC METABOLIC PANEL+C.LAB.BRZ ordered. EDMS EDMS 14:33 14:33 CBC+H.LAB.BRZ ordered. EDMS EDMS 14:33 14:33 HEPATIC FUNCTION+C.LAB.BRZ ordered. EDMS EDMS 14:33 14:33 MAGNESIUM+C.LAB.BRZ ordered. EDMS EDMS 14:33 14:33 PROBNP+C.LAB.BRZ ordered. EDMS EDMS 14:33 14:33 PROTIME (+INR)+COAG.LAB.BRZ ordered. EDMS EDMS 14:33 14:33 Troponin High Sensitivity+C.LAB.BRZ ordered. EDMS EDMS 14:33 14:33 PTT, ACTIVATED+COAG.LAB.BRZ ordered. EDMS EDMS 14:33 14:33 Urinalysis+U.LAB.BRZ ordered. EDMS EDMS 14:34 14:34 Chest Single View+RAD.RAD.BRZ ordered. EDMS EDMS 14:47 14:47 ETHANOL+C.LAB.BRZ ordered. EDMS EDMS 14:47 14:47 URINE DRUG SCREEN+UC.LAB.BRZ ordered. EDMS EDMS 14:47 14:47 Test, Urine+UC.LAB.BRZ ordered. EDMS EDMS 22:18 20:43 Doctor carissa ferrer 01/18 00:38 01/17 22:18 DR Yvrose ferrer vc1
[2025-01-17] MEDS ORDERED: ALBUMIN HUMAN 25% 100 ML IV ONE (21:24)
[2025-01-18 01:17] VITALS: TEMP 98.6
[2025-01-18 01:38] VITALS: BP 115/72; O2SAT 96
--- NOTE | 2025-01-18 11:54 | EKG ---
Test Date: 2025-01-17 Test Time: 17:39:31 Nuclear Supervising Operator: AYAN MEASUREMENT RESULTS: Intervals: Rate: 90 DC: 136 QRSD: 78 QT: 362 QTc: 442 [place]: P: DC: 136 QRS: 57 T: 37 INTERPRETIVE STATEMENTS: Normal sinus rhythm Low voltage QRS Cannot rule out Anterior infarct, age undetermined Abnormal ECG Compared to ECG 12/09/2024 02:09:30 Low QRS voltage now present Myocardial infarct finding still present Electronically Signed On 01-18-25 11:52:24 CDT by Marcial Cullen
--- NOTE | 2025-01-19 16:31 | EKG ---
Test Date: 2025-01-17 Test Time: 14:40:35 Pilot Plant Operator: ACE MEASUREMENT RESULTS: Intervals: Rate: 109 MS: 146 QRSD: 80 QT: 358 QTc: 482 [place]: P: 48 MS: 146 QRS: 30 T: -8 INTERPRETIVE STATEMENTS: Sinus tachycardia Low voltage QRS Possible Inferior infarct, age undetermined Cannot rule out Anterior infarct, age undetermined Abnormal ECG Compared to ECG 12/09/2024 02:09:30 Low QRS voltage now present Sinus rhythm no longer present Myocardial infarct finding still present Electronically Signed On 01-19-25 16:30:30 CDT by Marcial Cullen
== END 2025-01-18 00:38 | disposition short-term general hospital (02) ==
LOC: ER 14:07
DX: K70.31 Alcoholic cirrhosis of liver with ascites (principal); K72.90 Hepatic failure, unspecified without coma
CPT/HCPCS: 36415; 71045; 80048; 80076; 81001; 83735; 83880; 84484; 85025; 85610; 85730; 93005; 96365; 99284; P9047

== ENCOUNTER 2025-01-26 10:15 | Emergency (ER) | payer MEDICAID, SELFPAY ==
--- NOTE | 2025-01-26 11:15 | RAD REPORT ---
EXAM: Chest Single View HISTORY: 39 years Female Chest pain;Dyspnea COMPARISON: 01/17/2025 FINDINGS: LUNGS/PLEURA: Moderate right pleural effusion which is grossly similar to prior. CARDIAC/MEDIASTINUM: Stable enlargement. UPPER ABDOMEN: No significant abnormality. BONES: No acute abnormality. Ibarra rods in the spine. LINES/TUBES/OTHER: N/A IMPRESSION: Moderate right pleural effusion and probably underlying atelectasis.
[2025-01-26 11:39] LABS: Absolute Basophils 0.1 K/uL (0-0.5); Absolute Eosinophils 0.1 K/uL (0-0.5); Absolute Lymphocytes (CBC) 1.7 K/uL (0.7-4.9); Absolute Monocytes 0.7 K/uL (0.1-1.3); Absolute Neutrophil 2.1 K/uL (1.8-8.0); Basophils % 2.2 % (0-1.3); Eosinophils % 2.8 % (0-4.4); Hematocrit 31.1 % (36.0-45.0); Hemoglobin 10.5 g/dL (12.0-15.0); MCH 32.6 pg (27.0-35.0); MCHC 33.9 g/dL (32.0-36.0); MCV 96.2 fL (80-100); MPV 8.6 fL (7.6-11.3); Monocytes % 14.4 % (3.3-12.3); Neutrophils % 44.6 % (41.7-73.7); Platelets 145 thou/uL (152-406); RBC Red Blood Cell Count 3.24 M/uL (3.86-4.86); Red Cell Distribution Width 18.9 % (12.1-15.2)
[2025-01-26 12:00] LABS: Albumin 2.5 g/dL (3.4-5.0); Albumin/Globulin Ratio 0.5 (1.1-1.8); Bilirubin Direct 1.7 mg/dL (0-0.2); Bilirubin Indirect, Calculated 1.1 mg/dL (0.2-0.8); Bilirubin Total 2.8 mg/dL (0.2-1.0); Globulin 4.7 g/dL (2.3-3.5); Protein, Total 7.2 g/dL (6.4-8.2)
--- NOTE | 2025-01-26 13:04 | ER ---
Nurse's Notes [facility] Name: Rylee Thomas Age: 39 yrs Sex: Female : 1985 Arrival Date: 01/26/2025 Time: 10:15 Bed 18 Private MD: Diagnosis: Pleural effusion, not elsewhere classified;Alcoholic cirrhosis of liver with ascites Presentation: 01/26 10:39 Chief complaint: Patient states: SOB and abd pain and chest pain, needs iw paracentesis/thoracentesis , last drained a week ago. Coronavirus screen: At this time, the client does not indicate any symptoms associated with coronavirus-19. Ebola Screen: No symptoms or risks identified at this time. Initial Sepsis Screen: Does the patient meet any 2 criteria? No. Patient's initial sepsis screen is negative. Does the patient have a suspected source of infection? No. Patient's initial sepsis screen is negative. Risk Assessment: Do you want to hurt yourself or someone else? Patient reports no desire to harm self or others. Onset of symptoms was January 24, 2025. 10:39 Method Of Arrival: Wheelchair iw 10:39 Acuity: NIDHI 3 iw MANAGER OF BUSINESS OPERATIONS: 15:16 unknown cm10 Historical: - Allergies: 10:40 No Known Allergies; iw - PMHx: 10:40 cirrhosis of liver; Endometriosis of vagina; scoliosis; iw - PSHx: 10:40 back; left leg; partial hysterectomy; iw - Immunization history:: Adult Immunizations up to date. - Infectious Disease History:: Denies. - Social history:: Smoking status: Patient denies any tobacco usage or history of. - Family history:: not pertinent. - Hospitalizations: : No recent hospitalization is reported. Screenin:21 [facility] ED Fall Risk Assessment (Adult) History of falling in the last 3 months, cm10 including since admission No falls in past 3 months (0 pts) Confusion or Disorientation No (0 pts) Intoxicated or Sedated No (0 pts) Impaired Gait No (0 pts) Mobility Assist Device Used No (0 pt) Altered Elimination No (0 pt) Score/Fall Risk Level 0 - 2 = Low Risk Oriented to surroundings, Maintained a safe environment, Hourly rounding (assess needs \T\ fall precautionary measures) done. Abuse screen: Denies threats or abuse. Denies injuries from another. Nutritional screening: No deficits noted. Tuberculosis screening: No symptoms or risk factors identified. Assessment: 11:30 General: Appears in no apparent distress. uncomfortable, Behavior is calm, cooperative, cm10 appropriate for age. Pain: Complains of pain in chest Pain does not radiate. Pain currently is 6 out of 10 on a pain scale. Pain began suddenly. Neuro: No deficits noted. Level of Consciousness is awake, alert, obeys commands, Oriented to person, place, time, situation, Appropriate for age. Cardiovascular: Reports chest pain, shortness of breath, Patient's skin is warm and dry. Rhythm is sinus rhythm. Respiratory: No deficits noted. Airway is patent Respiratory effort is even, unlabored, Respiratory pattern is regular, symmetrical. GI: Abdomen is distended. 13:07 Reassessment: Patient appears in no apparent distress at this time. Patient and/or cm10 family updated on plan of care and expected duration. Pain level reassessed. Patient is alert, oriented x 3, equal unlabored respirations, skin warm/dry/pink. Pt ambulating to restroom at this time. Gait steady. 15:10 Reassessment: Patient appears in no apparent distress at this time. Patient and/or cm10 family updated on plan of care and expected duration. Pain level reassessed. Patient is alert, oriented x 3, equal unlabored respirations, skin warm/dry/pink. Vital Signs: 10:39 BP 106 / 61; Pulse 89; Resp 16; Temp 98.9; Pulse Ox 98% on R/A; Pain 6/10; iw 11:30 BP 104 / 67; Pulse 82; Resp 15; Pulse Ox 98% on R/A; cm10 12:00 BP 116 / 71; Pulse 82; Resp 16; Pulse Ox 100% on R/A; cm10 13:00 BP 113 / 77; Pulse 86; Resp 16; Pulse Ox 93% on R/A; cm10 14:00 BP 93 / 70; Pulse 96; Resp 16; Pulse Ox 95% on R/A; cm10 14:30 BP 122 / 83; Pulse 104; Resp 16; Pulse Ox 95% ; cm10 15:00 BP 122 / 75; Pulse 99; Resp 16; Pulse Ox 92% on R/A; cm10 10:39 Pain Scale: Adult iw ED Course: 10:18 Patient arrived in ED. cj3 10:19 Brandon Montaño MD is Attending Physician. rn 10:40 Triage completed. iw 10:40 Arm band placed on. iw 11:08 Elidia Carrasco, RN is Primary Nurse. cm10 11:10 XRAY Chest (1 view) In Process Unspecified. EDMS 11:30 Patient has correct armband on for positive identification. Bed in low position. Call cm10 light in reach. Side rails up X 1. 11:30 Client placed on continuous cardiac and pulse oximetry monitoring. NIBP monitoring cm10 applied. monitor worker on. 11:31 Lipase Sent. cm10 11:31 LFT's Sent. cm10 11:31 Basic Metabolic Panel Sent. cm10 11:31 CBC with Diff Sent. cm10 11:31 NT PRO-BNP Sent. cm10 11:31 Initial lab(s) drawn, by id, sent to lab. Inserted saline lock: 22 gauge in left hand, cm10 using aseptic technique. Blood collected. Flushed with 10 mL NS. Patient maintains SpO2 saturation greater than 95% on room air. 12:17 EKG done, by ED staff, reviewed by Brandon Montaño MD. cm10 14:31 \T\1307 initiated a transfer with the [facility]/ \T\[address] fortino Weinberg the hospitalist business solution analyst for [facility] with Dr. Montaño for patient transfer consultation. / \T\ 1352 administrative approval given by Randi Martinez/ patient has been accepted to [facility] bed 722/ Dr. Kaye Weinberg has accepted the patient in transfer/ report to be called to [phone]. 14:41 Report given to SCARLETT Philippe at [facility]. cm10 15:15 Report given to Mason with [facility]. cm10 15:15 Provided Education on: Need for transfer. cm10 15:15 No provider procedures requiring assistance completed. Patient transferred, IV remains cm10 in place. Administered Medications: No medications were administered Medication: 12:21 VIS not applicable for this client. cm10 Outcome: 13:03 ER care complete, transfer ordered by . rn 15:15 Transferred by ground [facility] [place] to [facility], Transfer form cm10 completed. 15:15 Condition: stable 15:15 Instructed on the need for transfer, 15:16 Patient left the ED. cm10 Signatures: Dispatcher [employer] Selin Smart RN RN iw Nieto, Roman, MD MD rn Botello, Elizabeth eb Martinez, Clarissa, RN RN cmSylvie Solorzano cj3 Corrections: (The following items were deleted from the chart) 10:41 10:39 Acuity: NIDHI 2 gavin alonso
--- NOTE | 2025-01-26 13:04 | EDPHYS ---
Physician Documentation [facility] Name: Rylee Thomas Age: 39 yrs Sex: Female : 1985 Arrival Date: 01/26/2025 Time: 10:15 Bed 18 Private MD: ED Physician Brandon Montaño HPI: 01/26 11:35 This 39 yrs old Female presents to ER via Wheelchair with complaints of Chest rn Tightness, Shortness Of Breath. 11:35 The patient or guardian reports chest pain that is located primarily in the Right side. rn Severity of pain: At its worst the pain was mild in the emergency department the pain is unchanged. The patient has experienced similar episodes in the past. Patient reports history of alcoholic cirrhosis, gets paracentesis pretty much weekly and had a right thoracentesis performed last week. Patient reports chest pain and shortness of breath as well as abdominal swelling have returned. No fever or chills. Symptoms identical to last time when she needed thoracentesis and paracentesis.. 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 - Infectious Disease History:: Denies. - Social history:: Smoking status: Patient denies any tobacco usage or history of. - Family history:: not pertinent. - Hospitalizations: : No recent hospitalization is reported. ROS: 11:35 Constitutional: Negative for fever, chills, and weight loss, Cardiovascular: Positive rn for chest pain Respiratory: Positive for shortness of breath Abdomen/GI: Positive for abdominal swelling and distention MS/Extremity: Negative for injury and deformity, Neuro: Negative for headache, weakness, numbness, tingling, and seizure, Exam: 11:35 Constitutional: This is a well developed, well nourished patient who is awake, alert, rn and in no acute distress. Cardiovascular: Regular rate and rhythm. No pulse deficits. Respiratory: Mild tachypnea Abdomen/GI: Fullness of abdomen with positive fluid wave, no peritoneal signs or guarding. Umbilical hernia that is easily reduced and appears to be fluid-filled. No overlying skin changes. Neuro: Awake and alert, GCS 15 13:14 ECG was reviewed by the Attending Physician. rn Vital Signs: 10:39 BP 106 / 61; Pulse 89; Resp 16; Temp 98.9; Pulse Ox 98% on R/A; Pain 6/10; iw 11:30 BP 104 / 67; Pulse 82; Resp 15; Pulse Ox 98% on R/A; cm10 12:00 BP 116 / 71; Pulse 82; Resp 16; Pulse Ox 100% on R/A; cm10 13:00 BP 113 / 77; Pulse 86; Resp 16; Pulse Ox 93% on R/A; cm10 14:00 BP 93 / 70; Pulse 96; Resp 16; Pulse Ox 95% on R/A; cm10 14:30 BP 122 / 83; Pulse 104; Resp 16; Pulse Ox 95% ; cm10 15:00 BP 122 / 75; Pulse 99; Resp 16; Pulse Ox 92% on R/A; cm10 10:39 Pain Scale: Adult iw MDM: 11:00 Medical Screening Exam initiated rn 13:02 Differential diagnosis: Pleural effusion, pleurisy, ascites. Data reviewed: vital rn signs, nurses notes, lab test result(s), EKG, radiologic studies, plain films, and as a result, I will admit patient. Consideration of Admission/Observation Patient was admitted/placed on observation. Escalation of care including admission/observation considered. Counseling: I had a detailed discussion with the patient and/or guardian regarding the historical points, exam findings, and any diagnostic results supporting the discharge/admit diagnosis, lab results, radiology results, the need for further work-up and treatment in the hospital, the need to transfer to another facility, [facility]. ED course: Attempted to admit here, nobody to perform paracentesis or thoracentesis per hospitalist, no interventional radiology available, will transfer to [facility] where patient gets the majority of her care anyway.. 01/26 10:19 Order name: Basic Metabolic Panel; Complete Time: 12:14 rn 01/26 10:19 Order name: CBC with Diff; Complete Time: 11:55 rn 01/26 10:19 Order name: NT PRO-BNP; Complete Time: 12:14 rn 01/26 10:20 Order name: LFT's; Complete Time: 12:14 rn 01/26 10:20 Order name: Lipase; Complete Time: 12:14 rn 01/26 10:19 Order name: XRAY Chest (1 view); Complete Time: 11:23 rn 01/26 10:19 Order name: Cardiac monitoring; Complete Time: 12:17 rn 01/26 10:19 Order name: EKG - Nurse/Tech; Complete Time: 12:17 rn 01/26 10:19 Order name: IV Saline Lock; Complete Time: 11: rn 01/26 10:19 Order name: Labs collected and sent; Complete Time: : rn 01/26 10:19 Order name: O2 Per Protocol; Complete Time: rn 01/26 10:19 Order name: O2 Sat Monitoring; Complete Time: : rn EC:14 Rate is 88 beats/min. Rhythm is regular. QRS [place] is Normal. [place] interval is normal. QRS rn interval is normal. QT interval is normal. No Q waves. T waves are Normal. No ST changes noted. Clinical impression: Normal ECG. Interpreted by me. Reviewed by me. Administered Medications: No medications were administered Disposition Summary: 01/26/25 13:03 Transfer Ordered Notes: Transfer Location: [facility] rn Reason: Higher level of care rn Condition: Stable rn Problem: an ongoing problem rn Symptoms: are unchanged rn Accepting Physician: Dr. Weinberg(01/26/25 15:16) cm10 Diagnosis - Pleural effusion, not elsewhere classified rn - Alcoholic cirrhosis of liver with ascites rn Forms: - Medication Reconciliation Form rn - SBAR form rn Signatures: Dispatcher [employer] EDSelin Garcia RN RN iw Nieto, Roman, MD MD rn Botello, Elizabeth eb Martinez, Clarissa, RN RN cm10 Corrections: (The following items were deleted from the chart) 10:20 10:20 BASIC METABOLIC PANEL+C.LAB.BRZ ordered. EDMS EDMS 10:20 10:20 CBC+H.LAB.BRZ ordered. EDMS EDMS 10:20 10:20 PROBNP+C.LAB.BRZ ordered. EDMS EDMS 10:20 10:20 Chest Single View+RAD.RAD.BRZ ordered. EDMS EDMS 11:03 10:20 D-DIMER+COAG.LAB.BRZ ordered. EDMS EDMS 11:03 10:20 Troponin High Sensitivity+C.LAB.BRZ ordered. EDMS EDMS 14:30 13:03 Dr. yu freitas 15:16 14:30 Dr. Lenard freitas cm10
[2025-01-26 15:47] VITALS: TEMP 98.9
[2025-01-26 15:57] VITALS: BP 122/75; O2SAT 92
--- NOTE | 2025-01-29 12:07 | EKG ---
Test Date: 2025-01-26 Test Time: 12:10:56 Vp Corporate Development: FIORELLA MEASUREMENT RESULTS: Intervals: Rate: 88 IN: 188 QRSD: 80 QT: 378 QTc: 457 [place]: P: 82 IN: 188 QRS: 83 T: 38 INTERPRETIVE STATEMENTS: Normal sinus rhythm Cannot rule out Anterior infarct, age undetermined Abnormal ECG Compared to ECG 01/17/2025 17:39:31 No significant changes Electronically Signed On 01-29-25 12:05:07 CDT by Marcial Cullen
== END 2025-01-26 15:16 | disposition short-term general hospital (02) ==
LOC: ER 10:15
DX: J90 Pleural effusion, not elsewhere classified (principal); K70.31 Alcoholic cirrhosis of liver with ascites
CPT/HCPCS: 36415; 71045; 80048; 80076; 83690; 83880; 85025; 93005; 99285

== ENCOUNTER 2025-01-31 13:33 | Emergency (ER) | payer SELFPAY ==
--- NOTE | 2025-01-31 15:08 | RAD REPORT ---
EXAMINATION: ONE VIEW CHEST XR CLINICAL INDICATION: Female, 39 years old.,DYSPNEA TECHNIQUE: Frontal chest projection is submitted. Examination is limited by patient positioning and t echnique. COMPARISON: 01/26/2025 FINDINGS: The lungs are well inflated. Stable right lower lung pleural-parenchymal opacification. Mild blunting of the left costophrenic angle suggesting trace effusion. No pneumothorax. The heart is normal in size. Mediastinal contours are unremarkable. IMPRESSION: Stable right lower lung pleural parenchymal opacity, underlying pneumonia should be considered.
--- NOTE | 2025-01-31 15:31 | ER ---
Nurse's Notes [facility] Name: Rylee Thomas Age: 39 yrs Sex: Female : 1985 Arrival Date: 01/31/2025 Time: 13:33 Bed 22 Private MD: Diagnosis: Pleural effusion, not elsewhere classified-RIGHT;Unspecified cirrhosis of liver;Other ascites Presentation: 01/31 13:41 Chief complaint: Patient states: she has a paracentesis and thoracentesis last Wednesday me1 and she is in need of another one. c/o abdominal, rib cage/R chest pain, right hip pain and shortness of breath as well as headaches Pain 02/27. Coronavirus screen: Vaccine status: Patient reports receiving the 2nd dose of the covid vaccine. Ebola Screen: No symptoms or risks identified at this time. Initial Sepsis Screen: Does the patient meet any 2 criteria? HR > 90 bpm. No. Patient's initial sepsis screen is negative. Does the patient have a suspected source of infection? No. Patient's initial sepsis screen is negative. Risk Assessment: Do you want to hurt yourself or someone else? Patient reports no desire to harm self or others. Onset of symptoms is unknown. 13:41 Method Of Arrival: [facility]ried [facility] 13:41 Acuity: NIDHI 3 me1 Triage Assessment: 13:56 General: Appears in no apparent distress. Behavior is appropriate for age, bp uncooperative. Pain: Complains of pain in abdomen. EENT: No deficits noted. Neuro: No deficits noted. Cardiovascular: Rhythm is sinus tachycardia. Respiratory: No deficits noted. GI: No signs and/or symptoms were reported involving the gastrointestinal system. : No signs and/or symptoms were reported regarding the genitourinary system. Derm: No deficits noted. Musculoskeletal: No deficits noted. 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 - Infectious Disease History:: Denies. - Social history:: Smoking status: Patient denies any tobacco usage or history of. - Family history:: not pertinent. Screenin:55 [facility] ED Fall Risk Assessment (Adult) History of falling in the last 3 months, bp including since admission No falls in past 3 months (0 pts) Confusion or Disorientation No (0 pts) Intoxicated or Sedated No (0 pts) Impaired Gait No (0 pts) Mobility Assist Device Used No (0 pt) Altered Elimination No (0 pt) Score/Fall Risk Level 0 - 2 = Low Risk Oriented to surroundings. Abuse screen: Denies threats or abuse. Denies injuries from another. Nutritional screening: No deficits noted. Tuberculosis screening: No symptoms or risk factors identified. Assessment: 13:54 General: PT STATING SHE DOES NOT WISH FOR PIV OR OTHER PROCEDURES, REQUESTING TRANSFER bp TO SNEADS FOR PARACENTESIS. INFORMED. 15:09 Reassessment: PT CONTINUES TO REFUSE PIV AND FURTHER EVAL, ELECTING TO LEAVE PRIOR TO bp DISCHARGE. INFORMED. PT AO4, AMBULATORY WITH STEADY GAIT, ADVISED TO REMAIN BUT DECLINED. Vital Signs: 13:41 BP 104 / 63; Pulse 108; Resp 20; Temp 97.7; Pulse Ox 94% on R/A; Height 5 ft. 9 in. ; me1 Pain 6/10; 13:41 Pain Scale: Adult me1 ED Course: 13:35 Patient arrived in ED. im 13:44 Triage completed. me1 13:44 Arm band placed on Patient placed in waiting room. me1 13:46 Johnnie Craft, RN is Primary Nurse. bp 13:47 Renato Ace MD is Attending Physician. juan carlos 13:55 Patient has correct armband on for positive identification. bp 14:04 XRAY Chest (1 view) In Process Unspecified. EDMS 14:33 CT Chest Abdomen Pelvis W/O Contrast In Process Unspecified. EDMS 15:10 No provider procedures requiring assistance completed. Patient did not have IV access bp during this emergency room visit. Patient maintains SpO2 saturation greater than 95% on room air. Administered Medications: 15:11 Not Given (Patient Refused): mg IVP once; dilute with 10 mL 0.9% NaCl; bp give over 2 minutes 15:11 Not Given (Patient Refused): ns 0.9% 1000 ml IV at 75 ml/hr once bp Outcome: 15:30 Discharge ordered by . juan carlos 15:33 Patient left the ED. iw Signatures: Dispatcher [employer] EDMS Db, Renato, MD MD juan carlos Nic, Selin, RN RN Johnnie Andres RN RN Manuela Martinez Michelle, RN RN me1
--- NOTE | 2025-01-31 15:31 | EDPHYS ---
Physician Documentation [facility] Name: Rylee Thomas Age: 39 yrs Sex: Female : 1985 Arrival Date: 01/31/2025 Time: 13:33 Bed 22 Private MD: ANIBAL Physician Renato Ace HPI: 01/31 15:20 This 39 yrs old Female presents to ER via Carried with complaints of Chest juan carlos Pain, Shortness Of Breath, Abdominal Pain, Flank Pain. 15:20 The patient or guardian reports chest pain that is located primarily in the anterior juan carlos chest wall, right. The pain does not radiate. Associated signs and symptoms: Pertinent positives: shortness of breath. The chest pain is described as aching. Modifying factors: The symptoms are alleviated by remaining still, the symptoms are aggravated by cough, deep breath. Severity of pain: At its worst the pain was mild in the emergency department the pain is unchanged. The patient has experienced similar episodes in the past, several times. 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 - Infectious Disease History:: Denies. - Social history:: Smoking status: Patient denies any tobacco usage or history of. - Family history:: not pertinent. ROS: 15:20 Constitutional: Negative for fever, chills, and weight loss, Eyes: Negative for injury, juan carlos pain, redness, and discharge, ENT: Negative for injury, pain, and discharge, Neck: Negative for injury, pain, and swelling, Cardiovascular: Negative for chest pain, palpitations, and edema, Back: Negative for injury and pain, : Negative for injury, bleeding, discharge, and swelling, MS/Extremity: Negative for injury and deformity, Skin: Negative for injury, rash, and discoloration, Neuro: Negative for headache, weakness, numbness, tingling, and seizure, Psych: Negative for depression, anxiety, suicide ideation, homicidal ideation, and hallucinations, Allergy/Immunology: Negative for hives, rash, and allergies, Endocrine: Negative for neck swelling, polydipsia, polyuria, polyphagia, and marked weight changes, Hematologic/Lymphatic: Negative for swollen nodes, abnormal bleeding, and unusual bruising, 15:20 Respiratory: Positive for cough, with no reported sputum, pleurisy, of the right lateral posterior chest and right lateral anterior chest, Exam: 15:20 Constitutional: This is a well developed, well nourished patient who is awake, alert, juan carlos and in no acute distress. Head/Face: Normocephalic, atraumatic. Eyes: Pupils equal round and reactive to light, extra-ocular motions intact. Lids and lashes normal. Conjunctiva and sclera are non-icteric and not injected. Cornea within normal limits. Periorbital areas with no swelling, redness, or edema. ENT: Nares patent. No nasal discharge, no septal abnormalities noted. Tympanic membranes are normal and external auditory canals are clear. Oropharynx with no redness, swelling, or masses, exudates, or evidence of obstruction, uvula midline. Mucous membranes moist. Neck: Trachea midline, no thyromegaly or masses palpated, and no cervical lymphadenopathy. Supple, full range of motion without nuchal rigidity, or vertebral point tenderness. No Meningismus. Chest/axilla: Normal chest wall appearance and motion. Nontender with no deformity. No lesions are appreciated. Cardiovascular: Regular rate and rhythm with a normal S1 and S2. No gallops, murmurs, or rubs. Normal PMI, no JVD. No pulse deficits. Back: No spinal tenderness. No costovertebral tenderness. Full range of motion. Skin: Warm, dry with normal turgor. Normal color with no rashes, no lesions, and no evidence of cellulitis. MS/ Extremity: Pulses equal, no cyanosis. Neurovascular intact. Full, normal range of motion., bilateral aka Neuro: Awake and alert, GCS 15, oriented to person, place, time, and situation. Cranial nerves II-XII grossly intact. Motor strength 5/5 in all extremities. Sensory grossly intact. Cerebellar exam normal. Normal gait. Psych: Awake, alert, with orientation to person, place and time. Behavior, mood, and affect are within normal limits. 15:20 ECG was reviewed by the Attending Physician. 15:20 Respiratory: the patient does not display signs of respiratory distress, Respirations: normal, no acute changes, Breath sounds: decreased breath sounds, that are mild, are heard in the right lower lobe and right posterior lower lobe, Respiratory rate: 20 15:20 Abdomen/GI: Inspection: distension, that is mild, Bowel sounds: normal, Palpation: abdomen is soft and non-tender, in all quadrants, Liver: is firm, Hernia: not appreciated, MILD ASCITES, 15:20 Musculoskeletal/extremity: ROM: no acute changes, Circulation is intact in all extremities. Sensation intact. Compartment Syndrome exam of affected extremity: is normal. Joints: All joints appear normal with full range of motion. Weight bearing: able to fully bear weight, Tendon exam: specific tendon testing normal through active and passive range of motion DVT Exam: No signs of deep vein thrombosis. no pain, no swelling, no tenderness, negative Homans' sign noted on exam, no appreciated bluish discoloration, no erythema, no increased warmth, Vital Signs: 13:41 BP 104 / 63; Pulse 108; Resp 20; Temp 97.7; Pulse Ox 94% on R/A; Height 5 ft. 9 in. ; me1 Pain 6/10; 13:41 Pain Scale: Adult me1 MDM: 13:47 Medical Screening Exam initiated juan carlos 15:26 Differential diagnosis: abnormal EKG, acute myocardial infarction, acute pericarditis, juan carlos chest wall pain, costochondritis, esophagitis, gastritis, herpes zoster, pancreatitis, peptic ulcer disease, pericarditis, pleurisy, pneumonia, pneumothorax, pulmonary embolus, stable angina, thoracic aortic disection, unstable angina. HEART Score: History: Slightly Suspicious (0), ECG: Normal (0), Age: < or = 45 years (0), Risk Factors: 1 or 2 risk factors (1), [+ Family HX]. GABINO Risk Score: TOTAL SCORE = 0. Data reviewed: vital signs, nurses notes, EKG, radiologic studies, CT scan, plain films. Consideration of Admission/Observation Escalation of care including admission/observation considered. I considered the following discharge prescriptions or medication management in the emergency department Medications were administered in the Emergency Department. See MAR. Independent interpretation of the following test(s) in the Emergency Department EKG: See my EKG interpretation above. 15:28 ED course: PT REFUSED ALL LABS AND FURTHER TESTING, I TOLD HER WITHOUT LABS AN ACCURATE juan carlos DIAGNOSIS CANNOT BE MADE. 01/31 13:50 Order name: XRAY Chest (1 view); Complete Time: 15:26 [facility] 01/31 13:50 Order name: CT Chest Abdomen Pelvis W/O Contrast [facility] 01/31 13:50 Order name: Cardiac monitoring; Complete Time: 13:51 [facility] 01/31 13:50 Order name: EKG - Nurse/Tech; Complete Time: 14:53 [facility] 01/31 13:50 Order name: O2 Per Protocol; Complete Time: 13:50 [facility] 01/31 13:50 Order name: O2 Sat Monitoring; Complete Time: 13:50 [facility] EC:20 Rate is 87 beats/min. Rhythm is regular. QRS [place] is Normal. CO interval is normal. QRS juan carlos interval is normal. QT interval is normal. No Q waves. T waves are Normal. No ST changes noted. Clinical impression: Normal ECG and No evidence of ischemia. Interpreted by me. Reviewed by me. Administered Medications: 15:11 Not Given (Patient Refused): [id number] mg IVP once; dilute with 10 mL 0.9% NaCl; bp give over 2 minutes 15:11 Not Given (Patient Refused): ns 0.9% 1000 ml IV at 75 ml/hr once bp Disposition Summary: 01/31/25 15:30 Discharge Ordered Notes: Location: Home juan carlos Problem: an acute exacerbation juan carlos Symptoms: are unchanged juan carlos Condition: Undetermined juan carlos Diagnosis - Pleural effusion, not elsewhere classified - RIGHT juan carlos - Unspecified cirrhosis of liver juan carlos - Other ascites juan carlos Followup: juan carlos - With: Private Physician - When: Upon discharge from the Emergency Department - Reason: Recheck today's complaints, Continuance of care, Re-evaluation by your physician Discharge Instructions: - Discharge Summary Sheet juan carlos - Ascites juan carlos - Cirrhosis juan carlos - Pleural Effusion juan carlos - Pleurisy juan carlos - Thoracentesis juan carlos - Pleurisy, Gaii-hu-Fuym juan carlos - Thoracentesis, Care After juan carlos Forms: - Medication Reconciliation Form juan carlos - Antibiotic Education juan carlos - Prescription Opioid Use juan carlos - Patient Portal Instructions juan carlos - Leadership Thank You Letter juan carlos Signatures: Dispatcher [employer] EDMS Renato Ace MD MD cha Eddleman, Michelle, RN RN me1 Johnnie Craft RN bp Corrections: (The following items were deleted from the chart) 13:51 13:50 BASIC METABOLIC PANEL+C.LAB.BRZ ordered. EDMS EDMS 13:51 13:50 CBC+H.LAB.BRZ ordered. EDMS EDMS 13:51 13:50 HEPATIC FUNCTION+C.LAB.BRZ ordered. EDMS EDMS 13:51 13:50 MAGNESIUM+C.LAB.BRZ ordered. EDMS EDMS 13:51 13:50 PROBNP+C.LAB.BRZ ordered. EDMS EDMS 13:51 13:50 PROTIME (+INR)+COAG.LAB.BRZ ordered. EDMS EDMS 13:51 13:50 Troponin High Sensitivity+C.LAB.BRZ ordered. EDMS EDMS 13:51 13:50 LIPASE+C.LAB.BRZ ordered. EDMS EDMS 13:51 13:50 AMMONIA+C.LAB.BRZ ordered. EDMS EDMS 13:51 13:51 Chest Single View+RAD.RAD.BRZ ordered. EDMS EDMS 13:51 13:51 Chest Abdomen Pelvis Wo Con+CT.RAD.BRZ ordered. EDMS EDMS 15:11 13:50 IV Saline Lock ordered. juan carlos bp 15:11 13:50 Labs collected and sent ordered. juan carlos bp
[2025-01-31 15:36] VITALS: BP 104/63; TEMP 97.7; O2SAT 94
--- NOTE | 2025-01-31 15:58 | RAD REPORT ---
EXAM: CT CHEST, ABDOMEN AND PELVIS WITHOUT CONTRAST CLINICAL INDICATION: Female, 39 years old. [facility] MAIN ABDOMINAL DISTENTION Bed Name: 20 TECHNIQUE: CT chest, abdomen and pelvis was performed, without IV contrast, as per department protoco l. Axial, sagittal and coronal reconstructions were obtained. One or more of the following dose reduction techniques were used: Automated exposure control, adjustment of the mA and/or kV according to the patient size, and/or iterative reconstruction. Unless otherwise specified, incidental findings do not require dedicated imaging follow-up. COMPARISON: No prior exam. FINDINGS: The lack of intravenous contrast limits the sensitivity of this exam for evaluation of solid visceral organs, vascular structures, and retroperitoneum. Chest: LOWER NECK/CHEST WALL: Visualized thyroid gland and soft tissues are normal. LUNGS AND AIRWAYS: Airways are clear. Dependent segmental airspace opacification involving the right middle and lower lobes with air bronchogram, with volume loss.. PLEURA: Moderate right and trace left pleural effusions with dependent layering. No pneumothorax. Hem idiaphragms are normally positioned. MEDIASTINUM AND LYMPH NODES: No mediastinal mass or fluid collection. Normal size mediastinal, hilar, and axillary lymph nodes. THORACIC AORTA: Normal caliber and configuration. PULMONARY ARTERIES: Normal caliber. HEART: Unremarkable. Abdomen/Pelvis LIVER: Diffusely enlarged measuring 19.4 cm in long axis, with numerous hypoattenuating lesions large st in the right posterior liver lobe measuring 3.4 x 2.9 cm. No focal lesion. GALLBLADDER/BILE DUCTS: No biliary ductal dilatation. PANCREAS: No mass, ductal dilation, or esther-pancreatic fluid. SPLEEN: Enlarged, measuring 17 cm in long axis. Few punctate calcifications, suggesting sequelae of r emote granulomatous infection. No focal lesion. ADRENALS: Normal; no mass. KIDNEYS AND URETERS: Normal size and contour. No hydronephrosis. GASTROINTESTINAL TRACT: Stomach is non-dilated. Small bowel has normal course and caliber. No colonic wall thickening or pericolonic inflammatory changes. PERITONEUM: Moderate free ascites. Soft tissue nodule along the right pelvic sidewall measuring 3.1 x 2.1 cm. Possible other smaller areas of nodularity along the omentum more anteriorly. Evaluation is limited in the absence of IV contrast. LYMPH NODES: No lymphadenopathy. ABDOMINAL AORTA AND OTHER VESSELS: Normal caliber aorta and IVC. URINARY BLADDER: Normal contour. REPRODUCTIVE ORGANS: No pathologic process. MUSCULOSKELETAL: No acute or suspicious osseous abnormality. Thoracic spinal fusion rods in place ADDITIONAL FINDINGS: None IMPRESSION: Moderate free ascites, moderate right, and trace left pleural effusions. Dependent right airspace opa cities, favoring atelectasis although pneumonia cannot be entirely excluded. Hepatosplenomegaly which may indicate ongoing portal hypertension. Multifocal hypoattenuation through out the liver, raising concern for hepatic metastases. Questionable peritoneal deposits, most notably with a 3.1 cm probable metastatic deposit along the ri ght pelvic sidewall.
--- NOTE | 2025-02-05 17:01 | EKG ---
Test Date: 2025-01-31 Test Time: 14:51:30 Medical Information Officer: JOE MEASUREMENT RESULTS: Intervals: Rate: 87 DE: 178 QRSD: 84 QT: 398 QTc: 478 [place]: P: 88 DE: 178 QRS: 62 T: 25 INTERPRETIVE STATEMENTS: Normal sinus rhythm Normal ECG Compared to ECG 01/26/2025 12:10:56 Myocardial infarct finding no longer present Electronically Signed On 02-05-25 16:56:07 CDT by Marcial Cullen
== END 2025-01-31 15:33 | disposition home or self-care (01) ==
LOC: ER 13:33
DX: J90 Pleural effusion, not elsewhere classified (principal); R18.8 Other ascites; K74.60 Unspecified cirrhosis of liver
CPT/HCPCS: 71045; 71250; 74176; 93005; 99282

== ENCOUNTER 2025-02-02 14:36 | Emergency (ER) | payer SELFPAY ==
--- NOTE | 2025-02-02 15:42 | RAD REPORT ---
EXAM: Chest Single View HISTORY: 39 years Female Chest pain;SOB COMPARISON: CT 01/31/2025 FINDINGS: LUNGS/PLEURA: Similar moderate right pleural effusion. Mild increased opacities present at the left l tiburcio base. There may also be a small left pleural effusion. CARDIAC/MEDIASTINUM: Stable size and configuration. UPPER ABDOMEN: No significant abnormality. BONES: No acute abnormality. Ibarra rods in the spine. LINES/TUBES/OTHER: N/A IMPRESSION: Mild increased poorly defined opacities at the left lung base which could reflect a new small pleural effusion and possibly underlying airspace disease. Moderate right effusion and probable underlying atelectasis similar.
[2025-02-02 17:13] LABS: Albumin 2.3 g/dL (3.4-5.0); Albumin/Globulin Ratio 0.5 (1.1-1.8); Anion Gap 11.1 mEq/L (5.0-15.0); Bilirubin Direct 1.4 mg/dL (0-0.2); Bilirubin Indirect, Calculated 0.8 mg/dL (0.2-0.8); Bilirubin Total 2.2 mg/dL (0.2-1.0); Globulin 4.8 g/dL (2.3-3.5); Magnesium 1.8 mg/dL (1.6-2.4); Potassium 3.1 mEq/L (3.5-5.1); Protein, Total 7.1 g/dL (6.4-8.2); Troponin High Sensitivity 4.1 pg/mL (<58.9)
[2025-02-02] MEDS ORDERED: POTASSIUM 25 MEQ EFFERV TAB ONE (18:25)
[2025-02-02 18:33] LABS: Absolute Basophils 0.1 K/uL (0-0.5); Absolute Eosinophils 0.2 K/uL (0-0.5); Absolute Lymphocytes (CBC) 2.4 K/uL (0.7-4.9); Absolute Monocytes 0.7 K/uL (0.1-1.3); Absolute Neutrophil 3.6 K/uL (1.8-8.0); Basophils % 1.4 % (0-1.3); Eosinophils % 2.7 % (0-4.4); Hematocrit 31.2 % (36.0-45.0); Hemoglobin 10.6 g/dL (12.0-15.0); Lymphocytes % 34.3 % (15.3-44.8); MCH 32.2 pg (27.0-35.0); MCHC 33.9 g/dL (32.0-36.0); MCV 95.1 fL (80-100); Monocytes % 9.5 % (3.3-12.3); Neutrophils % 52.1 % (41.7-73.7); Nucleated Red Blood Cells % 0.2 % (0-0); Platelets 202 thou/uL (152-406); RBC Red Blood Cell Count 3.28 M/uL (3.86-4.86); Red Cell Distribution Width 18.8 % (12.1-15.2)
--- NOTE | 2025-02-02 18:52 | ER ---
Nurse's Notes [facility] Name: Rylee Thomas Age: 39 yrs Sex: Female : 1985 Arrival Date: 02/02/2025 Time: 14:36 Bed 8 Private MD: Diagnosis: Dyspnea;Hypokalemia;Alcoholic cirrhosis of liver with ascites;Pleural effusion in other conditions classified elsewhere Presentation: 02/02 14:55 Chief complaint: Patient states: SOB, pain all over, sharp pains to right side of jl7 chest, due for paracentesis and thoracentesis. Coronavirus screen: At this time, the client does not indicate any symptoms associated with coronavirus-19. Ebola Screen: No symptoms or risks identified at this time. Initial Sepsis Screen: Does the patient meet any 2 criteria? No. Patient's initial sepsis screen is negative. Does the patient have a suspected source of infection? No. Patient's initial sepsis screen is negative. Risk Assessment: Do you want to hurt yourself or someone else? Patient reports no desire to harm self or others. Onset of symptoms is unknown. 14:55 Method Of Arrival: Ambulatory [facility] 14:55 Acuity: NIDHI 2 jl7 Triage Assessment: 14:57 General: Appears in no apparent distress. uncomfortable, Behavior is cooperative. Pain: jl7 Complains of pain in all over Pain currently is 6 out of 10 on a pain scale. Respiratory: Reports shortness of breath Onset: The symptoms/episode began/occurred gradually, the patient has moderate shortness of breath. 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 - Infectious Disease History:: Denies. - Social history:: Smoking status: Patient denies any tobacco usage or history of. Screenin:33 [facility] ED Fall Risk Assessment (Adult) History of falling in the last 3 months, bp including since admission No falls in past 3 months (0 pts) Confusion or Disorientation No (0 pts) Intoxicated or Sedated No (0 pts) Impaired Gait No (0 pts) Mobility Assist Device Used No (0 pt) Altered Elimination No (0 pt) Score/Fall Risk Level 0 - 2 = Low Risk Oriented to surroundings. Abuse screen: Denies threats or abuse. Denies injuries from another. Nutritional screening: No deficits noted. Tuberculosis screening: No symptoms or risk factors identified. Assessment: 15:00 General: Appears in no apparent distress. Behavior is cooperative, appropriate for age, bp anxious. Pain: Complains of pain in chest and abdomen. Neuro: No deficits noted. Cardiovascular: Rhythm is sinus tachycardia. Respiratory: Airway is patent Respiratory effort is even, Breath sounds are coarse bilaterally. GI: No signs and/or symptoms were reported involving the gastrointestinal system. : No signs and/or symptoms were reported regarding the genitourinary system. EENT: No deficits noted. Derm: No deficits noted. Musculoskeletal: No deficits noted. 18:35 Reassessment: Patient appears in no apparent distress at this time. Patient is alert, bp oriented x 3, equal unlabored respirations, skin warm/dry/pink. 19:20 General: Appears comfortable, Behavior is anxious. Pain: Complains of pain in abdomen ha1 Pain currently is 5 out of 10 on a pain scale. Quality of pain is described as pressure. Neuro: Level of Consciousness is awake, alert, obeys commands, Oriented to person, place, time, situation. Cardiovascular: Patient's skin is warm and dry. Respiratory: Airway is patent Respiratory effort is even, unlabored, Respiratory pattern is regular, symmetrical. GI: Abdomen is round distended, Reports lower abdominal pain, upper abdominal pain. 20:00 Reassessment: Patient and/or family updated on plan of care and expected duration. Pain ha1 level reassessed. Patient is alert, oriented x 3, equal unlabored respirations, skin warm/dry/pink. PATIENT REQUESTING TO BE DISCHARGE NOTIFIED CARE PROVIDER PAGE. Vital Signs: 14:55 BP 106 / 71; Pulse 115; Resp 20; Pulse Ox 93% ; Height 5 ft. 9 in. ; Pain 6/10; jl7 18:35 BP 107 / 70; Pulse 94; Resp 16; Pulse Ox 97% ; bp 19:30 BP 104 / 60; Pulse 71; Resp 18 S; Pulse Ox 95% on R/A; ha1 20:30 BP 106 / 72; Pulse 102; Resp 18 S; Pulse Ox 96% on R/A; ha1 14:55 Pain Scale: Adult jl7 ED Course: 14:39 Patient arrived in ED. im 14:40 Renato Mars PA is PHCP. cp 14:40 Bobby Bermudez MD is Attending Physician. cp 14:57 Triage completed. jl7 14:57 Arm band placed on right wrist. jl7 15:11 Johnnie Craft, RN is Primary Nurse. bp 15:35 XRAY Chest (1 view) In Process Unspecified. EDMS 15:46 EKG done, by ED staff, reviewed by Renato HERCULES. em1 16:14 Basic Metabolic Panel Sent. em1 16:14 CBC with Diff Sent. em1 16:14 LFT's Sent. em1 16:14 Magnesium Sent. em1 16:14 NT PRO-BNP Sent. em1 16:14 PT-INR Sent. em1 16:14 Troponin HS Sent. em1 16:14 Initial lab(s) drawn, by me, sent to lab. Inserted saline lock: 22 gauge in right em1 wrist, using aseptic technique. Blood collected. Flushed with 10 mL NS. 16:33 Patient has correct armband on for positive identification. bp 20:55 Provided Education on: NEED TO WAIT FOR TRANSFER. PATIENT STATES " I AM HUNGRY, I AM ha1 GOING HOME IN TWENTY MINUTES.". 21:15 Primary Nurse role handed off by Johnnie Craft, RN rv1 21:16 No provider procedures requiring assistance completed. IV discontinued, intact, ha1 bleeding controlled, No redness/swelling at site. Pressure dressing applied. Administered Medications: 18:00 Drug: Potassium PO Effervescent Tablet 50 mEq PO once; dissolve in 4 ounces of water or bp juice Route: PO; 18:34 Follow up: Response: No adverse reaction bp Medication: 21:17 VIS not applicable for this client. ha1 Outcome: 18:52 ER care complete, transfer ordered by MD. cp 20:49 Discharge ordered by MD. cp 21:16 Discharged to home ambulatory, ha1 21:16 Condition: stable 21:16 Discharge instructions given to patient, Instructed on discharge instructions, follow up and referral plans. Demonstrated understanding of instructions, follow-up care, 21:17 Patient left the ED. ha1 Signatures: Dispatcher [employer] EDMS Du Carrasco em1 Renato Mars PA PA cp Leal, Jahala, RN RN jl7 Johnnie Craft RN RN bp Carmencita Napoles RN RN ha1 Yolande Zhao 1 Manuela Middleton
--- NOTE | 2025-02-02 18:52 | EDPHYS ---
Physician Documentation [facility] Name: Rylee Thomas Age: 39 yrs Sex: Female : 1985 Arrival Date: 02/02/2025 Time: 14:36 Bed 8 Private MD: ED Physician Bobby Bermudez HPI: 02/02 15:00 This 39 yrs old Female presents to ER via Ambulatory with complaints of Shortness Of cp Breath, Pain All Over, Lung pressure. 15:00 The patient has shortness of breath with light activity. cp 15:00 Onset: The symptoms/episode began/occurred gradually. Duration: The symptoms are cp continuous, and are steadily getting worse. Associated signs and symptoms: Pertinent positives: abdominal distension, Pertinent negatives: chest pain, productive cough, fever, vomiting. Patient with PMHX significant for hepatic failure, alcoholic cirrhosis with ascites. Patient reports increasing abdominal distension, sob, pain all over. 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 - Infectious Disease History:: Denies. - Social history:: Smoking status: Patient denies any tobacco usage or history of. ROS: 15:05 Constitutional: Negative for body aches, chills, fever, poor PO intake, cp 15:05 Eyes: Negative for injury, pain, redness, and discharge, cp 15:05 Cardiovascular: Negative for chest pain, palpitations, 15:05 Respiratory: Positive for shortness of breath, on exertion. Negative for cough, wheezing, 15:05 Abdomen/GI: Positive for abdominal distension, Negative for vomiting, diarrhea, constipation, 15:05 Neuro: Negative for altered mental status, dizziness, headache, syncope, 15:05 All other systems are negative, Exam: 15:10 Constitutional: The patient appears in no acute distress, alert, awake, cp non-diaphoretic, non-toxic, well developed, well nourished, 15:10 Head/Face: Normocephalic, atraumatic. cp 15:10 Eyes: Periorbital structures: appear normal, Conjunctiva: normal, no exudate, no injection, Sclera: no appreciated abnormality, Lids and lashes: appear normal, bilaterally, 15:10 ENT: External ear(s): are unremarkable, Nose: is normal, Mouth: Lips: moist, Oral mucosa: moist, Posterior pharynx: Airway: no evidence of obstruction, patent, swelling, is not appreciated, erythema, is not appreciated, exudate, is not appreciated, 15:10 Neck: ROM/movement: is normal, is supple, without pain, no range of motions limitations, 15:10 Chest/axilla: Inspection: normal, 15:10 Cardiovascular: Rate: tachycardic, Rhythm: regular, Edema: ankle edema, that is mild, JVD: is not appreciated, 15:10 Respiratory: the patient does not display signs of respiratory distress, Respirations: normal, no use of accessory muscles, no retractions, labored breathing, is not present, Breath sounds: decreased breath sounds, that are moderate, are heard in the right posterior middle lobe and right posterior lower lobe, stridor, is not appreciated, 15:10 Abdomen/GI: Inspection: distension, that is moderate, in the abdomen diffusely, Palpation: soft, in all quadrants, rebound tenderness, is not appreciated, involuntary guarding, is not appreciated, 15:10 Skin: cellulitis, is not appreciated, no rash present. 15:10 Neuro: Orientation: to person, place \T\ time. Mentation: is normal, Motor: moves all fours, strength is normal, 15:46 ECG was reviewed by the Attending Physician. cp Vital Signs: 14:55 BP 106 / 71; Pulse 115; Resp 20; Pulse Ox 93% ; Height 5 ft. 9 in. ; Pain 6/10; jl7 18:35 BP 107 / 70; Pulse 94; Resp 16; Pulse Ox 97% ; bp 19:30 BP 104 / 60; Pulse 71; Resp 18 S; Pulse Ox 95% on R/A; ha1 20:30 BP 106 / 72; Pulse 102; Resp 18 S; Pulse Ox 96% on R/A; ha1 14:55 Pain Scale: Adult jl7 MDM: 14:54 Medical Screening Exam initiated cp 15:00 Differential diagnosis: pneumonia, Pneumothorax pulmonary edema, Pulmonary Embolism cp Sepsis. 17:30 Data reviewed: vital signs, nurses notes, lab test result(s), EKG, radiologic studies, cp plain films, I have discussed the patient's presentation/case with the attending Emergency Department Physician; and as a result, I will transfer patient for thoracentesis and paracentesis to [facility]. 17:30 Antibiotic administration: Not indicated, the patient does not have an appreciated cp infiltrate. I considered the following discharge prescriptions or medication management in the emergency department Medications were administered in the Emergency Department. See MAR. Care significantly affected by the following chronic conditions: Liver Disease. Counseling: I had a detailed discussion with the patient and/or guardian regarding the historical points, exam findings, and any diagnostic results supporting the discharge/admit diagnosis, lab results, radiology results, the need to transfer to another facility, for higher level of care. 02/02 14:58 Order name: Basic Metabolic Panel; Complete Time: 17:23 cp 02/02 17:23 Interpretation: Normal except: K 3.1; BUN 5; CRE 0.29; CA 7.3. 02/02 14:58 Order name: CBC with Diff; Complete Time: 18:46 cp 02/02 14:58 Order name: LFT's; Complete Time: 17:23 cp 02/02 17:23 Interpretation: Normal except: AST 101; BILIT 2.2; BILID 1.4; ALB 2.3; GLOB 4.8; A/G cp 0.5. 02/02 14:58 Order name: Magnesium; Complete Time: 17:23 cp 02/02 14:58 Order name: NT PRO-BNP; Complete Time: 17:23 cp 02/02 14:58 Order name: PT-INR 02/02 14:58 Order name: Troponin HS; Complete Time: 17:23 cp 02/02 14:58 Order name: XRAY Chest (1 view); Complete Time: 16:18 cp 02/02 16:19 Interpretation: Report review. 02/02 14:58 Order name: Cardiac monitoring; Complete Time: 15:59 cp 02/02 14:58 Order name: EKG - Nurse/Tech; Complete Time: 15:46 cp 02/02 14:58 Order name: IV Saline Lock; Complete Time: 15:59 cp 02/02 14:58 Order name: Labs collected and sent; Complete Time: 15:59 cp 02/02 14:58 Order name: O2 Per Protocol; Complete Time: 15:59 cp 02/02 14:58 Order name: O2 Sat Monitoring; Complete Time: 15:59 cp EC:46 Rate is 101 beats/min. Rhythm is regular. MS interval is normal. QRS interval is cp normal. QT interval is normal. T waves are Inverted in lead aVR. Interpreted by me. Reviewed by me. Administered Medications: 18:00 Drug: Potassium PO Effervescent Tablet 50 mEq PO once; dissolve in 4 ounces of water or bp juice Route: PO; 18:34 Follow up: Response: No adverse reaction bp Disposition: 02/03 19:04 Co-signature as Attending Physician, Bobby Bermudez MD I reviewed the patient's care rt provided by the Advanced Practice Provider and agree with the diagnosis and treatment plan. Disposition Summary: 02/02/25 20:49 Discharge Ordered Notes: Location: Home cp Condition: Stable(02/02/25 20:49) cp Diagnosis - Dyspnea cp - Hypokalemia cp - Alcoholic cirrhosis of liver with ascites cp - Pleural effusion in other conditions classified elsewhere(02/02/25 20:49) cp Followup: cp - With: Private Physician - When: 2 - 3 days - Reason: Recheck today's complaints Discharge Instructions: - Discharge Summary Sheet cp - Ascites cp - Cirrhosis cp - Potassium Content of Foods cp - Paracentesis cp - Pleural Effusion cp - Pleurisy cp - Thoracentesis cp Forms: - Medication Reconciliation Form cp - Antibiotic Education cp - Prescription Opioid Use cp - Patient Portal Instructions cp - Leadership Thank You Letter cp Signatures: Dispatcher [employer] EDMS Renato Mars PA PA cp Leal, Jahala, RN RN jl7 Johnnie Craft RN RN bp Bobby Bermudez MD MD rt Corrections: (The following items were deleted from the chart) 02/02 14:58 14:58 BASIC METABOLIC PANEL+C.LAB.BRZ ordered. EDMS EDMS 14:58 14:58 CBC+H.LAB.BRZ ordered. EDMS EDMS 14:58 14:58 HEPATIC FUNCTION+C.LAB.BRZ ordered. EDMS EDMS 14:58 14:58 MAGNESIUM+C.LAB.BRZ ordered. EDMS EDMS 14:58 14:58 PROBNP+C.LAB.BRZ ordered. EDMS EDMS 14:58 14:58 PROTIME (+INR)+COAG.LAB.BRZ ordered. EDMS EDMS 14:58 14:58 Troponin High Sensitivity+C.LAB.BRZ ordered. EDMS EDMS 14:58 14:58 Chest Single View+RAD.RAD.BRZ ordered. EDMS EDMS 20:48 18:52 doctor cp cp 20:48 18:52 [facility] cp cp 20:48 18:52 Higher level of care cp cp 20:48 18:52 Stable cp cp 20:48 18:52 an acute exacerbation cp cp 20:48 18:52 have improved cp cp 20:48 18:52 Pleural effusion in other conditions classified elsewhere cp cp 20:48 18:52 Dyspnea, unspecified cp cp
[2025-02-02 21:45] VITALS: BP 106/72; O2SAT 96
[2025-02-03 07:03] LABS: PT Prothrombin Time 15.8; Protime INR 1.4
== END 2025-02-02 21:17 | disposition home or self-care (01) ==
LOC: ER 14:36
DX: R06.00 Dyspnea, unspecified (principal); J91.8 Pleural effusion in other conditions classified elsewhere; E87.6 Hypokalemia; K70.31 Alcoholic cirrhosis of liver with ascites
CPT/HCPCS: 36415; 71045; 80048; 80076; 83735; 83880; 84484; 85025; 85610; 99284

== ENCOUNTER 2025-02-03 09:10 | Emergency (ER) | payer SELFPAY ==
--- NOTE | 2025-02-03 10:00 | RAD REPORT ---
EXAM: Chest Pa And Lat (2 Views) HISTORY: 39 years Female Chest pain;Abdominal distention COMPARISON: Yesterday FINDINGS: LUNGS/PLEURA: Interval enlargement of the right pleural effusion which is moderate to large. Small le ft effusion. Associated atelectasis. CARDIAC/MEDIASTINUM: Stable size and configuration. UPPER ABDOMEN: No significant abnormality. BONES: No acute abnormality. Ibarra rods. LINES/TUBES/OTHER: N/A IMPRESSION: Enlarging right pleural effusion which is now moderate to large. Small left effusion.
[2025-02-03 11:08] LABS: Absolute Basophils 0.1 K/uL (0-0.5); Absolute Eosinophils 0.2 K/uL (0-0.5); Absolute Lymphocytes (CBC) 2.2 K/uL (0.7-4.9); Absolute Monocytes 0.7 K/uL (0.1-1.3); Basophils % 2.4 % (0-1.3); Eosinophils % 2.5 % (0-4.4); Hematocrit 32.4 % (36.0-45.0); Lymphocytes % 36.1 % (15.3-44.8); MCH 32.5 pg (27.0-35.0); MCV 95.4 fL (80-100); MPV 8.3 fL (7.6-11.3); Monocytes % 10.6 % (3.3-12.3); Neutrophils % 48.4 % (41.7-73.7); Platelets 203 thou/uL (152-406); RBC Red Blood Cell Count 3.39 M/uL (3.86-4.86); Red Cell Distribution Width 18.4 % (12.1-15.2)
[2025-02-03] MEDS ORDERED: ONDANSETRON 4 MG/2 ML VIAL ONE (11:08)
[2025-02-03] MEDS ORDERED: MORPHINE 4 MG/ML SYR ONE (11:09)
[2025-02-03 11:27] LABS: Albumin 2.4 g/dL (3.4-5.0); Albumin/Globulin Ratio 0.5 (1.1-1.8); Anion Gap 9.6 mEq/L (5.0-15.0); Bilirubin Direct 1.4 mg/dL (0-0.2); Bilirubin Indirect, Calculated 0.8 mg/dL (0.2-0.8); Bilirubin Total 2.2 mg/dL (0.2-1.0); Globulin 4.9 g/dL (2.3-3.5); Potassium 3.6 mEq/L (3.5-5.1); Protein, Total 7.3 g/dL (6.4-8.2); Troponin High Sensitivity 3.4 pg/mL (<58.9)
--- NOTE | 2025-02-03 11:27 | EDPHYS ---
Physician Documentation [facility] Name: Rylee Thomas Age: 39 yrs Sex: Female : 1985 Arrival Date: 02/03/2025 Time: 09:10 Bed 14 Private MD: ED Physician Brandon Montaño HPI: 02/03 09:53 This 39 yrs old Female presents to ER via Wheelchair with complaints of Chest dr5 Pain, Breathing Difficulty, Hip Pain. 09:53 Onset: The symptoms/episode began/occurred 1 week(s) ago. Patient is a 31-year-old dr5 female with history of cirrhosis of liver coming in with shortness of breath and right-sided pain that is normal for her when she is needing a thoracentesis and paracentesis for the past week. Patient states that she comes into the ER and gets transferred to [facility] due to just not having specialty. Patient is requesting transfer to hospital for paracentesis. Pt denies fever, body aches, dysuria.. Historical: - Allergies: 09:34 No Known Allergies; ll1 - PMHx: 09:34 cirrhosis of liver; Endometriosis of vagina; scoliosis; ll1 - PSHx: 09:34 back; left leg; partial hysterectomy; ll1 - Immunization history:: Adult Immunizations up to date. - Infectious Disease History:: Denies. - Social history:: Smoking status: Patient denies any tobacco usage or history of. ROS: 09:53 Constitutional: as per hpi dr5 Exam: 09:53 Constitutional: This is a well developed, well nourished patient who is awake, alert, dr5 and in no acute distress. Head/Face: Normocephalic, atraumatic. Eyes: Pupils equal round and reactive to light, extra-ocular motions intact. Lids and lashes normal. Conjunctiva and sclera are non-icteric and not injected. Cornea within normal limits. Periorbital areas with no swelling, redness, or edema. Chest/axilla: Normal chest wall appearance and motion. Nontender with no deformity. No lesions are appreciated. Cardiovascular: Regular rate and rhythm with a normal S1 and S2. Normal PMI, no JVD. No pulse deficits. Respiratory: Lungs have equal breath sounds bilaterally, clear to auscultation. No rales, rhonchi or wheezes noted. No increased work of breathing, no retractions or nasal flaring. Back: No spinal tenderness. No costovertebral tenderness. Full range of motion. 09:53 Neuro: Awake and alert, GCS 15, oriented to person, place, time, and situation. Cranial nerves II-XII grossly intact. Motor strength 5/5 in all extremities. Sensory grossly intact. Cerebellar exam normal. Normal gait. 09:53 Abdomen/GI: Inspection: distension, that is moderate, in the right upper quadrant, left upper quadrant, right lower quadrant and left lower quadrant, Bowel sounds: diminished, Palpation: mild abdominal tenderness, in all quadrants, Liver: is enlarged, tenderness, Vital Signs: 09:34 BP 107 / 71; Pulse 104; Resp 20; Temp 97.8; Pulse Ox 94% on R/A; Weight 65.77 kg; ll1 Height 5 ft. 9 in. ; Pain 6/10; 11:10 BP 104 / 68; Pulse 93; Resp 18; Pulse Ox 94% ; db 11:30 BP 103 / 61; Pulse 98; Resp 18; Pulse Ox 93% ; db 12:00 BP 100 / 66; Pulse 93; Resp 18; Pulse Ox 94% 2 lpm ; db 12:30 BP 96 / 61; Pulse 108; Resp 18; Pulse Ox 94% on R/A; db 13:00 BP 97 / 65; Pulse 92; Resp 16; Pulse Ox 96% on R/A; db 09:34 Body Mass Index 21.41 (65.77 kg, 175.26 cm) ll1 09:34 Pain Scale: Adult ll1 MDM: 09:15 Medical Screening Exam initiated dr5 15:12 Differential diagnosis: Ascites, pleural effusion, electrolyte abnormality. Data dr5 reviewed: vital signs, nurses notes, lab test result(s). I considered the following discharge prescriptions or medication management in the emergency department Medications were administered in the Emergency Department. See MAR. Care significantly affected by the following chronic conditions: Liver Disease, Scoliosis, Endometriosis. Care significantly affected by the following Social Determinants of Health: Poor access to healthcare and/or lack of insurance, Poor access to transportation, Problems related to employment. Counseling: I had a detailed discussion with the patient and/or guardian regarding the historical points, exam findings, and any diagnostic results supporting the discharge/admit diagnosis, the presence of at least one elevated blood pressure reading (>120/80) during this emergency department visit, lab results, radiology results, the need to transfer to another facility, for higher level of care, [facility] does not immediately have the required specialist, No GI available. Medication response: Response to treatment: the patient's symptoms have mildly improved after treatment. ED course: Accepted by Dr. Sahni at [facility]. Will transfer for paracentesis and thoracentesis.. 02/03 09:38 Order name: Basic Metabolic Panel; Complete Time: 11:42 dr5 02/03 09:38 Order name: CBC with Diff; Complete Time: 11:23 dr5 02/03 09:38 Order name: LFT's; Complete Time: 11:42 dr5 02/03 09:38 Order name: Troponin HS; Complete Time: 11:42 [email or web address] 02/03 09:45 Order name: AMMONIA; Complete Time: 11:23 dr5 02/03 09:38 Order name: Chest Pa And Lat (2 Views) XRAY; Complete Time: 10:01 dr5 02/03 09:38 Order name: EKG; Complete Time: 09:38 dr5 02/03 09:38 Order name: Cardiac monitoring; Complete Time: 11:06 dr5 02/03 09:38 Order name: EKG - Nurse/Tech; Complete Time: 11: dr5 02/03 09:38 Order name: IV Saline Lock; Complete Time: 11: dr5 02/03 09:38 Order name: Labs collected and sent; Complete Time: 11:06 dr5 02/03 09:38 Order name: O2 Per Protocol; Complete Time: 11: [email or web address]] 02/03 09:38 Order name: O2 Sat Monitoring; Complete Time: 11: dr5 EC:51 Rate is 99 beats/min. Rhythm is regular. QRS Hatch is Normal. GA interval is normal at dr5 164 msec. QRS interval is normal at 78 msec. Administered Medications: 11:10 Drug: morphine IVP or IV 4 mg IVP once over 4 mins Route: IVP; Infused Over: 4 mins; db Site: right antecubital; 11:39 Follow up: Response: No adverse reaction db 11:10 Drug: Ondansetron IVP 4 mg IVP once; over 2 minutes Route: IVP; Site: right antecubital;db 11:39 Follow up: Response: No adverse reaction db Disposition Summary: 02/03/25 11:27 Transfer Ordered Notes: Transfer Location: [facility] dr5 Reason: Higher level of care dr5 Condition: Stable dr5 Problem: chronic dr5 Symptoms: have worsened dr5 Accepting Physician: [facility] Raza Sahni(02/03/25 13:55) db Diagnosis - Alcoholic cirrhosis of liver with ascites dr5 - Pleural effusion, not elsewhere classified dr5 Forms: - Medication Reconciliation Form dr5 - SBAR form dr5 Signatures: Dispatcher [employer] EDRadha Kaur RN RN ll1 Janine Henderson RN RN db Edin Claudio, [employer]T [employer]EDER-C BELT [employer] FEEDER-Cdr5 Corrections: (The following items were deleted from the chart) 11:49 11:27 [facility] dr5 13:55 [facility]
--- NOTE | 2025-02-03 11:27 | ER ---
Nurse's Notes [facility] Name: Rylee Thomas Age: 39 yrs Sex: Female : 1985 Arrival Date: 02/03/2025 Time: 09:10 Bed 14 Private MD: Diagnosis: Alcoholic cirrhosis of liver with ascites;Pleural effusion, not elsewhere classified Presentation: 02/03 09:34 Chief complaint: Patient states: R sided body pain, SOB for 5+ days. Coronavirus ll1 screen: Client denies travel out of the [place] in the last 14 days. At this time, the client does not indicate any symptoms associated with coronavirus-19. Ebola Screen: Patient denies travel to an Ebola-affected area in the 21 days before illness onset. Initial Sepsis Screen: Does the patient meet any 2 criteria? No. Patient's initial sepsis screen is negative. Does the patient have a suspected source of infection? No. Patient's initial sepsis screen is negative. Risk Assessment: Do you want to hurt yourself or someone else? Patient reports no desire to harm self or others. Onset of symptoms was January 29, 2025. 09:34 Method Of Arrival: Wheelchair ll1 09:34 Acuity: NIDHI 3 ll1 Triage Assessment: 09:36 General: Appears distressed, uncomfortable, Behavior is calm, cooperative, appropriate ll1 for age. Pain: Complains of pain in R side of body Pain currently is 6 out of 10 on a pain scale. Cardiovascular: Reports chest pain, shortness of breath. GI: Reports lower abdominal pain, upper abdominal pain, bloating. Musculoskeletal: Reports pain in R side of body. Historical: - Allergies: 09:34 No Known Allergies; ll1 - PMHx: 09:34 cirrhosis of liver; Endometriosis of vagina; scoliosis; ll1 - PSHx: 09:34 back; left leg; partial hysterectomy; ll1 - Immunization history:: Adult Immunizations up to date. - Infectious Disease History:: Denies. - Social history:: Smoking status: Patient denies any tobacco usage or history of. Screenin:32 [facility] ED Fall Risk Assessment (Adult) History of falling in the last 3 months, db including since admission No falls in past 3 months (0 pts) Confusion or Disorientation No (0 pts) Intoxicated or Sedated No (0 pts) Impaired Gait No (0 pts) Mobility Assist Device Used No (0 pt) Altered Elimination No (0 pt) Score/Fall Risk Level 0 - 2 = Low Risk Oriented to surroundings, Maintained a safe environment. Abuse screen: Denies threats or abuse. Denies injuries from another. Nutritional screening: No deficits noted. Tuberculosis screening: No symptoms or risk factors identified. Assessment: 10:32 Reassessment: Patient and/or family updated on plan of care and expected duration. Pain ll1 level reassessed. 10:45 Reassessment: Patient appears in no apparent distress at this time. Patient and/or db family updated on plan of care and expected duration. Pain level reassessed. Patient is alert, oriented x 3, equal unlabored respirations, skin warm/dry/pink. General: Appears in no apparent distress. comfortable, Behavior is calm, cooperative. Neuro: Level of Consciousness is awake, alert, obeys commands, Oriented to person, place, time, situation. 10:45 Pain: Complains of pain in abdomen Pain does not radiate. Pain began gradually. db Cardiovascular: No deficits noted. Respiratory: Airway is patent Respiratory effort is even, labored, Respiratory pattern is regular, symmetrical. GI: Abdomen is distended, noted to have ascites, Reports lower abdominal pain, upper abdominal pain. : No deficits noted. No signs and/or symptoms were reported regarding the genitourinary system. 11:30 Reassessment: Patient appears in no apparent distress at this time. Patient and/or db family updated on plan of care and expected duration. Pain level reassessed. Patient is alert, oriented x 3, equal unlabored respirations, skin warm/dry/pink. 12:00 Reassessment: CALLED [facility] TO GIVE PT REPORT NURSE FOR PATIENT STATES IS UNABLE db TO TAKE REPORT DUE TO ROOM IS NOT READY OR CLEAN. 12:02 Reassessment: CALLED TRANSFER CENTER TO NOTIFY NURSE REFUSED TO TAKE REPORT. STATES db ROOM IS CLEAN AND READY. WILL TRY TO TRANSFER THIS NURSE TO GIVE PT REPORT. 12:08 Reassessment: TRANSFER CENTER STATES TO CALL BACK IN 15 OR 20 MIN. db 12:30 Reassessment: Patient appears in no apparent distress at this time. Patient and/or db family updated on plan of care and expected duration. Pain level reassessed. Patient is alert, oriented x 3, equal unlabored respirations, skin warm/dry/pink. PATIENT PROVIDED SOCKS. 12:45 Reassessment: ATTEMPTED TO CALL REPORT FOR PATIENT. [facility] RECEIVING UNIT FOR PT db STATES ROOM IS STILL NOT CLEAN AND IS UNABLE TO TAKE REPORT. 12:45 Reassessment: CALLED [facility] TRANSFER CENTER TO NOTIFY UNIT IS REFUSING TO TAKE db REPORT. 12:49 Reassessment: TRANSFER CENTER STATES WILL CALL EVS DUE TO ROOM WAS MARKED CLEANED db HOWEVER UNIT IS REPORTING ROOM IS STILL NOT CLEAN. STATES WILL CALL BACK. 13:00 Reassessment: [facility] CALLED BACK AND STATES TO GIVE UNIT APPROXIMATELY 5 MIN AND db CALL FOR REPORT. 13:10 Reassessment: PT AMBULATORY TO WAITING ROOM. db 13:10 Reassessment: CALLED [facility] RM 1614 TO GIVE PATIENT REPORT. db 13:15 Reassessment: REPORT GIVEN TO SCARLETT BOSWELL AT [facility] RM 1614. db 13:38 Reassessment: EMS ARRIVED FOR PATIENT TRANSPORT. db Vital Signs: 09:34 BP 107 / 71; Pulse 104; Resp 20; Temp 97.8; Pulse Ox 94% on R/A; Weight 65.77 kg; ll1 Height 5 ft. 9 in. ; Pain 6/10; 11:10 BP 104 / 68; Pulse 93; Resp 18; Pulse Ox 94% ; db 11:30 BP 103 / 61; Pulse 98; Resp 18; Pulse Ox 93% ; db 12:00 BP 100 / 66; Pulse 93; Resp 18; Pulse Ox 94% 2 lpm ; db 12:30 BP 96 / 61; Pulse 108; Resp 18; Pulse Ox 94% on R/A; db 13:00 BP 97 / 65; Pulse 92; Resp 16; Pulse Ox 96% on R/A; db 09:34 Body Mass Index 21.41 (65.77 kg, 175.26 cm) ll1 09:34 Pain Scale: Adult ll1 ED Course: 09:13 Patient arrived in ED. al6 09:15 Edin Claudio FNP-C is PHCP. dr5 09:15 Brandon Montaño MD is Attending Physician. dr5 09:36 Triage completed. ll1 09:36 Arm band placed on. ll1 09:58 Chest Pa And Lat (2 Views) XRAY In Process Unspecified. EDMS 10:30 Janine Henderson, SCARLETT is Primary Nurse. db 10:32 Patient placed in an exam room, on a stretcher. ll1 10:32 Warm blanket given. Pillow given. ll1 10:46 Initial lab(s) drawn, by me, sent to lab. EKG done, reviewed by Edin THORNTON. db Inserted saline lock: 22 gauge in right antecubital area, using aseptic technique. Blood collected. Flushed with 10 mL NS. 10:47 initiated a transfer with Kelsea from the [facility]. eb 11:03 connected the hospitalist validation architect for [facility] with Edin Adams for patient eb transfer consultation. 11:30 Patient has correct armband on for positive identification. Bed in low position. Call db light in reach. Side rails up X2. Provided Education on: TRANSFER. Pulse ox on. NIBP on. 11:45 administrative approval given by Kelsea Robert Rn/ patient has been accepted to [facility] room 1614/ Dr. Shirlene Sahni has accepted the patient in transfer/ report to be called to [phone]. 13:40 No provider procedures requiring assistance completed. Patient transferred, IV remains db in place. Oxygen administration via nasal cannula \T\ 2L/min Response to oxygen therapy: symptoms remain unchanged. Administered Medications: 11:10 Drug: morphine IVP or IV 4 mg IVP once over 4 mins Route: IVP; Infused Over: 4 mins; db Site: right antecubital; 11:39 Follow up: Response: No adverse reaction db 11:10 Drug: Ondansetron IVP 4 mg IVP once; over 2 minutes Route: IVP; Site: right antecubital;db 11:39 Follow up: Response: No adverse reaction db Medication: 11:30 VIS not applicable for this client. db Outcome: 11:27 ER care complete, transfer ordered by . dr5 13:40 Transferred by ground EMS to [facility], Transfer form completed. db X-rays sent w/ patient. 13:40 Condition: stable 13:40 Instructed on the need for transfer, 13:55 Patient left the ED. db Signatures: Dispatcher [employer] EDMS Yoana Barrow Lynsay, RN RN ll1 Janine Henderson RN RN db Edin Claudio, DEVELOPER EVANGELIST-C DEVELOPER EVANGELIST-Cdr5 Alea Amor6 Corrections: (The following items were deleted from the chart) 12:04 10:45 Reassessment: Patient appears in no apparent distress at this time. Patient db and/or family updated on plan of care and expected duration. Pain level reassessed. Patient is alert, oriented x 3, equal unlabored respirations, skin warm/dry/pink. db
[2025-02-03 14:10] VITALS: TEMP 97.8
[2025-02-03 14:25] VITALS: BP 97/65; O2SAT 96
== END 2025-02-03 13:55 | disposition short-term general hospital (02) ==
LOC: ER 09:10
DX: K70.31 Alcoholic cirrhosis of liver with ascites (principal); J90 Pleural effusion, not elsewhere classified
CPT/HCPCS: 36415; 71046; 80048; 80076; 82140; 84484; 85025; 93005; 96374; 96375; 99285; J2405

== ENCOUNTER 2025-02-09 23:27 | Emergency (ER) | payer SELFPAY ==
[2025-02-10] MEDS ORDERED: ALBUMIN HUMAN 25% 100 ML IV ONE ×2 (00:10→03:29)
[2025-02-10 00:33] LABS: PT Prothrombin Time 16.9 SECONDS (10-13.0); Protime INR 1.51
[2025-02-10 00:35] LABS: Absolute Basophils 0.1 K/uL (0-0.5); Absolute Eosinophils 0.2 K/uL (0-0.5); Absolute Lymphocytes (CBC) 2.3 K/uL (0.7-4.9); Absolute Monocytes 0.6 K/uL (0.1-1.3); Absolute Neutrophil 4.1 K/uL (1.8-8.0); Eosinophils % 2.7 % (0-4.4); Hematocrit 28.9 % (36.0-45.0); Hemoglobin 9.9 g/dL (12.0-15.0); Lymphocytes % 31.8 % (15.3-44.8); MCH 32.4 pg (27.0-35.0); MCHC 34.2 g/dL (32.0-36.0); MCV 94.8 fL (80-100); MPV 9.1 fL (7.6-11.3); Monocytes % 8.5 % (3.3-12.3); Platelets 163 thou/uL (152-406); RBC Red Blood Cell Count 3.05 M/uL (3.86-4.86); Red Cell Distribution Width 18.5 % (12.1-15.2)
[2025-02-10 00:47] LABS: Albumin 2.3 g/dL (3.4-5.0); Albumin/Globulin Ratio 0.5 (1.1-1.8); Bilirubin Direct 1.2 mg/dL (0-0.2); Bilirubin Indirect, Calculated 0.8 mg/dL (0.2-0.8); Globulin 4.5 g/dL (2.3-3.5); Protein, Total 6.8 g/dL (6.4-8.2); Troponin High Sensitivity 4.3 pg/mL (<58.9)
--- NOTE | 2025-02-10 03:24 | ER ---
Nurse's Notes [facility] Name: Rylee Thomas Age: 39 yrs Sex: Female : 1985 Arrival Date: 02/09/2025 Time: 23:27 Bed 4 Private MD: Diagnosis: Alcoholic cirrhosis of liver with ascites;Other ascites;Right pleural effusion with compressive atelectasis, liver cirrhosis with liver failure, alcoholism with acute alcohol intoxication Presentation: 02/09 23:51 Chief complaint: Patient states: chest pain and tightness, abdominal pain and swelling. dd2 CP began yesterday. Coronavirus screen: At this time, the client does not indicate any symptoms associated with coronavirus-19. Ebola Screen: No symptoms or risks identified at this time. Initial Sepsis Screen: Does the patient meet any 2 criteria? No. Patient's initial sepsis screen is negative. Does the patient have a suspected source of infection? No. Patient's initial sepsis screen is negative. Risk Assessment: Do you want to hurt yourself or someone else? Patient reports no desire to harm self or others. Onset of symptoms was February 08, 2025. 23:51 Method Of Arrival: Ambulatory dd2 23:51 Acuity: NIDHI 3 dd2 Triage Assessment: 23:53 General: Appears in no apparent distress. uncomfortable, Behavior is calm, cooperative, dd2 appropriate for age. Pain: Complains of pain in chest and abdomen. Cardiovascular: Reports chest pain, Patient's skin is warm and dry. Historical: - Allergies: 23:53 No Known Allergies; dd2 - PMHx: 23:53 cirrhosis of liver; Endometriosis of vagina; scoliosis; dd2 - PSHx: 23:53 back; left leg; partial hysterectomy; dd2 - Immunization history:: Adult Immunizations up to date. - Infectious Disease History:: Denies. - Social history:: Smoking status: Patient denies any tobacco usage or history of. - Family history:: not pertinent. Screenin/24 00:00 [facility] ED Fall Risk Assessment (Adult) History of falling in the last 3 months, jj7 including since admission No falls in past 3 months (0 pts) Confusion or Disorientation No (0 pts) Intoxicated or Sedated No (0 pts) Impaired Gait No (0 pts) Mobility Assist Device Used No (0 pt) Altered Elimination No (0 pt) Score/Fall Risk Level 0 - 2 = Low Risk Oriented to surroundings, Maintained a safe environment, Educated pt \T\ family on fall prevention, incl call for assistance when getting out of bed, Assessed \T\ reinforced patient's understanding of fall precautions. Abuse screen: Denies threats or abuse. Nutritional screening: No deficits noted. Tuberculosis screening: No symptoms or risk factors identified. Assessment: 00:00 General: Appears in no apparent distress. uncomfortable, Behavior is calm, cooperative, jj7 appropriate for age. Pain: Complains of pain in chest and abdomen. Cardiovascular: Reports chest pain, shortness of breath. Respiratory: Reports shortness of breath at rest. GI: Abdomen is noted to have ascites. 02:00 Reassessment: RESTING COMFORTABLY IN BED. NO DISTRESS NOTED. VS STABLE. LIGHTS DIMMED. jj7 CALL MARQUES IN REACH. 07:00 Reassessment: Patient appears in no apparent distress at this time. Patient is alert, bp oriented x 3, equal unlabored respirations, skin warm/dry/pink. TRANSFER INITIATED. 16:30 Reassessment: REPORT TO ADALI PANTOJA AT [facility]. TRANSPORT PENDING. bp Vital Signs: 02/09 23:51 BP 108 / 72; Pulse 98; Resp 18; Temp 98.4; Pulse Ox 94% on R/A; Weight 57.5 kg; Pain dd2 8/10; 02/10 01:00 BP 97 / 50; Pulse 95; Resp 16; Pulse Ox 94% ; jj7 02:00 BP 99 / 51; Pulse 99; Resp 20; Pulse Ox 93% ; jj7 03:01 BP 88 / 53; Pulse 100; Resp 16; Temp 98.4; Pulse Ox 93% ; bm8 06:07 BP 100 / 60; Pulse 98; Resp 18; Pulse Ox 94% on R/A; jj7 08:00 BP 88 / 54; Pulse 95; Resp 15; Pulse Ox 92% ; bp 12:00 BP 87 / 55; Pulse 98; Resp 16; Pulse Ox 92% ; bp 16:00 BP 92 / 57; Pulse 100; Resp 16; Temp 98.5; Pulse Ox 93% ; bp 02/09 23:51 Pain Scale: Adult dd2 Morrill Coma Score: 03:01 Eye Response: spontaneous(4). Motor Response: obeys commands(6). Verbal Response: bm8 oriented(5). Total: 15. 04:49 Eye Response: spontaneous(4). Motor Response: obeys commands(6). Verbal Response: sp4 oriented(5). Total: 15. ED Course: 02/09 23:29 Patient arrived in ED. mr 23:32 Jean Carlos Warren MD is Attending Physician. sp4 23:53 Triage completed. dd2 23:53 Arm band placed on right wrist. dd2 02/10 00:00 Patient has correct armband on for positive identification. Bed in low position. Call jj7 light in reach. Side rails up X 1. Provided Education on: USE OF CALL MARQUES. Client placed on continuous cardiac and pulse oximetry monitoring. NIBP monitoring applied. monitor technician on. Lights dimmed. Warm blanket given. 00:00 Inserted saline lock: 20 gauge in left wrist, using aseptic technique. Blood collected. jj7 Flushed with 10 mL NS. 00:06 EKG done, by ED staff, reviewed by Jean Carlos Warren MD. oe 00:22 Alcohol Level Sent. jj7 00:22 Test, Serum Sent. jj7 00:22 Basic Metabolic Panel Sent. jj7 00:22 CBC with Diff Sent. jj7 00:22 LFT's Sent. jj7 00:22 Troponin HS Sent. jj7 00:22 PT-INR Sent. jj7 00:22 NT PRO-BNP Sent. jj7 00:22 Magnesium Sent. jj7 00:36 XRAY Chest (1 view) In Process Unspecified. EDMS 00:39 Castro Ken, RN is Primary Nurse. jj7 01:48 initiated transfer with [facility]. vk 04:13 called [facility] spoke with david she advised they are waiting for their physician to call vk back with acceptance and a bed. 09:00 called [facility] [place] to check on the status of the transfer per Manpreet they eb are still waiting for a bed to open up for her. 11:14 Randi from the [facility] [place] called to inform us they are still waiting eb for a bed to open up for her. 15:36 called [facility] to check status of bed - no answer. sp 15:48 called [facility] to check status of bed placement talked to Samantha. sp 15:49 Admin approval by Chelsy Balbuena accepted pt 9 tower room 902 report sp number [phone]. 16:27 No provider procedures requiring assistance completed. Patient transferred, IV remains bp in place. Patient maintains SpO2 saturation greater than 95% on room air. Administered Medications: 00:30 Drug: Albumin IVPB 25 grams 100 ml IVPB once; (Note: Albumin 25% concentration) Volume: jj7 100 ml; Route: IVPB; Site: left wrist; 04:35 Follow up: IV Status: Completed infusion jj7 03:47 Drug: Droperidol IVP 1.25 mg IVP once Route: IVP; Site: left wrist; jj7 03:47 Drug: midodrine 10 mg PO once Route: PO; jj7 04:35 Follow up: Response: Marked relief of symptoms jj7 03:48 Drug: Albumin IVPB 25 grams 100 ml IVPB once; (Note: Albumin 25% concentration) Volume: jj7 100 ml; Route: IVPB; Site: left wrist; 04:34 Follow up: IV Status: Completed infusion jj7 03:48 Drug: Potassium PO Effervescent Tablet 50 mEq PO once; dissolve in 4 ounces of water or jj7 juice Route: PO; 04:32 Follow up: Response: No adverse reaction jj7 04:42 CANCELLED (Physician Discretion): potassium [id number] meq IV at calculated rate once; sp4 administer over 1-2 hours Medication: 00:00 VIS not applicable for this client. jj7 Outcome: 03:24 ER care complete, transfer ordered by sp4 16:27 Transferred by ground EMS to [facility], Transfer form completed. bp 16:27 Condition: stable 16:27 Instructed on the need for transfer, 17:14 Patient left the ED. bp Signatures: Dispatcher [employer] EDMS Juhi Koroma Mary, Reg Reg mr Forrest, Silver Johnnie Cote RN RN bp Botello, Elizabeth eb Johnson, Juwairiyah, RN RN jj7 Jean Carlos Warren MD MD sp4 Elisa Campos Brad, RN RN bm8 MALIK RAMIREZ RN RN dd2
--- NOTE | 2025-02-10 03:24 | EDPHYS ---
Physician Documentation [facility] Name: Rylee Thomas Age: 39 yrs Sex: Female : 1985 Arrival Date: 02/09/2025 Time: 23:27 Bed 4 Private MD: ED Physician Jean Carlos Warren HPI: 02/09 23:32 This 39 yrs old Female presents to ER via Unassigned with complaints of Pain sp4 All Over, Chest Tightness. 02/10 04:49 39-year-old female with history of alcoholic liver cirrhosis presents with complaint of sp4 tense abdominal ascites. Also presents with complaint of chest discomfort and pain . . Historical: - Allergies: 02/09 23:53 No Known Allergies; dd2 - PMHx: 23:53 cirrhosis of liver; Endometriosis of vagina; scoliosis; dd2 - PSHx: 23:53 back; left leg; partial hysterectomy; dd2 - Immunization history:: Adult Immunizations up to date. - Infectious Disease History:: Denies. - Social history:: Smoking status: Patient denies any tobacco usage or history of. - Family history:: not pertinent. ROS: 02/10 04:49 Constitutional: Negative for fever, chills, and weight loss, positive tense abdominal sp4 ascites positive chest pain All other systems are negative, Exam: 04:49 Constitutional: Patient is thin appearing female with protuberant abdomen and tense sp4 abdominal ascites, visibly intoxicated Head/Face: Normocephalic, atraumatic. Eyes: Pupils equal round and reactive to light, extra-ocular motions intact. Lids and lashes normal. Conjunctiva and sclera are not injected. Cornea within normal limits. Periorbital areas with no swelling, redness, or edema. ENT: Nares patent. No nasal discharge, no septal abnormalities noted. Tympanic membranes are normal and external auditory canals are clear. Oropharynx with no redness, swelling, or masses, exudates, or evidence of obstruction, uvula midline. Mucous membranes moist. Neck: Trachea midline, no thyromegaly or masses palpated, and no cervical lymphadenopathy. Supple, full range of motion without nuchal rigidity, or vertebral point tenderness. Chest/axilla: Normal chest wall appearance and motion. Nontender with no deformity. No lesions are appreciated. Cardiovascular: Regular rate and rhythm with a normal S1 and S2. No gallops, murmurs, or rubs. Normal PMI, no JVD. No pulse deficits. Respiratory: Lungs have equal breath sounds bilaterally, clear to auscultation and percussion. No rales, rhonchi or wheezes noted. No increased work of breathing, no retractions or nasal flaring. Abdomen/GI: Soft, with normal bowel sounds. Moderate distention, protuberant abdomen, tense abdominal ascites Back: No spinal tenderness. No costovertebral tenderness. Skin: Warm, dry with normal turgor. Normal color with no rashes, no lesions, and no evidence of cellulitis. MS/ Extremity: Pulses equal, no cyanosis. Neurovascular intact. Full, normal range of motion. Neuro: Awake and alert, GCS 15, oriented to person, place, time, and situation. Cranial nerves II-XII grossly intact. Motor strength 5/5 in all extremities. Sensory grossly intact. Intoxicated 04:49 ECG was reviewed by the Attending Physician. EKG at 0002 sinus tachycardia rate 101. Vital Signs: 02/09 23:51 BP 108 / 72; Pulse 98; Resp 18; Temp 98.4; Pulse Ox 94% on R/A; Weight 57.5 kg; Pain dd2 8/10; 02/10 01:00 BP 97 / 50; Pulse 95; Resp 16; Pulse Ox 94% ; jj7 02:00 BP 99 / 51; Pulse 99; Resp 20; Pulse Ox 93% ; jj7 03:01 BP 88 / 53; Pulse 100; Resp 16; Temp 98.4; Pulse Ox 93% ; bm8 06:07 BP 100 / 60; Pulse 98; Resp 18; Pulse Ox 94% on R/A; jj7 08:00 BP 88 / 54; Pulse 95; Resp 15; Pulse Ox 92% ; bp 12:00 BP 87 / 55; Pulse 98; Resp 16; Pulse Ox 92% ; bp 16:00 BP 92 / 57; Pulse 100; Resp 16; Temp 98.5; Pulse Ox 93% ; bp 02/09 23:51 Pain Scale: Adult dd2 Cody Coma Score: 03:01 Eye Response: spontaneous(4). Motor Response: obeys commands(6). Verbal Response: bm8 oriented(5). Total: 15. 04:49 Eye Response: spontaneous(4). Motor Response: obeys commands(6). Verbal Response: sp4 oriented(5). Total: 15. MDM: 02/09 23:34 Medical Screening Exam initiated sp4 02/10 01:50 Data reviewed: vital signs, nurses notes. ED course: XR CHEST 1 VIEW CLINICAL sp4 INDICATION: Abdominal distention. COMPARISON: Chest radiograph 02/04/2025. FINDINGS: SUPPORT DEVICES: Thoracolumbar spinal fusion jalil in place. LUNGS/PLEURAL SPACES: Interval development of moderate right pleural effusion with associated compressive atelectasis. Central pulmonary vascular congestion. Mild left basilar opacity, likely subsegmental atelectasis. No pneumothorax. HEART/MEDIASTINUM: Stable. BONES/UPPER ABDOMEN/SOFT TISSUES: No acute findings. IMPRESSION: Interval development of moderate right pleural effusion with associated compressive atelectasis. 03:21 ED course: XR CHEST 1 VIEW CLINICAL INDICATION: Abdominal distention. COMPARISON: Chest sp4 radiograph 02/04/2025. FINDINGS: SUPPORT DEVICES: Thoracolumbar spinal fusion jalil in place. LUNGS/PLEURAL SPACES: Interval development of moderate right pleural effusion with associated compressive atelectasis. Central pulmonary vascular congestion. Mild left basilar opacity, likely subsegmental atelectasis. No pneumothorax. HEART/MEDIASTINUM: Stable. BONES/UPPER ABDOMEN/SOFT TISSUES: No acute findings. IMPRESSION: Interval development of moderate right pleural effusion with associated compressive atelectasis. . 04:52 Differential diagnosis: acute pericarditis, anxiety, chest wall pain, esophagitis, sp4 gastritis, gastroesophageal reflux disease (GERD), hiatal hernia. HEART Score: History: Slightly Suspicious (0), ECG: Normal (0), Age: < or = 45 years (0), Risk Factors: No Risk Factors Known (0), Troponin: < or = 1 x Normal Limit (0), Total Score = 0. ED course: Patient found to be heavily intoxicated with alcohol level 378. Patient requires hepatology and also pulmonology . Will recommend transfer for paracentesis and thoracentesis and further management at [facility]. Stable for transfer with ground EMS. 04:54 ED course: Patient's blood pressure has dropped in the emergency department 80s over sp4 50s patient had to be given IV albumin and IV KCl for potassium replacement. Blood pressure has improved /patient stable for transfer with ground EMS.. 02/09 23:33 Order name: Basic Metabolic Panel; Complete Time: :02/09 23:33 Order name: CBC with Diff; Complete Time: :02/09 23:33 Order name: LFT's; Complete Time: :02/09 23:33 Order name: Magnesium; Complete Time: :02/09 23:33 Order name: NT PRO-BNP; Complete Time: :02/09 23:33 Order name: PT-INR; Complete Time: :02/09 23:33 Order name: Troponin HS; Complete Time: :02/09 23:34 Order name: Test, Serum; Complete Time: :02/09 23:34 Order name: Alcohol Level; Complete Time: :02/09 23:33 Order name: XRAY Chest (1 view) 02/09 23:33 Order name: Cardiac monitoring; Complete Time: 00:02/09 23:33 Order name: EKG - Nurse/Tech; Complete Time: 00:02/09 23:33 Order name: IV Saline Lock; Complete Time: 00:02/09 23:33 Order name: Labs collected and sent; Complete Time: 00:02/09 23:33 Order name: O2 Per Protocol; Complete Time: 00:02/09 23:33 Order name: O2 Sat Monitoring; Complete Time: : EC:02 Rate is 101 beats/min. Rhythm is regular, Sinus tachycardia. QRS [place] is Normal. RI sp4 interval is normal. QRS interval is normal. QT interval is normal. No Q waves. T waves are Normal. No ST changes noted. Clinical impression: No evidence of ischemia. Interpreted by me. Reviewed by me. Administered Medications: 00:30 Drug: Albumin IVPB 25 grams 100 ml IVPB once; (Note: Albumin 25% concentration) Volume: jj7 100 ml; Route: IVPB; Site: left wrist; 04:35 Follow up: IV Status: Completed infusion jj7 03:47 Drug: Droperidol IVP 1.25 mg IVP once Route: IVP; Site: left wrist; jj7 03:47 Drug: midodrine 10 mg PO once Route: PO; jj7 04:35 Follow up: Response: Marked relief of symptoms jj7 03:48 Drug: Albumin IVPB 25 grams 100 ml IVPB once; (Note: Albumin 25% concentration) Volume: jj7 100 ml; Route: IVPB; Site: left wrist; 04:34 Follow up: IV Status: Completed infusion jj7 03:48 Drug: Potassium PO Effervescent Tablet 50 mEq PO once; dissolve in 4 ounces of water or jj7 juice Route: PO; 04:32 Follow up: Response: No adverse reaction jj7 04:42 CANCELLED (Physician Discretion): potassium meq IV at calculated rate once; sp4 administer over 1-2 hours Disposition: 04:52 Chart complete. sp4 04:54 Critical Care:. sp4 Disposition Summary: 02/10/25 03:24 Transfer Ordered Notes: Transfer Location: [facility] sp4 Reason: Higher level of care sp4 Condition: Stable sp4 Problem: new sp4 Symptoms: have improved sp4 Accepting Physician: [facility]'s attending physician(02/10/25 17:14) bp Diagnosis - Alcoholic cirrhosis of liver with ascites sp4 - Other ascites sp4 - Right pleural effusion with compressive atelectasis, liver cirrhosis with liver sp4 failure, alcoholism with acute alcohol intoxication Forms: - Medication Reconciliation Form sp4 - SBAR form sp4 Critical care time excluding procedures: 04:54 Critical care time: Bedside Care: 36 minutes, Consultation: 12 minutes. Total time: 48 sp4 minutes Signatures: Dispatcher [employer] EDMS Johnnie Craft RN RN bp Castro Ken RN RN jJean Carlos Cabrera MD MD sp4 MALIK RAMIREZ RN RN dd2 Corrections: (The following items were deleted from the chart) 02/09 23:34 23:34 BASIC METABOLIC PANEL+C.LAB.BRZ ordered. EDMS EDMS 23:34 23:34 CBC+H.LAB.BRZ ordered. EDMS EDMS 23:34 23:34 HEPATIC FUNCTION+C.LAB.BRZ ordered. EDMS EDMS 23:34 23:34 MAGNESIUM+C.LAB.BRZ ordered. EDMS EDMS 23:34 23:34 PROBNP+C.LAB.BRZ ordered. EDMS EDMS 23:34 23:34 PROTIME (+INR)+COAG.LAB.BRZ ordered. EDMS EDMS 23:34 23:34 Troponin High Sensitivity+C.LAB.BRZ ordered. EDMS EDMS 23:34 23:34 Chest Single View+RAD.RAD.BRZ ordered. EDMS EDMS 23:34 23:34 TEST, SERUM+SC.LAB.BRZ ordered. EDMS EDMS 23:34 23:34 ETHANOL+C.LAB.BRZ ordered. EDMS EDMS 02/10 04:42 03:25 Potassium Chloride IV 20 mEq IV at calculated rate once; administer over 1-2 sp4 hours ordered. sp4 17:14 03:24 [facility]'s attending physician sp4 bp
[2025-02-10] MEDS ORDERED: MIDODRINE HCL 5 MG TABLET ONE (03:28)
[2025-02-10] MEDS ORDERED: POTASSIUM 25 MEQ EFFERV TAB ONE (03:28)
[2025-02-10] MEDS ORDERED: droPERidol 5 MG/2 ML VIAL ONE (03:28)
[2025-02-10] MEDS ORDERED: KCL 20 MEQ/100 mL IVPB 100 ML IV ONE (03:29)
--- NOTE | 2025-02-10 04:22 | RAD REPORT ---
XR CHEST 1 VIEW CLINICAL INDICATION: Abdominal distention. COMPARISON: Chest radiograph 02/04/2025. FINDINGS: SUPPORT DEVICES: Thoracolumbar spinal fusion jalil in place. LUNGS/PLEURAL SPACES: Interval development of moderate right pleural effusion with associated geena sive atelectasis. Central pulmonary vascular congestion. Mild left basilar opacity, likely subsegmental atelectasis. No pneumothorax. HEART/MEDIASTINUM: Stable. BONES/UPPER ABDOMEN/SOFT TISSUES: No acute findings. IMPRESSION: Interval development of moderate right pleural effusion with associated compressive atelectasis. Electronically signed by: Erika Rivera MD 02/10/2025 01:19 AM CDT Due to temporary technical issues with the PACS/Planex reporting system, reports are being kayla d by the in-house radiologist without review as a courtesy to ensure prompt reporting the interpreting radiologist is fully responsible for the content of the report. Transcribed Date/Time: 02/10/2025 4:22 AM
[2025-02-10] MEDS ORDERED: NA CHLORIDE 0.9% 250 ML ONE (04:27)
[2025-02-10 17:30] VITALS: BP 92/57; TEMP 98.5; O2SAT 93
--- NOTE | 2025-02-13 12:28 | EKG ---
Test Date: 2025-02-10 Test Time: 00:02:41 Field Representative/Health Education: ANTHONY MEASUREMENT RESULTS: Intervals: Rate: 101 DE: 172 QRSD: 88 QT: 378 QTc: 490 Homer: P: 77 DE: 172 QRS: 57 T: 47 INTERPRETIVE STATEMENTS: Sinus tachycardia Otherwise normal ECG Compared to ECG 02/03/2025 10:51:09 Sinus rhythm no longer present Myocardial infarct finding no longer present Electronically Signed On 02-13-25 12:21:55 CDT by Marcial Cullen
== END 2025-02-10 17:14 | disposition short-term general hospital (02) ==
LOC: ER 23:27
DX: K70.31 Alcoholic cirrhosis of liver with ascites (principal); J90 Pleural effusion, not elsewhere classified; J98.11 Atelectasis; K72.90 Hepatic failure, unspecified without coma; F10.229 Alcohol dependence with intoxication, unspecified
CPT/HCPCS: 36415; 71045; 80048; 80076; 82077; 83735; 83880; 84484; 84703; 85025; 85610; 93005; 96365; 96366; 96375; 99285; J1790; J3480; J7050; P9047

== ENCOUNTER 2025-05-04 19:05 | Emergency (ER) | payer SELFPAY ==
[2025-05-04 20:15] LABS: Absolute Lymphocytes (CBC) 1.4 K/uL (0.7-4.9); Hematocrit 28.7 % (36.0-45.0); Hemoglobin 9.5 g/dL (12.0-15.0); MCH 30.7 pg (27.0-35.0); MCHC 33.2 g/dL (32.0-36.0); MCV 92.2 fL (80-100); MPV 9.0 fL (7.6-11.3); Nucleated RBC Absolute Count 0.0 (0-0); Nucleated Red Blood Cells % 0.2 % (0-0); RBC Red Blood Cell Count 3.11 M/uL (3.86-4.86); White Blood Count 4.20 thou/uL (4.3-10.9)
[2025-05-04 20:23] LABS: ALT/SGPT 20.0 U/L (13-56); AST/SGOT 83.0 U/L (15-37); Albumin 2.2 g/dL (3.4-5.0); Albumin/Globulin Ratio 0.4 (1.1-1.8); Alkaline Phosphatase 105.0 U/L (45-117); Anion Gap 13.7 mEq/L (5.0-15.0); BUN Blood Urea Nitrogen 5.0 mg/dL (7-18); Globulin 4.9 g/dL (2.3-3.5); Glucose Level 151.0 mg/dL (74-106); Lipase 48.0 U/L (13-75); Potassium 2.7 mEq/L (3.5-5.1)
[2025-05-04] MEDS ORDERED: POTASSIUM 25 MEQ EFFERV TAB ONE (21:06)
--- NOTE | 2025-05-04 21:06 | RAD REPORT ---
Procedure: Chest Single View HISTORY: Shortness of breath COMPARISON: April 21, 2025 FINDINGS: Mild enlargement of a large right pleural effusion. Passive right lung atelectasis. Left lung appears clear. Borderline cardiomegaly IMPRESSION: Mild enlargement of a large right pleural effusion
--- NOTE | 2025-05-04 21:11 | EDPHYS ---
Physician Documentation [facility] Name: Ryele Thomas Age: 39 yrs Sex: Female : 1985 Arrival Date: 05/04/2025 Time: 19:05 Bed 23 Private MD: ED Physician Arias Adam HPI: 05/04 21:19 This 39 yrs old Female presents to ER via Wheelchair with complaints of Shortness Of ms3 Breath, Abdominal Swelling. 21:19 39-year-old female with past medical history of liver cirrhosis, endometriosis of the ms3 vagina, scoliosis presents to the emergency department for shortness of breath and abdominal fullness. Patient states she has not had a paracentesis thoracentesis over the last 2 weeks. Patient typically has these procedures performed every week. Patient denies nausea, vomiting, pain, fevers, chills. Historical: - Allergies: 19:20 No Known Allergies; me1 - PMHx: 19:20 cirrhosis of liver; Endometriosis of vagina; scoliosis; me1 - PSHx: 19:20 L leg surgery; partial hysterectomy; me1 - Immunization history:: Adult Immunizations up to date. - Infectious Disease History:: Denies. - Social history:: Smoking status: Patient denies any tobacco usage or history of. ROS: 21:19 Constitutional: Negative for fever, and chills. Cardiovascular: Negative for chest ms3 pain, and palpitations. 21:19 MS/Extremity: Negative for injury and deformity, Skin: Negative for injury, rash, and discoloration, 21:19 Respiratory: Positive for shortness of breath, 21:19 Abdomen/GI: Positive for Distention, Exam: 21:19 Constitutional: This is a well developed, well nourished patient who is awake, alert, ms3 and in no acute distress. Cardiovascular: Regular rate and rhythm with a normal S1 and S2. No gallops, murmurs, or rubs. Normal PMI, no JVD. No pulse deficits. Respiratory: Lungs have equal breath sounds bilaterally, clear to auscultation and percussion. No rales, rhonchi or wheezes noted. No increased work of breathing, no retractions or nasal flaring. 21:19 Skin: Warm, dry with normal turgor. Normal color with no rashes, no lesions, and no evidence of cellulitis. 21:19 Abdomen/GI: Inspection: abdomen appears normal, Bowel sounds: normal, in all quadrants, Palpation: nontender, in all quadrants, Distended with ascites, Vital Signs: 19:19 BP 122 / 75; Pulse 109; Resp 19; Temp 98.2; Pulse Ox 95% ; Weight 57.61 kg; Height 5 me1 ft. 9 in. ; 20:32 BP 106 / 65; Pulse 102; Resp 16; Pulse Ox 93% on R/A; jb4 22:43 BP 102 / 60; Pulse 111; Resp 16; Pulse Ox 92% on R/A; jb4 05/05 00:28 BP 103 / 52; Pulse 52; Resp 18 S; Temp 98.1(TE); Pulse Ox 99% on R/A; br2 05/04 19:19 Body Mass Index 18.75 (57.61 kg, 175.26 cm) me1 MDM: 05/04 19:29 Medical Screening Exam initiated ms3 21:19 Differential diagnosis: Anemia Ascites versus pleural effusion. Data reviewed: vital ms3 signs, nurses notes, lab test result(s), radiologic studies, and as a result, I will transfer patient for hepatology/ IR for thoracentesis. I considered the following discharge prescriptions or medication management in the emergency department Medications were administered in the Emergency Department. See MAR. Independent interpretation of the following test(s) in the Emergency Department X-Ray: My interpretation is Chest x-ray image reviewed by me revealed large right pleural effusion. Counseling: I had a detailed discussion with the patient and/or guardian regarding the historical points, exam findings, and any diagnostic results supporting the discharge/admit diagnosis, lab results, radiology results, the need to transfer to another facility, [facility] does not immediately have the required specialist. ED course: Discussed large right pleural effusion with patient. Will plan on transferring patient to [facility]. 05/04 19:11 Order name: CBC with Diff; Complete Time: 22:28 ms3 05/04 19:11 Order name: CMP; Complete Time: 20:50 ms3 05/04 19:11 Order name: Lipase; Complete Time: 20:50 ms3 05/04 21:34 Order name: CBC Smear Scan; Complete Time: 22:28 EDMS 05/04 19:42 Order name: CXR XRAY; Complete Time: 21:09 ms3 05/04 19:11 Order name: IV Saline Lock; Complete Time: 22:19 ms3 05/04 19:11 Order name: Labs collected and sent; Complete Time: 19:59 ms3 Administered Medications: 21:15 Drug: Potassium PO Effervescent Tablet 50 mEq PO once; dissolve in 4 ounces of water or jb4 juice Route: PO; 05/05 00:05 Follow up: Response: No adverse reaction br2 Disposition Summary: 05/04/25 21:10 Transfer Ordered Notes: Transfer Location: [facility] ms3 Reason: Higher level of care ms3 Condition: Stable ms3 Problem: new ms3 Symptoms: are unchanged ms3 Accepting Physician: (05/05/25 02:59) br2 Diagnosis - Pleural effusion, not elsewhere classified ms3 - Alcoholic cirrhosis of liver with ascites ms3 - Hypokalemia ms3 - Hypocalcemia ms3 Forms: - Medication Reconciliation Form ms3 - SBAR form ms3 Signatures: Dispatcher [employer] EDMS Celestino Bustamante, RN RN jb4 Arias Adam DO DO ms3 Jennifer Anders, RN RN me1 Luz Marina London, RN RN br2 Corrections: (The following items were deleted from the chart) 05/04 19:43 19:43 Chest Single View+RAD.RAD.BRZ ordered. EDMS EDMS 21:35 20:19 Manual Differential ordered. EDMS EDMS 05/05 02:59 05/04 21:10 ms3 br2
--- NOTE | 2025-05-04 21:11 | ER ---
Nurse's Notes [facility] Name: Rylee Thomas Age: 39 yrs Sex: Female : 1985 Arrival Date: 05/04/2025 Time: 19:05 Bed 23 Private MD: Diagnosis: Pleural effusion, not elsewhere classified;Alcoholic cirrhosis of liver with ascites;Hypokalemia;Hypocalcemia Presentation: 05/04 19:19 Chief complaint: Patient states: SOB, abdominal swelling. Reports last time she had a me1 paracentesis was 2 weeks ago. Coronavirus screen: Vaccine status: Patient reports receiving the 2nd dose of the covid vaccine. Ebola Screen: No symptoms or risks identified at this time. Initial Sepsis Screen: Does the patient meet any 2 criteria? HR > 90 bpm. Does the patient have a suspected source of infection? No. Patient's initial sepsis screen is negative. Risk Assessment: Do you want to hurt yourself or someone else? Patient reports no desire to harm self or others. Onset of symptoms is unknown. 19:19 Method Of Arrival: Wheelchair me1 19:19 Acuity: NIDHI 3 me1 Historical: - Allergies: 19:20 No Known Allergies; me1 - PMHx: 19:20 cirrhosis of liver; Endometriosis of vagina; scoliosis; me1 - PSHx: 19:20 L leg surgery; partial hysterectomy; me1 - Immunization history:: Adult Immunizations up to date. - Infectious Disease History:: Denies. - Social history:: Smoking status: Patient denies any tobacco usage or history of. Screenin:52 [facility] ED Fall Risk Assessment (Adult) History of falling in the last 3 months, jb4 including since admission No falls in past 3 months (0 pts) Confusion or Disorientation No (0 pts) Intoxicated or Sedated No (0 pts) Impaired Gait No (0 pts) Mobility Assist Device Used No (0 pt) Altered Elimination No (0 pt) Score/Fall Risk Level 0 - 2 = Low Risk Oriented to surroundings, Maintained a safe environment. Abuse screen: Denies threats or abuse. Nutritional screening: No deficits noted. Tuberculosis screening: No symptoms or risk factors identified. Assessment: 19:15 General: Appears in no apparent distress. comfortable, Behavior is calm, cooperative, jb4 appropriate for age. Pain: Complains of pain in right hip Pain does not radiate. Pain currently is 4 out of 10 on a pain scale. Neuro: Level of Consciousness is awake, alert, obeys commands, Oriented to person, place, time, situation. Cardiovascular: Patient's skin is warm and dry. Respiratory: Airway is patent Respiratory effort is even, unlabored, Respiratory pattern is regular, symmetrical. GI: Abdomen is round distended. Derm: Skin is intact, Skin is pink, warm \T\ dry. Musculoskeletal: Circulation, motion, and sensation intact. Range of motion: intact in all extremities. 20:32 Reassessment: Patient appears in no apparent distress at this time. Patient and/or jb4 family updated on plan of care and expected duration. Pain level reassessed. Patient is alert, oriented x 3, equal unlabored respirations, skin warm/dry/pink. 20:51 Reassessment: Patient appears in no apparent distress at this time. Patient and/or jb4 family updated on plan of care and expected duration. Pain level reassessed. Patient is alert, oriented x 3, equal unlabored respirations, skin warm/dry/pink. 22:00 Reassessment: Patient appears in no apparent distress at this time. Patient and/or jb4 family updated on plan of care and expected duration. Pain level reassessed. Patient is alert, oriented x 3, equal unlabored respirations, skin warm/dry/pink. 22:43 Reassessment: Patient appears in no apparent distress at this time. Patient and/or jb4 family updated on plan of care and expected duration. Pain level reassessed. Patient is alert, oriented x 3, equal unlabored respirations, skin warm/dry/pink. 05/05 00:39 Reassessment: Patient and/or family updated on plan of care and expected duration. Pain br2 level reassessed. Patient is alert, oriented x 3, equal unlabored respirations, skin warm/dry/pink. Vital Signs: 05/04 19:19 BP 122 / 75; Pulse 109; Resp 19; Temp 98.2; Pulse Ox 95% ; Weight 57.61 kg; Height 5 me1 ft. 9 in. ; 20:32 BP 106 / 65; Pulse 102; Resp 16; Pulse Ox 93% on R/A; jb4 22:43 BP 102 / 60; Pulse 111; Resp 16; Pulse Ox 92% on R/A; jb4 05/05 00:28 BP 103 / 52; Pulse 52; Resp 18 S; Temp 98.1(TE); Pulse Ox 99% on R/A; br2 05/04 19:19 Body Mass Index 18.75 (57.61 kg, 175.26 cm) in1 ED Course: 05/04 19:06 Patient arrived in ED. im 19:10 Arias Adam DO is Attending Physician. ms3 19:20 Triage completed. me1 19:20 Arm band placed on Patient placed in an exam room. me1 19:55 Missed attempt(s): 22 gauge in right hand. Bleeding controlled, band aid applied, jb4 catheter tip intact. 19:59 CBC with Diff Sent. jb4 19:59 CMP Sent. jb4 19:59 Lipase Sent. jb4 20:52 Patient has correct armband on for positive identification. Bed in low position. Call jb4 light in reach. Side rails up X 1. Provided Education on: plan of care. 20:54 CXR XRAY In Process Unspecified. EDMS 21:53 [facility] 22:20 Inserted saline lock: 22 gauge in right hand, using aseptic technique. Flushed with 10 br2 mL NS. 05/05 00:13 pt was accepted by Dr. Brooks, N \[id number]. Number for nurse to nurse report [facility] [phone]. Admin Gabino payan Bekah\ [id number]. [facility] to transfer pt. once nurse to nurse is complete. 00:32 Report given to AMBER AT [facility]. br2 00:32 No provider procedures requiring assistance completed. Patient transferred, IV remains br2 in place. Administered Medications: 05/04 21:15 Drug: Potassium PO Effervescent Tablet 50 mEq PO once; dissolve in 4 ounces of water or jb4 juice Route: PO; 05/05 00:05 Follow up: Response: No adverse reaction br2 Outcome: 05/04 21:10 ER care complete, transfer ordered by . ms3 05/05 00:32 Transferred by ground EMS to [facility], Transfer form completed. br2 X-rays sent w/ patient. Condition: good Instructed on the need for transfer, 02:59 Patient left the ED. br2 Signatures: Dispatcher [employer] Celestino Turner, RN RN jb4 Arias Adam DO DO ms3 Manuela Middleton Michelle, RN RN me1 Liz Brito [facility] Luz Marina London RN RN br2
[2025-05-04 21:33] LABS: Anisocytosis 1+; Blood Morphology Comment NOTED (NOT SEEN); Macrocytosis SLIGHT; Microcytosis SLIGHT; Ovalocytes SLIGHT; White Blood Cell Scan OK (OK)
[2025-05-05 08:45] VITALS: BP 103/52; TEMP 98.1; O2SAT 99
== END 2025-05-05 02:59 | disposition short-term general hospital (02) ==
LOC: ER 19:05
DX: K70.31 Alcoholic cirrhosis of liver with ascites (principal); J90 Pleural effusion, not elsewhere classified; E87.6 Hypokalemia; E83.51 Hypocalcemia
CPT/HCPCS: 36415; 71045; 80053; 83690; 85025; 99285

== ENCOUNTER 2025-05-14 02:17 | Emergency (ER) | payer SELFPAY ==
[2025-05-14] MEDS ORDERED: PANTOPRAZOLE 40 MG INJ ONE (02:52)
[2025-05-14 03:12] LABS: ALT/SGPT 21.0 U/L (13-56); AST/SGOT 87.0 U/L (15-37); Albumin 2.1 g/dL (3.4-5.0); Albumin/Globulin Ratio 0.4 (1.1-1.8); Alkaline Phosphatase 102.0 U/L (45-117); Anion Gap 9.1 mEq/L (5.0-15.0); BUN Blood Urea Nitrogen 6.0 mg/dL (7-18); Bilirubin Indirect, Calculated 1.3 mg/dL (0.2-0.8); Globulin 4.7 g/dL (2.3-3.5); Glucose Level 112.0 mg/dL (74-106); Lipase 27.0 U/L (13-75); Magnesium 1.7 mg/dL (1.6-2.4); NT PRO-BNP 64.0 pg/mL (<125); Potassium 3.1 mEq/L (3.5-5.1); Troponin High Sensitivity 5.6 pg/mL (<58.9)
[2025-05-14 03:14] LABS: Absolute Lymphocytes (CBC) 2.5 K/uL (0.7-4.9); Hematocrit 31.5 % (36.0-45.0); Hemoglobin 10.7 g/dL (12.0-15.0); MCH 30.2 pg (27.0-35.0); MCHC 34.1 g/dL (32.0-36.0); MCV 88.6 fL (80-100); MPV 8.0 fL (7.6-11.3); Nucleated RBC Absolute Count 0.0 (0-0); Nucleated Red Blood Cells % 0.0 % (0-0); RBC Red Blood Cell Count 3.56 M/uL (3.86-4.86); White Blood Count 6.10 thou/uL (4.3-10.9)
[2025-05-14 03:19] LABS: PT Prothrombin Time 16.6 SECONDS (10-13.0); Protime INR 1.49
--- NOTE | 2025-05-14 03:53 | ER ---
Nurse's Notes [facility] Name: Rylee Thomas Age: 39 yrs Sex: Female : 1985 Arrival Date: 05/14/2025 Time: 02:17 Bed 7 Private MD: Diagnosis: Alcohol abuse;Alcoholic cirrhosis of liver with ascites;Dyspnea;Pleural effusion in other conditions classified elsewhere-right large pleural effusion;Hypokalemia Presentation: 05/14 02:32 Chief complaint: Patient states: SOB beginning yesterday. Coronavirus screen: Client lg3 denies travel out of the [place] in the last 14 days. At this time, the client does not indicate any symptoms associated with coronavirus-19. Ebola Screen: No symptoms or risks identified at this time. Initial Sepsis Screen: Does the patient meet any 2 criteria? No. Patient's initial sepsis screen is negative. Does the patient have a suspected source of infection? No. Patient's initial sepsis screen is negative. Risk Assessment: Do you want to hurt yourself or someone else? Patient reports no desire to harm self or others. Onset of symptoms is unknown. 02:32 Method Of Arrival: Wheelchair lg3 02:32 Acuity: NIDHI 3 lg3 Triage Assessment: 02:33 General: Appears in no apparent distress. uncomfortable, Behavior is cooperative, lg3 fussy, Smells of alcohol. Pain: Complains of pain in back and abdomen. EENT: No deficits noted. No signs and/or symptoms were reported regarding the EENT system. Neuro: No deficits noted. Hagen Agitation-Sedation Scale (RASS): 0 - Alert and Calm Level of Consciousness is awake, alert, obeys commands, Oriented to person, place, time, situation. Cardiovascular: No deficits noted. Denies chest pain, Capillary refill < 3 seconds Clubbing of nail beds is absent JVD is absent Patient's skin is warm and dry. Respiratory: Reports shortness of breath at rest Airway is patent Respiratory effort is even, unlabored, Respiratory pattern is regular, symmetrical, Onset: The symptoms/episode began/occurred yesterday, the patient has mild shortness of breath. GI: Abdomen is round noted to have ascites. : No signs and/or symptoms were reported regarding the genitourinary system. Derm: No deficits noted. No signs and/or symptoms reported regarding the dermatologic system. Skin is intact, is healthy with good turgor, Skin is dry, Skin is normal, Skin temperature is warm. Musculoskeletal: No deficits noted. No signs and/or symptoms reported regarding the musculoskeletal system. Circulation, motion, and sensation intact. Range of motion: intact in all extremities. 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 - Infectious Disease History:: Denies. - Social history:: Smoking status: Patient denies any tobacco usage or history of. Patient uses alcohol, patient/guardian reports chronic longstanding heavy alcohol consumption. Screenin:43 [facility] ED Fall Risk Assessment (Adult) History of falling in the last 3 months, cp4 including since admission No falls in past 3 months (0 pts) Confusion or Disorientation No (0 pts) Intoxicated or Sedated No (0 pts) Impaired Gait No (0 pts) Mobility Assist Device Used No (0 pt) Altered Elimination No (0 pt) Score/Fall Risk Level 0 - 2 = Low Risk Oriented to surroundings, Maintained a safe environment, Assessed \\T\\ reinforced patient's understanding of fall precautions, Hourly rounding (assess needs \\T\\ fall precautionary measures) done. Abuse screen: Denies threats or abuse. Denies injuries from another. Nutritional screening: No deficits noted. Tuberculosis screening: No symptoms or risk factors identified. Never had TB. Assessment: 02:42 General: Appears in no apparent distress. uncomfortable, Behavior is calm, cooperative, cp4 appropriate for age. Pain: Denies pain. Neuro: Level of Consciousness is awake, alert, obeys commands, Oriented to person, place, time, situation. Cardiovascular: Patient's skin is warm and dry. Rhythm is sinus rhythm. Respiratory: Airway is patent Respiratory effort is even, unlabored, Breath sounds are clear bilaterally. GI: Abdomen is distended. : No signs and/or symptoms were reported regarding the genitourinary system. EENT: No signs and/or symptoms were reported regarding the EENT system. Derm: No signs and/or symptoms reported regarding the dermatologic system. Musculoskeletal: No signs and/or symptoms reported regarding the musculoskeletal system. 07:00 General: ASSUMED CARE OF PATIENT AT THIS TIME. PT RESTING WITH EYES CLOSED, cm10 RESPIRATIONS EVEN AND UNLABORED. PT REMAINS ON O2.. 07:47 General: Unable to give report at this time due to "not having proper equipment in cm10 room.". 08:00 General: Appears in no apparent distress. comfortable, Behavior is calm, cooperative. cm10 Neuro: No deficits noted. Level of Consciousness is awake, alert, obeys commands, Oriented to person, place, time, situation. Respiratory: No deficits noted. Airway is patent Respiratory effort is even, unlabored, Respiratory pattern is regular, symmetrical. Vital Signs: 02:32 BP 120 / 84; Pulse 92; Resp 17 S; Temp 98.2(O); Pulse Ox 96% on R/A; Weight 58.97 kg lg3 (R); Height 5 ft. 9 in. (R); 03:30 BP 119 / 82; Pulse 87; Resp 18; Pulse Ox 100% on 2 lpm NC; cp4 04:29 BP 102 / 67; Pulse 87; Resp 18; Pulse Ox 100% on 2 lpm NC; cp4 05:30 BP 116 / 90; Pulse 81; Resp 18; Pulse Ox 99% on 2 lpm NC; cp4 07:43 BP 99 / 62; Pulse 97; Resp 18; Pulse Ox 97% on 2 lpm NC; cm10 08:53 BP 117 / 71; Pulse 92; Resp 15; Pulse Ox 94% on 2 lpm NC; cm10 02:32 Body Mass Index 19.20 (58.97 kg, 175.26 cm) lg3 Cody Coma Score: 03:14 Eye Response: spontaneous(4). Motor Response: obeys commands(6). Verbal Response: juan carlos oriented(5). Total: 15. ED Course: 02:20 Patient arrived in ED. [id number] 02:24 Renato Ace MD is Attending Physician. juan carlos 02:33 Triage completed. lg3 02:33 Arm band placed on right wrist. lg3 02:42 Terri Lora is Primary Nurse. cp4 02:43 Bed in low position. Call light in reach. Side rails up X2. cp4 02:43 No provider procedures requiring assistance completed. cp4 02:43 Initial lab(s) drawn, by ED staff, sent to lab. Inserted saline lock: 18 gauge in left cp4 EJ, using aseptic technique. Blood collected. Flushed with 10 mL NS. 02:50 XRAY Chest (1 view) In Process Unspecified. EDMS 02:57 EKG done, by ED staff, reviewed by Renato Ace MD. oe 03:52 Initiated transfer with Linda at [facility]. Pt will be put on wait list pending at [facility] [place], rv1 Dr. Ace notified and approved. 04:12 Doc to Doc with hospitalist at [facility]. rv1 08:12 Report given to SCARLETT Taylor at [facility]. cm10 08:55 Provided Education on: need for transfer. Report given to Maura with [facility]. cm10 08:55 Patient transferred, IV remains in place. cm10 Administered Medications: 02:55 Drug: Pantoprazole IVP 40 mg IVP once Route: IVP; Site: left jugular; cp4 03:45 Follow up: Response: No adverse reaction cp4 04:01 Drug: Potassium PO Effervescent Tablet 25 mEq PO once; dissolve in 4 ounces of water or cp4 juice Route: PO; 04:28 Follow up: Response: No adverse reaction cp4 04:02 Drug: Magnesium Sulfate IVPB 1 grams IVPB once over 1 hrs Route: IVPB; Infused Over: 1 cp4 hrs; Site: left jugular; 06:15 Follow up: IV Status: Completed infusion cp4 04:28 Drug: Phytonadione Sub-Q 10 mg Sub-Q once Route: Sub-Q; Site: right thigh; cp4 06:15 Follow up: Response: No adverse reaction cp4 Medication: 02:43 VIS not applicable for this client. cp4 Outcome: 03:52 ER care complete, transfer ordered by [facility] 08:55 Transferred by [facility] Paia. to [facility], [facility], 10 08:55 Condition: good 08:55 Instructed on the need for transfer, 08:55 Patient left the ED. cm10 Signatures: Dispatcher [employer] Renato Monzon MD MD cha Espinosa, [place] oe Able, Lacie, SCARLETT RN 3 Jelena Hastings Yolande Zhao rv1 Elidia Carrasco, SCARLETT RN cm10 Terri Lora cp4
--- NOTE | 2025-05-14 03:53 | EDPHYS ---
Physician Documentation [facility] Name: Rylee Thomas Age: 39 yrs Sex: Female : 1985 Arrival Date: 05/14/2025 Time: 02:17 Bed 7 Private MD: Renato Thomas HPI: 05/14 03:09 This 39 yrs old Female presents to ER via Wheelchair with complaints of juan carlos Breathing Difficulty. 03:09 The patient has shortness of breath at rest, with light activity. Onset: The juan carlos symptoms/episode began/occurred 2 day(s) ago. Duration: The symptoms are continuous, and are steadily getting worse. The patient's shortness of breath has no apparent modifying factors. Associated signs and symptoms: Pertinent positives: non-productive cough, nausea. Severity of symptoms: At their worst the symptoms were moderate in the emergency department the symptoms are unchanged. The patient has not experienced similar symptoms in the past. 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 - Infectious Disease History:: Denies. - Social history:: Smoking status: Patient denies any tobacco usage or history of. Patient uses alcohol, patient/guardian reports chronic longstanding heavy alcohol consumption. ROS: 03:09 Constitutional: Negative for fever, chills, and weight loss, Eyes: Negative for injury, juan carlos pain, redness, and discharge, ENT: Negative for injury, pain, and discharge, Neck: Negative for injury, pain, and swelling, Cardiovascular: Negative for chest pain, palpitations, and edema, Back: Negative for injury and pain, : Negative for injury, bleeding, discharge, and swelling, MS/Extremity: Negative for injury and deformity, Skin: Negative for injury, rash, and discoloration, Neuro: Negative for headache, weakness, numbness, tingling, and seizure, Psych: Negative for depression, anxiety, suicide ideation, homicidal ideation, and hallucinations, Allergy/Immunology: Negative for hives, rash, and allergies, Endocrine: Negative for neck swelling, polydipsia, polyuria, polyphagia, and marked weight changes, Hematologic/Lymphatic: Negative for swollen nodes, abnormal bleeding, and unusual bruising, 03:09 Respiratory: Positive for cough, with no reported sputum, shortness of breath, at rest. 03:09 MS/extremity: Negative for acute changes, Exam: 03:09 Constitutional: This is a well developed, well nourished patient who is awake, alert, juan carlos and in no acute distress. Head/Face: Normocephalic, atraumatic. Eyes: Pupils equal round and reactive to light, extra-ocular motions intact. Lids and lashes normal. Conjunctiva and sclera are non-icteric and not injected. Cornea within normal limits. Periorbital areas with no swelling, redness, or edema. ENT: Nares patent. No nasal discharge, no septal abnormalities noted. Tympanic membranes are normal and external auditory canals are clear. Oropharynx with no redness, swelling, or masses, exudates, or evidence of obstruction, uvula midline. Mucous membranes moist. Neck: Trachea midline, no thyromegaly or masses palpated, and no cervical lymphadenopathy. Supple, full range of motion without nuchal rigidity, or vertebral point tenderness. No Meningismus. Chest/axilla: Normal chest wall appearance and motion. Nontender with no deformity. No lesions are appreciated. Cardiovascular: Regular rate and rhythm with a normal S1 and S2. No gallops, murmurs, or rubs. Normal PMI, no JVD. No pulse deficits. Back: No spinal tenderness. No costovertebral tenderness. Full range of motion. Skin: Warm, dry with normal turgor. Normal color with no rashes, no lesions, and no evidence of cellulitis. MS/ Extremity: Pulses equal, no cyanosis. Neurovascular intact. Full, normal range of motion., bilateral aka Neuro: Awake and alert, GCS 15, oriented to person, place, time, and situation. Cranial nerves II-XII grossly intact. Motor strength 5/5 in all extremities. Sensory grossly intact. Cerebellar exam normal. Normal gait. 03:09 ECG was reviewed by the Attending Physician. 03:14 Respiratory: the patient does not display signs of respiratory distress, Respirations: juan carlos no acute changes, Breath sounds: decreased breath sounds, that are moderate, are heard in the right middle lobe, right lower lobe, right posterior middle lobe and right posterior lower lobe, 03:14 Abdomen/GI: Inspection: distension, that is moderate, in the right upper quadrant, left upper quadrant, right lower quadrant and left lower quadrant, Bowel sounds: normal, Palpation: soft, in all quadrants, Liver: no appreciated palpable abnormalities, Hernia: not appreciated, 03:14 Musculoskeletal/extremity: DVT Exam: No signs of deep vein thrombosis. no pain, no swelling, no tenderness, negative Homans' sign noted on exam, no appreciated bluish discoloration, no erythema, no increased warmth, Vital Signs: 02:32 BP 120 / 84; Pulse 92; Resp 17 S; Temp 98.2(O); Pulse Ox 96% on R/A; Weight 58.97 kg lg3 (R); Height 5 ft. 9 in. (R); 03:30 BP 119 / 82; Pulse 87; Resp 18; Pulse Ox 100% on 2 lpm NC; cp4 04:29 BP 102 / 67; Pulse 87; Resp 18; Pulse Ox 100% on 2 lpm NC; cp4 05:30 BP 116 / 90; Pulse 81; Resp 18; Pulse Ox 99% on 2 lpm NC; cp4 07:43 BP 99 / 62; Pulse 97; Resp 18; Pulse Ox 97% on 2 lpm NC; cm10 08:53 BP 117 / 71; Pulse 92; Resp 15; Pulse Ox 94% on 2 lpm NC; cm10 02:32 Body Mass Index 19.20 (58.97 kg, 175.26 cm) lg3 Cody Coma Score: 03:14 Eye Response: spontaneous(4). Motor Response: obeys commands(6). Verbal Response: juan carlos oriented(5). Total: 15. MDM: 02:24 Medical Screening Exam initiated juan carlos 03:11 Differential diagnosis: Anemia asthma, Bronchitis CHF exacerbation, Chronic Obstructive juan carlos Pulmonary Disease pneumonia, Pneumothorax Psychogenic reactive airway disease, Sepsis bowel obstruction, coronary artery disease, Cholelithiasis, diverticulitis, Dysmenorrhea, gastritis, Hepatitis, Irritable bowel syndrome, myocardia ischemia or infarction, non-specific abd pain, pancreatitis, Peptic Ulcer Disease, Perf. Duodenal Ulcer, Perf. Gastric Ulcer, Pelvic Inflammatory Disease, Pyelonephritis, Ureterolithiasis, urinary tract infection. Antibiotic administration: Rocephin and Zithromax given. Differential Diagnosis altered mental status, sepsis, flu. Immunization status:. Data reviewed: vital signs, nurses notes, lab test result(s), EKG, radiologic studies, plain films. Consideration of Admission/Observation Patient was admitted/placed on observation. Escalation of care including admission/observation considered. I considered the following discharge prescriptions or medication management in the emergency department Medications were administered in the Emergency Department. See MAR. Independent interpretation of the following test(s) in the Emergency Department EKG: See my EKG interpretation above. Test considered but Not performed: Ultrasound abd usg. 05/14 02:24 Order name: Basic Metabolic Panel; Complete Time: 03:50 [facility] 05/14 02:24 Order name: CBC with Diff [facility] 05/14 02:24 Order name: LFT's; Complete Time: 03:50 [facility] 05/14 02:24 Order name: Magnesium; Complete Time: 03:50 [facility] 05/14 02:24 Order name: NT PRO-BNP; Complete Time: 03:50 [facility] 05/14 02:24 Order name: PT-INR; Complete Time: 03:50 [facility] 05/14 02:24 Order name: Troponin HS; Complete Time: 03:50 [facility] 05/14 02:24 Order name: Lipase; Complete Time: 03:50 [facility] 05/14 02:24 Order name: AMMONIA; Complete Time: 03:50 [facility] 05/14 03:19 Order name: CBC Smear Scan [facility] 05/14 02:24 Order name: XRAY Chest (1 view) [facility] 05/14 02:24 Order name: Cardiac monitoring; Complete Time: 02:45 [facility] 05/14 02:24 Order name: EKG - Nurse/Tech; Complete Time: 02:55 [facility] 05/14 02:24 Order name: IV Saline Lock; Complete Time: 02:45 [facility] 05/14 02:24 Order name: Labs collected and sent; Complete Time: 02:45 [facility] 05/14 02:24 Order name: O2 Per Protocol; Complete Time: 02:45 [facility] 05/14 02:24 Order name: O2 Sat Monitoring; Complete Time: 02:45 [facility] 05/14 02:24 Order name: IV - Large Bore; Complete Time: 02:45 [facility] 05/14 02:43 Order name: Oxygen: 2 liter; Complete Time: 02:45 [facility] EC:09 Rate is 84 beats/min. Rhythm is regular. QRS [place] is Normal. ID interval is normal. QRS juan carlos interval is normal. QT interval is normal. No Q waves. T waves are Normal. No ST changes noted. Clinical impression: NSR w/ Non-specific ST/T Changes and No evidence of ischemia. Interpreted by me. Reviewed by me. Administered Medications: 02:55 Drug: Pantoprazole IVP 40 mg IVP once Route: IVP; Site: left jugular; cp4 03:45 Follow up: Response: No adverse reaction cp4 04:01 Drug: Potassium PO Effervescent Tablet 25 mEq PO once; dissolve in 4 ounces of water or cp4 juice Route: PO; 04:28 Follow up: Response: No adverse reaction cp4 04:02 Drug: Magnesium Sulfate IVPB 1 grams IVPB once over 1 hrs Route: IVPB; Infused Over: 1 cp4 hrs; Site: left jugular; 06:15 Follow up: IV Status: Completed infusion cp4 04:28 Drug: Phytonadione Sub-Q 10 mg Sub-Q once Route: Sub-Q; Site: right thigh; cp4 06:15 Follow up: Response: No adverse reaction cp4 Disposition: 03:53 Critical Care:. juan carlos Disposition Summary: 05/14/25 03:52 Transfer Ordered Notes: Transfer Location: [facility] juan carlos Reason: Higher level of care juan carlos Condition: Fair juan carlos Problem: an ongoing problem juan carlos Symptoms: have worsened juan carlos Accepting Physician: ross mcfarland(05/14/25 08:55) cm10 Diagnosis - Alcohol abuse juan carlos - Alcoholic cirrhosis of liver with ascites juan carlos - Dyspnea juan carlos - Pleural effusion in other conditions classified elsewhere - right large pleural juan carlos effusion - Hypokalemia juan carlos Forms: - Medication Reconciliation Form juan carlos - SBAR form juan carlos Critical care time excluding procedures: 03:53 Critical care time: Bedside Care: 25 minutes, Consultation: 15 minutes, Family juan carlos Intervention: 10 minutes. Total time: 50 minutes Signatures: Dispatcher [employer] EDRenato Barragan MD MD cha Able, Lacie, RN RN lg3 Elidia Carrasco RN RN cm10 Terri Lora cp4 Corrections: (The following items were deleted from the chart) 02:25 02:25 BASIC METABOLIC PANEL+C.LAB.BRZ ordered. EDMS EDMS 02:25 02:25 CBC+H.LAB.BRZ ordered. EDMS EDMS 02:25 02:25 HEPATIC FUNCTION+C.LAB.BRZ ordered. EDMS EDMS 02:25 02:25 MAGNESIUM+C.LAB.BRZ ordered. EDMS EDMS 02:25 02:25 PROBNP+C.LAB.BRZ ordered. EDMS EDMS 02:25 02:25 PROTIME (+INR)+COAG.LAB.BRZ ordered. EDMS EDMS 02:25 02:25 Troponin High Sensitivity+C.LAB.BRZ ordered. EDMS EDMS 02:25 02:25 LIPASE+C.LAB.BRZ ordered. EDMS EDMS 02:25 02:25 AMMONIA+C.LAB.BRZ ordered. EDMS EDMS 02:25 02:25 Chest Single View+RAD.RAD.BRZ ordered. EDMS EDMS 08:55 03:52 [facility] juan carlos cm10
[2025-05-14] MEDS ORDERED: MAGNESIUM SULFATE 1 gm IVPB 1 GM/100 ML BAG IV ONE (03:57)
[2025-05-14] MEDS ORDERED: POTASSIUM 25 MEQ EFFERV TAB ONE (03:57)
[2025-05-14] MEDS ORDERED: VITAMIN K (ADULT) 10 MG/ML ONE (04:22)
[2025-05-14 04:43] LABS: Anisocytosis SLIGHT; Blood Morphology Comment NOTED (NOT SEEN); White Blood Cell Scan OK (OK)
--- NOTE | 2025-05-14 05:49 | RAD REPORT ---
INDICATION: DYSPNEA COMPARISON: Chest radiograph May 05, 2025 FINDINGS: Single frontal view of the chest was obtained. SUPPORT DEVICES: None HEART/MEDIASTINUM: Cardiomediastinal contours are normal. LUNGS/PLEURA: Large right and small left pleural effusion. Left lung otherwise grossly clear. No pneu mothorax. OTHER: Postsurgical changes throughout the thoracic spine. IMPRESSION: Large right and small left pleural effusion. Electronically signed by: John Conway DO 05/14/2025 02:57 AM CDT NR Due to temporary technical issues with the PACS/[employer] reporting system, reports are being kayla d by the in-house radiologist without review as a courtesy to ensure prompt reporting the interpreting radiologist is fully responsible for the content of the report. Transcribed Date/Time: 05/14/2025 5:48 AM
[2025-05-14 09:11] VITALS: TEMP 98.2
[2025-05-14 09:20] VITALS: BP 117/71; O2SAT 94
== END 2025-05-14 08:55 | disposition short-term general hospital (02) ==
LOC: ER 02:17
DX: J90 Pleural effusion, not elsewhere classified (principal); E87.6 Hypokalemia; F10.10 Alcohol abuse, uncomplicated; K70.31 Alcoholic cirrhosis of liver with ascites
CPT/HCPCS: 36415; 71045; 80048; 80076; 82140; 83690; 83735; 83880; 84484; 85025; 85610; 93005; J2470; J3430; J3475

== ENCOUNTER 2025-06-07 19:06 | Emergency (ER) | payer MEDICAID, SELFPAY ==
--- NOTE | 2025-06-07 19:49 | RAD REPORT ---
EXAM: Chest Single View HISTORY: 39 years Female SOB COMPARISON: 05/31/2025 FINDINGS: LUNGS/PLEURA: Moderate to large right pleural effusion with probable underlying atelectasis. The pleu ral effusion does appear slightly larger compared with 05/31/2025. Small left pleural effusion. CARDIAC/MEDIASTINUM: Stable size and configuration. UPPER ABDOMEN: No significant abnormality. BONES: No acute abnormality. Fusion hardware in the spine. LINES/TUBES/OTHER: N/A IMPRESSION: Moderate to large right pleural effusion which is slightly larger compared with 05/31/2025. Small left pleural effusion.
[2025-06-07] MEDS ORDERED: PANTOPRAZOLE 40 MG INJ ONE (20:14)
[2025-06-07] MEDS ORDERED: NA CHLORIDE 0.9% 1,000 ML ONE (20:14)
[2025-06-07 20:19] LABS: Absolute Lymphocytes (CBC) 3.0 K/uL (0.7-4.9); Hematocrit 30.9 % (36.0-45.0); Hemoglobin 10.5 g/dL (12.0-15.0); MCH 29.7 pg (27.0-35.0); MCHC 34.1 g/dL (32.0-36.0); MCV 87.1 fL (80-100); MPV 8.3 fL (7.6-11.3); Nucleated RBC Absolute Count 0.0 (0-0); Nucleated Red Blood Cells % 0.0 % (0-0); RBC Red Blood Cell Count 3.54 M/uL (3.86-4.86); White Blood Count 8.20 thou/uL (4.3-10.9)
[2025-06-07 20:30] LABS: PT Prothrombin Time 15.5 SECONDS (10-13.0); Protime INR 1.38
[2025-06-07 20:42] LABS: ALT/SGPT 18.0 U/L (13-56); AST/SGOT 54.0 U/L (15-37); Albumin 1.8 g/dL (3.4-5.0); Albumin/Globulin Ratio 0.4 (1.1-1.8); Alkaline Phosphatase 94.0 U/L (45-117); Anion Gap 10.7 mEq/L (5.0-15.0); BUN Blood Urea Nitrogen 4.0 mg/dL (7-18); Bilirubin Indirect, Calculated 0.6 mg/dL (0.2-0.8); Globulin 4.5 g/dL (2.3-3.5); Glucose Level 113.0 mg/dL (74-106); Lipase 49.0 U/L (13-75); Magnesium 1.9 mg/dL (1.6-2.4); NT PRO-BNP 74.0 pg/mL (<125); Potassium 3.7 mEq/L (3.5-5.1); Troponin High Sensitivity 4.6 pg/mL (<58.9)
--- NOTE | 2025-06-07 21:29 | ER ---
Nurse's Notes [facility] Name: Rylee Thomas Age: 39 yrs Sex: Female : 1985 Arrival Date: 06/07/2025 Time: 19:06 Bed 23 Private MD: Diagnosis: Alcoholic cirrhosis of liver with ascites;Pleural condition, unspecified;Weakness;Alcohol abuse with intoxication Presentation: 06/07 19:21 Chief complaint: Patient states: HAD PARACENTESIS ON WEDNESDAY, D/C HOME ON WEDNESDAY AND dd2 BEGAN HAVING SOB, STOMACH PAIN AND BACK PAIN ON WEDNESDAY. Coronavirus screen: At this time, the client does not indicate any symptoms associated with coronavirus-19. Ebola Screen: No symptoms or risks identified at this time. Initial Sepsis Screen: Does the patient meet any 2 criteria? No. Patient's initial sepsis screen is negative. Does the patient have a suspected source of infection? No. Patient's initial sepsis screen is negative. Risk Assessment: Do you want to hurt yourself or someone else? Patient reports no desire to harm self or others. Onset of symptoms was June 04, 2025. 19:21 Method Of Arrival: Ambulatory dd2 19:21 Acuity: NIDHI 3 dd2 Triage Assessment: 19:23 General: Appears uncomfortable, Behavior is calm, cooperative, appropriate for age. dd2 Pain: Complains of pain in back and abdomen. Respiratory: Reports shortness of breath at rest on exertion Onset: The symptoms/episode began/occurred 06/04/2025, the patient has mild shortness of breath. GI: Abdomen is round distended. Historical: - Allergies: 19:23 No Known Allergies; dd2 - PMHx: 19:23 cirrhosis of liver; Endometriosis of vagina; scoliosis; dd2 - PSHx: 19:23 L leg surgery; partial hysterectomy; dd2 Screenin/19 01:45 [facility] ED Fall Risk Assessment (Adult) History of falling in the last 3 months, jb4 including since admission No falls in past 3 months (0 pts) Confusion or Disorientation No (0 pts) Intoxicated or Sedated No (0 pts) Impaired Gait Yes (1 pt) Mobility Assist Device Used No (0 pt) Altered Elimination No (0 pt) Score/Fall Risk Level 0 - 2 = Low Risk Oriented to surroundings, Maintained a safe environment. Abuse screen: Denies threats or abuse. Nutritional screening: No deficits noted. Tuberculosis screening: No symptoms or risk factors identified. Assessment: 06/07 19:30 General: Appears in no apparent distress. uncomfortable, Behavior is calm, cooperative, jb4 appropriate for age, Smells of alcohol. Pain: Complains of pain in abdomen Pain does not radiate. Pain currently is 6 out of 10 on a pain scale. Neuro: Level of Consciousness is awake, alert, obeys commands, Oriented to person, place, time, situation. Cardiovascular: Patient's skin is warm and dry. Respiratory: Airway is patent Respiratory effort is even, unlabored, Respiratory pattern is regular, symmetrical. GI: Abdomen is round distended. Derm: Skin is intact, Skin is pink, warm \T\ dry. 20:28 Reassessment: Patient appears in no apparent distress at this time. Patient and/or jb4 family updated on plan of care and expected duration. Pain level reassessed. Patient is alert, oriented x 3, equal unlabored respirations, skin warm/dry/pink. 21:36 Reassessment: Patient appears in no apparent distress at this time. Patient and/or jb4 family updated on plan of care and expected duration. Pain level reassessed. Patient is alert, oriented x 3, equal unlabored respirations, skin warm/dry/pink. 23:00 Reassessment: Patient appears in no apparent distress at this time. Patient and/or jb4 family updated on plan of care and expected duration. Pain level reassessed. Patient is alert, oriented x 3, equal unlabored respirations, skin warm/dry/pink. 06/08 00:00 Reassessment: Patient appears in no apparent distress at this time. Patient and/or jb4 family updated on plan of care and expected duration. Pain level reassessed. Patient is alert, oriented x 3, equal unlabored respirations, skin warm/dry/pink. 01:00 Reassessment: Patient appears in no apparent distress at this time. Patient and/or jb4 family updated on plan of care and expected duration. Pain level reassessed. Patient is alert, oriented x 3, equal unlabored respirations, skin warm/dry/pink. Vital Signs: 06/07 19:21 BP 106 / 75; Pulse 94; Resp 17; Temp 98.2; Pulse Ox 98% on R/A; Pain 6/10; dd2 20:28 Pulse 88; Resp 18; Pulse Ox 99% on R/A; jb4 21:36 Pulse 96; Resp 16; Pulse Ox 96% on R/A; jb4 06/08 00:00 BP 103 / 58; Pulse 107; Resp 16; Pulse Ox 96% on R/A; jb4 01:01 BP 93 / 50; Pulse 109; Resp 16; Pulse Ox 95% on R/A; jb4 06/07 19:21 Pain Scale: Adult dd2 06/07 20:28 pt refusing B/p at this time. jb4 [place] Coma Score: 21:30 Eye Response: spontaneous(4). Motor Response: obeys commands(6). Verbal Response: juan carlos oriented(5). Total: 15. ED Course: 19:08 Patient arrived in ED. mr 19:13 Renato Ace MD is Attending Physician. juan carlos 19:23 Triage completed. dd2 19:23 Arm band placed on right wrist. dd2 19:35 XRAY Chest (1 view) In Process Unspecified. EDMS 20:08 Basic Metabolic Panel Sent. jb4 20:08 CBC with Diff Sent. jb4 20:08 LFT's Sent. jb4 20:08 Magnesium Sent. jb4 20:08 NT PRO-BNP Sent. jb4 20:08 PT-INR Sent. jb4 20:08 Troponin HS Sent. jb4 20:08 AMMONIA Sent. jb4 20:08 Lipase Sent. jb4 20:28 Celestino Bustamante, RN is Primary Nurse. 4 06/08 01:45 Patient has correct armband on for positive identification. Bed in low position. Call jb4 light in reach. Side rails up X 1. Provided Education on: need for transfer. 01:45 No provider procedures requiring assistance completed. Patient transferred, IV remains jb4 in place. Administered Medications: 06/07 20:27 Drug: Pantoprazole IVP 40 mg IVP once Route: IVP; Site: left jugular; 4 21:00 Follow up: Response: No adverse reaction jb4 20:28 Drug: NS 0.9% IV 1000 ml IV at 100 ml/hr once; to be given as a bolus over 60 minutes [facility] Route: IV; Rate: 100 ml/hr; Site: left jugular; 06/08 01:46 Follow up: Response: No adverse reaction; IV Status: Order to discontinue infusion; IV jb4 Intake: 500ml 06/07 22:46 Drug: Phytonadione Sub-Q 10 mg Sub-Q once Route: Sub-Q; Site: left upper arm; jb4 06/08 01:46 Follow up: Response: No adverse reaction jb4 Intake: 01:46 IV: 500ml; Total: 500ml. jb4 Outcome: 06/07 21:29 ER care complete, transfer ordered by . juan carlos 06/08 01:45 Transferred by ground EMS to [facility], Transfer form completed. jb4 X-rays sent w/ patient. Condition: stable Discharge instructions given to patient, Instructed on the need for transfer, Demonstrated understanding of instructions, follow-up care, 01:47 Patient left the ED. jb4 Signatures: Dispatcher [employer] EDMS Renato Ace MD MD cha Rivera, Mary, Reg Reg Celestino Watson RN RN jb4 MALIK RAMIREZ RN RN dd2 Corrections: (The following items were deleted from the chart) 06/07 22:47 19:30 General: Appears in no apparent distress. uncomfortable, Behavior is calm, jb4 cooperative, appropriate for age, jb4
--- NOTE | 2025-06-07 21:29 | EDPHYS ---
Physician Documentation [facility] Name: Rylee Thomas Age: 39 yrs Sex: Female : 1985 Arrival Date: 06/07/2025 Time: 19:06 Bed 23 Private MD: ED Physician Renato Ace HPI: 06/07 21:06 This 39 yrs old Female presents to ER via Ambulatory with complaints of juan carlos Shortness Of Breath, Abdominal Pain, Back Pain. 21:06 The patient has shortness of breath at rest. Onset: The symptoms/episode began/occurred juan carlos 1 day(s) ago. Duration: The symptoms are continuous, and are steadily getting worse. The patient's shortness of breath has no apparent modifying factors. Associated signs and symptoms: Pertinent positives: non-productive cough. Severity of symptoms: At their worst the symptoms were moderate in the emergency department the symptoms are unchanged. The patient has experienced similar episodes in the past, multiple times. Historical: - Allergies: 19:23 No Known Allergies; dd2 - PMHx: 19:23 cirrhosis of liver; Endometriosis of vagina; scoliosis; dd2 - PSHx: 19:23 L leg surgery; partial hysterectomy; dd2 ROS: 21:08 Constitutional: Negative for fever, chills, and weight loss, Eyes: Negative for injury, juan carlos pain, redness, and discharge, ENT: Negative for injury, pain, and discharge, Neck: Negative for injury, pain, and swelling, Cardiovascular: Negative for chest pain, palpitations, and edema, Back: Negative for injury and pain, : Negative for injury, bleeding, discharge, and swelling, MS/Extremity: Negative for injury and deformity, Skin: Negative for injury, rash, and discoloration, Neuro: Negative for headache, weakness, numbness, tingling, and seizure, Psych: Negative for depression, anxiety, suicide ideation, homicidal ideation, and hallucinations, Allergy/Immunology: Negative for hives, rash, and allergies, Endocrine: Negative for neck swelling, polydipsia, polyuria, polyphagia, and marked weight changes, 21:08 Respiratory: Positive for cough, shortness of breath, at rest. 21:08 Abdomen/GI: Positive for abdominal distension, Exam: 21:08 Constitutional: This is a well developed, well nourished patient who is awake, alert, juan carlos and in no acute distress. Head/Face: Normocephalic, atraumatic. Eyes: Pupils equal round and reactive to light, extra-ocular motions intact. Lids and lashes normal. Conjunctiva and sclera are non-icteric and not injected. Cornea within normal limits. Periorbital areas with no swelling, redness, or edema. ENT: Nares patent. No nasal discharge, no septal abnormalities noted. Tympanic membranes are normal and external auditory canals are clear. Oropharynx with no redness, swelling, or masses, exudates, or evidence of obstruction, uvula midline. Mucous membranes moist. Neck: Trachea midline, no thyromegaly or masses palpated, and no cervical lymphadenopathy. Supple, full range of motion without nuchal rigidity, or vertebral point tenderness. No Meningismus. Chest/axilla: Normal chest wall appearance and motion. Nontender with no deformity. No lesions are appreciated. Cardiovascular: Regular rate and rhythm with a normal S1 and S2. No gallops, murmurs, or rubs. Normal PMI, no JVD. No pulse deficits. Back: No spinal tenderness. No costovertebral tenderness. Full range of motion. Skin: Warm, dry with normal turgor. Normal color with no rashes, no lesions, and no evidence of cellulitis. MS/ Extremity: Pulses equal, no cyanosis. Neurovascular intact. Full, normal range of motion., bilateral aka Neuro: Awake and alert, GCS 15, oriented to person, place, time, and situation. Cranial nerves II-XII grossly intact. Motor strength 5/5 in all extremities. Sensory grossly intact. Cerebellar exam normal. Normal gait. 21:08 ECG was reviewed by the Attending Physician. 21:08 Respiratory: the patient does not display signs of respiratory distress, Respirations: labored breathing, is not present, Breath sounds: decreased breath sounds, that are moderate, are heard in the right middle lobe, right lower lobe, right posterior middle lobe and right posterior lower lobe, rhonchi, are not appreciated, stridor, is not appreciated, Vital Signs: 19:21 BP 106 / 75; Pulse 94; Resp 17; Temp 98.2; Pulse Ox 98% on R/A; Pain 6/10; dd2 20:28 Pulse 88; Resp 18; Pulse Ox 99% on R/A; jb4 21:36 Pulse 96; Resp 16; Pulse Ox 96% on R/A; 4 06/08 00:00 BP 103 / 58; Pulse 107; Resp 16; Pulse Ox 96% on R/A; jb4 01:01 BP 93 / 50; Pulse 109; Resp 16; Pulse Ox 95% on R/A; 4 06/07 19:21 Pain Scale: Adult dd2 06/07 20:28 pt refusing B/p at this time. jb4 [place] Coma Score: 21:30 Eye Response: spontaneous(4). Motor Response: obeys commands(6). Verbal Response: juan carlos oriented(5). Total: 15. Procedures: 21:30 Peripheral line: by aseptic technique a peripheral line was placed in the left external juan carlos jugular vein. MDM: 19:13 Medical Screening Exam initiated juan carlos :18 Differential diagnosis: Anemia asthma, Bronchitis CHF exacerbation, Chronic Obstructive juan carlos Pulmonary Disease hypoglycemia, Myocardial Infarction pneumonia, pulmonary edema, Pulmonary Embolism reactive airway disease, Unstable Angina. Antibiotic administration: Not indicated. Immunization status:. Data reviewed: vital signs, nurses notes, lab test result(s), EKG, radiologic studies, plain films. Consideration of Admission/Observation Patient was admitted/placed on observation. Escalation of care including admission/observation considered. I considered the following discharge prescriptions or medication management in the emergency department Medications were administered in the Emergency Department. See MAR. Independent interpretation of the following test(s) in the Emergency Department EKG: See my EKG interpretation above. Test considered but Not performed: Ultrasound no abd usg. CT: no ct chest/abd/pel. 06/07 19:22 Order name: Basic Metabolic Panel; Complete Time: 21:04 [facility] 06/07 19: Order name: CBC with Diff [facility] 06/07 19: Order name: LFT's; Complete Time: 21:04 [facility] 06/07 19:22 Order name: Magnesium; Complete Time: 21:04 [facility] 06/07 19:22 Order name: NT PRO-BNP; Complete Time: 21:04 [facility] 06/07 19:22 Order name: PT-INR; Complete Time: 21:04 [facility] 06/07 19:22 Order name: Troponin HS; Complete Time: 21:04 [facility] 06/07 19: Order name: Lipase; Complete Time: 21:04 [facility] 06/07 19: Order name: AMMONIA; Complete Time: 21:04 [facility] 06/07 19:52 Order name: Alcohol Level; Complete Time: 21:04 [facility] 06/07 21:57 Order name: CBC Smear Scan EDMS 06/07 19:22 Order name: XRAY Chest (1 view); Complete Time: 21:04 [facility] 06/07 19:22 Order name: Cardiac monitoring; Complete Time: 20:08 [facility] 06/07 19:22 Order name: EKG - Nurse/Tech; Complete Time: 20:08 [facility] 06/07 19:22 Order name: IV Saline Lock; Complete Time: 20:08 [facility] 06/07 19:22 Order name: Labs collected and sent; Complete Time: 20:08 [facility] 06/07 19:22 Order name: O2 Per Protocol; Complete Time: 19:40 [facility] 06/07 19:22 Order name: O2 Sat Monitoring; Complete Time: 19:39 [facility] 06/07 19:22 Order name: IV Saline Lock - Large Bore; Complete Time: 20:08 [facility] EC:08 Rate is 83 beats/min. Rhythm is regular. QRS [place] is Normal. [place] interval is normal. QRS juan carlos interval is normal. QT interval is normal. No Q waves. T waves are Normal. No ST changes noted. Clinical impression: NSR w/ Non-specific ST/T Changes and No evidence of ischemia. Interpreted by me. Reviewed by me. Administered Medications: 20:27 Drug: Pantoprazole IVP 40 mg IVP once Route: IVP; Site: left jugular; jb4 21:00 Follow up: Response: No adverse reaction jb4 20:28 Drug: NS 0.9% IV 1000 ml IV at 100 ml/hr once; to be given as a bolus over 60 minutes jb4 Route: IV; Rate: 100 ml/hr; Site: left jugular; 06/08 01:46 Follow up: Response: No adverse reaction; IV Status: Order to discontinue infusion; IV jb4 Intake: 500ml 06/07 22:46 Drug: Phytonadione Sub-Q 10 mg Sub-Q once Route: Sub-Q; Site: left upper arm; jb4 06/08 01:46 Follow up: Response: No adverse reaction jb4 Disposition Summary: 06/07/25 21:29 Transfer Ordered Notes: Transfer Location: [facility] juan carlos Reason: Higher level of care juan carlos Condition: Fair juan carlos Problem: new juan carlos Symptoms: are unchanged juan carlos Accepting Physician: to [facility](06/08/25 01:47) jb4 Diagnosis - Alcoholic cirrhosis of liver with ascites juan carlos - Pleural condition, unspecified juan carlos - Weakness juan carlos - Alcohol abuse with intoxication juan carlos Forms: - Medication Reconciliation Form juan carlos - SBAR form juan carlos Signatures: Dispatcher [employer] EDMS Renato Ace MD MD cha Bryson, James RN RN jb4 MALIK RAMIREZ RN RN dd2 Corrections: (The following items were deleted from the chart) 06/07 19:23 19:23 BASIC METABOLIC PANEL+C.LAB.BRZ ordered. EDMS EDMS 19:23 19:23 CBC+H.LAB.BRZ ordered. EDMS EDMS 19:23 19:23 HEPATIC FUNCTION+C.LAB.BRZ ordered. EDMS EDMS 19:23 19:23 MAGNESIUM+C.LAB.BRZ ordered. EDMS EDMS 19:23 19:23 PROBNP+C.LAB.BRZ ordered. EDMS EDMS 19:23 19:23 PROTIME (+INR)+COAG.LAB.BRZ ordered. EDMS EDMS 19:23 19:23 Troponin High Sensitivity+C.LAB.BRZ ordered. EDMS EDMS 19:23 19:23 LIPASE+C.LAB.BRZ ordered. EDMS EDMS 19:23 19:23 AMMONIA+C.LAB.BRZ ordered. EDMS EDMS 19:23 19:23 UA Rfx Davon Cult if indicated+U.LAB.BRZ ordered. EDMS EDMS 19:23 19:23 Chest Single View+RAD.RAD.BRZ ordered. EDOR EDMS 06/08 01:47 06/07 21:29 to [facility] juan carlos jb4
[2025-06-07 22:24] LABS: White Blood Cell Scan OK (OK)
[2025-06-07 22:25] LABS: Anisocytosis 1+; Blood Morphology Comment NOTED (NOT SEEN)
[2025-06-07] MEDS ORDERED: VITAMIN K (ADULT) 10 MG/ML ONE (22:37)
[2025-06-08 01:53] VITALS: TEMP 98.2
[2025-06-08 01:58] VITALS: BP 93/50; O2SAT 95
== END 2025-06-08 01:47 | disposition short-term general hospital (02) ==
LOC: ER 19:06
PROC: 05HQ33Z Insertion of Infusion Device into Left External Jugular Vein, Percutaneous Approach (ICD-10-PCS; principal; 2025-06-08)
DX: K70.31 Alcoholic cirrhosis of liver with ascites (principal); J94.9 Pleural condition, unspecified; R53.1 Weakness; F10.129 Alcohol abuse with intoxication, unspecified
CPT/HCPCS: 36415; 71045; 80048; 80076; 82077; 82140; 83690; 83735; 83880; 84484; 85025; 85610; 93005; 96361; 96372; 96374; 99285; J2470; J3430; J7030

== ENCOUNTER 2025-06-14 20:33 | Emergency (ER) | payer MEDICAID, SELFPAY ==
[2025-06-14 21:48] LABS: Absolute Lymphocytes (CBC) 2.7 K/uL (0.7-4.9); Hematocrit 29.8 % (36.0-45.0); Hemoglobin 9.6 g/dL (12.0-15.0); MCH 28.2 pg (27.0-35.0); MCHC 32.4 g/dL (32.0-36.0); MCV 87.1 fL (80-100); MPV 8.3 fL (7.6-11.3); Nucleated RBC Absolute Count 0.0 (0-0); Nucleated Red Blood Cells % 0.0 % (0-0); RBC Red Blood Cell Count 3.42 M/uL (3.86-4.86); White Blood Cell Scan OK (OK); White Blood Count 7.90 thou/uL (4.3-10.9)
[2025-06-14 21:49] LABS: Anisocytosis 1+; Blood Morphology Comment NOTED (NOT SEEN)
[2025-06-14 21:55] LABS: PT Prothrombin Time 16.2 SECONDS (10-13.0); Protime INR 1.45
[2025-06-14 22:06] LABS: ALT/SGPT 17.0 U/L (13-56); AST/SGOT 47.0 U/L (15-37); Albumin 2.0 g/dL (3.4-5.0); Albumin/Globulin Ratio 0.5 (1.1-1.8); Alkaline Phosphatase 86.0 U/L (45-117); Anion Gap 9.6 mEq/L (5.0-15.0); BUN Blood Urea Nitrogen 6.0 mg/dL (7-18); Globulin 3.8 g/dL (2.3-3.5); Glucose Level 104.0 mg/dL (74-106); Lipase 49.0 U/L (13-75); Potassium 3.6 mEq/L (3.5-5.1)
--- NOTE | 2025-06-15 00:07 | RAD REPORT ---
CLINICAL HISTORY: Ascites, liver failure, abdominal pain. COMPARISON: CT Chest abdomen pelvis 02/16/2025. TECHNIQUE: CT ABDOMEN PELVIS WITHOUT IV CONTRAST on 06/14/2025 9:46 PM CDT This exam was performed according to our departmental dose-optimization program, which includes autom ated exposure control, adjustment of the mA and/or kV according to patient size and/or use of iterative reconstruction technique. FINDINGS: There is a small left pleural effusion. There is a large right pleural effusion, incompletely assesse d. Abdomen: The liver is normal in appearance. There is no biliary dilatation. Cholecystectomy was perfo rmed. There is extensive diffuse ascites. The pancreas and spleen are normal in appearance. The adrenal glands and kidneys are unremarkable. Abdominal aorta is normal in course and caliber without aneurysm. There is no free air. There is no r etroperitoneal adenopathy. There is a small ascites containing umbilical hernia. There is diffuse body wall anasarca. Pelvis: There is a moderate amount of stool throughout the colon. Urinary bladder is unremarkable. Th ere is large amount of free pelvic fluid. Uterus is not clearly seen. Appendix is normal. Skeleton: There are no acute osseous findings. No suspicious bony lesions. Partially visualized multi level thoracic fusion was performed. IMPRESSION: Extensive ascites with bilateral pleural effusions and body wall anasarca. Electronically signed by: Ezra Gill MD 06/14/2025 11:58 PM CDT RP Due to temporary technical issues with the PACS/Roost reporting system, reports are being kayla d by the in-house radiologist without review as a courtesy to ensure prompt reporting the interpreting radiologist is fully responsible for the content of the report. Transcribed Date/Time: 06/15/2025 12:07 AM
--- NOTE | 2025-06-15 00:13 | ER ---
Nurse's Notes [facility] Name: Rylee Thomas Age: 39 yrs Sex: Female : 1985 Arrival Date: 06/14/2025 Time: 20:33 Bed 5 Private MD: Diagnosis: Liver cirrhosis, ascites, abdominal pain Presentation: 06/14 20:52 Chief complaint: Patient states: SOB and generalized weakness, CP, abdominal pain, me1 diarrhea. Needs paracentesis, its been one week since she had one. Coronavirus screen: Vaccine status: Patient reports receiving the 2nd dose of the covid vaccine. Ebola Screen: No symptoms or risks identified at this time. Initial Sepsis Screen: Does the patient meet any 2 criteria? HR > 90 bpm. Does the patient have a suspected source of infection? No. Patient's initial sepsis screen is negative. Risk Assessment: Do you want to hurt yourself or someone else? Patient reports no desire to harm self or others. Onset of symptoms is unknown. 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 - Infectious Disease History:: Denies. - Social history:: Smoking status: Patient denies any tobacco usage or history of. Patient uses alcohol, on a daily basis. Went a week and half without drinking but she drank today.. Screenin:48 [facility] ED Fall Risk Assessment (Adult) History of falling in the last 3 months, lg3 including since admission No falls in past 3 months (0 pts) Confusion or Disorientation No (0 pts) Intoxicated or Sedated No (0 pts) Impaired Gait No (0 pts) Mobility Assist Device Used No (0 pt) Altered Elimination No (0 pt) Score/Fall Risk Level 0 - 2 = Low Risk Oriented to surroundings, Maintained a safe environment, Educated pt \T\ family on fall prevention, incl call for assistance when getting out of bed, Assessed \T\ reinforced patient's understanding of fall precautions. Abuse screen: Denies threats or abuse. Denies injuries from another. Nutritional screening: No deficits noted. Tuberculosis screening: No symptoms or risk factors identified. Assessment: 21:48 General: Appears in no apparent distress. comfortable, Behavior is cooperative, lg3 agitated, Smells of alcohol. Pain: Complains of pain in head, abdomen and back. Neuro: No deficits noted. Hagen Agitation-Sedation Scale (RASS): +2 Agitated Level of Consciousness is awake, alert, obeys commands, Oriented to person, place, time, situation. Cardiovascular: No deficits noted. Reports chest pain, shortness of breath, Capillary refill < 3 seconds Clubbing of nail beds is absent JVD is absent Patient's skin is warm and dry. Respiratory: No deficits noted. Reports shortness of breath on exertion Airway is patent Respiratory effort is even, unlabored, Respiratory pattern is regular, symmetrical. GI: Abdomen is round noted to have ascites, Bowel sounds present X 4 quads. Abd is soft X 4 quads Reports lower abdominal pain, upper abdominal pain, nausea. : No signs and/or symptoms were reported regarding the genitourinary system. EENT: No deficits noted. No signs and/or symptoms were reported regarding the EENT system. Derm: No deficits noted. No signs and/or symptoms reported regarding the dermatologic system. Skin is intact, is healthy with good turgor, Skin is dry, Skin is normal, Skin temperature is warm. Musculoskeletal: No deficits noted. Circulation, motion, and sensation intact. Range of motion: intact in all extremities. 23:19 Reassessment: Patient appears in no apparent distress at this time. No changes from lg3 previously documented assessment. Patient and/or family updated on plan of care and expected duration. Pain level reassessed. Patient is alert, oriented x 3, equal unlabored respirations, skin warm/dry/pink. 06/15 00:32 Reassessment: Patient appears in no apparent distress at this time. No changes from lg3 previously documented assessment. Patient and/or family updated on plan of care and expected duration. Pain level reassessed. Patient is alert, oriented x 3, equal unlabored respirations, skin warm/dry/pink. Vital Signs: 06/14 20:52 BP 107 / 70; Pulse 104; Resp 19; Temp 98; Pulse Ox 99% ; Height 5 ft. 9 in. ; Pain 8/10;me1 23:19 BP 118 / 76; Pulse 106; Resp 19 S; Pulse Ox 96% on R/A; lg3 06/15 00:32 BP 121 / 71; Pulse 99; Resp 18 S; Pulse Ox 97% on R/A; lg3 06/14 20:52 Pain Scale: Adult [facility] ED Course: 06/14 20:36 Patient arrived in ED. 2 20:55 Triage completed. me1 20:55 Arm band placed on Patient placed in an exam room. nh1 21:01 Anais Acuña MD is Attending Physician. sp3 21:48 Patient has correct armband on for positive identification. Placed in gown. Bed in low lg3 position. Call light in reach. Side rails up X 1. Client placed on continuous cardiac and pulse oximetry monitoring. NIBP monitoring applied. telemetry monitor on. Door closed. Noise minimized. Warm blanket given. Pillow given. 21:48 Initial lab(s) drawn, by ED staff, sent to lab. Inserted saline lock: 20 gauge in left lg3 upper arm, using aseptic technique. Blood collected. Flushed with 10 mL NS. 22:56 CT Abd/Pelvis - Without Contrast In Process Unspecified. EDMS 06/15 00:20 Provided Education on: post er care. bm8 00:20 No provider procedures requiring assistance completed. IV discontinued, intact, bm8 bleeding controlled, No redness/swelling at site. Pressure dressing applied. Administered Medications: No medications were administered Medication: 06/14 21:48 VIS not applicable for this client. lg3 Outcome: 06/15 00:13 Discharge ordered by . sp3 00:20 Discharged to home via wheelchair, bm8 00:20 Condition: stable 00:20 Discharge instructions given to patient, family, Instructed on discharge instructions, follow up and referral plans. no drinking with medication, no driving heavy equipment, medication usage, safety practices, Demonstrated understanding of instructions, follow-up care, medications, 00:33 Patient left the ED. lg3 Signatures: Dispatcher [employer] EDMS Dorothy Woodard RN RN lg3 Anais Acuña MD MD sp3 Jennifer Anders RN RN nh1 Brynn Vigil 2 Lalo Herrera RN RN bm8 Corrections: (The following items were deleted from the chart) 06/14 23:30 21:48 General: Appears in no apparent distress. comfortable, Behavior is cooperative, lg3 agitated, lg3
--- NOTE | 2025-06-15 00:13 | EDPHYS ---
Physician Documentation [facility] Name: Rylee Thomas Age: 39 yrs Sex: Female : 1985 Arrival Date: 06/14/2025 Time: 20:33 Bed 5 Private MD: ED Physician Anais Acuña HPI: 06/14 22:43 This 39 yrs old Female presents to ER via Wheelchair with complaints of Abdominal sp3 Swelling, Weakness, Headache. 22:43 39-year-old female with history of alcoholism, cirrhosis of the liver, endometriosis sp3 now presents to the ED with abdominal pain and increased swelling right versus left according to patient. Patient gets weekly paracentesis done with last paracentesis performed last Wednesday. She is scheduled for this Wednesday as well. She gets these at [facility] in the [facility]. She denies any fever, headache, neck pain, chest pain, shortness of breath, dysuria, urinary frequency, gross visualized hematuria, vomiting, diarrhea or any other signs or symptoms on ROS at this time.. 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 - Infectious Disease History:: Denies. - Social history:: Smoking status: Patient denies any tobacco usage or history of. Patient uses alcohol, on a daily basis. Went a week and half without drinking but she drank today.. ROS: 22:45 Constitutional: Negative for fever, chills, and weight loss, Eyes: Negative for injury, sp3 pain, redness, and discharge, Neck: Negative for injury, pain, and swelling, Cardiovascular: Negative for chest pain, palpitations, and edema, Respiratory: Negative for shortness of breath, cough, wheezing, and pleuritic chest pain, Back: Negative for injury and pain, MS/Extremity: Negative for injury and deformity, Skin: Negative for injury, rash, and discoloration, Neuro: Negative for headache, weakness, numbness, tingling, and seizure, Psych: Negative for depression, anxiety, suicide ideation, homicidal ideation, and hallucinations, Allergy/Immunology: Negative for hives, rash, and allergies, Endocrine: Negative for neck swelling, polydipsia, polyuria, polyphagia, and marked weight changes, Hematologic/Lymphatic: Negative for swollen nodes, abnormal bleeding, and unusual bruising, 22:45 All other systems are negative, Exam: 22:45 Constitutional: This is a well developed, well nourished patient who is awake, alert, sp3 and in no acute distress. Head/Face: Normocephalic, atraumatic. Eyes: Pupils equal round and reactive to light, extra-ocular motions intact. Lids and lashes normal. Conjunctiva and sclera are non-icteric and not injected. Cornea within normal limits. Periorbital areas with no swelling, redness, or edema. Neck: Trachea midline, no thyromegaly or masses palpated, and no cervical lymphadenopathy. Supple, full range of motion without nuchal rigidity, or vertebral point tenderness. No Meningismus. Chest/axilla: Normal chest wall appearance and motion. Nontender with no deformity. No lesions are appreciated. Cardiovascular: Regular rate and rhythm with a normal S1 and S2. No gallops, murmurs, or rubs. Normal PMI, no JVD. No pulse deficits. Respiratory: Lungs have equal breath sounds bilaterally, clear to auscultation and percussion. No rales, rhonchi or wheezes noted. No increased work of breathing, no retractions or nasal flaring. Back: No spinal tenderness. No costovertebral tenderness. Full range of motion. Skin: Warm, dry with normal turgor. Normal color with no rashes, no lesions, and no evidence of cellulitis. MS/ Extremity: Pulses equal, no cyanosis. Neurovascular intact. Full, normal range of motion. Neuro: Awake and alert, GCS 15, oriented to person, place, time, and situation. Cranial nerves II-XII grossly intact. Motor strength 5/5 in all extremities. Sensory grossly intact. Cerebellar exam normal. Normal gait. Psych: Awake, alert, with orientation to person, place and time. Behavior, mood, and affect are within normal limits. 22:45 Abdomen/GI: Markedly distended belly with ascites. No peritoneal signs, rebound or guarding., Vital Signs: 20:52 BP 107 / 70; Pulse 104; Resp 19; Temp 98; Pulse Ox 99% ; Height 5 ft. 9 in. ; Pain 8/10;me1 23:19 BP 118 / 76; Pulse 106; Resp 19 S; Pulse Ox 96% on R/A; lg3 06/15 00:32 BP 121 / 71; Pulse 99; Resp 18 S; Pulse Ox 97% on R/A; lg3 06/14 20:52 Pain Scale: Adult me1 MDM: 06/14 21:23 Medical Screening Exam initiated sp3 22:46 Data reviewed: vital signs, nurses notes, old medical records, lab test result(s), sp3 radiologic studies. ED course: 39-year-old female with PMH above including cirrhosis and alcoholism now with recurrent right greater than left abdominal pain and increased swelling. Differential diagnosis includes recurrent ascites, other hepatobiliary pathology, gastritis, UTI, among others. Workup to include general labs, alcohol level, CT scan of the abdomen pelvis noncontrast. Disposition pending workup and patient course.. 06/15 00:11 ED course: CT scan shows ascites. No other abnormal findings noted. Clinically patient sp3 does not have SBP. Elective drainage of ascites is warranted. No reason for emergent transfer at this time. Patient also has alcohol level of 350 and states that she will continue to drink as needed "to help her with her symptoms". I have advised her that this is the worst thing that she can do. She acknowledged. Heart rate on discharge in the 90s.. 06/14 21:36 Order name: CBC with Diff; Complete Time: 22:43 ha1 06/14 21:36 Order name: CMP; Complete Time: 22:43 ha1 06/14 21:36 Order name: Lipase; Complete Time: 22:43 ha1 06/14 21:36 Order name: Alcohol Level; Complete Time: 22:43 ha1 06/14 21:36 Order name: PT-INR; Complete Time: 22:43 ha1 06/14 21:49 Order name: CBC Smear Scan; Complete Time: 22:43 EDMS 06/14 21:46 Order name: CT Abd/Pelvis - Without Contrast sp3 06/14 21:36 Order name: IV Saline Lock; Complete Time: 21:57 ha1 06/14 21:36 Order name: Labs collected and sent; Complete Time: 21:57 ha1 Administered Medications: No medications were administered Disposition Summary: 06/15/25 00:13 Discharge Ordered Notes: Location: Home sp3 Condition: Stable sp3 Diagnosis - Liver cirrhosis, ascites, abdominal pain sp3 Followup: sp3 - With: Private Physician - When: Upon discharge from the Emergency Department - Reason: Continuance of care Discharge Instructions: - Discharge Summary Sheet sp3 - Ascites sp3 Forms: - Medication Reconciliation Form sp3 - Antibiotic Education sp3 - Prescription Opioid Use sp3 - Patient Portal Instructions sp3 - Leadership Thank You Letter sp3 Signatures: Dispatcher [employer] EDMS Anais Acuña MD MD sp3 Carmencita Napoles RN RN ha1 Jennifer Anders RN RN me1 Corrections: (The following items were deleted from the chart) 06/14 21:36 21:36 CBC+H.LAB.BRZ ordered. EDMS EDMS 21:36 21:36 COMPREHENSIVE METABOLIC PANEL+C.LAB.BRZ ordered. EDMS EDMS 21:36 21:36 LIPASE+C.LAB.BRZ ordered. EDMS EDMS 21:36 21:36 ETHANOL+C.LAB.BRZ ordered. EDMS EDMS
[2025-06-15 00:48] VITALS: TEMP 98
[2025-06-15 00:51] VITALS: BP 121/71; O2SAT 97
== END 2025-06-15 00:33 | disposition home or self-care (01) ==
LOC: ER 20:33
DX: K70.31 Alcoholic cirrhosis of liver with ascites (principal); F10.20 Alcohol dependence, uncomplicated
CPT/HCPCS: 36415; 74176; 80053; 82077; 83690; 85025; 85610; 99284

== ENCOUNTER 2025-06-17 18:52 | Emergency (ER) | payer MEDICAID, SELFPAY ==
[2025-06-17] MEDS ORDERED: ONDANSETRON 4 MG/2 ML VIAL ONE (19:12)
[2025-06-17] MEDS ORDERED: MORPHINE 4 MG/ML SYR ONE ×2 (19:13→22:27)
[2025-06-17] MEDS ORDERED: ALBUMIN HUMAN 25% 100 ML IV ONE ×2 (19:14→19:48)
--- NOTE | 2025-06-17 19:46 | RAD REPORT ---
EXAMINATION: CT Abdomen Pelvis Wo Contrast CLINICAL INDICATION: Female, 39 years old. ABD PAIN TECHNIQUE: CT abdomen and pelvis was performed, without IV contrast, as per department protocol. Axia l, sagittal and coronal reconstructions were obtained. One or more of the following dose reduction techniques were used: Automated exposure control, adjustment of the mA and kV according to the patien t size, and iterative reconstruction. Unless otherwise specified, incidental findings do not require dedicated imaging follow-up. COMPARISON: 06/14/2025 FINDINGS: The lack of intravenous contrast limits the sensitivity of this exam for evaluation of solid visceral organs, vascular structures, and retroperitoneum. Motion and beam hardening artifact also limits evaluation. LOWER CHEST: Large right and trace left pleural effusions, with right1 lung bases are collapse of the included segments. LIVER: Normal in size and contour. No focal lesion. BILIARY SYSTEM: Small calcified gallstones near the neck. SPLEEN: Again enlarged measuring 14.6 cm axis. Stable punctate foci of calcification suggesting seque lae of granulomatous infection No focal lesion. PANCREAS: No mass, ductal dilation, or esther-pancreatic fluid. ADRENALS: Normal; no mass. KIDNEYS AND URETERS: Normal size and contour. No hydronephrosis. URINARY BLADDER: Decompressed limiting evaluation. GASTROINTESTINAL TRACT: No evidence of bowel obstruction, free air or abscess. Large volume free asci eamon again seen. Edema in the mesentery and fluid tracking along the right more than left paracolic gutter, stable. APPENDIX: Normal appendix. LYMPH NODES: No lymphadenopathy. MUSCULOSKELETAL: No acute or suspicious osseous abnormality. ADDITIONAL FINDINGS: Moderate body wall edema. Umbilical hernia containing fluid. IMPRESSION: Stable findings including large volume free ascites, large right pleural effusion, and mesenteric and body wall edema. Please correlate for volume overload. Other stable findings as above, including cholelithiasis.
[2025-06-17 19:49] LABS: Absolute Lymphocytes (CBC) 2.6 K/uL (0.7-4.9); Hematocrit 32.2 % (36.0-45.0); Hemoglobin 10.5 g/dL (12.0-15.0); MCH 28.0 pg (27.0-35.0); MCHC 32.4 g/dL (32.0-36.0); MCV 86.2 fL (80-100); MPV 8.1 fL (7.6-11.3); Nucleated RBC Absolute Count 0.0 (0-0); Nucleated Red Blood Cells % 0.0 % (0-0); RBC Red Blood Cell Count 3.74 M/uL (3.86-4.86); White Blood Count 6.80 thou/uL (4.3-10.9)
[2025-06-17 20:15] LABS: ALT/SGPT 24 U/L (13-56); AST/SGOT 72 U/L (15-37); Albumin 2.1 g/dL (3.4-5.0); Albumin/Globulin Ratio 0.5 (1.1-1.8); Alkaline Phosphatase 121 U/L (45-117); Anion Gap 9.6 mEq/L (5.0-15.0); BUN Blood Urea Nitrogen 8 mg/dL (7-18); Globulin 4.5 g/dL (2.3-3.5); Glucose Level 109 mg/dL (74-106); Lipase 38 U/L (13-75); Potassium 3.6 mEq/L (3.5-5.1)
--- NOTE | 2025-06-17 21:12 | ER ---
Nurse's Notes [facility] Name: Rylee Thomas Age: 39 yrs Sex: Female : 1985 Arrival Date: 06/17/2025 Time: 18:52 Bed 7 Private MD: Diagnosis: Other ascites;Alcoholic cirrhosis of liver without ascites;Tense ascites, right pleural effusion, volume overload, acute dyspnea secondary to volume overload;Alcohol abuse with intoxication Presentation: 06/17 18:55 Chief complaint: Patient states: worsening abdominal swelling and pain, hx of cirrhosis aa5 of liver. 18:55 Coronavirus screen: At this time, the client does not indicate any symptoms associated aa5 with coronavirus-19. Ebola Screen: Patient denies travel to an Ebola-affected area in the 21 days before illness onset. Initial Sepsis Screen: Does the patient meet any 2 criteria? HR > 90 bpm. Does the patient have a suspected source of infection? No. Patient's initial sepsis screen is negative. Risk Assessment: Do you want to hurt yourself or someone else? Patient reports no desire to harm self or others. Onset of symptoms was June 17, 2025. 18:55 Acuity: NIDHI 2 aa5 18:55 Method Of Arrival: EMS: [facility] aa5 Historical: - PMHx: 19:02 cirrhosis of liver; Endometriosis of vagina; scoliosis; aa5 - PSHx: 19:02 L leg surgery; partial hysterectomy; aa5 - Immunization history:: Adult Immunizations unknown. - Infectious Disease History:: Denies. - Social history:: Smoking status: Patient denies any tobacco usage or history of. - Family history:: not pertinent. Screenin:55 [facility] ED Fall Risk Assessment (Adult) History of falling in the last 3 months, kd3 including since admission No falls in past 3 months (0 pts) Confusion or Disorientation No (0 pts) Intoxicated or Sedated No (0 pts) Impaired Gait No (0 pts) Mobility Assist Device Used No (0 pt) Altered Elimination No (0 pt) Score/Fall Risk Level 0 - 2 = Low Risk Maintained a safe environment. Abuse screen: Denies threats or abuse. Denies injuries from another. Nutritional screening: No deficits noted. Tuberculosis screening: No symptoms or risk factors identified. Assessment: 19:54 General: Appears uncomfortable, Behavior is calm, cooperative. Pain: Complains of pain kd3 in abdomen. Neuro: Level of Consciousness is awake, alert, obeys commands, Oriented to person, place, time, situation. Cardiovascular: Capillary refill < 3 seconds. Respiratory: Airway is patent Trachea midline Respiratory effort is even, labored, Respiratory pattern is regular, symmetrical. GI: Bowel sounds diminished in right upper quadrant, left upper quadrant, right lower quadrant and left lower quadrant distended. Vital Signs: 18:55 BP 122 / 84; Pulse 107; Resp 20 S; Temp 98(O); Pulse Ox 94% on R/A; Weight 49.9 kg (R); aa5 Height 5 ft. 9 in. (R); 19:56 BP 123 / 72; Pulse 99; Resp 16; Pulse Ox 98% on R/A; kd3 21:09 BP 122 / 94; Pulse 94; Resp 22; Pulse Ox 94% on R/A; kd3 22:44 BP 121 / 89; Pulse 102; Resp 22; Pulse Ox 94% on R/A; kd3 18:55 Body Mass Index 16.24 (49.90 kg, 175.26 cm) aa5 Cody Coma Score: 21:39 Eye Response: spontaneous(4). Motor Response: obeys commands(6). Verbal Response: sp4 oriented(5). Total: 15. ED Course: 18:55 Patient arrived in ED. rv1 18:55 Arm band placed on Patient placed in an exam room, on a stretcher. aa5 18:57 Jean Carlos Warren MD is Attending Physician. sp4 19:03 Triage completed. aa5 19:05 Liz Yao, SCARLETT is Primary Nurse. kd3 19:20 CT Abd/Pelvis - Without Contrast In Process Unspecified. EDMS 19:39 No provider procedures requiring assistance completed. Inserted saline lock: 22 gauge kd3 in right forearm, using aseptic technique. Blood collected. Flushed with 10 mL NS. 19:40 CBC with Diff Sent. kd3 19:40 CMP Sent. kd3 19:40 Lipase Sent. kd3 21:09 IV discontinued, intact, bleeding controlled, No redness/swelling at site. Pressure kd3 dressing applied. 21:09 Inserted saline lock: 20 gauge in left upper arm, using aseptic technique. Blood kd3 collected. Flushed with 10 mL NS. 21:18 Initiated transfer with Randi at [facility]. rv1 21:[address] Franco to [facility] Rm [id number]. rv1 22:10 [facility] to transfer. rv1 22:44 Patient has correct armband on for positive identification. Provided Education on: kd3 transfer . Administered Medications: 19:40 Drug: Ondansetron IVP 4 mg IVP once; over 2 minutes Route: IVP; Site: right forearm; kd3 20:22 Follow up: Response: No adverse reaction kd3 19:40 Drug: morphine IVP or IV 4 mg IVP once over 4 mins Route: IVP; Infused Over: 4 mins; kd3 Site: right forearm; 20:22 Follow up: Response: No adverse reaction; Pain is decreased kd3 19:45 Drug: Albumin IVPB 25 grams 100 ml IVPB once; (Note: Albumin 25% concentration) Volume: kd3 100 ml; Route: IVPB; Site: right forearm; 20:22 Follow up: IV Status: Completed infusion kd3 20:22 Drug: Albumin IVPB 25 grams 100 ml IVPB once; (Note: Albumin 25% concentration) Volume: kd3 100 ml; Route: IVPB; Site: right forearm; 21:59 Follow up: IV Status: Completed infusion kd3 22:12 Drug: Thiamine IV 100 mg IV at bolus once Route: IV; Rate: bolus; Site: left upper arm; kd3 22:21 Follow up: IV Status: Completed infusion kd3 22:14 Drug: Furosemide IVP 40 mg IVP once; give over 2 minutes Route: IVP; Site: left upper kd3 arm; 22:21 Follow up: Response: No adverse reaction kd3 22:30 Drug: morphine IVP or IV 4 mg IVP once over 4 mins Route: IVP; Infused Over: 4 mins; kd3 Site: left upper arm; Medication: 19:55 VIS not applicable for this client. kd3 Outcome: 21:11 ER care complete, transfer ordered by MD. lima 22:44 Transferred by ground EMS to [facility] kd3 22:44 Condition: stable 22:44 Discharge instructions given to patient, Instructed on the need for transfer, Demonstrated understanding of instructions, 22:45 Patient left the ED. kd3 Signatures: Dispatcher [employer] EDMS Grigsby, May, RN RN aa5 Liz Yao RN RN kd3 Yolande Zhao rv1 Jean Carlos Warren MD MD sp4 Corrections: (The following items were deleted from the chart) 19:56 19:56 BP 123 / 72; Pulse 84bpm; Resp 16bpm; Pulse Ox 98% RA; kd3 kd3
--- NOTE | 2025-06-17 21:12 | EDPHYS ---
Physician Documentation [facility] Name: Rylee Thomas Age: 39 yrs Sex: Female : 1985 Arrival Date: 06/17/2025 Time: 18:52 Bed 7 Private MD: ED Physician Jean Carlos Warren HPI: 06/17 18:57 This 39 yrs old Female presents to ER via Unassigned with complaints of sp4 abdominal distention . 21:39 Patient with history of severe alcoholic liver cirrhosis and recurrent abdominal sp4 ascites also recurrent right pleural effusion presents with moderate to severe tense ascites associated with acute shortness of breath. Patient reports her care usually done at [facility] including her paracentesis and right thoracentesis done usually at [facility]. . Historical: - PMHx: 19:02 cirrhosis of liver; Endometriosis of vagina; scoliosis; aa5 - PSHx: 19:02 L leg surgery; partial hysterectomy; aa5 - Immunization history:: Adult Immunizations unknown. - Infectious Disease History:: Denies. - Social history:: Smoking status: Patient denies any tobacco usage or history of. - Family history:: not pertinent. ROS: 21:39 Constitutional: Negative for fever, chills, and weight loss, positive abdominal sp4 distention, positive abdominal pain, positive shortness of breath, positive tense ascites 21:39 All other systems are negative, Exam: 21:39 Constitutional: Thin appearing, physically debilitated female with protuberant abdomen sp4 with tense abdominal ascites. Moderate cachexia, diffuse jaundice Head/Face: Normocephalic, atraumatic. Eyes: Pupils equal round and reactive to light, extra-ocular motions intact. Lids and lashes normal. Conjunctiva and sclera are not injected. Cornea within normal limits. Periorbital areas with no swelling, redness, or edema. ENT: Nares patent. No nasal discharge, no septal abnormalities noted. Tympanic membranes are normal and external auditory canals are clear. Oropharynx with no redness, swelling, or masses, exudates, or evidence of obstruction, uvula midline. Mucous membranes moist. Neck: Trachea midline, no thyromegaly or masses palpated, and no cervical lymphadenopathy. Supple, full range of motion without nuchal rigidity, or vertebral point tenderness. Chest/axilla: Normal chest wall appearance and motion. Nontender with no deformity. No lesions are appreciated. Cardiovascular: Regular rate and rhythm with a normal S1 and S2. No gallops, murmurs, or rubs. No pulse deficits. Respiratory: Lungs have equal breath sounds bilaterally, clear to auscultation and percussion. No rales, rhonchi or wheezes noted. No increased work of breathing, no retractions or nasal flaring. Abdomen/GI: Distended abdomen moderate to severe tense ascites, diffusely tender, diminished bowel sounds. Caput medusa, umbilical hernia small in size Back: No spinal tenderness. No costovertebral tenderness. Skin: Warm, dry with normal turgor. Normal color with no rashes, no lesions, and no evidence of cellulitis. MS/ Extremity: Pulses equal, no cyanosis. Neurovascular intact. Full, normal range of motion. Neuro: Awake and alert, GCS 15, oriented to person, place, time, and situation. Cranial nerves II-XII grossly intact. Motor strength 5/5 in all extremities. Sensory grossly intact. Psych: Awake, alert, with orientation to person, place and time. Behavior, mood, and affect are within normal limits Vital Signs: 18:55 BP 122 / 84; Pulse 107; Resp 20 S; Temp 98(O); Pulse Ox 94% on R/A; Weight 49.9 kg (R); aa5 Height 5 ft. 9 in. (R); 19:56 BP 123 / 72; Pulse 99; Resp 16; Pulse Ox 98% on R/A; kd3 21:09 BP 122 / 94; Pulse 94; Resp 22; Pulse Ox 94% on R/A; kd3 22:44 BP 121 / 89; Pulse 102; Resp 22; Pulse Ox 94% on R/A; kd3 18:55 Body Mass Index 16.24 (49.90 kg, 175.26 cm) aa5 Cody Coma Score: 21:39 Eye Response: spontaneous(4). Motor Response: obeys commands(6). Verbal Response: sp4 oriented(5). Total: 15. MDM: 19:06 Medical Screening Exam initiated sp4 21:07 ED course: EXAMINATION: CTAbdomen Pelvis Wo Contrast CLINICAL INDICATION: Female, 39 sp4 years old. ABD PAIN TECHNIQUE: CT abdomen and pelvis was performed, without IV contrast, as per department protocol. Axial, sagittal and coronal reconstructions were obtained. One or more of the following dose reduction techniques were used: Automated exposure control, adjustment of the mA and kV according to the patient size, and iterative reconstruction. Unless otherwise specified, incidental findings do not require dedicated imaging follow-up. COMPARISON: 06/14/2025 FINDINGS: The lack of intravenous contrast limits the sensitivity of this exam for evaluation of solid visceral organs, vascular structures, and retroperitoneum. Motion and beam hardening artifact also limits evaluation. LOWER CHEST: Large right and trace left pleural effusions, with right1 lung bases are collapse of the included segments. LIVER: Normal in size and contour. No focal lesion. BILIARYSYSTEM: Small calcified gallstones near the neck. SPLEEN: Again enlarged measuring 14.6 cm axis. Stable punctate foci of calcification suggesting sequelae of granulomatous infection No focal lesion. PANCREAS: No mass, ductal dilation, or esther-pancreatic fluid. ADRENALS: Normal; no mass. KIDNEYS AND URETERS: Normal size and contour. No hydronephrosis. URINARYBLADDER: Decompressed limiting evaluation. GASTROINTESTINAL TRACT: No evidence of bowel obstruction, free air or abscess. Large volume free ascites again seen. Edema in the mesentery and fluid tracking along the right more than left paracolic gutter, stable. APPENDIX: Normal appendix. LYMPH NODES: No lymphadenopathy. MUSCULOSKELETAL: No acute or suspicious osseous abnormality. ADDITIONAL FINDINGS: Moderate body wall edema. Umbilical hernia containing fluid. IMPRESSION: Stable findings including large volume free ascites, large right pleural effusion, and mesenteric and body wall edema. Please correlate for volume overload. Other stable findings as above, including cholelithiasis. . 21:43 Differential diagnosis: bowel obstruction, Endometriosis, gastritis, gastroesophageal sp4 reflux disease, GI Bleed, Hepatitis, Irritable bowel syndrome. Data reviewed: vital signs, nurses notes, lab test result(s), radiologic studies, CT scan. Consideration of Admission/Observation Escalation of care including admission/observation considered. 21:54 ED course: Patient was accepted without incident. [facility] 06/17 19:00 Order name: CBC with Diff; Complete Time: 21:05 [facility] 06/17 19:00 Order name: CMP; Complete Time: 21:06 [facility] 06/17 19:00 Order name: Lipase; Complete Time: 21:06 [facility] 06/17 19:49 Order name: ETOH Level; Complete Time: 21:06 sp4 06/17 19:00 Order name: CT Abd/Pelvis - Without Contrast; Complete Time: 19:50 sp4 06/17 19:00 Order name: IV Saline Lock; Complete Time: 19:40 sp4 06/17 19:00 Order name: Labs collected and sent; Complete Time: 19:40 sp4 Administered Medications: 19:40 Drug: Ondansetron IVP 4 mg IVP once; over 2 minutes Route: IVP; Site: right forearm; kd3 20:22 Follow up: Response: No adverse reaction kd3 19:40 Drug: morphine IVP or IV 4 mg IVP once over 4 mins Route: IVP; Infused Over: 4 mins; kd3 Site: right forearm; 20:22 Follow up: Response: No adverse reaction; Pain is decreased kd3 19:45 Drug: Albumin IVPB 25 grams 100 ml IVPB once; (Note: Albumin 25% concentration) Volume: kd3 100 ml; Route: IVPB; Site: right forearm; 20:22 Follow up: IV Status: Completed infusion kd3 20:22 Drug: Albumin IVPB 25 grams 100 ml IVPB once; (Note: Albumin 25% concentration) Volume: kd3 100 ml; Route: IVPB; Site: right forearm; 21:59 Follow up: IV Status: Completed infusion kd3 22:12 Drug: Thiamine IV 100 mg IV at bolus once Route: IV; Rate: bolus; Site: left upper arm; kd3 22:21 Follow up: IV Status: Completed infusion kd3 22:14 Drug: Furosemide IVP 40 mg IVP once; give over 2 minutes Route: IVP; Site: left upper kd3 arm; 22:21 Follow up: Response: No adverse reaction kd3 22:30 Drug: morphine IVP or IV 4 mg IVP once over 4 mins Route: IVP; Infused Over: 4 mins; kd3 Site: left upper arm; Disposition: 21:43 Chart complete. sp4 Disposition Summary: 06/17/25 21:11 Transfer Ordered Notes: Transfer Location: [facility] sp4 Reason: Higher level of care sp4 Condition: Stable sp4 Problem: new sp4 Symptoms: have improved sp4 Accepting Physician: [facility] Umpire's attending MD(06/17/25 22:45) kd3 Diagnosis - Other ascites sp4 - Alcoholic cirrhosis of liver without ascites sp4 - Tense ascites, right pleural effusion, volume overload, acute dyspnea secondary to sp4 volume overload - Alcohol abuse with intoxication sp4 Forms: - Medication Reconciliation Form sp4 - SBAR form sp4 Signatures: Dispatcher [employer] EDMS May Grigsby, RN RN aa5 Liz Yao RN RN kd3 Jean Carlos Warren MD MD sp4 Corrections: (The following items were deleted from the chart) 19:01 19:01 Abdomen Pelvis Wo Con+CT.RAD.BRZ ordered. EDMS EDMS 19:50 19:50 ETHANOL+C.LAB.BRZ ordered. EDMS EDMS 21:44 [facility]11 [facility] [email or web address] sp4 22:45 21:44 [facility] attending MD lima kd3
[2025-06-17] MEDS ORDERED: FUROSEMIDE 40 MG/4 ML VIAL ONE (22:12)
[2025-06-17] MEDS ORDERED: THIAMINE 200 MG/2 ML INJ ONE (22:12)
[2025-06-17 23:18] VITALS: TEMP 98
[2025-06-17 23:21] VITALS: O2SAT 94
[2025-06-17 23:22] VITALS: BP 121/89
== END 2025-06-17 22:45 | disposition short-term general hospital (02) ==
LOC: ER 18:52
DX: K70.31 Alcoholic cirrhosis of liver with ascites (principal); J90 Pleural effusion, not elsewhere classified; E87.70 Fluid overload, unspecified; R06.00 Dyspnea, unspecified; F10.129 Alcohol abuse with intoxication, unspecified
CPT/HCPCS: 36415; 74176; 80053; 82077; 83690; 85025; 99285; J1938; J2405; J3411; P9047

== ENCOUNTER 2025-06-22 17:36 | Emergency (ER) | payer MEDICAID, SELFPAY ==
[2025-06-22 18:00] LABS: Absolute Lymphocytes (CBC) 1.7 K/uL (0.7-4.9); Hematocrit 28.1 % (36.0-45.0); Hemoglobin 9.4 g/dL (12.0-15.0); MCH 28.5 pg (27.0-35.0); MCHC 33.3 g/dL (32.0-36.0); MCV 85.5 fL (80-100); MPV 7.7 fL (7.6-11.3); Nucleated RBC Absolute Count 0.0 (0-0); Nucleated Red Blood Cells % 0.2 % (0-0); RBC Red Blood Cell Count 3.29 M/uL (3.86-4.86); White Blood Count 5.70 thou/uL (4.3-10.9)
[2025-06-22 18:21] LABS: ALT/SGPT 18.0 U/L (13-56); AST/SGOT 49.0 U/L (15-37); Albumin 2.0 g/dL (3.4-5.0); Albumin/Globulin Ratio 0.5 (1.1-1.8); Alkaline Phosphatase 90.0 U/L (45-117); Anion Gap 12.0 mEq/L (5.0-15.0); BUN Blood Urea Nitrogen 9.0 mg/dL (7-18); Globulin 4.1 g/dL (2.3-3.5); Glucose Level 109.0 mg/dL (74-106); Lipase 24.0 U/L (13-75); Potassium 3.0 mEq/L (3.5-5.1)
--- NOTE | 2025-06-22 18:24 | ER ---
Nurse's Notes [facility] Name: Rylee Thomas Age: 39 yrs Sex: Female : 1985 Arrival Date: 06/22/2025 Time: 17:31 Bed 20 Private MD: Diagnosis: Ascites, liver cirrhosis, liver failure, alcoholism, alcohol intoxication Presentation: 06/22 17:44 Chief complaint: EMS states: no sleep in 3 days. Coronavirus screen: Client denies kj2 travel out of the [place] in the last 14 days. At this time, the client does not indicate any symptoms associated with coronavirus-19. Ebola Screen: No symptoms or risks identified at this time. Initial Sepsis Screen: Does the patient meet any 2 criteria? No. Patient's initial sepsis screen is negative. Does the patient have a suspected source of infection? No. Patient's initial sepsis screen is negative. Risk Assessment: Do you want to hurt yourself or someone else? Patient reports no desire to harm self or others. Onset of symptoms was June 22, 2025. 17:44 Method Of Arrival: EMS: [facility] 17:44 Acuity: NIDHI 3 kj2 Triage Assessment: 17:46 General: Appears in no apparent distress. Behavior is cooperative. Pain: Complains of kj2 pain in abdomen Pain currently is 7 out of 10 on a pain scale. Neuro: Level of Consciousness is awake, alert, obeys commands, Oriented to person, place, time, situation. Cardiovascular: Patient's skin is warm and dry. Respiratory: Airway is patent Respiratory effort is even, unlabored. GI: Reports nausea. : No signs and/or symptoms were reported regarding the genitourinary system. 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 - Infectious Disease History:: Denies. - Social history:: Smoking status: unknown. Screenin:47 [facility] ED Fall Risk Assessment (Adult) History of falling in the last 3 months, kj2 including since admission No falls in past 3 months (0 pts) Confusion or Disorientation No (0 pts) Intoxicated or Sedated No (0 pts) Impaired Gait No (0 pts) Mobility Assist Device Used No (0 pt) Altered Elimination No (0 pt) Score/Fall Risk Level 0 - 2 = Low Risk Maintained a safe environment, Hourly rounding (assess needs \T\ fall precautionary measures) done. Abuse screen: Denies threats or abuse. Denies injuries from another. Nutritional screening: No deficits noted. Tuberculosis screening: No symptoms or risk factors identified. Assessment: 17:45 General: see triage assessment. Pain: Complains of pain in abdomen Pain currently is 6 kj2 out of 10 on a pain scale. 18:30 Reassessment: Patient appears in no apparent distress at this time. Patient is alert, kj2 oriented x 3, equal unlabored respirations, skin warm/dry/pink. Vital Signs: 17:52 BP 94 / 60; Pulse 90; Resp 18; Pulse Ox 97% on R/A; iw 18:53 BP 103 / 68; Pulse 95; Resp 20; Temp 98; Pulse Ox 97% on R/A; kj2 ED Course: 17:31 Patient arrived in ED. eb 17:35 Anais Acuña MD is Attending Physician. sp3 17:39 Rebekah Kern, SCARLETT is Primary Nurse. kj2 17:45 Triage completed. kj2 17:47 Arm band placed on Patient placed in an exam room, on a stretcher. kj2 17:47 Patient has correct armband on for positive identification. Bed in low position. Call kj2 light in reach. Provided Education on: call light. 17:55 Initial lab(s) drawn, by me, sent to lab. Inserted saline lock: 24 gauge in left iw antecubital area, using aseptic technique. Blood collected. Flushed with 10 mL NS. 18:55 No provider procedures requiring assistance completed. IV discontinued, intact, kj2 bleeding controlled, No redness/swelling at site. Pressure dressing applied. Administered Medications: 18:37 Drug: Potassium PO Effervescent Tablet 50 mEq PO once; dissolve in 4 ounces of water or kj2 juice Route: PO; 18:53 Follow up: Response: No adverse reaction kj2 Medication: 17:50 VIS not applicable for this client. kj2 Outcome: 18:24 Discharge ordered by . sp3 18:55 Discharged to home via wheelchair, kj2 18:55 Condition: stable 18:55 Discharge instructions given to patient, Instructed on discharge instructions, follow up and referral plans. Demonstrated understanding of instructions, follow-up care, 18:56 Patient left the ED. kj2 Signatures: Selin Lucero, RN RN Yoana Villaseñor Setul, MD MD sp3 Rebekah Kern RN RN kj2
--- NOTE | 2025-06-22 18:24 | EDPHYS ---
Physician Documentation [facility] Name: Rylee Thomas Age: 39 yrs Sex: Female : 1985 Arrival Date: 06/22/2025 Time: 17:31 Bed 20 Private MD: ED Physician Anais Acuña HPI: 06/22 17:40 This 39 yrs old Female presents to ER via Unassigned with complaints of I need to be sp3 drained. 17:40 39-year-old female with history of alcoholism, cirrhosis of the liver, endometriosis sp3 now presents to the ED with abdominal pain and increased ascites. Patient has multiple ER visits for similar symptoms for which she gets occasionally transferred to [facility]. She denies any fever, headache, neck pain, chest pain, shortness of breath, dysuria, urinary frequency, gross visualized hematuria, vomiting, diarrhea or any other signs or symptoms on ROS at this time. Patient continues to consume alcohol.. 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 - Infectious Disease History:: Denies. - Social history:: Smoking status: unknown. ROS: 17:42 Constitutional: Negative for fever, chills, and weight loss, Eyes: Negative for injury, sp3 pain, redness, and discharge, Neck: Negative for injury, pain, and swelling, Cardiovascular: Negative for chest pain, palpitations, and edema, Respiratory: Negative for shortness of breath, cough, wheezing, and pleuritic chest pain, MS/Extremity: Negative for injury and deformity, Skin: Negative for injury, rash, and discoloration, Neuro: Negative for headache, weakness, numbness, tingling, and seizure, Psych: Negative for depression, anxiety, suicide ideation, homicidal ideation, and hallucinations, Allergy/Immunology: Negative for hives, rash, and allergies, Endocrine: Negative for neck swelling, polydipsia, polyuria, polyphagia, and marked weight changes, 17:42 All other systems are negative, Exam: 17:42 Constitutional: This is a well developed, well nourished patient who is awake, alert, sp3 and in no acute distress. Head/Face: Normocephalic, atraumatic. Neck: Trachea midline, no thyromegaly or masses palpated, and no cervical lymphadenopathy. Supple, full range of motion without nuchal rigidity, or vertebral point tenderness. No Meningismus. Chest/axilla: Normal chest wall appearance and motion. Nontender with no deformity. No lesions are appreciated. Cardiovascular: Regular rate and rhythm with a normal S1 and S2. No gallops, murmurs, or rubs. Normal PMI, no JVD. No pulse deficits. Respiratory: Lungs have equal breath sounds bilaterally, clear to auscultation and percussion. No rales, rhonchi or wheezes noted. No increased work of breathing, no retractions or nasal flaring. Back: No spinal tenderness. No costovertebral tenderness. Full range of motion. MS/ Extremity: Pulses equal, no cyanosis. Neurovascular intact. Full, normal range of motion. Neuro: Awake and alert, GCS 15, oriented to person, place, time, and situation. Cranial nerves II-XII grossly intact. Motor strength 5/5 in all extremities. Sensory grossly intact. Cerebellar exam normal. Normal gait. 17:42 Abdomen/GI: Distended abdomen consistent with ascites and positive fluid wave. Mild jaundice noted. Abdomen is benign and not tender with no peritoneal signs, rebound or guarding. Nonsurgical abdomen., Vital Signs: 17:52 BP 94 / 60; Pulse 90; Resp 18; Pulse Ox 97% on R/A; iw 18:53 BP 103 / 68; Pulse 95; Resp 20; Temp 98; Pulse Ox 97% on R/A; kj2 MDM: 17:36 Medical Screening Exam initiated sp3 17:43 Data reviewed: vital signs, nurses notes, EMS record, old medical records, lab test sp3 result(s). ED course: 39-year-old female with continued liver failure and ascites. We will evaluate for any abnormalities from a laboratory standpoint. Patient is clinically not septic and does not have an acute abdomen. I am not suspicious of SBP given exam. We will check basic electrolytes and LFTs as well as CBC. If no significant abnormalities, patient is stable for discharge. Patient does not meet emergent transfer criteria for voluntary ascites drainage.. 18:23 ED course: Alcohol level at 298. Potassium 3.0 and bilirubin at 2.1. No emergent sp3 transfer indicated. Patient continues to consume alcohol. We will give more potassium and discharge patient home.. 06/22 17:36 Order name: CBC with Diff; Complete Time: 18:10 sp3 06/22 17:36 Order name: CMP; Complete Time: 18:23 sp3 06/22 17:36 Order name: Lipase; Complete Time: 18:23 sp3 06/22 17:39 Order name: ETOH Level; Complete Time: 18:23 sp3 06/22 17:36 Order name: IV Saline Lock; Complete Time: 17:53 sp3 06/22 17:36 Order name: Labs collected and sent; Complete Time: 17:53 sp3 Administered Medications: 18:37 Drug: Potassium PO Effervescent Tablet 50 mEq PO once; dissolve in 4 ounces of water or kj2 juice Route: PO; 18:53 Follow up: Response: No adverse reaction kj2 Disposition Summary: 06/22/25 18:24 Discharge Ordered Notes: Location: Home sp3 Condition: Fair sp3 Diagnosis - Ascites, liver cirrhosis, liver failure, alcoholism, alcohol intoxication sp3 Followup: sp3 - With: Private Physician - When: Upon discharge from the Emergency Department - Reason: Continuance of care Discharge Instructions: - Discharge Summary Sheet sp3 - Ascites sp3 - Alcohol Abuse and Nutrition sp3 - Liver Failure sp3 Forms: - Medication Reconciliation Form sp3 - Antibiotic Education sp3 - Prescription Opioid Use sp3 - Patient Portal Instructions sp3 - Leadership Thank You Letter sp3 Signatures: Dispatcher [employer] Selin Smart RN RN iw Anais Acuña MD MD sp3 Rebekah Kern RN RN kj2 Corrections: (The following items were deleted from the chart) 17:42 17:40 39-year-old female with history of alcoholism, cirrhosis of the liver, sp3 endometriosis now presents to the ED with abdominal pain and increased ascites. Patient has multiple ER visits for similar symptoms for which she gets occasionally transferred to [facility]. She denies any fever, headache, neck pain, chest pain, shortness of breath, dysuria, urinary frequency, gross visualized hematuria, vomiting, diarrhea or any other signs or symptoms on ROS at this time. . sp3
[2025-06-22] MEDS ORDERED: POTASSIUM 25 MEQ EFFERV TAB ONE (18:33)
[2025-06-22 19:00] VITALS: O2SAT 97
[2025-06-22 19:02] VITALS: BP 103/68; TEMP 98
== END 2025-06-22 18:56 | disposition home or self-care (01) ==
LOC: ER 17:36
DX: R18.8 Other ascites (principal); K72.90 Hepatic failure, unspecified without coma; K74.60 Unspecified cirrhosis of liver; F10.229 Alcohol dependence with intoxication, unspecified
CPT/HCPCS: 36415; 80053; 82077; 83690; 85025; 99284

== ENCOUNTER 2025-06-23 23:45 | Emergency (ER) | payer MEDICAID, SELFPAY ==
[2025-06-24] MEDS ORDERED: KETOROLAC 30 MG/ML INJ ONE (01:14)
[2025-06-24] MEDS ORDERED: ONDANSETRON 4 MG/2 ML VIAL ONE (01:14)
[2025-06-24] MEDS ORDERED: ALBUMIN HUMAN 25% 100 ML IV ONE (01:15)
[2025-06-24] MEDS ORDERED: MORPHINE 4 MG/ML SYR ONE (01:15)
[2025-06-24 01:19] LABS: Absolute Lymphocytes (CBC) 2.0 K/uL (0.7-4.9); Hematocrit 26.6 % (36.0-45.0); Hemoglobin 8.7 g/dL (12.0-15.0); MCH 28.2 pg (27.0-35.0); MCHC 32.9 g/dL (32.0-36.0); MCV 85.8 fL (80-100); MPV 8.2 fL (7.6-11.3); Nucleated RBC Absolute Count 0.0 (0-0); Nucleated Red Blood Cells % 0.0 % (0-0); RBC Red Blood Cell Count 3.10 M/uL (3.86-4.86); White Blood Count 5.10 thou/uL (4.3-10.9)
[2025-06-24 01:44] LABS: ALT/SGPT 18.0 U/L (13-56); AST/SGOT 56.0 U/L (15-37); Albumin 2.0 g/dL (3.4-5.0); Albumin/Globulin Ratio 0.5 (1.1-1.8); Alkaline Phosphatase 87.0 U/L (45-117); Anion Gap 9.1 mEq/L (5.0-15.0); BUN Blood Urea Nitrogen 5.0 mg/dL (7-18); Globulin 3.7 g/dL (2.3-3.5); Glucose Level 119.0 mg/dL (74-106); Lipase 31.0 U/L (13-75); Potassium 3.1 mEq/L (3.5-5.1)
--- NOTE | 2025-06-24 02:02 | ER ---
Nurse's Notes [facility] Name: Rylee Thomas Age: 39 yrs Sex: Female : 1985 Arrival Date: 06/23/2025 Time: 23:45 Bed 4 Private MD: Diagnosis: Abdominal ascites, decompensated liver failure, alcohol abuse with intoxication, acute fall, bilateral knee contusion, bilateral knee abrasion Presentation: 06/24 00:21 Chief complaint: Patient states: i fell in bushes at 1330 today. everything hurts. lg3 Coronavirus screen: Client denies travel out of the [place] in the last 14 days. At this time, the client does not indicate any symptoms associated with coronavirus-19. Ebola Screen: No symptoms or risks identified at this time. 00:21 Method Of Arrival: EMS: [facility] lg3 00:21 Initial Sepsis Screen: Does the patient meet any 2 criteria? No. Patient's initial lg3 sepsis screen is negative. Does the patient have a suspected source of infection? No. Patient's initial sepsis screen is negative. Risk Assessment: Do you want to hurt yourself or someone else? Patient reports no desire to harm self or others. Onset of symptoms was June 23, 2025. 00:21 Acuity: NIDHI 3 lg3 Triage Assessment: 00:24 General: Appears in no apparent distress. comfortable, Behavior is cooperative, lg3 agitated, fussy, Smells of alcohol. Pain: Complains of pain in all over Pain currently is 10 out of 10 on a pain scale. EENT: No deficits noted. No signs and/or symptoms were reported regarding the EENT system. Neuro: No deficits noted. Hagen Agitation-Sedation Scale (RASS): 0 - Alert and Calm Level of Consciousness is awake, alert, obeys commands, Oriented to person, place, time, situation. Cardiovascular: Reports chest pain, shortness of breath, Heart tones S1 S2 present Capillary refill < 3 seconds Clubbing of nail beds is absent JVD is absent Patient's skin is warm and dry. Respiratory: No deficits noted. Reports shortness of breath at rest cough that is Airway is patent Respiratory effort is even, unlabored, Respiratory pattern is regular, symmetrical. GI: Abdomen is round noted to have ascites, Reports lower abdominal pain, upper abdominal pain. : No signs and/or symptoms were reported regarding the genitourinary system. Derm: No deficits noted. No signs and/or symptoms reported regarding the dermatologic system. Skin is intact, is thin, Skin is dry, Skin is normal, Skin temperature is warm. Musculoskeletal: No deficits noted. Circulation, motion, and sensation intact. Range of motion: intact in all extremities, Reports pain in everywhere. 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 - Infectious Disease History:: Denies. - Social history:: Smoking status: Patient denies any tobacco usage or history of. Patient uses alcohol, on a daily basis. patient/guardian reports chronic longstanding heavy alcohol consumption. - Family history:: not pertinent. Screenin:27 [facility] ED Fall Risk Assessment (Adult) History of falling in the last 3 months, lg3 including since admission Yes- single mechanical fall (1 pt) Confusion or Disorientation No (0 pts) Intoxicated or Sedated Yes (3 pts) Impaired Gait No (0 pts) Mobility Assist Device Used No (0 pt) Altered Elimination No (0 pt) Score/Fall Risk Level 3 or more points = High Risk Oriented to surroundings, Maintained a safe environment, Educated pt \T\ family on fall prevention, incl call for assistance when getting out of bed, Assessed \T\ reinforced patient's understanding of fall precautions, Provided non-skid footwear. Abuse screen: Denies threats or abuse. Denies injuries from another. Nutritional screening: No deficits noted. Tuberculosis screening: No symptoms or risk factors identified. Assessment: 00:27 General: see triage assessment. lg3 01:11 Reassessment: Patient appears in no apparent distress at this time. No changes from lg3 previously documented assessment. Patient and/or family updated on plan of care and expected duration. Pain level reassessed. Patient is alert, oriented x 3, equal unlabored respirations, skin warm/dry/pink. 03:14 Reassessment: Patient appears in no apparent distress at this time. No changes from lg3 previously documented assessment. Patient and/or family updated on plan of care and expected duration. Pain level reassessed. Patient is alert, oriented x 3, equal unlabored respirations, skin warm/dry/pink. quietly resting. 03:14 General: attempted to call report. nurse not available . lg3 04:43 Reassessment: Patient appears in no apparent distress at this time. No changes from lg3 previously documented assessment. Patient and/or family updated on plan of care and expected duration. Pain level reassessed. Patient is alert, oriented x 3, equal unlabored respirations, skin warm/dry/pink. resting quietly. Vital Signs: 00:21 BP 98 / 65; Pulse 90; Resp 18 S; Temp 98.1(O); Pulse Ox 97% on R/A; Weight 54.43 kg lg3 (R); Height 5 ft. 9 in. (R); Pain 10/10; 01:11 BP 93 / 58; Pulse 90; Resp 17 S; Pulse Ox 97% on R/A; lg3 02:23 BP 104 / 76; Pulse 100; Resp 16 S; Pulse Ox 97% on R/A; lg3 04:43 BP 107 / 68; Pulse 97; Resp 16 S; Pulse Ox 98% on R/A; lg3 00:21 Body Mass Index 17.72 (54.43 kg, 175.26 cm) lg3 00:21 Pain Scale: Adult lg3 Cody Coma Score: 04:10 Eye Response: spontaneous(4). Motor Response: obeys commands(6). Verbal Response: sp4 oriented(5). Total: 15. ED Course: 06/23 23:58 Patient arrived in ED. vk 06/24 00:03 Jean Carlos Warren MD is Attending Physician. sp4 00:20 Asiya Bui RN is Primary Nurse. cc6 00:24 Triage completed. lg3 00:24 Arm band placed on right wrist. lg3 00:27 Patient has correct armband on for positive identification. Placed in gown. Bed in low lg3 position. Call light in reach. Side rails up X2. Client placed on continuous cardiac and pulse oximetry monitoring. NIBP monitoring applied. cardiac monitor technician on. Door closed. Noise minimized. Warm blanket given. Pillow given. 01:12 Initial lab(s) drawn, by ED staff, sent to lab. Inserted saline lock: 20 gauge in left lg3 antecubital area, using aseptic technique. Blood collected. 01:12 Alcohol Level Sent. lg3 01:12 Test, Serum Sent. lg3 01:13 CBC with Diff Sent. lg3 01:13 CMP Sent. lg3 01:13 Lipase Sent. lg3 01:45 CT Chest Abdomen Pelvis W/O Contrast In Process Unspecified. EDMS 02:07 Knee Right 3 View XRAY In Process Unspecified. EDMS 02:07 Knee Left 3 View XRAY In Process Unspecified. EDMS 02:20 initiated with [facility] spoke with Evita. vk 02:56 Patient was accepted to [facility] [address]m [address] Wray \T\[id number], accepting admin vk Evita Bob \T\[id number]. 04:43 No provider procedures requiring assistance completed. Patient transferred, IV remains lg3 in place. Administered Medications: 01:25 Drug: Droperidol IVP 5 mg IVP once Route: IVP; Site: left antecubital; lg3 02:23 Follow up: Response: No adverse reaction lg3 01:25 Drug: Albumin IVPB 25 grams 100 ml IVPB once; (Note: Albumin 25% concentration) Volume: lg3 100 ml; Route: IVPB; Site: left antecubital; 02:23 Follow up: Response: No adverse reaction; IV Status: Completed infusion; IV Intake: lg3 100ml 01:26 Drug: TORadol - Ketorolac IVP 15 mg IVP once Route: IVP; Site: left antecubital; lg3 02:24 Follow up: Response: No adverse reaction lg3 01:26 Drug: Ondansetron IVP 4 mg IVP once; over 2 minutes Route: IVP; Site: left antecubital; lg3 02:23 Follow up: Response: No adverse reaction lg3 04:45 Not Given (Physician Discretion): morphineor iv 4 mg IVP once over 4 mins lg3 Medication: 00:27 VIS not applicable for this client. lg3 Intake: 02:23 IV: 100ml; Total: 100ml. lg3 Outcome: 02:02 ER care complete, transfer ordered by sp4 04:43 Transferred by ground EMS to [facility], [facility] [place], Transfer form completed. lg3 04:43 Condition: stable 04:43 Instructed on the need for transfer, Demonstrated understanding of instructions, 04:45 Patient left the ED. lg3 Signatures: Dispatcher [employer] Dorothy Scanlon RN RN lg3 Jean Carlos Warren MD MD sp4 Elisa Campos Cassandra RN RN cc6
--- NOTE | 2025-06-24 02:02 | EDPHYS ---
Physician Documentation [facility] Name: Rylee Thomas Age: 39 yrs Sex: Female : 1985 Arrival Date: 06/23/2025 Time: 23:45 Bed 4 Private MD: ED Physician Jean Carlos Warren HPI: 06/24 00:04 This 39 yrs old Female presents to ER via Unassigned with complaints of sp4 abdominal pain. 04:10 Patient with history of moderate to severe liver cirrhosis, liver failure, and sp4 recurrent ascites also recurrent right pleural effusion presents with acute fall at home associated with tense abdominal ascites associated with shortness of breath associated with bilateral knee pain and contusion.. 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 - Infectious Disease History:: Denies. - Social history:: Smoking status: Patient denies any tobacco usage or history of. Patient uses alcohol, on a daily basis. patient/guardian reports chronic longstanding heavy alcohol consumption. - Family history:: not pertinent. ROS: 04:10 Constitutional: Negative for fever, chills, and weight loss, positive abdominal sp4 distention, positive shortness of breath, positive acute fall, positive bilateral knee contusion and pain 04:10 All other systems are negative, Exam: 04:10 Constitutional: Cachectic appearing female, intoxicated, abdominal distention, sp4 bilateral knee contusion and abrasion. Signs of advanced liver cirrhosis including caput medusa, generalized jaundice and icterus Head/Face: Normocephalic, atraumatic. Eyes: Pupils equal round and reactive to light, extra-ocular motions intact. Lids and lashes normal. Conjunctiva and sclera are not injected. Cornea within normal limits. Periorbital areas with no swelling, redness, or edema. ENT: Nares patent. No nasal discharge, no septal abnormalities noted. Tympanic membranes are normal and external auditory canals are clear. Oropharynx with no redness, swelling, or masses, exudates, or evidence of obstruction, uvula midline. Mucous membranes moist. Neck: Trachea midline, no thyromegaly or masses palpated, and no cervical lymphadenopathy. Supple, full range of motion without nuchal rigidity, or vertebral point tenderness. Chest/axilla: Normal chest wall appearance and motion. Nontender with no deformity. No lesions are appreciated. Cardiovascular: Regular rate and rhythm with a normal S1 and S2. No gallops, murmurs, or rubs. No pulse deficits. Respiratory: Absent breath sounds on the right, breath sounds present on the left, dyspnea and tachypnea on arrival Abdomen/GI: Soft, with normal bowel sounds. Mild to moderate abdominal distention, with moderate amount of abdominal ascites positive fluid wave, no tenderness on exam. Back: No spinal tenderness. No costovertebral tenderness. Skin: Warm, dry with normal turgor. Normal color with no rashes, no lesions, and no evidence of cellulitis. MS/ Extremity: Pulses equal, no cyanosis. Neurovascular intact. Full, normal range of motion. Neuro: Awake and alert, GCS 15, oriented to person, place, time, and situation. Cranial nerves II-XII grossly intact. Motor strength 5/5 in all extremities. Sensory grossly intact. Psych: Awake, alert, with orientation to person, place and time. Behavior, mood, and affect are within normal limits Vital Signs: 00:21 BP 98 / 65; Pulse 90; Resp 18 S; Temp 98.1(O); Pulse Ox 97% on R/A; Weight 54.43 kg lg3 (R); Height 5 ft. 9 in. (R); Pain 10/10; 01:11 BP 93 / 58; Pulse 90; Resp 17 S; Pulse Ox 97% on R/A; lg3 02:23 BP 104 / 76; Pulse 100; Resp 16 S; Pulse Ox 97% on R/A; lg3 04:43 BP 107 / 68; Pulse 97; Resp 16 S; Pulse Ox 98% on R/A; lg3 00:21 Body Mass Index 17.72 (54.43 kg, 175.26 cm) lg3 00:21 Pain Scale: Adult lg3 Shoup Coma Score: 04:10 Eye Response: spontaneous(4). Motor Response: obeys commands(6). Verbal Response: sp4 oriented(5). Total: 15. MDM: 00:05 Medical Screening Exam initiated sp4 02:49 ED course: FINDINGS: CT CHEST: LUNG PARENCHYMA AND PLEURA: Complete atelectasis of the sp4 right lung is noted. Central air bronchograms are noted. Moderate to large right pleural effusion is noted. Mild atelectasis is noted in the left lower lobe. Small left pleural effusion is noted. There is no pneumothorax. AIRWAY: The central airway is patent. MEDIASTINUM: No mediastinal lymphadenopathy is noted. HEART: The heart is normal in size.. There is a small pericardial effusion. VASCULAR STRUCTURES: The pulmonary arteries and great vessels are normal in caliber. The thoracic aorta is normal in caliber. The superior vena cava is unremarkable. OSSEOUS STRUCTURES: There are no acute osseous abnormalities seen. Thoracic spine fixation hardware is noted. ESOPHAGUS: No gross abnormalities. CTABDOMEN/PELVIS: NON-CONTRAST ENHANCED SOLID ORGANS: LIVER: The liver is somewhat cirrhotic in appearance. GALLBLADDER: Small gallstones are noted in the dependent neck. INTRAHEPATIC BILE DUCTAND EXTRAHEPATIC BILE DUCT: Unremarkable. PANCREAS: Unremarkable. SPLEEN: The spleen is enlarged measuring 17.2 cm in maximum dimension. ADRENALS: Unremarkable. KIDNEYS: The renal contours are normal. There is no hydronephrosis. No calcified renal stones are noted. No surrounding fat stranding is noted. STOMACH: Evaluation of the stomach and bowel is limited due to lack of oral contrast. No gross abnormalities of the stomach are noted. BOWEL: The non-contrast opacified small bowel loops in the abdomen and pelvis appear unremarkable. The noncontrast opacified colonic loops in the abdomen and pelvis appear unremarkable. APPENDIX: Not well seen on the exam. PERITONEUM AND RETROPERITONEUM: Moderate amount of ascites is noted. There is no free air. No loculated fluid collection noted. The abdominal aorta is normal in caliber. LYMPH NODES: Unremarkable. PELVIS: No pelvic mass or adenopathy. . The uterus is not well-visualized and may be surgically absent or senescent. BLADDER: Unremarkable. OSSEOUS STRUCTURES: No acute abnormality seen. SOFT TISSUES: Mild generalized body wall edema is noted. An umbilical hernia is noted containing ascites. IMPRESSION: 1. Complete atelectasis of the right lung with moderate to large pleural effusion. 2. Cirrhotic appearing liver with splenomegaly. 3. Moderate amount of ascites. 4. Cholelithiasis. 02:50 ED course: COMPARISON: None Findings: Left knee: 3 views Normal alignment. No abnormal sp4 joint effusion. No significant arthritic changes. Right knee: 3 views. Normal alignment. No abnormal joint effusion. No significant arthritic changes. Impression: No acute findings. Unremarkable appearance of both knees.. 02:50 ED course: Procedure description: XR KNEE 3 VIEWS LEFT, XR KNEE 3 VIEWS RIGHT HISTORY: sp4 left knee pain COMPARISON: None Findings: Left knee: 3 views Normal alignment. No abnormal joint effusion. No significant arthritic changes. Right knee: 3 views. Normal alignment. No abnormal joint effusion. No significant arthritic changes. Impression: No acute findings. Unremarkable appearance of both knees. . 04:10 Differential diagnosis: bowel obstruction, Cholelithiasis, Endometriosis, gastritis, sp4 gastroesophageal reflux disease, GI Bleed, Hepatitis, Irritable bowel syndrome. Data reviewed: vital signs, nurses notes, EMS record, old medical records, lab test result(s), radiologic studies, CT scan, plain films. Consideration of Admission/Observation Escalation of care including admission/observation considered. Management of patient was discussed with the following: Components Engineer: [facility]. ED course: Patient stable for transfer. 06/24 00:04 Order name: CBC with Diff; Complete Time: :47 sp4 06/24 00:04 Order name: CMP; Complete Time: :47 sp4 06/24 00:04 Order name: Lipase; Complete Time: :47 sp4 06/24 00:05 Order name: Test, Serum; Complete Time: :47 sp4 06/24 00:05 Order name: Alcohol Level; Complete Time: 02:01 sp4 06/24 00:04 Order name: CT Chest Abdomen Pelvis W/O Contrast sp4 06/24 01:46 Order name: Knee Right 3 View XRAY sp4 06/24 01:47 Order name: Knee Left 3 View XRAY sp4 06/24 00:04 Order name: IV Saline Lock; Complete Time: 01:12 sp4 06/24 00:04 Order name: Labs collected and sent; Complete Time: 01:13 sp4 Administered Medications: 01:25 Drug: Droperidol IVP 5 mg IVP once Route: IVP; Site: left antecubital; lg3 02:23 Follow up: Response: No adverse reaction lg3 01:25 Drug: Albumin IVPB 25 grams 100 ml IVPB once; (Note: Albumin 25% concentration) Volume: lg3 100 ml; Route: IVPB; Site: left antecubital; 02:23 Follow up: Response: No adverse reaction; IV Status: Completed infusion; IV Intake: lg3 100ml 01:26 Drug: TORadol - Ketorolac IVP 15 mg IVP once Route: IVP; Site: left antecubital; lg3 02:24 Follow up: Response: No adverse reaction lg3 01:26 Drug: Ondansetron IVP 4 mg IVP once; over 2 minutes Route: IVP; Site: left antecubital; lg3 02:23 Follow up: Response: No adverse reaction lg3 04:45 Not Given (Physician Discretion): morphineor iv 4 mg IVP once over 4 mins lg3 Disposition: 04:13 Chart complete. sp4 Disposition Summary: 06/24/25 02:02 Transfer Ordered Notes: Transfer Location: [facility] sp4 Reason: Higher level of care sp4 Condition: Fair sp4 Problem: new sp4 Symptoms: have improved sp4 Accepting Physician: (06/24/25 04:45) lg3 Diagnosis - Abdominal ascites, decompensated liver failure, alcohol abuse with intoxication, sp4 acute fall, bilateral knee contusion, bilateral knee abrasion Forms: - Medication Reconciliation Form sp4 - SBAR form sp4 Signatures: Dispatcher [employer] EDMS Dorothy Woodard RN RN lg3 Jean Carlos Warren MD MD sp4 Elisa Campos Corrections: (The following items were deleted from the chart) 00:05 00:05 CBC+H.LAB.BRZ ordered. EDMS EDMS 00:05 00:05 COMPREHENSIVE METABOLIC PANEL+C.LAB.BRZ ordered. EDMS EDMS 00:05 00:05 LIPASE+C.LAB.BRZ ordered. EDMS EDMS 03:30 02:02 [facility] attending sp4 vk 04:45 03:30 vk lg3
--- NOTE | 2025-06-24 04:36 | RAD REPORT ---
Procedure description: XR KNEE 3 VIEWS LEFT, XR KNEE 3 VIEWS RIGHT HISTORY: left knee pain COMPARISON: None Findings: Left knee: 3 views Normal alignment. No abnormal joint effusion. No significant arthritic changes. Right knee: 3 views. Normal alignment. No abnormal joint effusion. No significant arthritic changes. Impression: No acute findings. Unremarkable appearance of both knees. Electronically signed by: Du Taylor MD 06/24/2025 02:25 AM CDT RP Due to temporary technical issues with the PACS/[employer] reporting system, reports are being kayla d by the in-house radiologist without review as a courtesy to ensure prompt reporting the interpreting radiologist is fully responsible for the content of the report. Transcribed Date/Time: 06/24/2025 4:36 AM
--- NOTE | 2025-06-24 04:37 | RAD REPORT ---
Procedure description: XR KNEE 3 VIEWS LEFT, XR KNEE 3 VIEWS RIGHT HISTORY: left knee pain COMPARISON: None Findings: Left knee: 3 views Normal alignment. No abnormal joint effusion. No significant arthritic changes. Right knee: 3 views. Normal alignment. No abnormal joint effusion. No significant arthritic changes. Impression: No acute findings. Unremarkable appearance of both knees. Electronically signed by: Du Taylor MD 06/24/2025 02:25 AM CDT RP Due to temporary technical issues with the PACS/[employer] reporting system, reports are being kayla d by the in-house radiologist without review as a courtesy to ensure prompt reporting the interpreting radiologist is fully responsible for the content of the report. Transcribed Date/Time: 06/24/2025 4:37 AM
[2025-06-24 05:23] VITALS: TEMP 98.1
--- NOTE | 2025-06-24 05:23 | RAD REPORT ---
Clinical Indication: Bed Name: 4; ABDOMINAL DISTENTION Comparison: June 17, 2025 TECHNIQUE: Sequential trans-axial images were obtained through the chest, abdomen and pelvis without iodinated contrast or oral contrast. Coronal and sagittal reconstructions were obtained and provided as separate series. All CT scans at this location are performed using dose optimization techniques as appropriate to perf orm the study. Radiation dose reduction technique was utilized including one or more of the following: Automated exp osure control, adjustment of the mA and/or kV according to patient size and use of iterative reconstruction technique. CT Radiation Dose DLP 836.8 mGy-cm FINDINGS: CT CHEST: LUNG PARENCHYMA AND PLEURA: Complete atelectasis of the right lung is noted. Central air bronchograms are noted. Moderate to large right pleural effusion is noted. Mild atelectasis is noted in the left lower lobe. Small left pleural effusion is noted. There is no pneumothorax. AIRWAY: The central airway is patent. MEDIASTINUM: No mediastinal lymphadenopathy is noted. HEART: The heart is normal in size.. There is a small pericardial effusion. VASCULAR STRUCTURES: The pulmonary arteries and great vessels are normal in caliber. The thoracic a marianne is normal in caliber. The superior vena cava is unremarkable. OSSEOUS STRUCTURES: There are no acute osseous abnormalities seen. Thoracic spine fixation hardware i s noted. ESOPHAGUS: No gross abnormalities. CT ABDOMEN/PELVIS: NON-CONTRAST ENHANCED SOLID ORGANS: LIVER: The liver is somewhat cirrhotic in appearance. GALLBLADDER: Small gallstones are noted in the dependent neck. INTRAHEPATIC BILE DUCT AND EXTRAHEPATIC BILE DUCT: Unremarkable. PANCREAS: Unremarkable. SPLEEN: The spleen is enlarged measuring 17.2 cm in maximum dimension. ADRENALS: Unremarkable. KIDNEYS: The renal contours are normal. There is no hydronephrosis. No calcified renal stones a re noted. No surrounding fat stranding is noted. STOMACH: Evaluation of the stomach and bowel is limited due to lack of oral contrast. No gross abno rmalities of the stomach are noted. BOWEL: The non-contrast opacified small bowel loops in the abdomen and pelvis appear unremarkable. Th e noncontrast opacified colonic loops in the abdomen and pelvis appear unremarkable. APPENDIX: Not well seen on the exam. PERITONEUM AND RETROPERITONEUM: Moderate amount of ascites is noted. There is no free air. No loculat ed fluid collection noted. The abdominal aorta is normal in caliber. LYMPH NODES: Unremarkable. PELVIS: No pelvic mass or adenopathy. . The uterus is not well-visualized and may be surgically abs ent or senescent. BLADDER: Unremarkable. OSSEOUS STRUCTURES: No acute abnormality seen. SOFT TISSUES: Mild generalized body wall edema is noted. An umbilical hernia is noted containing asci eamon. IMPRESSION: 1. Complete atelectasis of the right lung with moderate to large pleural effusion. 2. Cirrhotic appearing liver with splenomegaly. 3. Moderate amount of ascites. 4. Cholelithiasis. Electronically signed by: Ho Murrell MD 06/24/2025 02:14 AM CDT RP Due to temporary technical issues with the PACS/[employer] reporting system, reports are being kayla d by the in-house radiologist without review as a courtesy to ensure prompt reporting the interpreting radiologist is fully responsible for the content of the report. Transcribed Date/Time: 06/24/2025 5:22 AM
[2025-06-24 05:27] VITALS: BP 107/68; O2SAT 98
== END 2025-06-24 04:45 | disposition short-term general hospital (02) ==
LOC: ER 23:45
DX: R18.8 Other ascites (principal); K72.90 Hepatic failure, unspecified without coma; F10.129 Alcohol abuse with intoxication, unspecified; S80.212A Abrasion, left knee, initial encounter; S80.211A Abrasion, right knee, initial encounter; S80.02XA Contusion of left knee, initial encounter; S80.01XA Contusion of right knee, initial encounter; W19.XXXA Unspecified fall, initial encounter; Y92.009 Unspecified place in unspecified non-institutional (private) residence as the place of occurrence of the external cause
CPT/HCPCS: 36415; 71250; 74176; 80053; 82077; 83690; 84703; 85025; 96365; 96375; 99285; J1790; J1885; J2405; P9047

== ENCOUNTER 2025-07-02 18:57 | Emergency (ER) | payer MEDICAID, SELFPAY ==
[2025-07-02 20:11] LABS: Absolute Lymphocytes (CBC) 2.4 K/uL (0.7-4.9); Hematocrit 30.1 % (36.0-45.0); Hemoglobin 9.8 g/dL (12.0-15.0); MCH 27.6 pg (27.0-35.0); MCHC 32.5 g/dL (32.0-36.0); MCV 84.9 fL (80-100); MPV 8.2 fL (7.6-11.3); Nucleated RBC Absolute Count 0.0 (0-0); Nucleated Red Blood Cells % 0.0 % (0-0); RBC Red Blood Cell Count 3.55 M/uL (3.86-4.86); White Blood Count 7.30 thou/uL (4.3-10.9)
[2025-07-02 20:32] LABS: ALT/SGPT 23 U/L (13-56); AST/SGOT 95 U/L (15-37); Albumin 2.2 g/dL (3.4-5.0); Albumin/Globulin Ratio 0.5 (1.1-1.8); Alkaline Phosphatase 131 U/L (45-117); Anion Gap 12.7 mEq/L (5.0-15.0); BUN Blood Urea Nitrogen 7 mg/dL (7-18); Bilirubin Indirect, Calculated 1.8 mg/dL (0.2-0.8); Globulin 4.1 g/dL (2.3-3.5); Glucose Level 109 mg/dL (74-106); HDL Cholesterol 71 mg/dL (40-60); LDL Cholesterol, Calculated 86 mg/dL (<130); LDL Cholesterol,Calc NonReport 86; Lipase 31 U/L (13-75); Magnesium 1.8 mg/dL (1.6-2.4); NT PRO-BNP 92 pg/mL (<125); Potassium 3.7 mEq/L (3.5-5.1); Troponin High Sensitivity 5.8 pg/mL (<58.9)
[2025-07-02] MEDS ORDERED: CEFTRIAXONE 1000 MG/VIAL ONE (20:33)
[2025-07-02] MEDS ORDERED: PANTOPRAZOLE 40 MG INJ ONE (20:38)
[2025-07-02 20:59] LABS: PT Prothrombin Time 16.8 SECONDS (10-13.0); PTT, Activated Partial Thromb 33.8 SECONDS (27.2-37.4); Protime INR 1.5
--- NOTE | 2025-07-02 20:59 | EDPHYS ---
Physician Documentation [facility] Name: Rylee Thomas Age: 39 yrs Sex: Female : 1985 Arrival Date: 07/02/2025 Time: 18:57 Bed 7 Private MD: ANIBAL Physician Renato Ace HPI: 07/02 20:51 This 39 yrs old Female presents to ER via Wheelchair with complaints of juan carlos Abdominal Pain, Shortness Of Breath, Headache. 20:51 The patient has shortness of breath with light activity. Onset: The symptoms/episode juan carlos began/occurred 1 day(s) ago. Duration: The symptoms are continuous, and are steadily getting worse. The patient's shortness of breath is aggravated by exertion, light activity, supine position. Associated signs and symptoms: Pertinent positives: non-productive cough. Severity of symptoms: At their worst the symptoms were moderate in the emergency department the symptoms are unchanged. The patient has experienced similar episodes in the past, multiple times, chronically. Historical: - Allergies: 19:21 No Known Allergies; br2 - PMHx: 19:21 cirrhosis of liver; Endometriosis of vagina; scoliosis; br2 - PSHx: 19:21 L leg surgery; partial hysterectomy; br2 - Immunization history:: Adult Immunizations up to date. - Infectious Disease History:: Denies. - Social history:: Smoking status: Patient uses alcohol, occasionally. Patient/guardian denies using street drugs. ROS: 20:53 Constitutional: Negative for fever, chills, and weight loss, Eyes: Negative for injury, juan carlos pain, redness, and discharge, ENT: Negative for injury, pain, and discharge, Neck: Negative for injury, pain, and swelling, Back: Negative for injury and pain, : Negative for injury, bleeding, discharge, and swelling, MS/Extremity: Negative for injury and deformity, Skin: Negative for injury, rash, and discoloration, Neuro: Negative for headache, weakness, numbness, tingling, and seizure, Psych: Negative for depression, anxiety, suicide ideation, homicidal ideation, and hallucinations, Allergy/Immunology: Negative for hives, rash, and allergies, Endocrine: Negative for neck swelling, polydipsia, polyuria, polyphagia, and marked weight changes, 20:53 Cardiovascular: Positive for palpitations, 20:53 Respiratory: Positive for cough, shortness of breath, on exertion. 20:53 Abdomen/GI: Positive for abdominal pain, abdominal cramps, abdominal distension, Exam: 20:53 Constitutional: This is a well developed, well nourished patient who is awake, alert, juan carlos and in no acute distress. Head/Face: Normocephalic, atraumatic. Eyes: Pupils equal round and reactive to light, extra-ocular motions intact. Lids and lashes normal. Conjunctiva and sclera are non-icteric and not injected. Cornea within normal limits. Periorbital areas with no swelling, redness, or edema. ENT: Nares patent. No nasal discharge, no septal abnormalities noted. Tympanic membranes are normal and external auditory canals are clear. Oropharynx with no redness, swelling, or masses, exudates, or evidence of obstruction, uvula midline. Mucous membranes moist. Neck: Trachea midline, no thyromegaly or masses palpated, and no cervical lymphadenopathy. Supple, full range of motion without nuchal rigidity, or vertebral point tenderness. No Meningismus. Chest/axilla: Normal chest wall appearance and motion. Nontender with no deformity. No lesions are appreciated. Respiratory: Lungs have equal breath sounds bilaterally, clear to auscultation and percussion. No rales, rhonchi or wheezes noted. No increased work of breathing, no retractions or nasal flaring. Back: No spinal tenderness. No costovertebral tenderness. Full range of motion. Pelvic Exam: Normal external genitalia. Speculum exam with closed cervical os, no discharge or bleeding noted. Bimanual exam with normal adnexa, no adnexal or cervical motion tenderness. Normal uterus. Female : Normal external genitalia. Skin: Warm, dry with normal turgor. Normal color with no rashes, no lesions, and no evidence of cellulitis. MS/ Extremity: Pulses equal, no cyanosis. Neurovascular intact. Full, normal range of motion., bilateral aka Neuro: Awake and alert, GCS 15, oriented to person, place, time, and situation. Cranial nerves II-XII grossly intact. Motor strength 5/5 in all extremities. Sensory grossly intact. Cerebellar exam normal. Normal gait. Psych: Awake, alert, with orientation to person, place and time. Behavior, mood, and affect are within normal limits. 20:53 Cardiovascular: Rate: normal, actual rate is 103 bpm, Rhythm: regular, Pulses: Pulses are 4+ in bilateral radial, brachial, femoral, popliteal, posterior tibial and and dorsalis pedis arteries.. Heart sounds: normal, Edema: is not appreciated, JVD: is not appreciated, 20:53 ECG was reviewed by the Attending Physician. 20:53 Abdomen/GI: Inspection: distension, that is moderate, Bowel sounds: normal, Palpation: mild abdominal tenderness, in all quadrants, Liver: no appreciated palpable abnormalities, Hernia: not appreciated, 20:53 Musculoskeletal/extremity: DVT Exam: No signs of deep vein thrombosis. no pain, no swelling, no tenderness, negative Homans' sign noted on exam, no appreciated bluish discoloration, no erythema, no increased warmth, Vital Signs: 19:17 BP 111 / 79; Pulse 110; Resp 22; Pulse Ox 97% ; Weight 61.23 kg; Height 5 ft. 9 in. ; br2 Pain 8/10; 20:20 BP 113 / 80; Pulse 103; Resp 22; Pulse Ox 96% on R/A; kd3 21:07 Temp 98.2(O); kd3 23:10 BP 111 / 84; Pulse 87; Resp 19; Pulse Ox 98% on R/A; kd3 19:17 Body Mass Index 19.94 (61.23 kg, 175.26 cm) br2 19:17 Pain Scale: Adult br2 MDM: 19:24 Medical Screening Exam initiated juan carlos 20:55 Differential diagnosis: Anemia Anxiety Reaction asthma, CHF exacerbation, Myocardial juan carlos Infarction pneumonia, Pneumothorax Psychogenic pulmonary edema, Pulmonary Embolism reactive airway disease, Sepsis Unstable Angina acute coronary syndrome, appendicitis, bowel obstruction, cholecystitis, Cholelithiasis, diverticulitis, Dysmenorrhea, Ectopic , gastritis, gastroesophageal reflux disease, GI Bleed, Hepatitis, Mesenteric ischemia or infarction, non-specific abd pain, Peptic Ulcer Disease, Perf. Gastric Ulcer, Ureterolithiasis, urinary tract infection. Antibiotic administration: rocephin. Differential Diagnosis altered mental status. Immunization status:. Data reviewed: vital signs, nurses notes, lab test result(s), EKG, radiologic studies, CT scan, plain films. Consideration of Admission/Observation Escalation of care including admission/observation considered. I considered the following discharge prescriptions or medication management in the emergency department Medications were administered in the Emergency Department. See MAR. Independent interpretation of the following test(s) in the Emergency Department EKG: See my EKG interpretation above. 20:59 Post IV fluid administration reassessment for Sepsis: Client not prescribed the 30 juan carlos mL/kg IVF due to: concern for fluid overload. tense ascites. 07/02 19:22 Order name: Basic Metabolic Panel; Complete Time: 20:38 [facility] 07/02 19:22 Order name: CBC with Diff [facility] 07/02 19:22 Order name: LFT's; Complete Time: 20:38 [facility] 07/02 19:22 Order name: Magnesium; Complete Time: 20:38 [facility] 07/02 19:22 Order name: NT PRO-BNP; Complete Time: 20:38 [facility] 07/02 19:22 Order name: PT-INR; Complete Time: 21:06 [facility] 07/02 19:22 Order name: Troponin HS; Complete Time: 20:38 [facility] 07/02 19:22 Order name: Lipid Profile; Complete Time: 20:38 [facility] 07/02 19:22 Order name: Lipase; Complete Time: 20:38 [facility] 07/02 19:22 Order name: AMMONIA; Complete Time: 20:38 [facility] 07/02 19:22 Order name: Acetaminophen; Complete Time: 20:38 [facility] 07/02 19:22 Order name: ETOH Level; Complete Time: 20:38 [facility] 07/02 19:22 Order name: Ptt, Activated; Complete Time: 21:06 [facility] 07/02 19:22 Order name: Salicylate [facility] 07/02 19:22 Order name: Blood Culture Adult (2) [facility] 07/02 19:22 Order name: Lactate w/ 2H reflex if indic.; Complete Time: 20:48 [facility] 07/02 20:30 Order name: CBC Smear Scan [facility] 07/02 20:43 Order name: Ghost Lactate-NO COLLECT Timer [facility] 07/02 19:22 Order name: XRAY Chest (1 view); Complete Time: 21:06 [facility] 07/02 19:22 Order name: CT Chest Abdomen Pelvis W/O Contrast; Complete Time: 21:06 [facility] 07/02 19:22 Order name: EKG; Complete Time: 19:23 [facility] 07/02 19:22 Order name: Cardiac monitoring; Complete Time: 20:19 [facility] 07/02 19:22 Order name: EKG - Nurse/Tech; Complete Time: 20:37 [facility] 07/02 19:22 Order name: IV Saline Lock; Complete Time: 20:18 juan carlos 07/02 19:22 Order name: Labs collected and sent; Complete Time: 20:18 juan carlos 07/02 19:22 Order name: O2 Per Protocol; Complete Time: 20:18 juan carlos 07/02 19:22 Order name: O2 Sat Monitoring; Complete Time: 20:18 juan carlos 07/02 19:22 Order name: Suicide Screening ([place]); Complete Time: 20:35 juan carlos EC:53 Rate is 85 beats/min. Rhythm is regular. QRS [place] is Normal. CT interval is normal. QRS juan carlos interval is normal. QT interval is normal. No Q waves. T waves are Normal. No ST changes noted. Clinical impression: Normal ECG and No evidence of ischemia. Interpreted by me. Reviewed by me. Administered Medications: 20:35 Drug: Rocephin IV 1 grams IV at per protocol once; Given slow IV push per pharmacy kd3 instructions Route: IV; Rate: per protocol; Site: left upper arm; 22:50 Follow up: IV Status: Completed infusion kd3 20:49 Drug: Pantoprazole IVP 40 mg IVP once Route: IVP; Site: left upper arm; kd3 22:50 Follow up: Response: No adverse reaction kd3 21:16 Drug: NS 0.9% IV (30 ml/kg) 30 ml/kg IV at bolus once; Sepsis Protocol; to be given as kd3 a bolus over 90 minutes Route: IV; Rate: bolus; Site: left upper arm; 22:46 Follow up: IV Status: Completed infusion kd3 22:50 Drug: Phytonadione IM 10 mg IM once Route: IM; Site: left gluteus; kd3 23:10 Drug: Ondansetron IVP 4 mg IVP once; over 2 minutes Route: IVP; Site: left upper arm; kd3 Disposition: 21:00 Critical Care:. juan carlos Disposition Summary: 07/02/25 20:59 Transfer Ordered Notes: Transfer Location: [facility] juan carlos Reason: Higher level of care juan carlos Condition: Fair juan carlos Problem: an ongoing problem juan carlos Symptoms: have worsened juan carlos Accepting Physician: to [facility](07/02/25 23:12) kd3 Diagnosis - Pleural effusion in other conditions classified elsewhere - right moderate juan carlos - Alcoholic cirrhosis of liver with ascites juan carlos - Alcohol abuse with intoxication juan carlos - Alcohol dependence juan carlos - Severe sepsis without septic shock juan carlos Forms: - Medication Reconciliation Form juan carlos - SBAR form juan carlos Critical care time excluding procedures: 21:00 Critical care time: Bedside Care: 25 minutes, Consultation: 20 minutes, Family juan carlos Intervention: 5 minutes. Total time: 50 minutes Signatures: Dispatcher [employer] EDMS Renato Ace MD MD cha Doucette, Kyli, RN RN kd3 Luz Marina London RN RN br2 Corrections: (The following items were deleted from the chart) 19:23 19:23 BASIC METABOLIC PANEL+C.LAB.BRZ ordered. EDMS EDMS 19:23 19:23 CBC+H.LAB.BRZ ordered. EDMS EDMS 19:23 19:23 HEPATIC FUNCTION+C.LAB.BRZ ordered. EDMS EDMS 19:23 19:23 MAGNESIUM+C.LAB.BRZ ordered. EDMS EDMS 19:23 19:23 PROBNP+C.LAB.BRZ ordered. EDMS EDMS 19:23 19:23 PROTIME (+INR)+COAG.LAB.BRZ ordered. EDMS EDMS 19:23 19:23 Troponin High Sensitivity+C.LAB.BRZ ordered. EDMS EDMS 19:23 19:23 LIPID PROFILE+C.LAB.BRZ ordered. EDMS EDMS 19:23 19:23 LIPASE+C.LAB.BRZ ordered. EDMS EDMS 19:23 19:23 AMMONIA+C.LAB.BRZ ordered. EDMS EDMS 19:23 19:23 ACETAMINOPHEN+C.LAB.BRZ ordered. EDMS EDMS 19:23 19:23 ETHANOL+C.LAB.BRZ ordered. EDMS EDMS 19:23 19:23 PTT, ACTIVATED+COAG.LAB.BRZ ordered. EDMS EDMS 19:23 19:23 SALICYLATE+C.LAB.BRZ ordered. EDMS EDMS 19:23 19:23 URINE DRUG SCREEN+UC.LAB.BRZ ordered. EDMS EDMS 19:23 19:23 BLOOD CULTURE*+BA.LAB.BRZ ordered. EDMS EDMS 19:23 19:23 LACTATE+C.LAB.BRZ ordered. EDMS EDMS 23:12 20:59 to [facility] juan carlos kd3
--- NOTE | 2025-07-02 20:59 | ER ---
Nurse's Notes [facility] Name: Rylee Thomas Age: 39 yrs Sex: Female : 1985 Arrival Date: 07/02/2025 Time: 18:57 Bed 7 Private MD: Diagnosis: Pleural effusion in other conditions classified elsewhere-right moderate;Alcoholic cirrhosis of liver with ascites;Alcohol abuse with intoxication;Alcohol dependence;Severe sepsis without septic shock Presentation: 07/02 19:17 Chief complaint: Patient states: SOB AND AB PAIN. PT STATES SHE IS OVERDUE FOR br2 PARACENTESIS AND THORACENTESIS 1 WEEK. Coronavirus screen: Client denies travel out of the [place] in the last 14 days. Ebola Screen: Patient denies exposure to infectious person. Initial Sepsis Screen: Does the patient meet any 2 criteria? No. Patient's initial sepsis screen is negative. Does the patient have a suspected source of infection? No. Patient's initial sepsis screen is negative. Risk Assessment: Do you want to hurt yourself or someone else? Patient reports no desire to harm self or others. Onset of symptoms is unknown. 19:17 Method Of Arrival: Wheelchair br2 19:17 Acuity: NIDHI 3 br2 Triage Assessment: 19:21 General: Appears in no apparent distress. comfortable, Behavior is calm, cooperative. br2 Pain: Complains of pain in chest and abdomen Pain currently is 7 out of 10 on a pain scale. Historical: - Allergies: 19:21 No Known Allergies; br2 - PMHx: 19:21 cirrhosis of liver; Endometriosis of vagina; scoliosis; br2 - PSHx: 19:21 L leg surgery; partial hysterectomy; br2 - Immunization history:: Adult Immunizations up to date. - Infectious Disease History:: Denies. - Social history:: Smoking status: Patient uses alcohol, occasionally. Patient/guardian denies using street drugs. Screenin:20 [facility] ED Fall Risk Assessment (Adult) History of falling in the last 3 months, kd3 including since admission No falls in past 3 months (0 pts) Confusion or Disorientation No (0 pts) Intoxicated or Sedated No (0 pts) Impaired Gait No (0 pts) Mobility Assist Device Used No (0 pt) Altered Elimination No (0 pt) Score/Fall Risk Level 0 - 2 = Low Risk Maintained a safe environment. Abuse screen: Denies threats or abuse. Denies injuries from another. Nutritional screening: No deficits noted. Tuberculosis screening: No symptoms or risk factors identified. Assessment: 20:19 General: Appears in no apparent distress. Behavior is calm, cooperative. Neuro: Level kd3 of Consciousness is awake, alert, obeys commands, Oriented to person, place, time, situation. Cardiovascular: Capillary refill < 3 seconds Patient's skin is warm and dry. Respiratory: Airway is patent Trachea midline Respiratory effort is even, unlabored, Respiratory pattern is regular, symmetrical. GI: Bowel sounds diminished in right upper quadrant, left upper quadrant, right lower quadrant and left lower quadrant DISTENDED. Psych: 20:35 [place] Suicide Severity Screening: In the past month, have you wished you were kd3 or wished you could go to sleep and not wake up? Patient responds "No." "In the past month, have you actually had any thoughts of killing yourself?" Patient responds "no." "In your lifetime, have you ever done anything, started to do anything, or prepared to do anything to end your life?" Patient responds "no.". Subjective: Delusions are denied, Hallucinations are denied. Objective: Patient is cooperative. Interventions: THERAPEUTIC COMMUNICATION. Vital Signs: 19:17 BP 111 / 79; Pulse 110; Resp 22; Pulse Ox 97% ; Weight 61.23 kg; Height 5 ft. 9 in. ; br2 Pain 8/10; 20:20 BP 113 / 80; Pulse 103; Resp 22; Pulse Ox 96% on R/A; kd3 21:07 Temp 98.2(O); kd3 23:10 BP 111 / 84; Pulse 87; Resp 19; Pulse Ox 98% on R/A; kd3 19:17 Body Mass Index 19.94 (61.23 kg, 175.26 cm) br2 19:17 Pain Scale: Adult br2 ED Course: 18:59 Patient arrived in ED. cj3 19:19 Renato Ace MD is Attending Physician. juan carlos 19:21 Triage completed. br2 19:21 Arm band placed on right wrist. br2 19:29 Liz Yao, SCARLETT is Primary Nurse. kd3 20:00 Inserted saline lock: 20 gauge in left upper arm, using aseptic technique. Blood kd3 collected. 20:00 No provider procedures requiring assistance completed. kd3 20:09 CT Chest Abdomen Pelvis W/O Contrast In Process Unspecified. EDMS 20:09 Basic Metabolic Panel Sent. br2 20:09 CBC with Diff Sent. br2 20:09 LFT's Sent. br2 20:09 Magnesium Sent. br2 20:09 NT PRO-BNP Sent. br2 20:09 PT-INR Sent. br2 20:09 Troponin HS Sent. br2 20:18 Lactate w/ 2H reflex if indic. Sent. kd3 20:18 Blood Culture Adult (2) Sent. kd3 20:18 Acetaminophen Sent. kd3 20:18 ETOH Level Sent. kd3 20:18 Ptt, Activated Sent. kd3 20:18 Salicylate Sent. kd3 20:18 AMMONIA Sent. kd3 20:18 Lipase Sent. kd3 20:18 Lipid Profile Sent. kd3 20:18 Troponin HS Sent. kd3 20:18 NT PRO-BNP Sent. kd3 20:18 Magnesium Sent. kd3 20:18 LFT's Sent. kd3 20:18 CBC with Diff Sent. kd3 20:18 Basic Metabolic Panel Sent. kd3 20:33 XRAY Chest (1 view) In Process Unspecified. EDMS 20:48 initiated transfer with [facility]. kmf 21:10 pt was accepted to [facility]. Accepting Serenity Sánchez \\[id number]\\ [id number]. Accepting admin Polly Pruitt \\[id number]. Mode ems to transfer pt. 23:11 Patient has correct armband on for positive identification. Provided Education on: kd3 ALCOHOL CONSUMPTION . 23:11 Patient transferred, IV remains in place. kd3 Administered Medications: 20:35 Drug: Rocephin IV 1 grams IV at per protocol once; Given slow IV push per pharmacy kd3 instructions Route: IV; Rate: per protocol; Site: left upper arm; 22:50 Follow up: IV Status: Completed infusion kd3 20:49 Drug: Pantoprazole IVP 40 mg IVP once Route: IVP; Site: left upper arm; kd3 22:50 Follow up: Response: No adverse reaction kd3 21:16 Drug: NS 0.9% IV (30 ml/kg) 30 ml/kg IV at bolus once; Sepsis Protocol; to be given as kd3 a bolus over 90 minutes Route: IV; Rate: bolus; Site: left upper arm; 22:46 Follow up: IV Status: Completed infusion kd3 22:50 Drug: Phytonadione IM 10 mg IM once Route: IM; Site: left gluteus; kd3 23:10 Drug: Ondansetron IVP 4 mg IVP once; over 2 minutes Route: IVP; Site: left upper arm; kd3 Medication: 20:20 VIS not applicable for this client. kd3 Outcome: 20:59 ER care complete, transfer ordered by MD. rangel 23:11 Transferred by ground EMS to [facility], [facility] [place] kd3 23:11 Condition: stable 23:11 Discharge instructions given to patient, Instructed on the need for transfer, Demonstrated understanding of instructions, 23:12 Patient left the ED. kd3 Signatures: Dispatcher [employer] Renato Monzon MD MD cha Doucette, Kyli, RN RN kd3 Liz Brito Belinda, RN RN br2 Sylvie Ken 3
--- NOTE | 2025-07-02 21:03 | RAD REPORT ---
EXAM: CT CHEST, ABDOMEN AND PELVIS WITHOUT CONTRAST CLINICAL INDICATION: Abdominal distention;Cough;Dyspnea TECHNIQUE: CT chest, abdomen and pelvis was performed without contrast, as per department protocol. A xial, sagittal and coronal reconstructions were obtained. One or more of the following dose reduction techniques were used: Automated exposure control, adjustment of the mA and/or kV according to patient size, and/or iterative reconstruction. Unless otherwise specified, incidental findings do not require dedicated imaging follow-up. Examination is limited by the lack of intravenous contrast material. COMPARISON: 06/24/2025 FINDINGS: LUNGS: Left lung appears grossly clear. Aerated medial right upper lobe with atelectasis of the major ity of the right lung. PLEURA: Large right pleural effusion exerting mass effect on the cardiomediastinal with shift to the left. MEDIASTINUM AND LYMPH NODES: The heart and mediastinum are shifted moderately to the left. OSSEOUS STRUCTURES AND CHEST WALL: Intact. LIVER: Normal in size and contour. No focal lesion or biliary dilatation. Cholelithiasis. PANCREAS: No mass, ductal dilation, or esther-pancreatic fluid. SPLEEN: Normal size. No focal lesion. ADRENALS: Normal; no mass. KIDNEYS: Normal size and contour. No hydronephrosis. URINARY BLADDER: Normal contour. GASTROINTESTINAL TRACT: There is a large amount of ascites. No bowel obstruction. APPENDIX: Appendix not visualized, but no inflammatory changes in region of appendix. LYMPH NODES: No lymphadenopathy. MUSCULOSKELETAL: Thoracic spine scoliosis hardware. OTHER: Moderate anasarca. IMPRESSION: Large right pleural effusion with near complete right lung atelectasis, with significant cardiomedias tinal shift towards the left. Large volume ascites. Suspected cholelithiasis. Anasarca.
--- NOTE | 2025-07-02 21:05 | RAD REPORT ---
EXAMINATION: ONE VIEW CHEST XR CLINICAL INDICATION: ABDOMINAL DISTENTION TECHNIQUE: Frontal chest projection is submitted. Examination is limited by patient positioning and t echnique. COMPARISON: 06/07/2025 FINDINGS: Large right pleural effusion with a small amount of aerated lung in the medial right upper lobe. Ther e is moderate shift of the cardiomediastinal structures to the left. Clear left lung. No displaced fractures identified. Spinal scoliosis hardware.
[2025-07-02] MEDS ORDERED: NA CHLORIDE 0.9% 2,000 ML ONE (21:13)
[2025-07-02 21:14] LABS: Anisocytosis 1+; Blood Morphology Comment NOTED (NOT SEEN); Macrocytosis SLIGHT; Microcytosis SLIGHT; Ovalocytes SLIGHT; White Blood Cell Scan OK (OK)
[2025-07-02] MEDS ORDERED: VITAMIN K (ADULT) 10 MG/ML ONE (22:42)
[2025-07-02] MEDS ORDERED: ONDANSETRON 4 MG/2 ML VIAL ONE (23:07)
[2025-07-03 08:41] VITALS: TEMP 98.2
[2025-07-03 08:43] VITALS: BP 111/84; O2SAT 98
== END 2025-07-02 23:12 | disposition short-term general hospital (02) ==
LOC: ER 18:57
DX: J90 Pleural effusion, not elsewhere classified (principal); R65.20 Severe sepsis without septic shock; R10.9 Unspecified abdominal pain; R51.9 Headache, unspecified; K70.30 Alcoholic cirrhosis of liver without ascites; F10.129 Alcohol abuse with intoxication, unspecified; Y90.8 Blood alcohol level of 240 mg/100 ml or more
CPT/HCPCS: 36415; 71045; 71250; 74176; 80048; 80061; 80076; 80143; 80179; 82077; 82140; 83605; 83690; 83735; 83880; 84484; 85025; 85610; 85730; 87040; 87205; 93005; 96365; 96372; 96375; 99285; J0696; J2405; J2470; J3430; J7030